=== PATIENT | male | born 1955 | race Caucasian/White ===

== ENCOUNTER → 2022-09-16 | Outpatient (CLI) | payer MEDICARE, OTHER, SELFPAY ==
[2022-09-16 08:59] LABS: AST(SGOT) 26 U/L (15-37); Alanine Aminotransfer ALT/SGPT 38 U/L (16-61); Albumin, Serum 3.6 g/dL (3.2-5.0); Alkaline Phosphatase 50 U/L (45-117); Anion Gap 4 (5-15); BUN 19 mg/dL (7-18); BUN/Creat Ratio 21.6 RATIO (10-20); Calcium,Total 9.1 mg/dL (8.5-10.1); Chloride 108 mmol/L (98-107); Creatinine, Serum 0.88 mg/dL (0.70-1.30); EST Glomerular Filtration Rate 92 mL/min (>60); Est Glom Filt Rate - Afr Amer 111 mL/min (>60); Globulin 3.6 g/dL (2.2-4.2); Glucose 93 mg/dL (74-106); Protein, Total 7.2 g/dL (6.4-8.2); Sodium Level 139 mmol/L (136-145); Uric Acid 5.2 mg/dL (3.5-7.2)
== END | disposition home or self-care (01) ==
PROVIDERS: PCP Family Medicine; Visit Provider Family Medicine
DX: E78.5 Hyperlipidemia, unspecified (principal); M10.9 Gout, unspecified
CPT/HCPCS: 36415; 80053; 84550

== ENCOUNTER 2023-01-28 07:30 | Outpatient (RCR) | payer MEDICARE, OTHER, SELFPAY ==
--- NOTE | 2023-01-06 09:07 | HP.PTEVAL_ITS ---
Patient's Visit Information Visit Information Visit Information: RYAN RODRIGUEZ is a 67 year old M referred to Physical Therapy by Dr. Jl Kirby MD with a diagnosis of WEAKNESS OF RIGHT LOWER LEG ,RIGHT FOOT DROP. Date of Evaluation: 01/06/23 Physical Therapist: Bill Davis, PT, Cert MDT, OCS Visit Plan Frequency: 2x /Week Duration: 4 Weeks Plan: PT INTERVTIONS BLE STRENGTHENING ESPECIALLY QUADS/HIP/ ANKLE ,FLEXABLITY HIP/HAMSTRING/G-S,FUNCTIONAL STRENGTHENING AND BALANCE PROGRAM Subjective Subjective: This 67 y/o male presents to physical therapy with right LE weakness. Patient has had right leg weakness several years .Patient has has knee pain several years need patella surgery. Patient seen DR and has weakness right anterior tibialis. Patient has no pain medication. Patient has no diagnostics, Patient denies paresthesia/tingling . Patient is unable to squat /kneel. Patient has difficulty with stairs . Patient has difficulty with balance . No recent falls. Patient goals to get stronger. Patient condition affects QOL and function. 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 Objective Objective: POSTURE: mild forward posture GAIT: ambulates with slight decrease DF with weakness PROPRIOCEPTION: SLS unable NEURO: intact FLEXABLITY : G-S mod tight ,hamstrings mod ,piriformis mod tight ,IR mod/severe tight STAIRS: one step with rail MMT: ( peak force) quads 33.7 right ,left 32.5 ,hip abduction 20 .4 right ,21.8 left ,anterior tibialis 13.8 ,right ,left 13.2 Special Tests L/S Slump test left side: Negative L/S Slump test right side: Negative L/S Left Straight Leg Raise: Negative L/S Right Straight Leg Raise: Negative Lumbar Standing: Flexion - Mechanical Response: No effect Lumbar Standing: Flexion - Symptoms During Testing: No effect Lumbar Standing: Flexion - Symptoms After Testing: No effect Lumbar Standing: Extension - Mechanical Response: No effect Lumbar Standing: Extension - Symptoms During Testing: No effect Lumbar Standing: Extension - Symptoms After Testing: No effect Lumbar Standing: Right Side Glides - Mechanical Response: No effect Lumbar Standing: Right Side Guthrie - Symptoms During Testing: No effect Lumbar Standing: Right Side Guthrie - Symptoms After Testing: No effect Lumbar Standing: Left Side Guthrie - Mechanical Response: No effect Lumbar Standing: Left Side Guthrie - Symptoms During Testing: No effect Lumbar Standing: Left Side Guthrie - Symptoms After Testing: No effect Balance/Special Test Scores CATSIB Score (Max score 120 seconds): 90 Lower Extremity Functional Score: 35 Goals Goal 1:: Patient to be I with HEP for strengtheming Goal Time Frame: 4-6 Weeks Goal 2:: Patient to improve SLS by 10-20 seconds to improve balance Goal Time Frame: 4-6 Weeks Goal 3:: Patient to improve peak force quads/ankle DF and hip abd by 10-15 # strength to improve gait Goal Time Frame: 4-6 Weeks Goal 4:: Patient to improve LFES score by 5-10points to improve gait Goal Time Frame: 4-6 Weeks Goal 5:: Patient improve gait pattern heel strike 75% by improve DF Rehabilitation Potential Physical Therapy Diagnosis: This patient weakness in BLE hips ,ankle dorsiflexion and quads , balance deficits on uneven surfaces impairs gait thus benefit from skilled PT Rehabilitation Potential: Good Anticipated Interventions Patient/Client Instruction: Educate patient on: Condition and Plan of Care For the Purpose of:: To decrease pain, To increase ROM, To improve muscle performance and motor function, To increase tolerance to activity/condition/position, To improve ability of physical actions for home/community/work/leisure, To improve gait and locomotor functions, To improve health of tissue, To decrease soft tissue restriction, To increase flexibility/ROM, To improve endurance, To improve balance and To improve tolerance to ADL's Therapeutic Exercise to Include: Strength training, Endurance training, Balance training, Postural training, Passive ROM and Active ROM Comment: BLE For the Purpose of:: To decrease pain, To increase ROM, To improve muscle performance and motor function, To improve ability to perform ADL's, To increase tolerance to activity/condition/position, To improve ability of physical actions for home/community/work/leisure, To improve gait and locomotor functions, To improve health of tissue, To decrease soft tissue restriction, To increase flexibility/ROM, To improve endurance and To improve balance Text: Thank you for the opportunity to evaluate your patient. For Medicare and Medicare HMO plans, please review the plan of care and approve it. It will need to be FAXED BACK to us at [phone] for Medicare purposes. For Medicare only, by signing this I certify the plan of care. Please let me know if there are questions or concerns regarding this plan of care. Physician Signature: Date:
== END 2023-01-28 19:00 | disposition home or self-care (01) ==
LOC: PT 07:30
PROVIDERS: PCP Internal Medicine; Referring Provider Family Medicine; Visit Provider Family Medicine
DX: R29.898 Other symptoms and signs involving the musculoskeletal system (principal); M21.371 Foot drop, right foot
CPT/HCPCS: 97110; 97162

== ENCOUNTER → 2023-05-04 | Outpatient (CLI) | payer MEDICARE, OTHER, SELFPAY ==
[2023-05-04 12:33] LABS: Absolute Lymphocyte Count 0.93 X10^3/uL (0.83-4.51); Absolute Neutrophil Count 2.7 X10^3/uL (2.0-7.7); Basophil# 0.07 X10^3/uL; Basophil% 1.6 % (0-1); Eosinophil# 0.19 X10^3/uL; Eosinophils% 4.3 % (0-5); Hematocrit 48.3 % (40-54); Lymphocyte # 0.93 X10^3/ul (0.83-4.51); Mean Corp Hgb Conc 33.1 g/dL (32-36); Mean Corpuscular Hgb 32.7 pg (27.0-32.0); Mean Corpuscular Volume 98.6 fL (80-94); Mean Platelet Vol. 9.2 fl (6.2-12.0); Monocyte# 0.56 X10^3/uL; Monocyte% 12.6 % (0-10); NRBC Flagged by Analyzer 0 % (0-5); Neutrophil # 2.66 X10^3/uL (2.7-7.7); Platelet Count 227 K/mm3 (150-450); RBC Distribution Width CV 12.8 % (11.6-14.6); White Blood Count 4.4 K/mm3 (4.4-11.0)
[2023-05-04 13:30] LABS: AST(SGOT) 24 U/L (15-37); Alanine Aminotransfer ALT/SGPT 51 U/L (16-61); Albumin, Serum 3.6 g/dL (3.2-5.0); Alkaline Phosphatase 60 U/L (45-117); Anion Gap 4 (5-15); BUN 16 mg/dL (7-18); BUN/Creat Ratio 18.8 RATIO (10-20); Calcium,Total 8.8 mg/dL (8.5-10.1); Chloride 111 mmol/L (98-107); Cholesterol 128 mg/dL (200); Creatinine, Serum 0.85 mg/dL (0.70-1.30); EST Glomerular Filtration Rate 95 mL/min (>60); Est Glom Filt Rate - Afr Amer 115 mL/min (>60); Globulin 3.6 g/dL (2.2-4.2); Glucose 104 mg/dL (74-106); High Density Lipoprotein 33 mg/dL; Protein, Total 7.2 g/dL (6.4-8.2); Sodium Level 142 mmol/L (136-145); Triglycerides 65 mg/dL; Uric Acid 4.5 mg/dL (3.5-7.2); Very Low Density Lipoprotein 13 mg/dL (5-40)
[2023-05-04 14:56] LABS: Vitamin D,25 Hydroxy 45.1 ng/mL
== END | disposition home or self-care (01) ==
LOC: BIMLAB 09:35
PROVIDERS: PCP Internal Medicine; Visit Provider Internal Medicine
DX: E55.9 Vitamin D deficiency, unspecified (principal); I10 Essential (primary) hypertension; Z12.5 Encounter for screening for malignant neoplasm of prostate
CPT/HCPCS: 36415; 80053; 80061; 82306; 84153; 84550; 85025; G0103

== ENCOUNTER → 2023-11-11 | Outpatient (CLI) | payer MEDICARE, OTHER, SELFPAY | END | disposition home or self-care (01) | LOC: SL 19:57 | PROVIDERS: PCP Internal Medicine; Referring Provider Internal Medicine; Visit Provider Internal Medicine | DX: G47.33 Obstructive sleep apnea (adult) (pediatric) (principal) | CPT/HCPCS: 95811 ==

== ENCOUNTER 2023-12-02 08:00 | Outpatient (RCR) | payer MEDICARE, OTHER, SELFPAY ==
--- NOTE | 2023-11-09 10:23 | HP.PTEVAL ---
Patient's Visit Information Visit Information Visit Information: RYAN RODRIGUEZ is a 68 year old M referred to Physical Therapy by Dr. Niurka Lopes DPM with a diagnosis of Drop foot.. Date of Evaluation: 11/09/23 Physical Therapist: Violet Silver MPT Visit Plan Frequency: 2x /Week Duration: 2 Months Plan: 2X/ week for 8 weeks for B ankle stretching (active and passive), strengthening, gait training, balance (EO//EC, foam. vestibular inputs, hip strength (avoid leg extension and leg presses due to bad knees, with HEP) HEP: sit to stand 2 X 5 with weight shift FW, gastroc towel stretch, seated heel and toe raises Subjective Subjective: Pt has been struggling with R foot dropping when he walks. His foot Dr thinks that we can help him out. He was here for balance not too long ago but he had to stop due to injury to his knee. He is a prime candidate for knee cap replacement but does not want surgery. He thinks that single leg press aggravated his knee. He just moved here and getting caught up and he is retired. Dr feels that he has muscle weakness in his shins. Now he can hardly move his feet. His balance is the worst when he gets up in the morning and sometimes he keeps stepping BW to catch himself. He has to reach to the floor slowly to prevent him from falling over. He has stairs. Objective Objective: Gait: Walks with wider ANIYA and decrease heel to to gait pattern especially on the R Not able tp stand greater than 1 sec SLB B LE MMT: R hip flex 15.3 and L 16.4 R knee ext 28.5 and L 30.7 R knee flex 14.6 and L 14.4 R DF 4 and L 10.3 R PF 11.4 and L 13.6 Pt is unable to toe raise B. He is able to heel raise B with 1/2 normal ROM FGA 13 CATSIB 70/120 Sit to stand: is able to get up on first attempt put does use UE at times. Pt has decrease ankle DF B worse on the R compared to the L Balance/Special Test Scores Functional Gait Assessment Score: 13 % Disability: 56.6700 CATSIB Score (Max score 120 seconds): 70 Lower Extremity Functional Score: 48 Goals Goal 1:: I HEP Goal Time Frame: 6-8 Weeks Goal 2:: Increase CATSIB (score at eval was 70) Goal Time Frame: 6-8 Weeks Goal 3:: Increase R ankle AROM to be able to raise to neutral against gravity in a sitting position Goal Time Frame: 6-8 Weeks Goal 4:: Be able to walk with more of a heel to toe gait pattern without having toe slap. Goal Time Frame: 6-8 Weeks Rehabilitation Potential Rehabilitation Potential: Good Anticipated Interventions Patient/Client Instruction: Educate patient on: Condition and Plan of Care For the Purpose of:: To decrease pain, To increase ROM, To improve nutrient delivery to tissue, To improve muscle performance and motor function, To improve ability to perform ADL's, To increase tolerance to activity/condition/position, To improve performance and independence with ADL's, To decrease level of supervision to perform tasks, To improve ability of physical actions for home/community/work/leisure, To improve gait and locomotor functions, To improve health of tissue, To decrease soft tissue restriction and To increase flexibility/ROM Therapeutic Exercise to Include: Strength training, Balance training, Postural training, Flexibilty training, Gait and locomotor training, Neuromotor development, Passive ROM and Active ROM For the Purpose of:: To decrease pain, To increase ROM, To improve nutrient delivery to tissue, To improve muscle performance and motor function, To improve ability to perform ADL's, To increase tolerance to activity/condition/position, To improve performance and independence with ADL's, To decrease level of supervision to perform tasks, To improve gait and locomotor functions, To improve health of tissue, To decrease soft tissue restriction, To increase flexibility/ROM, To improve balance and To improve safety with gait Functional Training to Include: Gait training For the Purpose of:: To improve gait and locomotor functions and To improve safety with gait Manual Therapy Techniques to Include: Mobilization, Passive ROM and Soft tissue mobilization For the Purpose of:: To increase ROM, To improve nutrient delivery to tissue, To improve muscle performance and motor function, To improve ability to perform ADL's, To improve performance and independence with ADL's, To decrease level of supervision to perform tasks, To improve ability of physical actions for home/community/work/leisure, To improve gait and locomotor functions, To improve health of tissue, To increase flexibility/ROM, To improve balance and To improve safety with gait Text: Thank you for the opportunity to evaluate your patient. For Medicare and Medicare HMO plans, please review the plan of care and approve it. It will need to be FAXED BACK to us at [phone] for Medicare purposes. For Medicare only, by signing this I certify the plan of care. Please let me know if there are questions or concerns regarding this plan of care. Physician Signature: Date:
--- NOTE | 2024-01-21 13:28 | HP.PT.NRP ---
Patient Information Patient Information: RYAN RODRIGUEZ was seen in my office for initial evaluation on 11/09/23. The following Plan of Care was established for this patient: POC Established Initial Frequency: 2x /Week Initial Duration: 2 Months Anticipated Interventions Patient/Client Instruction: Educate patient on: Condition and Plan of Care For the Purpose of:: To decrease pain, To increase ROM, To improve nutrient delivery to tissue, To improve muscle performance and motor function, To improve ability to perform ADL's, To increase tolerance to activity/condition/position, To improve performance and independence with ADL's, To decrease level of supervision to perform tasks, To improve ability of physical actions for home/community/work/leisure, To improve gait and locomotor functions, To improve health of tissue, To decrease soft tissue restriction and To increase flexibility/ROM Therapeutic Exercise to Include: Strength training, Balance training, Postural training, Flexibilty training, Gait and locomotor training, Neuromotor development, Passive ROM and Active ROM For the Purpose of:: To decrease pain, To increase ROM, To improve nutrient delivery to tissue, To improve muscle performance and motor function, To improve ability to perform ADL's, To increase tolerance to activity/condition/position, To improve performance and independence with ADL's, To decrease level of supervision to perform tasks, To improve gait and locomotor functions, To improve health of tissue, To decrease soft tissue restriction, To increase flexibility/ROM, To improve balance and To improve safety with gait Functional Training to Include: Gait training For the Purpose of:: To improve gait and locomotor functions and To improve safety with gait Manual Therapy Techniques to Include: Mobilization, Passive ROM and Soft tissue mobilization For the Purpose of:: To increase ROM, To improve nutrient delivery to tissue, To improve muscle performance and motor function, To improve ability to perform ADL's, To improve performance and independence with ADL's, To decrease level of supervision to perform tasks, To improve ability of physical actions for home/community/work/leisure, To improve gait and locomotor functions, To improve health of tissue, To increase flexibility/ROM, To improve balance and To improve safety with gait Last Seen Last Seen: This patient was last seen in our office 12/02/23. Pertinent comments regarding their Physical therapy will appear below: CARA PT At this point I will be discontinuing this patient from physical therapy. I would be happy to see this patient again in the future if found appropriate by the physician. Thank you! Violet Silver, PANFILO Balance/Gait/Functional tests Balance/Special Test Scores Functional Gait Assessment Score: 13 % Disability: 56.6700 CATSIB Score (Max score 120 seconds): 70 Lower Extremity Functional Score: 48
== END 2023-12-02 19:00 | disposition home or self-care (01) ==
LOC: PT 08:00
PROVIDERS: PCP Internal Medicine; Referring Provider Podiatrist; Visit Provider Podiatrist
DX: M21.379 Foot drop, unspecified foot (principal)
CPT/HCPCS: 97110; 97162

== ENCOUNTER 2024-02-09 09:53 | Emergency (ER) | payer MEDICARE, OTHER, SELFPAY ==
[2024-02-09] VITALS (8 sets, daily range): BP systolic 122–142; BP diastolic 84–103; PULSE 59–67; RESP 17–22; TEMP 36; O2SAT 94–97
--- NOTE | 2024-02-09 10:13 | EKG12_ITS ---
Test Reason : CP Blood Pressure : / mmHG Vent. Rate : 061 BPM Atrial Rate : 061 BPM P-R Int : 182 ms QRS Dur : 096 ms QT Int : 402 ms P-R-T Axes : 047 -02 044 degrees QTc Int : 404 ms Normal sinus rhythm Minimal voltage criteria for LVH, may be normal variant ( R in aVL ) Borderline ECG Confirmed by FLOR VALERA, TANYA ([id number]), photo editor ASHLYN SAWYER ([id number]) on 02/11/2024 10:21:59 AM Referred By: YG/RAINA Confirmed By:OCTAVIA RAY MD
--- NOTE | 2024-02-09 10:15 | ED.VIS.CHEST ---
HPI History of Present Illness Chief Complaint: Chest Pain Narrative Narrative: 69-year-old male past medical history of hypertension, obstructive sleep apnea presents with right-sided chest pain more right thoracic chest wall pain that has had since Wednesday. His pain started almost 5 days ago after he was carrying 80 pound bags of cement and working with his hands a lot. He had decided to put in a concrete pad by himself. He has developed he felt was right anterior rib pain, and right thoracic back pain between his spine and shoulder blade. He denies any fever or chills, no nausea or vomiting, no shortness of breath, no tearing sensation in his back. Sometimes it is worse when he moves either of his arms, especially the the right 1. However, currently his pain-free. He had gone to the [facility], who told him to report to the emergency department because he thought that he was having anterior rib pain and chest pain as well. [facility] Medical History Personal history of colonic polyps Chronic sinusitis Hypertension History of gallstones Arthritis History of kidney stones Gout Home Medications ?Medication ?Instructions ?Recorded ?Last Taken ?Type cholecalciferol (vitamin D3) 50 50 mcg PO DAILY 12/24/22 Unknown History mcg (2,000 unit) capsule coenzyme Q10 75 mg capsule (Ultra 75 mg PO DAILY 12/24/22 Unknown History CoQ10) multivitamin 1 tab PO DAILY 12/24/22 Unknown History saw palmetto 500 mg capsule 500 mg PO BID 12/24/22 Unknown History glucosamine sulfate 1,500 mg oral mg PO DAILY 05/04/23 Unknown History powder packet allopurinol 300 mg tablet 300 mg PO DAILY 11/01/23 Unknown History fexofenadine 180 mg tablet 180 mg PO DAILY #5 tabs 12/08/23 Unknown Rx (Suzanne Allergy) fluticasone propionate 50 1 spray intranasal BID PRN allergy 01/19/24 Unknown Rx mcg/actuation nasal symptoms #32 grams spray,suspension (Allergy Relief (fluticasone)) lisinopril 40 mg tablet 40 mg PO DAILY #90 tabs 01/19/24 Unknown Rx cyclobenzaprine 10 mg tablet 10 mg PO TID PRN Muscle Spasm #12 02/09/24 Unknown Rx TABLETS naproxen 375 mg tablet 375 mg PO BID PRN pain #20 tabs 02/09/24 Unknown Rx Allergy/AdvReac Type Severity Reaction Status Date / Time bismuth subsalicylate (From AdvReac Itching Verified 12/08/23 07:59 Pepto-Bismol) clarithromycin AdvReac Itching Verified 12/08/23 07:59 Family History Brother Alcohol abuse Father Arthritis CVA (cerebral vascular accident) Mother Arthritis Diabetes Myocardial infarction Other Heart disease Hypertension Surgical History Hx of colonoscopy History of surgical procedure H/O cystoscopy S/P arthroscopic surgery of right knee History of cholecystectomy H/O vasectomy Social History household members: spouse current occupational status: retired 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[employer] Smoking Status: Never smoker Electronic Cigarette Use: not used alcohol intake: former details: quit substance use type: does not use do you feel safe at home: Yes ROS ROS ED ROS Narrative Constitutional: No fever, no chills. HEENT: No sore throat. No neck pain. No loss of vision. No rhinorrhea. Cardiovascular: Positive for right anterior rib pain/chest pain. No palpitations. No pedal edema. Respiratory: No cough, no shortness of breath. Abdominal: No abdominal pain. No nausea. No vomiting. Genitourinary: No dysuria. No hematuria. Musculoskeletal: Positive for right thoracic back pain/rhomboid pain, worse with movement of arms. No arthralgias. Neurologic: No headaches. No dizziness. No lightheadedness. Skin: No rash. No change in color. Psychiatric: No depression. No anxiety. EXAM Physical Exam Narrative Exam Narrative: Afebrile. Vital signs noted. HEENT: Normocephalic. Atraumatic. PERRL, EOMI. Neck soft and supple. No point tenderness or step off. Cardiovascular: Regular rate and rhythm. No murmurs, rubs, or gallops appreciated. No right anterior rib pain or crepitance. Respiratory: No tachypnea. Lungs clear to auscultation bilaterally. Gastrointestinal: Abdomen soft, nontender, with normoactive bowel sounds. No rebound or guarding. Neurological: Awake. Alert. Nonfocal, nonlateralizing. Skin: No rash. Normal color. No pallor. Musculoskeletal: No pedal edema. Full range of motion extremities. Mild tenderness palpation right rhomboid area, no crepitance. Const Vital Signs: 02/09/24 09:53 02/09/24 10:27 02/09/24 10:27 Temperature 96.8 F L Temperature Source Temporal Pulse Rate 66 67 Respiratory Rate 20 H 20 H Blood Pressure 142/86 H 135/84 H Blood Pressure Mean 104 101 Pulse Ox 97 94 Oxygen Delivery Method Room Air Room Air Room Air MDM MDM MDM Narrative Medical decision making narrative: Differential diagnosis includes but not limited to ACS versus pneumothorax versus pneumonia versus aortic dissection. I have very low suspicion for aortic dissection because his pain is reproducible on the right side/rhomboid area. I feel it is more of a muscle strain. Additionally, he has been having the pain since Wednesday. I have lower suspicion for pneumothorax and pneumonia as well because the history and physical does not support this. Additionally, I have low suspicion for rib fracture because he has not had trauma. He probably has more rib strain/intercostal strain as well, but is currently pain-free. I do not feel he requires serial enzymes. EKG had been obtained and interpreted by myself independently as normal sinus rhythm at 61 bpm without ectopy or acute ST changes. No STEMI. X-ray obtained of the chest in 1 view interpreted by myself independently shows no evidence of pneumothorax or pneumonia. I reviewed the radiology report which confirms my independent interpretation. Reviewed his laboratory work demonstrates normal white count of 4.6 with hemoglobin normal at 15.1, hematocrit 43.7. Platelet count normal at 181. Electrolyte panel is significant for chloride of 109, glucose normal at 109, BUN normal at 16 with creatinine 0.98. High-sensitivity troponin is normal at 10. Once again, I do not feel he needs serial enzymes. Repeat examination shows him resting comfortably on the cot. I feel he can be discharged to follow-up. I wrote him a prescription for a few 375 mg naproxen tablets as well as Flexeril 10 mg #12. He has an appropriate blood pressure here in the emergency department. He will follow-up with his primary care provider. Return instructions reviewed. Disposition is discharged home in stable condition. History & Record Review Discussion w/independent historian: Patient Lab Data Attestation: I reviewed the patient's lab results. Labs: Laboratory Results - last 24 hr 02/09/24 10:09 WBC 4.6 RBC 4.60 Hgb 15.1 Hct 43.7 MCV 95.0 H MCH 32.8 H MCHC 34.6 RDW Std Deviation 46.6 H RDW Coeff of Rasta 13.5 Plt Count 181 MPV 8.7 Immature Gran % (Auto) 0.700 Neut % (Auto) 65.9 Lymph % (Auto) 17.[address] [place] % (Auto) 12.0 H Eos % (Auto) 2.8 Baso % (Auto) 0.9 Absolute Neuts (auto) 3.0 Absolute Lymphs (auto) 0.81 L Nucleated RBC % 0 Sodium 141 Potassium 4.1 Chloride 109 H Carbon Dioxide 28.0 Anion Gap 4 L BUN 16 Creatinine 0.98 Est GFR (MDRD) Af Amer 97 Est GFR (MDRD) Non-Af 80 BUN/Creatinine Ratio 16.3 Glucose 109 H Calcium 8.7 Troponin I High Sens 10 Radiography Chest X-Ray - ED: Read by ED Physician and Read by Radiologist Diagnostic Testing: Clinical Impression(s) from Imaging Studies Chest X-Ray 02/09/24 10:20 IMPRESSION: Normal x-ray examination of the chest. Electronically Signed: Jose Salinas MD at 10:36 EDT , Discharge Plan Triage Chief Complaint: Chest Pain ED Provider: Anjel Cervantes Dx/Rx/DC Orders Clinical Impression: Strain of right rhomboid muscle, Chest pain Instructions: ED Chest Pain, Noncardiac, ED Back Sprain/Strain Prescriptions: New naproxen 375 mg tablet 375 mg PO BID PRN (Reason: pain) Qty: 20 0RF cyclobenzaprine 10 mg tablet 10 mg PO TID PRN (Reason: Muscle Spasm) Qty: 12 0RF No Action multivitamin Tablet 1 tab PO DAILY cholecalciferol (vitamin D3) 50 mcg (2,000 unit) capsule 50 mcg PO DAILY saw palmetto 500 mg capsule 500 mg PO BID Rx Instructions: give with food (meal/snack) Ultra CoQ10 75 mg capsule 75 mg PO DAILY glucosamine sulfate 1,500 mg powder in packet PO DAILY allopurinol 300 mg tablet 300 mg PO DAILY fexofenadine [Suzanne Allergy] 180 mg tablet 180 mg PO DAILY Qty: 5 0RF lisinopril 40 mg tablet 40 mg PO DAILY Qty: 90 1RF fluticasone propionate [Allergy Relief (fluticasone)] 50 mcg/actuation spray,suspension 1 spray intranasal BID PRN (Reason: allergy symptoms) Qty: 32 1RF Rx Instructions: administer into each nostril Primary Care Provider: Era Driscoll Referrals: Era Driscoll MD [Primary Care Provider] - 3-5 Days if not improving Activity Restrictions/Additional Instructions: Return with increased pain, new or worsening symptoms. Print Language: Georgian Disposition Disposition: Home, Self Care
--- NOTE | 2024-02-09 10:16 | NURSING ---
NO OLD EKGS
--- NOTE | 2024-02-09 10:20 | RAD_ITS ---
STUDY: X-RAY CHEST REASON FOR EXAM: Male, 69 years old. chest pain TECHNIQUE: Single AP portable view of the chest. COMPARISON: None. FINDINGS: The lungs are clear and expanded. There is no demonstrated pleural abnormality. Normal size heart. Normal mediastinum and celeste. Normal visualized pulmonary arteries. Normal visualized aortic arch and descending thoracic aorta. Normal visualized thoracic spine. Normal visualized ribs, clavicles, and shoulders. There is no demonstrated abnormality of the visualized soft tissue structures of the upper abdomen. RAD/Chest 1 View (Portable) IMPRESSION: Normal x-ray examination of the chest. Electronically Signed: Jose Salinas MD at 10:36 EDT ,
[2024-02-09 10:23] LABS: Absolute Lymphocyte Count 0.81 X10^3/uL (0.83-4.51); Basophil# 0.04 X10^3/uL; Basophil% 0.9 % (0-1); Eosinophil# 0.13 X10^3/uL; Eosinophils% 2.8 % (0-5); Hematocrit 43.7 % (40-54); Hemoglobin 15.1 g/dL (13.0-16.5); Lymphocyte # 0.81 X10^3/ul (0.83-4.51); Lymphocyte % 17.7 % (19-41); Mean Corp Hgb Conc 34.6 g/dL (32-36); Mean Corpuscular Hgb 32.8 pg (27.0-32.0); Mean Platelet Vol. 8.7 fl (6.2-12.0); Monocyte# 0.55 X10^3/uL; NRBC Flagged by Analyzer 0 % (0-5); Neutrophil # 3.02 X10^3/uL (2.7-7.7); Neutrophil % 65.9 % (47-70); Platelet Count 181 K/mm3 (150-450); RBC Distribution Width CV 13.5 % (11.6-14.6); RBC Distribution Width SD 46.6 fl (35.1-43.9); White Blood Count 4.6 K/mm3 (4.4-11.0)
[2024-02-09 10:44] LABS: Anion Gap 4 (5-15); BUN 16 mg/dL (7-18); BUN/Creat Ratio 16.3 RATIO (10-20); Calcium,Total 8.7 mg/dL (8.5-10.1); Chloride 109 mmol/L (98-107); Creatinine, Serum 0.98 mg/dL (0.70-1.30); EST Glomerular Filtration Rate 80 mL/min (>60); Est Glom Filt Rate - Afr Amer 97 mL/min (>60); Glucose 109 mg/dL (74-106); Potassium 4.1 mmol/L (3.5-5.1); Sodium Level 141 mmol/L (136-145); Troponin-I HS 10 pg/mL (3.0-78.0)
== END 2024-02-09 11:22 | disposition home or self-care (01) ==
PROVIDERS: Emergency Provider Emergency Medicine; PCP Internal Medicine; Visit Provider Emergency Medicine
DX: S29.012A Strain of muscle and tendon of back wall of thorax, initial encounter (principal); R07.9 Chest pain, unspecified; I10 Essential (primary) hypertension; G47.33 Obstructive sleep apnea (adult) (pediatric); Z79.899 Other long term (current) drug therapy; X58.XXXA Exposure to other specified factors, initial encounter
CPT/HCPCS: 71045; 80048; 84484; 85025; 93005; 99284; A4216

== ENCOUNTER → 2024-02-25 | Outpatient (CLI) | payer MEDICARE, OTHER, SELFPAY ==
--- NOTE | 2024-02-25 10:40 | RAD_ITS ---
STUDY: X-RAY - THORACIC SPINE REASON FOR EXAM: Male, 69 years old. Back pain. TECHNIQUE: 3 view(s) of the thoracic spine were obtained. COMPARISON: None. FINDINGS: Osteopenia. Slight increased kyphosis. No scoliosis. Loss of height of multiple vertebral bodies. Diffuse mild intervertebral disc space narrowing with small osteophytes most marked in the mid thoracic spine. Normal soft tissues. RAD/Thoracic Spine 2 Views IMPRESSION: Osteopenia with multiple vertebral bodies with loss of height and mild diffuse thoracic spondylosis as described. Electronically Signed: Rich Perez MD at 10:29 EDT ,
== END | disposition home or self-care (01) ==
PROVIDERS: PCP Internal Medicine; Referring Provider Family Medicine; Visit Provider Family Medicine
DX: M54.9 Dorsalgia, unspecified (principal)
CPT/HCPCS: 72070

== ENCOUNTER → 2024-08-14 | Outpatient (CLI) | payer MEDICARE, OTHER, SELFPAY ==
[2024-08-14 10:36] LABS: Absolute Lymphocyte Count 1.01 X10^3/uL (0.83-4.51); Absolute Neutrophil Count 2.5 X10^3/uL (2.0-7.7); Basophil# 0.06 X10^3/uL; Basophil% 1.4 % (0-1); Eosinophil# 0.19 X10^3/uL; Eosinophils% 4.3 % (0-5); Hematocrit 47.5 % (40-54); Hemoglobin 15.8 g/dL (13.0-16.5); Lymphocyte # 1.01 X10^3/ul (0.83-4.51); Lymphocyte % 22.7 % (19-41); Mean Corp Hgb Conc 33.3 g/dL (32-36); Mean Corpuscular Hgb 32.4 pg (27.0-32.0); Mean Corpuscular Volume 97.5 fL (80-94); Mean Platelet Vol. 8.9 fl (6.2-12.0); Monocyte# 0.61 X10^3/uL; Monocyte% 13.7 % (0-10); NRBC Flagged by Analyzer 0 % (0-5); Neutrophil # 2.53 X10^3/uL (2.7-7.7); Platelet Count 185 K/mm3 (150-450); RBC Distribution Width CV 13.3 % (11.6-14.6); RBC Distribution Width SD 48.2 fl (35.1-43.9); Red Blood Count 4.87 M/mm3 (4.6-6.2); White Blood Count 4.4 K/mm3 (4.4-11.0)
[2024-08-14 11:18] LABS: AST(SGOT) 33 U/L (15-37); Alanine Aminotransfer ALT/SGPT 59 U/L (16-61); Albumin, Serum 3.4 g/dL (3.2-5.0); Alkaline Phosphatase 44 U/L (45-117); Anion Gap 5 (5-15); BUN 17 mg/dL (7-18); BUN/Creat Ratio 19.3 RATIO (10-20); Calcium,Total 9.2 mg/dL (8.5-10.1); Chloride 112 mmol/L (98-107); Cholesterol 134 mg/dL (200); Creatinine, Serum 0.88 mg/dL (0.70-1.30); EST Glomerular Filtration Rate 91 mL/min (>60); Est Glom Filt Rate - Afr Amer 110 mL/min (>60); Globulin 3.5 g/dL (2.2-4.2); Glucose 93 mg/dL (74-106); High Density Lipoprotein 32 mg/dL; Potassium 4.1 mmol/L (3.5-5.1); Protein, Total 6.9 g/dL (6.4-8.2); Sodium Level 142 mmol/L (136-145); Triglycerides 109 mg/dL; Uric Acid 4.4 mg/dL (3.5-7.2); Very Low Density Lipoprotein 22 mg/dL (5-40)
== END | disposition home or self-care (01) ==
LOC: BIMLAB 08:19
PROVIDERS: PCP Internal Medicine; Referring Provider Internal Medicine; Visit Provider Internal Medicine
DX: I10 Essential (primary) hypertension (principal); M10.9 Gout, unspecified
CPT/HCPCS: 36415; 80053; 80061; 84550; 85025

== ENCOUNTER → 2024-08-23 | Outpatient (CLI) | payer MEDICARE, OTHER, SELFPAY ==
[2024-08-24 15:07] LABS: Endomysial Antibody IgA Negative (Negative); Immunoglobulin A 239 mg/dL (61-437); t-Transglutaminase IgA <2 U/mL (0-3)
== END | disposition home or self-care (01) ==
LOC: BIMLAB 09:32
PROVIDERS: PCP Internal Medicine; Referring Provider Internal Medicine; Visit Provider Internal Medicine
DX: R14.0 Abdominal distension (gaseous) (principal); K59.00 Constipation, unspecified
CPT/HCPCS: 36415; 82784; 83516; 86255

== ENCOUNTER → 2024-09-13 | Outpatient (CLI) | payer MEDICARE, OTHER, SELFPAY ==
--- NOTE | 2024-09-13 08:15 | CT_ITS ---
PROCEDURE: ABDOMEN/PELVIS WITH CONTRAST REASON FOR EXAM: Abdominal bloating for 2 months. TECHNIQUE: Abdomen and pelvis CT without intravenous contrast. COMPARISON: None. FINDINGS: Coronary artery calcification. Lung bases: There are increased markings at the lung bases suggestive of atelectasis and/or scarring. Liver: Diffuse fatty infiltration. Gallbladder: Unremarkable. Spleen: Unremarkable. Pancreas: Unremarkable. Adrenals: Unremarkable. Kidneys: There are multiple right renal cysts. The largest cyst measures 4.6 cm by 4.3 cm. Nonobstructive 5 mm calculus in the lower pole calyx of the left kidney. There is a 1.4 cm calculus in the left renal pelvis causing a mild degree of left hydronephrosis. Scattered nonobstructive left intrarenal calculi. The largest calculus is in the lower pole and measures 5.9 mm. Bladder: Mild degree of diffuse urinary bladder wall thickening. Reproductive Organs: Unremarkable. Bowel: Unremarkable. Appendix: Normal. Lymph nodes: No suspicious lymph node enlargement. Vasculature: Mild diffuse atherosclerotic calcifications of the abdominal aorta and the major visceral branches are noted. A calcified phlebolith is seen in the right hemipelvis. Peritoneum / Retroperitoneum: No ascites. No free air. Bones: Degenerative changes of the spine. CT/Abdomen/Pelvis WITH Contrast IMPRESSION: Fatty infiltration of the liver. Status post cholecystectomy. Bilateral renal cysts. Bilateral intrarenal calculi. 1.4 cm calculus in the left renal pelvis at the ureteropelvic junction causing mild degree of left hydronephrosis. One or more dose reduction techniques were used (e.g., Automated exposure contr ol, adjustment of the mA and/or kV according to patient size, use of iterative reconstruction technique). Reading Location: [id number]
== END | disposition home or self-care (01) ==
PROVIDERS: PCP Internal Medicine; Referring Provider Internal Medicine; Visit Provider Internal Medicine
DX: R20.2 Paresthesia of skin (principal); R20.0 Anesthesia of skin
CPT/HCPCS: 74177; 95886; 95911; Q9967

== ENCOUNTER → 2024-10-09 | Outpatient (CLI) | payer MEDICARE, OTHER, SELFPAY | END | disposition home or self-care (01) | LOC: LABSPEC 16:25 | PROVIDERS: PCP Internal Medicine; Referring Provider Urology; Visit Provider Urology | DX: Z87.442 Personal history of urinary calculi (principal) | CPT/HCPCS: 82360 ==

== ENCOUNTER 2024-12-21 07:59 | Day surgery (SDC) | payer MEDICARE, OTHER, SELFPAY ==
--- NOTE | 2024-12-19 12:56 | PAT.ANESEVAL ---
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 When Was Last Pacemaker Check QUESTION #4 FULL TEXT: You/Your Family Experience fever (hyperthermia) with Anesthesia Last Oral Intake Last Oral intake: Last Oral Intake NPO since Meds taken in AM with sips of water? Meds patient instructed to take am of surgery PONV PONV - senior maintenance technician: PONV - senior maintenance technician Female No 12/19/24 11:52 HX of Motion Sickness No 12/19/24 11:52 HX of N/V After Surgery No 12/19/24 11:52 Non-Smoker Yes 12/19/24 11:52 Duration of Surgery greater No 12/19/24 11:52 than 60 minutes Number of Risk Factors 1 12/19/24 11:52 PONV Score Low Risk 12/19/24 11:52 Height & Weight Height & Weight: Anesthesia: Height & Weight Height 6 ft 10/04/24 08:37 Respiratory Assessment Respiratory Assessment - senior maintenance technician: Respiratory Tract Infection Hx - senior maintenance technician Hx Respiratory Tract Infection No 12/19/24 11:52 STOP Sleep Apnea STOP Sleep Apnea - senior maintenance technician: STOP Sleep Apnea - senior maintenance technician Hx Hypertension Yes: CONTROLLED WITH MED 12/19/24 11:52 Hx Sleep Apnea Yes 12/19/24 11:52 CPAP No 12/19/24 11:52 BIPAP Yes 12/19/24 11:52 Do you snore loudly (louder than talking or can be heard Do you often feel tired/ fatigued/ sleepy during daytime? Has anyone observed you stop breathing during sleep? STOP Results Positive 12/19/24 11:52 QUESTION #5 FULL TEXT : Do you snore loudly (louder than talking or can be heard through closed doors)? 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 Specify any problems Hx of Preganancy in last 3 N/A 12/19/24 11:52 Months Nurse Filling Out Transfusion DSCHRIBER 12/19/24 11:52 & Questions: Date: 12/19/24 12/19/24 11:52 Time: 11:53 12/19/24 11:52 Patient unable to answer at this time (ie. confused, unrespo /Reproduction History /Reproductive History - senior maintenance technician: /Reproductive Hx- senior maintenance technician Hx Now No 12/19/24 11:52 Gestational Age (in weeks): EDC: Hx Hx Para Hx Section SAB No 12/19/24 11:52 PFS Medical History (Updated 12/19/24 @ 11:58 by Patrizia Hanley) Loss of hearing DDD (degenerative disc disease), lumbar DDD (degenerative disc disease), cervical Gastric reflux BiPAP (biphasic positive airway pressure) dependence Non-smoker History of pain when walking History of edema History of stress test Hypertension Arthritis Gout Home Medications ?Medication ?Instructions ?Recorded ?Last Taken ?Type cholecalciferol (vitamin D3) 50 50 mcg PO DAILY 12/24/22 Unknown History mcg (2,000 unit) capsule coenzyme Q10 75 mg capsule (Ultra 75 mg PO DAILY 12/24/22 Unknown History CoQ10) multivitamin 1 tab PO DAILY 12/24/22 Unknown History fexofenadine 180 mg tablet 180 mg PO DAILY PRN ALERGIES 02/24/24 Unknown History (Suzanne Allergy) fluticasone propionate 50 1 spray intranasal BID PRN allergy 06/19/24 Unknown Rx mcg/actuation nasal symptoms #32 grams spray,suspension (Allergy Relief (fluticasone)) allopurinol 300 mg tablet 300 mg PO DAILY #90 tabs 09/25/24 Unknown Rx lisinopril 20 mg tablet 20 mg PO DAILY #90 tabs 11/22/24 Unknown Rx pantoprazole 40 mg tablet,delayed 40 mg PO QDAY #30 tabs 11/22/24 Unknown Rx release epkch-o-vpumarwteipgn 450 unit 900 unit PO DAILY PRN indigestion 12/19/24 Unknown History disintegrating tablet (Beano) glucosamine sulf dipot 1 cap PO BID 12/19/24 Unknown History chlr,msm,chond 550 mg-C 30 mg-jeremias 1 mg capsule (Glucosamine Chondroitin) simethicone 250 mg capsule (Gas-X) 250 mg PO QHS PRN abdominal 12/19/24 Unknown History distention Allergy/AdvReac Type Severity Reaction Status Date / Time bismuth subsalicylate (From AdvReac Itching Verified 12/19/24 11:49 Pepto-Bismol) clarithromycin AdvReac Itching Verified 12/19/24 11:49 Family History Brother Alcohol abuse Father Arthritis CVA (cerebral vascular accident) Mother Arthritis Diabetes Myocardial infarction Other Heart disease Hypertension Surgical History (Updated 12/19/24 @ 11:58 by Patrizia Hanley) Hx of lithotripsy Hx of colonoscopy History of surgical procedure H/O cystoscopy S/P arthroscopic surgery of right knee History of cholecystectomy H/O vasectomy Social History household members: spouse current occupational status: retired 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 Normal sinus rhythm. 61 bpm. Recommendation Anesthesia Recommendation Anesthesia recommendation: OPTIMIZED for anesthesia
[2024-12-21] VITALS (7 sets, daily range): BP systolic 89–123; BP diastolic 56–95; PULSE 60–72; RESP 14–16; TEMP 36.3–36.8; O2SAT 94–97; BMI 39.9
--- NOTE | 2024-12-21 08:24 | PRE.ANES_ITS ---
ASA Classification* ASA Classification ASA Classification: 3 Assessment & Plan Anesthesia* Anesthesia Assessment Anesthesia Assessment: Discussed sedation and/or anesthesia options, risks, benefits, and alternatives with patient/parents/legal guardian/POA. Questions invited. The patient/parents/legal guardian/POA seems to understand and agrees to proceed with anesthesia plan. Reviewed the physical assessment, medical history, allergy history and patient home medications list prior to surgery/procedure/anesthetic and documented any changes. Performed airway and anesthesia risk assessments. Anesthesia Type Anesthesia Type: MAC Anesthesia Focused Assessment* Airway Assessment Mouth opens: >3 cm Mallampati Score: II Labs Anesthesia Preop lab: CBC WBC 4.4 K/mm3 (4.4-11.0) 08/14/24 08:19 08/14/24 RBC 4.87 M/mm3 (4.6-6.2) 08/14/24 08:19 08/14/24 Hgb 15.8 g/dL (13.0-16.5) 08/14/24 08:19 08/14/24 Hct 47.5 % (40-54) 08/14/24 08:19 08/14/24 Plt Count 185 K/mm3 (150-450) 08/14/24 08:19 08/14/24 CHEMISTRY Potassium 4.1 mmol/L (3.5-5.1) 08/14/24 08:19 08/14/24 Sodium 142 mmol/L (136-145) 08/14/24 08:19 08/14/24 BUN 17 mg/dL (7-18) 08/14/24 08:19 08/14/24 Creatinine 0.88 mg/dL (0.70-1.30) 08/14/24 08:19 08/14/24 Glucose 93 mg/dL (74-106) 08/14/24 08:19 08/14/24 COAG Pre-Assessment Diagnosis/Proposed Procedure Planned Operative Procedure(s): EGD/CSCOPE Anesthesia History 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 When Was Last Pacemaker Check QUESTION #4 FULL TEXT: You/Your Family Experience fever (hyperthermia) with Anesthesia Last Oral Intake Last Oral intake: Last Oral Intake NPO since Meds taken in AM with sips of water? 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 Has anyone observed you stop breathing during sleep? STOP Results Positive 12/19/24 11:52 QUESTION #5 FULL TEXT : Do you snore loudly (louder than talking or can be heard through closed doors)? 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 Specify any problems Hx of Preganancy in last 3 N/A 12/19/24 11:52 Months Nurse Filling Out Transfusion DSCHRIBER 12/19/24 11:52 & Questions: Date: 12/19/24 12/19/24 11:52 Time: 11:53 12/19/24 11:52 Patient unable to answer at this time (ie. 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: /Reproductive Hx- level glass forming machine operator Hx Now No 12/19/24 11:52 Gestational Age (in weeks): EDC: Hx Hx Para Hx Section SAB No 12/19/24 11:52 Active Medications Active Medications: Current Medications Generic Name Dose Route Start Last Admin Trade Name Freq PRN Reason Stop Dose Admin Lactated Ringer's 1,000 mls @ 15 mls/hr 12/21/24 08:15 IV .Q48H CARLOS PFSH Medical History Loss of hearing DDD (degenerative disc disease), lumbar DDD (degenerative disc disease), cervical Gastric reflux BiPAP (biphasic positive airway pressure) dependence Non-smoker History of pain when walking History of edema History of stress test Hypertension Arthritis Gout Home Medications ?Medication ?Instructions ?Recorded ?Last Taken ?Type cholecalciferol (vitamin D3) 50 50 mcg PO DAILY Unknown History mcg (2,000 unit) capsule coenzyme Q10 75 mg capsule (Ultra 75 mg PO DAILY 12/24 Unknown History CoQ10) multivitamin 1 tab PO DAILY 12/24/22 Unkn own History fexofenadine 180 mg tablet 180 mg PO DAILY PRN ALERGIE S 02/24/24 Unknown History (Suzanne Allergy) fluticasone propionate 50 1 spray intranasal BID PRN a llergy 06/19/24 Unknown Rx mcg/actuation nasal symptoms #32 grams spray,suspension (Allergy Relief (fluticasone)) allopurinol 300 mg tablet 300 mg PO DAILY #90 tabs Unknown Rx lisinopril 20 mg tablet 20 mg PO DAILY #90 tabs 11/09 11/03 Unknown Rx pantoprazole 40 mg tablet,delayed 40 mg PO QDAY #30 ta bs 11/22/24 Unknown Rx release qmuqk-k-hofsidduzociu 450 unit 900 unit PO DAILY PRN i ndigestion 12/19/24 Unknown History disintegrating tablet (Beano) glucosamine sulf dipot 1 cap PO BID 12/19/24 Unknow n History chlr,msm,chond 550 mg-C 30 mg-jeremias 1 mg capsule (Glucosamine Chondroitin) simethicone 250 mg capsule (Gas-X) 250 mg PO QHS PRN a bdominal 12/19/24 Unknown History distention Allergy/AdvReac Type Severity Reaction Status Date / Time bismuth subsalicylate (From AdvReac Itching Verified 12/21/24 08:16 Pepto-Bismol) clarithromycin AdvReac Itching Verified 12/21/24 08:16 Family History Brother Alcohol abuse Father Arthritis CVA (cerebral vascular accident) Mother Arthritis Diabetes Myocardial infarction Other Heart disease Hypertension Surgical History Hx of lithotripsy Hx of colonoscopy History of surgical procedure H/O cystoscopy S/P arthroscopic surgery of right knee History of cholecystectomy H/O vasectomy Social History household members: spouse current occupational status: retired 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
[2024-12-21] MEDS: Lactated Ringers 1,000 ML 15 ML IV (08:31)
--- NOTE | 2024-12-21 09:00 | EGD_PTH ---
PATIENT: RYAN RODRIGUEZ LOC: EN U#:[id number] AGE/SX: 69/M ROOM: RE12/21/[address]: Dr. Chris Rm DO : 1955 BED: DIS: 12/21/2024 SPEC #: [id number] RECD: 12/21/24 11:01 STATUS: TIFFANY RESamantha #: [id number] DARRON: 12/21/24 09:[address]: Chris Rm DEPT: SURGICAL PATHOLOGY RECD BY: Arun Montes ENTERED: 12/21/24 12:07 SP TYPE: EGD BIOPSY OT DR: Dr. Era Driscoll MD Tissues: A - Esophagus, NOS B - Duodenum, NOS C - Gastric mucous membrane D - Ileum, NOS E - SPLENIC FLEXURE Procedures: Immunohistochemical Stains Surgery Specimen Level IV IHC Stain ADDITIONAL HEADER OPERATION: Colonoscopy, EGD with biopsy PRE-OP DIAGNOSIS: Abdominal bloating, encounter for screening for malignant neoplasm of colon, gastric reflux TISSUE SUBMITTED: A- Distal esophagus biopsy, B- Duodenal mass biopsy, C- Gastric body biopsy, D- Terminal ileum biopsy, E- Splenic flexure polyp biopsy MICROSCOPIC DIAGNOSIS A. Esophagus, distal, biopsy: * Columnar mucosa negative for goblet cell metaplasia. * No squamous mucosa seen. B. Duodenum, mass, biopsy: * Fragments of small intestinal mucosa with gastric foveolar metaplasia, Rajinder gland hyperplasia, and mild acute inflammation. * Reactive changes noted; no neoplasia seen. * Ki67 by IHC is not significantly increased. C. Stomach, body, biopsy: * Oxyntic mucosa with chronic inflammation. * IHC negative for H pylori organisms. D. Terminal ileum, biopsy: * Small intestinal mucosa with mucosal lymphoid aggregate, favor reactive. E. Splenic flexure, polyp, biopsy: * Tubular adenoma. MICROSCOPIC DESCRIPTION Slides are reviewed. All matched controls reacted appropriately. These tests were developed and their performance characteristics determined by [facility]. They may not have been cleared or approved by the U.S. Food and Drug Administration. The FDA has determined that such clearance or approval is not necessary. The above immunohistochemical/dualISH markers are reviewed by the Pathologist. GROSS DESCRIPTION Received in 5 formalin containers labeled with the patient's name and date of . Designated as: A. Distal esophagus BX are 2 lowe tissue fragments, 0.4 cm and 0.5 cm. Entirely submitted in 1 cassette. B. Duodenal mass BX are 5 lowe tissue fragments, 0.2 cm to 0.7 cm. Entirely submitted in 1 cassette. C. Gastric body BX for H. pylori are 2 lowe tissue fragments, 0.3 cm and 0.5 cm. D. Terminal ileum BX is a 0.3 cm lowe tissue fragment. Entirely submitted in 1 cassette. E. Splenic flexure polyp BX is a 0.4 cm lowe tissue fragment. Entirely submitted in 1 cassette. [facility] [place] CPT:[id number]
--- NOTE | 2024-12-21 09:19 | PCM.HP.STD ---
HPI - General General Date of Admission: 12/21/24 Date of Service: 12/21/24 Chief Complaint: GERD and Screening colonoscopy HPI Narrative BGI established Aug 2024 with abd bloating and eructation x 3 months. Started on PPI and Carafate prescribed from PCP. Last colonoscopy 4 years ago with PMHx of polyps. Pt does feel constipation with small bowel movements. CT abd/pelvis; Fatty infiltration of the liver. Status post cholecystectomy. Bilateral renal cysts. Bilateral intrarenal calculi. 1.4 cm calculus in the left renal pelvis at the ureteropelvic junction causing mild degree of left hydronephrosis. OV 5.14.25 Pt continues to have epigastric pain, bloating and gas. It is worse when he lays down. taking Beano and Gas-x multiple times per day. He had to rescheduled his scopes due to a family emergency. [facility] [place] Medical History (Updated 12/21/24 @ 09:[address] Perez Friend, DO) Loss of hearing DDD (degenerative disc disease), lumbar DDD (degenerative disc disease), cervical Gastric reflux BiPAP (biphasic positive airway pressure) dependence Non-smoker History of pain when walking History of edema History of stress test Hypertension Arthritis Gout Home Medications ?Medication ?Instructions ?Recorded ?Last Taken ?Type cholecalciferol (vitamin D3) 50 50 mcg PO DAILY 12/24/22 Unknown History mcg (2,000 unit) capsule coenzyme Q10 75 mg capsule (Ultra 75 mg PO DAILY 12/24/22 Unknown History CoQ10) multivitamin 1 tab PO DAILY 12/24/22 Unknown History fexofenadine 180 mg tablet 180 mg PO DAILY PRN ALERGIES 02/24/24 Unknown History (Suzanne Allergy) fluticasone propionate 50 1 spray intranasal BID PRN allergy 06/19/24 Unknown Rx mcg/actuation nasal symptoms #32 grams spray,suspension (Allergy Relief (fluticasone)) allopurinol 300 mg tablet 300 mg PO DAILY #90 tabs 09/25/24 Unknown Rx lisinopril 20 mg tablet 20 mg PO DAILY #90 tabs 11/22/24 Unknown Rx pantoprazole 40 mg tablet,delayed 40 mg PO QDAY #30 tabs 11/22/24 Unknown Rx release lvnmb-o-adzotlsushbcx 450 unit 900 unit PO DAILY PRN indigestion 12/19/24 Unknown History disintegrating tablet (Beano) glucosamine sulf dipot 1 cap PO BID 12/19/24 Unknown History chlr,msm,chond 550 mg-C 30 mg-jeremias 1 mg capsule (Glucosamine Chondroitin) simethicone 250 mg capsule (Gas-X) 250 mg PO QHS PRN abdominal 12/19/24 Unknown History distention Allergy/AdvReac Type Severity Reaction Status Date / Time bismuth subsalicylate (From AdvReac Itching Verified 12/21/24 08:16 Pepto-Bismol) clarithromycin AdvReac Itching Verified 12/21/24 08:16 Family History Brother Alcohol abuse Father Arthritis CVA (cerebral vascular accident) Mother Arthritis Diabetes Myocardial infarction Other Heart disease Hypertension Surgical History Hx of lithotripsy Hx of colonoscopy History of surgical procedure H/O cystoscopy S/P arthroscopic surgery of right knee History of cholecystectomy H/O vasectomy Social History household members: spouse current occupational status: retired 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[employer], 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 Smoking Status: Never smoker Electronic Cigarette Use: not used alcohol intake: former details: quit substance use type: does not use do you feel safe at home: Yes ROS Constitutional Constitutional: Denies fatigue, fever(s), poor appetite, weight gain or weight loss Gastrointestinal Gastrointestinal: Denies belching, bloating, change in bowel habits, change in stool character, chewing difficulty, coffee ground emesis, constipation, cramping, diarrhea, dyspepsia, dysphagia, early satiety, excessive flatus, fecal incontinence, heartburn, hematemesis, hematochezia, hemorrhoids, loose stools, melena, nausea, odynophagia, rectal bleeding, tenesmus, vomiting or weight changes Vital Signs Vital Signs Vital Signs: 12/21/24 08:27 12/21/24 08:27 Temperature 98.3 F Temperature Source Temporal Pulse Rate 72 Respiratory Rate 16 Respiratory Pattern Normal Blood Pressure 123/95 H Blood Pressure Mean 104 Blood Pressure Source Monitor Blood Pressure Position Sitting Blood Pressure Location Left Arm Pulse Ox 97 Oxygen Delivery Method Room Air Weight Weight: 286 lb 13.142 oz Body Mass Index (BMI) 39.9 Physical Exam Const alert, oriented x3, no apparent distress and healthy appearing General Appearance: cooperative GI normal to inspection, nondistended, normoactive bowel sounds, soft to palpation, non-tender and non-distended Percussion: normal to percussion Rectal Exam: deferred Assessment & Plan Assessment/Plan (1) Abdominal bloating: (2) Encounter for screening for malignant neoplasm of colon: (3) Gastric reflux: PLAN: Assessment and Plan Assessment and Plan (1) Abdominal bloating: Status: Acute Plan: This is a 69 yo male pt here today for follow up regarding abdominal pain and bloating. PCP ordered a CT regarding this which was normal. He was originally scheduled for his EGD and colonoscopy in October 2024 however he had to rescheduled due to a family emergency. He is now scheduled for December. He continues to have issues and I recommended starting a daily PPI until we are able to get the scope. I have sent in Pantoprazole 40 mg daily. He may continues Gas-x and Beano as needed. -EGD and colonoscopy -Start Pantoprazole 40 mg daily -f/u after procedures Medications: New pantoprazole 40 mg PO QDAY 30 tabs 2RF
--- NOTE | 2024-12-21 10:08 | PCM.POST.ANE ---
Anesthesia: Postop Eval I Current Vital Signs Temperature: 97.5 F Pulse Rate: 67 Blood Pressure: 89/56 Respiratory Rate: 16 Pulse Ox: 95 Oxygen Delivery Method: Room Air Assessment Airway patent: Yes Spontaneous unlabored respirations: Yes Mental status: Awake and Calm nausea: No Vomiting: No Anesthesia Complication: No Fluid Hydration Crystalloid volume administer (ml): 600 Total IV fluid infused: 600 Progress Note Anesthesia document: Postop Eval 1 completed: Yes
--- NOTE | 2024-12-21 10:15 | OP.CCLET_ITS ---
12/21/2024 Era Driscoll Md Re : Upper GI endoscopy procedure for Anselmo Zhang Dear [place] This procedure was performed on December. My impressions and recommendations are as follows: Impressions : - LA Grade A reflux esophagitis with no bleeding. Biopsied. - Erythematous mucosa in the gastric body. Biopsied. - Likely benign duodenal mass. Biopsied. Recommendations : - Discharge patient to home. - Resume previous diet. - Continue present medications. - Await pathology results. My findings are described in the full procedure note, which is enclosed. If I can be of further assistance, please feel free to contact me at . Sincerely, Chris Rm, 12/21/2024 10:14:35 AM This report has been signed electronically.
--- NOTE | 2024-12-21 10:15 | OP.EGD_ITS ---
Patient Name: Anselmo Zhang Procedure Date: 12/21/2024 9:24 AM Date of : 1955 Age: 69 Procedure: Upper GI endoscopy Indications: Epigastric abdominal pain, Functional Dyspepsia, Suspected esophageal reflux Providers: Chris Rm DO Referring MD: Era Driscoll Md Medicines: Monitored Anesthesia Care Patient Profile: This is a 69 year old male. Refer to note in patient chart for documentation of history and physical. Patient has symptoms of acute abdominal cramping, chronic abdominal distention, chronic epigastric abdominal pain, acute dyspepsia and chronic heartburn. Complications: No immediate complications. Procedure: Pre-Anesthesia Assessment: - Prior to the procedure, a History and Physical was performed, and patient medications and allergies were reviewed. The patient is competent. The risks and benefits of the procedure and the sedation options and risks were discussed with the patient. All questions were answered and informed consent was obtained. Patient identification and proposed procedure were verified by the physician in the pre-procedure area. Mental Status Examination: alert and oriented. Airway Examination: normal oropharyngeal airway and neck mobility. Respiratory Examination: clear to auscultation. CV Examination: normal. Prophylactic Antibiotics: The patient does not require prophylactic antibiotics. Prior Anticoagulants: The patient has taken no anticoagulant or antiplatelet agents. ASA Grade Assessment: II - A patient with mild systemic disease. After reviewing the risks and benefits, the patient was deemed in satisfactory condition to undergo the procedure. The anesthesia plan was to use monitored anesthesia care (MAC). Immediately prior to administration of medications, the patient was re-assessed for adequacy to receive sedatives. The heart rate, respiratory rate, oxygen saturations, blood pressure, adequacy of pulmonary ventilation, and response to care were monitored throughout the procedure. The physical status of the patient was re-assessed after the procedure. After obtaining informed consent, the endoscope was passed under direct vision. Throughout the procedure, the patient's blood pressure, pulse, and oxygen saturations were monitored continuously. The Colonoscope was introduced through the mouth, and advanced to the third part of the duodenum. Small bowel enteroscopy was deemed necessary. The upper GI endoscopy was accomplished without difficulty. The patient tolerated the procedure well. Scope In: 9:35:55 AM Scope Out: 9:42:27 AM Total Procedure Duration Time 0 hours 6 minutes 32 seconds Findings: LA Grade A (one or more mucosal breaks less than 5 mm, not extending between tops of 2 mucosal folds) esophagitis with no bleeding was found. Biopsies were taken with a cold forceps for histology. Verification of patient identification for the specimen was done. Estimated blood loss was minimal. Patchy mildly erythematous mucosa without bleeding was found in the gastric body. Biopsies were taken with a cold forceps for histology. Verification of patient identification for the specimen was done. Estimated blood loss was minimal. Biopsies were taken with a cold forceps for Helicobacter pylori testing. A large polypoid mass with no bleeding was found in the duodenal bulb. Biopsies were taken with a cold forceps for histology. Verification of patient identification for the specimen was done. Estimated blood loss was minimal. Impression: - LA Grade A reflux esophagitis with no bleeding. Biopsied. - Erythematous mucosa in the gastric body. Biopsied. - Likely benign duodenal mass. Biopsied. Recommendation: - Discharge patient to home. - Resume previous diet. - Continue present medications. - Await pathology results. Procedure Code(s): --- Professional --- 82487, Small intestinal endoscopy, enteroscopy beyond second portion of duodenum, not including ileum; with biopsy, single or multiple CPT copyright 2021 [employer]. All rights reserved. The codes documented in this report are preliminary and upon label coder review may be revised to meet current compliance requirements. Chris Rm DO 12/21/2024 10:14:35 AM This report has been signed electronically. Number of Addenda: 0 Note Initiated On: 12/21/2024 9:24 AM
--- NOTE | 2024-12-21 10:17 | OP.COLON_ITS ---
Patient Name: Anselmo Zhang Procedure Date: 12/21/2024 9:42 AM Date of : 1955 Age: 69 Procedure: Colonoscopy Indications: High risk colon cancer surveillance: Personal history of colonic polyps Providers: Chris Rm DO Referring MD: Era Driscoll Md Medicines: Monitored Anesthesia Care Patient Profile: This is a 69 year old male. Refer to note in patient chart for documentation of history and physical. Patient has symptoms of acute abdominal cramping, chronic abdominal distention, chronic epigastric abdominal pain, acute dyspepsia and chronic heartburn. Last Colonoscopy: several years ago. Complications: No immediate complications. Procedure: Pre-Anesthesia Assessment: - Prior to the procedure, a History and Physical was performed, and patient medications and allergies were reviewed. The patient is competent. The risks and benefits of the procedure and the sedation options and risks were discussed with the patient. All questions were answered and informed consent was obtained. Patient identification and proposed procedure were verified by the physician in the pre-procedure area. Mental Status Examination: alert and oriented. Airway Examination: normal oropharyngeal airway and neck mobility. Respiratory Examination: clear to auscultation. CV Examination: normal. Prophylactic Antibiotics: The patient does not require prophylactic antibiotics. Prior Anticoagulants: The patient has taken no anticoagulant or antiplatelet agents. ASA Grade Assessment: II - A patient with mild systemic disease. After reviewing the risks and benefits, the patient was deemed in satisfactory condition to undergo the procedure. The anesthesia plan was to use monitored anesthesia care (MAC). Immediately prior to administration of medications, the patient was re-assessed for adequacy to receive sedatives. The heart rate, respiratory rate, oxygen saturations, blood pressure, adequacy of pulmonary ventilation, and response to care were monitored throughout the procedure. The physical status of the patient was re-assessed after the procedure. After I obtained informed consent, the scope was passed under direct vision. Throughout the procedure, the patient's blood pressure, pulse, and oxygen saturations were monitored continuously. The Colonoscope was introduced through the anus and advanced to the terminal ileum. The colonoscopy was performed without difficulty. The patient tolerated the procedure well. The quality of the bowel preparation was adequate. The terminal ileum, ileocecal valve, appendiceal orifice, and rectum were photographed. Moderate Sedation: Moderate (conscious) sedation was personally administered by an anesthesia professional. The following parameters were monitored: oxygen saturation, heart rate, blood pressure, respiratory rate, EKG, adequacy of pulmonary ventilation, and response to care. Scope In: 9:44:11 AM Scope Withdrawal Time 0 hours 9 minutes 42 seconds Scope Out: 9:56:45 AM Total Procedure Duration Time 0 hours 12 minutes 34 seconds Findings: The perianal and digital rectal examinations were normal. A few small-mouthed diverticula were found in the recto-sigmoid colon and sigmoid colon. A 5 mm polyp was found in the splenic flexure. The polyp was sessile. The polyp was removed with a jumbo cold forceps. Resection and retrieval were complete. Verification of patient identification for the specimen was done. Estimated blood loss was minimal. Patchy mild inflammation characterized by erosions was found in the terminal ileum. Biopsies were taken with a cold forceps for histology. Verification of patient identification for the specimen was done. Estimated blood loss was minimal. The exam was otherwise without abnormality on direct and retroflexion views. Impression: - Diverticulosis in the recto-sigmoid colon and in the sigmoid colon. - One 5 mm polyp at the splenic flexure, removed with a jumbo cold forceps. Resected and retrieved. - Mild inflammation was found in the ileum secondary to ileitis. Biopsied. - The examination was otherwise normal on direct and retroflexion views. Recommendation: - Discharge patient to home. - Resume previous diet. - Continue present medications. - Await pathology results. - Repeat colonoscopy in 5 years for surveillance. Procedure Code(s): --- Professional --- 30795, Colonoscopy, flexible; with biopsy, single or multiple CPT copyright 2021 [employer]. All rights reserved. The codes documented in this report are preliminary and upon manpower development advisor review may be revised to meet current compliance requirements. Chris Rm DO 12/21/2024 10:16:37 AM This report has been signed electronically. Number of Addenda: 0 Note Initiated On: 12/21/2024 9:42 AM
--- NOTE | 2024-12-21 10:17 | OP.CCLET_ITS ---
12/21/2024 Era Driscoll Md Re : Colonoscopy procedure for Anselmo Zhang Dear [place] This procedure was performed on December. My impressions and recommendations are as follows: Impressions : - Diverticulosis in the recto-sigmoid colon and in the sigmoid colon. - One 5 mm polyp at the splenic flexure, removed with a jumbo cold forceps. Resected and retrieved. - Mild inflammation was found in the ileum secondary to ileitis. Biopsied. - The examination was otherwise normal on direct and retroflexion views. Recommendations : - Discharge patient to home. - Resume previous diet. - Continue present medications. - Await pathology results. - Repeat colonoscopy in 5 years for surveillance. My findings are described in the full procedure note, which is enclosed. If I can be of further assistance, please feel free to contact me at . Sincerely, Chris Rm, 12/21/2024 10:16:37 AM This report has been signed electronically.
--- NOTE | 2024-12-21 10:59 | PCM.POSTANE2 ---
Anesthesia Postop Eval I Sum Postop Eval Completion status Anesthesia document: Postop Eval 1 completed: Yes Anesthesia Postop Eval I Summary Anesthesia Postop Eval I Summary: Anesthesia Postop Eval I: Assessment Summary Airway patent Yes 12/21/24 10:09 [email or web address] Spontaneous unlabored Yes 12/21/24 10:09 [email or web address] respirations Mental status Awake,Calm 12/21/24 10:09 [email or web address] nausea No 12/21/24 10:09 [email or web address] Vomiting No 12/21/24 10:09 [email or web address] Anesthesia Postop Eval I: Fluid Summary Crystalloid volume administer 600 12/21/24 10:09 [email or web address] (ml) Colloids volume administered ( ml) Blood Product volume administered (ml) Total IV fluid infused 600 12/21/24 10:09 [email or web address] Anesthesia Postop Eval I: Summary Notes Anesthesia Complication No 12/21/24 10:09 [email or web address] Anesthesia Complication Comment: Post-operative progress note Anesthesia: Postop Eval II Evaluation Mental status: Awake Pain Level: 0 nausea: No Vomiting: No
== END 2024-12-21 10:47 | disposition home or self-care (01) ==
LOC: EN 08:00 → AC 08:02
PROVIDERS: PCP Internal Medicine; Referring Provider Internal Medicine; Visit Provider Internal Medicine Gastroenterology
PROC: 0DJD8ZZ Inspection of Lower Intestinal Tract, Via Natural or Artificial Opening Endoscopic (ICD-10-PCS; CPT 45378; principal; 2024-12-21 08:55)
DX: Z12.11 Encounter for screening for malignant neoplasm of colon (principal); K21.00 Gastro-esophageal reflux disease with esophagitis, without bleeding; K57.30 Diverticulosis of large intestine without perforation or abscess without bleeding; Z86.0100 Personal history of colon polyps, unspecified; K63.5 Polyp of colon; I10 Essential (primary) hypertension; Z90.49 Acquired absence of other specified parts of digestive tract; Z79.899 Other long term (current) drug therapy; K52.9 Noninfective gastroenteritis and colitis, unspecified; K31.7 Polyp of stomach and duodenum; K31.A0 Gastric intestinal metaplasia, unspecified; K29.80 Duodenitis without bleeding; K29.50 Unspecified chronic gastritis without bleeding; D12.3 Benign neoplasm of transverse colon
CPT/HCPCS: 45380; 43239; 88305; 88341; 88342; J2405

== ENCOUNTER 2025-03-01 09:32 | Day surgery (SDC) | payer MEDICARE, OTHER, SELFPAY ==
[2025-03-01] VITALS (8 sets, daily range): BP systolic 102–141; BP diastolic 64–80; PULSE 64–75; RESP 14–18; TEMP 36.1–36.9; O2SAT 94–99; BMI 42.4
[2025-03-01] MEDS: Lactated Ringers 1,000 ML 15 ML IV (09:58)
--- NOTE | 2025-03-01 10:07 | PCM.PRE.AN2 ---
ASA Classification* ASA Classification ASA Classification: 3 Assessment & Plan Anesthesia* Anesthesia Assessment Anesthesia Assessment: Discussed sedation and/or anesthesia options, risks, benefits, and alternatives with patient/parents/legal guardian/POA. Questions invited. The patient/parents/legal guardian/POA seems to understand and agrees to proceed with anesthesia plan. Reviewed the physical assessment, medical history, allergy history and patient home medications list prior to surgery/procedure/anesthetic and documented any changes. Performed airway and anesthesia risk assessments. Anesthesia Type Anesthesia Type: MAC History Source History Obtained from:: Patient and Chart Anesthesia Focused Assessment* Temperature: 97.8 F Pulse Rate: 65 Blood Pressure: 115/80 Respiratory Rate: 17 Pulse Ox: 99 Oxygen Delivery Method: Room Air Airway Assessment Mouth opens: 2 cm Mallampati Score: III Teeth Condition: Intact Neck Range of motion (ROM): Full ROM Labs Anesthesia Preop lab: CBC WBC 4.4 K/mm3 (4.4-11.0) 08/14/24 08:19 08/14/24 RBC 4.87 M/mm3 (4.6-6.2) 08/14/24 08:19 08/14/24 Hgb 15.8 g/dL (13.0-16.5) 08/14/24 08:19 08/14/24 Hct 47.5 % (40-54) 08/14/24 08:19 08/14/24 Plt Count 185 K/mm3 (150-450) 08/14/24 08:19 08/14/24 CHEMISTRY Potassium 4.1 mmol/L (3.5-5.1) 08/14/24 08:19 08/14/24 Sodium 142 mmol/L (136-145) 08/14/24 08:19 08/14/24 BUN 17 mg/dL (7-18) 08/14/24 08:19 08/14/24 Creatinine 0.88 mg/dL (0.70-1.30) 08/14/24 08:19 08/14/24 Glucose 93 mg/dL (74-106) 08/14/24 08:19 08/14/24 COAG Pre-Assessment Diagnosis/Proposed Procedure Planned Operative Procedure(s): EGD Anesthesia History Anesthesia History - field marketing lead: Anesthesia History - field marketing lead Hx Hospitalization No 02/27/25 15:25 Any Problems With Anesthesia No 02/27/25 15:25 Cholinesterase deficiency No 02/27/25 15:25 You/Your Family Experience No 02/27/25 15:25 fever (hyperthermia) with Relationship Recent Exposure to Contagious No 03/01/25 09:54 Disease Does patient have nerve No 02/27/25 15:25 stimulator Patient instructed to have device shut off --Does patient have Pacemaker No 03/01/25 09:54 or ICD? When Was Last Pacemaker Check QUESTION #4 FULL TEXT: You/Your Family Experience fever (hyperthermia) with Anesthesia Last Oral Intake Last Oral intake: Last Oral Intake NPO since 00:00 03/01/25 09:54 Meds taken in AM with sips of No 03/01/25 09:54 water? Meds patient instructed to take am of surgery PONV PONV - field marketing lead: PONV - field marketing lead Female No 02/27/25 15:25 HX of Motion Sickness Yes 02/27/25 15:25 HX of N/V After Surgery No 02/27/25 15:25 Non-Smoker Yes 02/27/25 15:25 Duration of Surgery greater No 02/27/25 15:25 than 60 minutes Number of Risk Factors 2 02/27/25 15:25 PONV Score Moderate Risk 02/27/25 15:25 Height & Weight Height & Weight: Anesthesia: Height & Weight Height 5 ft 11 in 03/01/25 09:54 Weight: 138 kg 03/01/25 09:54 Body Mass Index (BMI) 42.4 03/01/25 09:54 Respiratory Assessment Respiratory Assessment - field marketing lead: Respiratory Tract Infection Hx - field marketing lead Hx Respiratory Tract Infection No 02/27/25 15:25 STOP Sleep Apnea STOP Sleep Apnea - field marketing lead: STOP Sleep Apnea - field marketing lead Hx Hypertension Yes: CONTROLLED WITH MED 02/27/25 15:25 Hx Sleep Apnea Yes 02/27/25 15:25 CPAP No 02/27/25 15:25 BIPAP Yes 02/27/25 15:25 Do you snore loudly (louder than talking or can be heard Do you often feel tired/ fatigued/ sleepy during daytime? Has anyone observed you stop breathing during sleep? STOP Results Positive 02/27/25 15:25 QUESTION #5 FULL TEXT : Do you snore loudly (louder than talking or can be heard through closed doors)? Tobacco Use History Tobacco Use History - field marketing lead: Tobacco Use History - field marketing lead Tobacco Use Smoking Status Never smoker 02/27/25 15:25 Hx Tobacco Use No 02/27/25 15:25 Years Smoking Packs Smoked per Day Smoking Cessation Date was within the last 15 years Hx Smoking Cessation Date Hx Smoking Cessation Counseling Hematologic Medial History Hematologic Hx - field marketing lead: Hematologic Medical Hx - behavioral interventionist Hx of Blood Transfusion No 02/27/25 15:25 Hx of Transfusion in last 3 No 02/27/25 15:25 Months Date of Last Transfusion (if within last 3 months) Ever experience any problems No 02/27/25 15:25 with transfusion(s)? Specify any problems Hx of Preganancy in last 3 N/A 02/27/25 15:25 Months Nurse Filling Out Transfusion MGRIBERTINITH 02/27/25 15:25 & Questions: Date: 02/27/25 02/27/25 15:25 Time: 02/27/25 15:25 Patient unable to answer at this time (ie. confused, unrespo /Reproduction History /Reproductive History - field marketing lead: /Reproductive Hx- field marketing lead Hx Now Gestational Age (in weeks): EDC: Hx Hx Para Hx Section SAB No 02/27/25 15:25 Active Medications Active Medications: Current Medications Generic Name Dose Route Start Last Admin Trade Name Freq PRN Reason Stop Dose Admin Lactated Ringer's 1,000 mls @ 15 mls/hr 03/01/25 09:45 03/01/25 09:58 IV 15 mls/hr .Q48H CARLOS Administration PFSH Medical History (Updated 02/27/25 @ 15:32 by Quyen Montanez) Loss of hearing DDD (degenerative disc disease), lumbar DDD (degenerative disc disease), cervical Gastric reflux BiPAP (biphasic positive airway pressure) dependence Non-smoker History of pain when walking History of edema History of stress test Hypertension Arthritis Gout Home Medications ?Medication ?Instructions ?Recorded ?Last Taken ?Type cholecalciferol (vitamin D3) 50 50 mcg PO DAILY 12/24/22 02/28/25 History mcg (2,000 unit) capsule coenzyme Q10 75 mg capsule (Ultra 75 mg PO DAILY 12/24/22 02/28/25 History CoQ10) multivitamin 1 tab PO DAILY 12/24/22 02/28/25 History fexofenadine 180 mg tablet 180 mg PO DAILY PRN ALLERGIES 02/24/24 02/28/25 History (Suzanne Allergy) fluticasone propionate 50 1 spray intranasal BID PRN allergy 06/19/24 02/28/25 Rx mcg/actuation nasal symptoms #32 grams spray,suspension (Allergy Relief (fluticasone)) allopurinol 300 mg tablet 300 mg PO DAILY #90 tabs 09/25/24 02/28/25 Rx lisinopril 20 mg tablet 20 mg PO DAILY #90 tabs 11/22/24 02/28/25 Rx kedpc-[id number] 450 unit 900 unit PO DAILY PRN indigestion 12/19/24 02/28/25 History disintegrating tablet (Beano) glucosamine sulf dipot 1 cap PO BID 12/19/24 02/28/25 History chlr,msm,chond 550 mg-C 30 mg-jeremias 1 mg capsule (Glucosamine Chondroitin) simethicone 250 mg capsule (Gas-X) 250 mg PO QHS PRN abdominal 12/19/24 02/28/25 History distention pantoprazole 40 mg tablet,delayed 40 mg PO BID #90 tabs 01/03/25 02/28/25 Rx release Allergy/AdvReac Type Severity Reaction Status Date / Time bismuth subsalicylate (From AdvReac Itching Verified 03/01/25 09:53 Pepto-Bismol) clarithromycin AdvReac Itching Verified 03/01/25 09:53 Family History Brother Alcohol abuse Father Arthritis CVA (cerebral vascular accident) Mother Arthritis Diabetes Myocardial infarction Other Heart disease Hypertension Surgical History (Updated 02/27/25 @ 15:25 by Quyen Montanez) History of esophagogastroduodenoscopy (EGD) Hx of lithotripsy Hx of colonoscopy History of surgical procedure H/O cystoscopy S/P arthroscopic surgery of right knee History of cholecystectomy H/O vasectomy Social History household members: spouse current occupational status: retired 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
--- NOTE | 2025-03-01 10:22 | PCM.HP.STD ---
HPI - General General Date of Admission: 03/01/25 Date of Service: 03/01/25 Chief Complaint: Duodenal mass HPI Narrative RYAN RODRIGUEZ, is a 70 M who presents for a repeat. 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 He comes back in for removal of the duodenal mass. [facility] Medical History Loss of hearing DDD (degenerative disc disease), lumbar DDD (degenerative disc disease), cervical Gastric reflux BiPAP (biphasic positive airway pressure) dependence Non-smoker History of pain when walking History of edema History of stress test Hypertension Arthritis Gout Home Medications ?Medication ?Instructions ?Recorded ?Last Taken ?Type cholecalciferol (vitamin D3) 50 50 mcg PO DAILY 12/24/22 02/28/25 History mcg (2,000 unit) capsule coenzyme Q10 75 mg capsule (Ultra 75 mg PO DAILY 12/24/22 02/28/25 History CoQ10) multivitamin 1 tab PO DAILY 12/24/22 02/28/25 History fexofenadine 180 mg tablet 180 mg PO DAILY PRN ALLERGIES 02/24/24 02/28/25 History (Suzanne Allergy) fluticasone propionate 50 1 spray intranasal BID PRN allergy 06/19/24 02/28/25 Rx mcg/actuation nasal symptoms #32 grams spray,suspension (Allergy Relief (fluticasone)) allopurinol 300 mg tablet 300 mg PO DAILY #90 tabs 09/25/24 02/28/25 Rx lisinopril 20 mg tablet 20 mg PO DAILY #90 tabs 11/22/24 02/28/25 Rx qqtvv-u-elxxxqqzcrzsw 450 unit 900 unit PO DAILY PRN indigestion 12/19/24 02/28/25 History disintegrating tablet (Beano) glucosamine sulf dipot 1 cap PO BID 12/19/24 02/28/25 History chlr,msm,chond 550 mg-C 30 mg-jeremias 1 mg capsule (Glucosamine Chondroitin) simethicone 250 mg capsule (Gas-X) 250 mg PO QHS PRN abdominal 12/19/24 02/28/25 History distention pantoprazole 40 mg tablet,delayed 40 mg PO BID #90 tabs 01/03/25 02/28/25 Rx release Allergy/AdvReac Type Severity Reaction Status Date / Time bismuth subsalicylate (From AdvReac Itching Verified 03/01/25 09:53 Pepto-Bismol) clarithromycin AdvReac Itching Verified 03/01/25 09:53 Family History Brother Alcohol abuse Father Arthritis CVA (cerebral vascular accident) Mother Arthritis Diabetes Myocardial infarction Other Heart disease Hypertension Surgical History History of esophagogastroduodenoscopy (EGD) Hx of lithotripsy Hx of colonoscopy History of surgical procedure H/O cystoscopy S/P arthroscopic surgery of right knee History of cholecystectomy H/O vasectomy Social History household members: spouse current occupational status: retired 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[employer], 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 Smoking Status: Never smoker Electronic Cigarette Use: not used alcohol intake: former details: quit substance use type: does not use do you feel safe at home: Yes ROS Constitutional Constitutional: Denies fatigue, fever(s), poor appetite, weight gain or weight loss Gastrointestinal Gastrointestinal: Denies belching, bloating, change in bowel habits, change in stool character, chewing difficulty, coffee ground emesis, constipation, cramping, diarrhea, dyspepsia, dysphagia, early satiety, excessive flatus, fecal incontinence, heartburn, hematemesis, hematochezia, hemorrhoids, loose stools, melena, nausea, odynophagia, rectal bleeding, tenesmus, vomiting or weight changes Vital Signs Vital Signs Vital Signs: 03/01/25 09:54 03/01/25 09:54 03/01/25 10:07 Temperature 97.8 F 97.8 F Temperature Source Temporal Pulse Rate 65 65 Respiratory Rate 17 17 Respiratory Pattern Normal Blood Pressure 115/80 115/80 Blood Pressure Mean 91 Blood Pressure Source Monitor Blood Pressure Position Semi-Fowlers Blood Pressure Location Left Arm Pulse Ox 99 99 Oxygen Delivery Method Room Air Room Air Weight Weight: 304 lb 3.806 oz Body Mass Index (BMI) 42.4 Physical Exam Const alert, oriented x3, no apparent distress and healthy appearing General Appearance: cooperative GI normal to inspection, nondistended, normoactive bowel sounds, soft to palpation, non-tender and non-distended Percussion: normal to percussion Rectal Exam: deferred Assessment & Plan Assessment/Plan (1) Abdominal bloating: (2) Duodenal mass: PLAN: He was explained alternatives, risk and benefits include not withstanding bleeding, infection, sepsis, perforation, need for emergent urgent . He will have an ASA of 3.
--- NOTE | 2025-03-01 10:30 | EGD_PTH ---
PATIENT: RYAN ORDRIGUEZ LOC: EN U#:[id number] AGE/SX: 70/M ROOM: RE03/01/[address]: Dr. Chris Rm DO : 1955 BED: DIS: 03/01/2025 SPEC #: [id number] RECD: 03/01/25 13:22 STATUS: TIFFANY REQ #: [id number] DARRON: 03/01/25 10:[address]: Chris Rm DEPT: SURGICAL PATHOLOGY RECD BY: Arun Montes ENTERED: 03/01/25 14:50 SP TYPE: EGD BIOPSY CHIVO DR: Dr. Era Driscoll MD Tissues: A - Duodenum, NOS Procedures: Surgery Specimen Level IV HEADER OPERATION: EGD with polypectomy and saline lift and Argon plasma coagulation PRE-OP DIAGNOSIS: Abdominal bloating, duodenal mass TISSUE SUBMITTED: A- Duodenal polyp MICROSCOPIC DIAGNOSIS A. 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 MICROSCOPIC DESCRIPTION Slides are reviewed. GROSS DESCRIPTION A. Received in fixative is one container labeled with the patient's name and designated Duodenal polyp. The specimen consists of multiple irregular fragments of light lowe soft tissue that in aggregate measure 1.4 x 0.4 x 0.2 cm. The specimen is totally submitted in one cassette. PA 03/01/2025 CPT:36489
[2025-03-01] MEDS: Lidocaine 1% (5 ml sdv) 5 ML Vial 10 ML IV (10:32)
[2025-03-01] MEDS: fentaNYL 100 MCG/2 ML Ampul IV (10:32)
[2025-03-01] MEDS: 0.9% Saline Lock 10 ML Syringe IV (11:03)
--- NOTE | 2025-03-01 11:03 | PCM.POST.ANE ---
Anesthesia: Postop Eval I Current Vital Signs Temperature: 97 F Pulse Rate: 75 Blood Pressure: 141/64 Respiratory Rate: 14 Pulse Ox: 98 Oxygen Delivery Method: Room Air Assessment Airway patent: Yes Spontaneous unlabored respirations: Yes Mental status: Awake and Calm nausea: No Vomiting: No Anesthesia Complication: No Fluid Hydration Crystalloid volume administer (ml): 600 Total IV fluid infused: 600 Progress Note Anesthesia document: Postop Eval 1 completed: Yes
--- NOTE | 2025-03-01 11:09 | POSTOPAN2_ITS ---
Anesthesia Postop Eval I Sum Postop Eval Completion status Anesthesia document: Postop Eval 1 completed: Yes Anesthesia Postop Eval I Summary Anesthesia Postop Eval I Summary: Anesthesia Postop Eval I: Assessment Summary Airway patent Yes 03/01/25 11:04 [email or web address] Spontaneous unlabored Yes 03/01/25 11:04 [email or web address] respirations Mental status Awake,Calm 03/01/25 11:04 [employer]GE[email or web address].OT nausea No 03/01/25 11:04 [email or web address].OT Vomiting No 03/01/25 11:04 [email or web address] Anesthesia Postop Eval I: Fluid Summary Crystalloid volume administer 600 03/01/25 11:04 [email or web address].MDOT (ml) Colloids volume administered ( ml) Blood Product volume administered (ml) Total IV fluid infused 600 03/01/25 11:04 [email or web address] Anesthesia Postop Eval I: Summary Notes Anesthesia Complication No 03/01/25 11:04 [email or web address] Anesthesia Complication Comment: Post-operative progress note Anesthesia: Postop Eval II Evaluation Mental status: Awake and Calm Pain Level: 0 nausea: No Vomiting: No Complications Anesthesia Complication: No
--- NOTE | 2025-03-01 11:09 | PCM.POSTANE2 ---
Anesthesia Postop Eval I Sum Postop Eval Completion status Anesthesia document: Postop Eval 1 completed: Yes Anesthesia Postop Eval I Summary Anesthesia Postop Eval I Summary: Anesthesia Postop Eval I: Assessment Summary Airway patent Yes 03/01/25 11:04 [email or web address] Spontaneous unlabored Yes 03/01/25 11:04 [email or web address] respirations Mental status Awake,Calm 03/01/25 11:04 [email or web address] nausea No 03/01/25 11:04 [email or web address] Vomiting No 03/01/25 11:04 [email or web address] Anesthesia Postop Eval I: Fluid Summary Crystalloid volume administer 600 03/01/25 11:04 [email or web address] (ml) Colloids volume administered ( ml) Blood Product volume administered (ml) Total IV fluid infused 600 03/01/25 11:04 [email or web address] Anesthesia Postop Eval I: Summary Notes Anesthesia Complication No 03/01/25 11:04 [email or web address] Anesthesia Complication Comment: Post-operative progress note Anesthesia: Postop Eval II Evaluation Mental status: Awake and Calm Pain Level: 0 nausea: No Vomiting: No Complications Anesthesia Complication: No
--- NOTE | 2025-03-01 11:16 | OP.EGD_ITS ---
Patient Name: Anselmo Zhang Procedure Date: 03/01/2025 10:33 AM Date of : 1955 Age: 70 Procedure: Upper GI endoscopy Indications: Surveillance procedure, Epigastric abdominal pain Providers: Chris Rm DO Referring MD: Chris Rm DO Medicines: Monitored Anesthesia Care Patient Profile: This is a 70 year old male. Refer to note in patient chart for documentation of history and physical. Patient has symptoms of chronic abdominal distention and chronic dyspepsia. His most recent EGD for biopsy was within the past three months. Complications: No immediate complications. Procedure: Pre-Anesthesia Assessment: - Prior to the procedure, a History and Physical was performed, and patient medications and allergies were reviewed. The patient is competent. The risks and benefits of the procedure and the sedation options and risks were discussed with the patient. All questions were answered and informed consent was obtained. Patient identification and proposed procedure were verified by the physician in the pre-procedure area. Mental Status Examination: alert and oriented. Airway Examination: normal oropharyngeal airway and neck mobility. Respiratory Examination: clear to auscultation. CV Examination: normal. Prophylactic Antibiotics: The patient does not require prophylactic antibiotics. Prior Anticoagulants: The patient has taken no anticoagulant or antiplatelet agents except for NSAID medication. ASA Grade Assessment: II - A patient with mild systemic disease. After reviewing the risks and benefits, the patient was deemed in satisfactory condition to undergo the procedure. The anesthesia plan was to use monitored anesthesia care (MAC). Immediately prior to administration of medications, the patient was re-assessed for adequacy to receive sedatives. The heart rate, respiratory rate, oxygen saturations, blood pressure, adequacy of pulmonary ventilation, and response to care were monitored throughout the procedure. The physical status of the patient was re-assessed after the procedure. After obtaining informed consent, the endoscope was passed under direct vision. Throughout the procedure, the patient's blood pressure, pulse, and oxygen saturations were monitored continuously. The gastroscope was introduced through the mouth, and advanced to the third part of the duodenum. Small bowel enteroscopy was deemed necessary. The upper GI endoscopy was accomplished without difficulty. The patient tolerated the procedure well. Scope In: 10:39:38 AM Scope Out: 11:01:49 AM Total Procedure Duration Time 0 hours 22 minutes 11 seconds Findings: The examined esophagus was normal. No gross lesions were noted in the entire examined stomach. A large polypoid mass with no bleeding was found in the duodenal bulb. Area was successfully injected with 15 mL EverLift for a lift polypectomy. Preparations were made for mucosal resection. Demarcation of the lesion was performed with thermal marking with the tip of a snare to clearly identify the boundaries of the lesion. EverLift was injected to raise the lesion. Snare mucosal resection was performed. Resection was incomplete. The resected tissue was retrieved. Resected tissue including tissue margins will be examined by histology. Coagulation for destruction of remaining portion of lesion using argon plasma at 0.3 liters/minute and 20 healy was successful. Estimated blood loss was minimal. Impression: - Normal esophagus. - No gross lesions in the entire stomach. - Likely benign duodenal mass. Tissue was removed. Injected. Treated with argon plasma coagulation (APC). - Mucosal resection was performed. Resection was incomplete. The resected tissue was retrieved. Recommendation: - Discharge patient to home. - Resume previous diet. - Continue present medications. - Await pathology results. Procedure Code(s): --- Professional --- 25168, Small intestinal endoscopy, enteroscopy beyond second portion of duodenum, not including ileum; with removal of tumor(s), polyp(s), or other lesion(s) by snare technique 95804, Unlisted procedure, small intestine CPT copyright 2021 [employer]. All rights reserved. The codes documented in this report are preliminary and upon senior accounts payable clerk review may be revised to meet current compliance requirements. Chris Rm DO 03/01/2025 11:15:56 AM This report has been signed electronically. Number of Addenda: 0 Note Initiated On: 03/01/2025 10:33 AM
--- NOTE | 2025-03-01 11:17 | OP.PROVAT_ITS ---
03/01/2025 Era Driscoll Md Re : Upper GI endoscopy procedure for Anselmo Zhang Dear [place] This procedure was performed on February. My impressions and recommendations are as follows: Impressions : - Normal esophagus. - No gross lesions in the entire stomach. - Likely benign duodenal mass. Tissue was removed. Injected. Treated with argon plasma coagulation (APC). - Mucosal resection was performed. Resection was incomplete. The resected tissue was retrieved. Recommendations : - Discharge patient to home. - Resume previous diet. - Continue present medications. - Await pathology results. My findings are described in the full procedure note, which is enclosed. If I can be of further assistance, please feel free to contact me at . Sincerely, Chris Rm, 03/01/2025 11:15:56 AM This report has been signed electronically.
== END 2025-03-01 11:52 | disposition home or self-care (01) ==
LOC: EN 09:33 → AC 09:34
PROVIDERS: PCP Internal Medicine; Referring Provider Internal Medicine; Visit Provider Internal Medicine Gastroenterology
PROC: 0DJ08ZZ Inspection of Upper Intestinal Tract, Via Natural or Artificial Opening Endoscopic (ICD-10-PCS; CPT 43235; principal; 2025-03-01 10:25)
DX: K31.9 Disease of stomach and duodenum, unspecified (principal); R14.0 Abdominal distension (gaseous); I10 Essential (primary) hypertension; Z79.899 Other long term (current) drug therapy; K21.9 Gastro-esophageal reflux disease without esophagitis; M10.9 Gout, unspecified; Z90.49 Acquired absence of other specified parts of digestive tract; Z98.52 Vasectomy status; K31.A19 Gastric intestinal metaplasia without dysplasia, unspecified site
CPT/HCPCS: 43251; 88305; C1889; A4216

== ENCOUNTER → 2025-05-01 | Outpatient (CLI) | payer MEDICARE, OTHER, SELFPAY ==
[2025-05-01 13:20] LABS: Hematocrit 44.1 % (40-54); Hemoglobin 15.2 g/dL (13.0-16.5); Immature Granulocytes Count 0.010 X10^3/uL (0.0-0.0); Mean Corp Hgb Conc 34.5 g/dL (32-36); Mean Corpuscular Volume 95.9 fL (80-94); Mean Platelet Vol. 9.1 fl (6.2-12.0); NRBC Flagged by Analyzer 0 % (0-5); Platelet Count 214 K/mm3 (150-450); RBC Distribution Width CV 13.4 % (11.6-14.6); RBC Distribution Width SD 47.1 fl (35.1-43.9); Red Blood Count 4.60 M/mm3 (4.6-6.2); White Blood Count 4.6 K/mm3 (4.4-11.0)
[2025-05-01 18:26] LABS: AST(SGOT) 33 U/L (<=37); Alanine Aminotransfer ALT/SGPT 36 U/L (<=46); Albumin, Serum 4.2 g/dL (3.4-4.8); Alkaline Phosphatase 64 U/L (40-129); Anion Gap 11 (5-15); BUN 21 mg/dL (4-19); BUN/Creat Ratio 21.3 RATIO (10-20); Calcium,Total 9.5 mg/dL (7.6-11.0); Carbon Dioxide 25.1 mmol/L (21.0-32.0); Chloride 104 mmol/L (98-108); Globulin 2.8 g/dL (2.2-4.2); Glucose 76 mg/dL (70-99); Magnesium 2.5 mg/dL (1.5-2.2); PSA,Total - Annual Screen 1.59 ng/mL (0.02-4.00); Potassium 4.4 mmol/L (3.3-5.1)
== END | disposition home or self-care (01) ==
LOC: LABSPEC 13:07 → MTLAB 18:39
PROVIDERS: PCP Internal Medicine; Referring Provider Internal Medicine; Visit Provider Internal Medicine
DX: I10 Essential (primary) hypertension (principal); Z12.5 Encounter for screening for malignant neoplasm of prostate
CPT/HCPCS: 36415; 80053; 83735; 84153; 85025; G0103

== ENCOUNTER → 2025-06-01 | Outpatient (CLI) | payer MEDICARE, OTHER, SELFPAY ==
--- OUTSIDE RECORDS SUMMARY | 2025-06-01 08:43 | XMS RPT_ITS | CCD ---
Author Organization [facility] Care Team Providers Care Surveyor Helper Name Role Phone Jl Sheth Unavailable Unavailable Jl Sheth Unavailable Unavailable Jl Sheth Unavailable Unavailable Unavailable Unavailable Unavailable Jl Sheth MD Primary Care Provider JL SHETH Referring Unavailable JL SHETH Primary Care Unavailable JL SHETH Referring Unavailable JL SHETH Primary Care Unavailable Mirta, Dr. Jl Bauman Referring Unavaila shady Sheth, Dr. Jl Bauman Attending Unavaila shady Sheth, Dr. Jl Bauman Primary Care Unavaila shady Sheth, Dr. Jl Bauman Primary Care Unavaila shady Sheth, Dr. Jl Bauman Referring Unavaila shady Sheth, Dr. Jl Bauman Attending Unavaila JL Melgar Primary Care Unavailable Jl Sheth MD Primary Care Provider [phone] BIPIN CUELLAR Attending Unavaila JL Melgar Primary Care Unavailable JL SHETH Primary Care Unavailable NAOMY SHAFFER Attending Unavailable JL SHETH Primary Care Unavailable FELICITA MURRAY Attending Unavaila JL Melgar Primary Care Unavailable Jl Sheth MD Primary Care Provider Felicita Murray DO Unavailable Dr. Marcel Driscoll Primary Care Provider Dr. Marcel Driscoll Attending Provider Dr. Marcel Driscoll Referring Provider [phone] Mirta VALERA, Jl Zuniga Unavailable Americo VALERA, Dr. Girard Primary Care Provider [phone] Americo VALERA, Dr. Girard Attending Provider Americo VALERA, Dr. Girard Referring Provider Ryan Ware Attending Provider Mae Mccollum Attending Provider Americo VALERA, Dr. Girard Other Provider [phone] Jeferson VALERA, Dr. Gonsalves Attending Provider [phone] Lindsay VALERA, Dr. Bryson Ash Attending Provider [phone] Lindsay VALERA, Dr. Bryson Ash Referring Provider [phone] LINDSAY VALERA, DR BRYSON ASH Attending Alfredo DRISCOLL MD, MARCEL Moore Primary Care Unavailable LINDSAY VALERA, DR BRYSON ASH Attending Alfredo DRISCOLL MD, MARCEL Moore Primary Care Unavailable Americo VALERA, Dr. Girard Primary Care Provider [phone] Americo VALERA, Dr. Girard Attending Provider Americo VALERA, Dr. Girard Referring Provider Americo VALERA, Dr. Girard Primary Care Provider [phone] Americo VALERA, Dr. Girard Attending Provider Americo VALERA, Dr. Girard Referring Provider Sujey MAY, Dr. Perez Attending Provider Dr. Chris Rm DO Other Provider [phone] Americo VALERA, Dr. Girard Primary Care Provider [phone] Americo VALERA, Dr. Girard Referring Provider Mae Mccollum Attending Provider Orem, Marcel Referring Unavailable Americo, Marcel Primary Care Unavailable Major Govea Attending Unavailable Orem, Marcel Consulting Unavailable Orem, Marcel Referring Unavailable Americo, Marcel Primary Care Unavailable Orem, Marcel Attending Unavailable Orem, Marcel Attending Unavailable Orem, Marcel Referring Unavailable Americo, Marcel Primary Care Unavailable Roof BRICK AND BLOCK MASON, Ryan Colindres Attending Unavailable Orem, Marcel Referring Unavailable Orem, Marcel Primary Care Unavailable Americo, Marcel Referring Unavailable Americo, Marcel Primary Care Unavailable Mae Boudreaux Attending Unavailable Americo, Marcel Attending Unavailable Americo, Marcel Referring Unavailable Americo, Marcel Primary Care Unavailable Orem, Marcel Attending Unavailable Americo, Marcel Referring Unavailable Orem, Marcel Primary Care Unavailable Orem, Marcel Primary Care Unavailable Americo, Marcel Referring Unavailable Mae Boudreaux Attending Unavailable Orem, Marcel Attending Unavailable Orem, Marcel Referring Unavailable Orem, Marcel Primary Care Unavailable Friend, Chris Attending Unavailable Americo, Marcel Primary Care Unavailable Orem, Marcel Referring Unavailable Orem, Marcel Referring Unavailable Americo, Marcel Primary Care Unavailable Friend, Chris Attending Unavailable Orem, Marcel Attending Unavailable Americo, Marcel Primary Care Unavailable Americo, Marcel Referring Unavailable Americo, Marcel Referring Unavailable Americo, Marcel Attending Unavailable Americo, Marcel Primary Care Unavailable Orem, Macrel Attending Unavailable Orem, Marcel Referring Unavailable Americo, Marcel Primary Care Unavailable LindsayBryson Referring Unavailable LindsayBryson Attending Unavailable Americo, Marcel Primary Care Unavailable Americo, Marcel Referring Unavailable Americo, Marcel Attending Unavailable Orem, Marcel Primary Care Unavailable Friend, Chris Attending Unavailable Friend, Chris Consulting Unavailable Orem, Marcel Primary Care Unavailable Orem, Marcel Referring Unavailable Friend, Chris Consulting Unavailable Orem, Marcel Primary Care Unavailable Orem, Marcel Referring Unavailable Chris Rm Attending Unavailable Americo VALERA, Dr. Girard Primary Care Physician Dr. Marcel Driscoll MD Referring Provider Friend Dr. Chris MAY Attending Physician Friend Dr. Chris MAY Nurse Practitioner Americo VALERA, Dr. Girard Attending Physician Allergies Allergy Classification Reported Allergen(s) Allergy Type Date of Onset Reaction(s) Facility Dust (5 sources) house dust Substance Allergy [facility] Work Phone: Macrolides (antibiotic) (10 sources) Clarithromycin; Translations: [Biaxin] Drug Allergy Rash [facility] Work Phone: (20 sources) Clarithromycin; Translations: [Biaxin] Drug Allergy Rash [facility] Work Phone: (20 sources) Clarithromycin; Translations: [clarithromycin] Drug Allergy 6 Hives, Rash [facility] (20 sources) house dust allergy to substance [facility] Work Phone: (8 sources) house dust allergenic extract; Translations: [HOUSE DUST] Drug Allergy 0 Intolerance, Unknown [facility] (11 sources) bismuth subsalicylate; Translations: [BISMUTH SUBSALICYLATE] Drug Allergy 3 Itching, Rash [facility] (1 source) bismuth subsalicylate Drug Allergy 5 [facility] Medications Current Medications Medication Drug Class(es) Dates Sig (Normalized) Sig (Original) allopurinol 300 mg oral tablet (20 sources) Xanthine Oxidase Inhibitor Start: 12-24-2022 End: 03-13-2025 take 1 tablet by mouth once daily Start: 05-09-2019 take 1 tablet by christ th once daily allopurinol (ZYLOPRIM) 300 mg tablet Take 1 tablet by mouth once daily. 0 05/09/2019 Active Start: 05-09-2019 take 1 tablet by christ th once daily Allopurinol 100 MG Oral Tablet TAKE 1 TABLET DAILY. Quantity: 90 Refills: 1 Mirta VALERA, Jl Zuniga Start : 09-May-2019 Active Comment on above: Take 1 tablet by christ th once daily. Ukzog-A-Goukaafwxnyti (1 source) Start: 12-20-19 take 1 tablet by mouth once daily as needed Uuypw-H-Jdheqscchdokx (Beano) 450 unit tablet,disintegrating (2 sources) Start: 12-20-19 take 1 tablet by mouth once daily as needed Mranx-M-Gwqjccoweec se (Beano) 450 unit tablet,disintegrati ng Active 900 U PO DAILY as needed for indigestion December 19, 2024 12:00am capsaicin 0.33 mg/ml topical cream (1 source) Start: 05-01-20 cholecalciferol 0.05 mg oral capsule (7 sources) Vitamin D Start: 12-25-19 take 1 capsule by mouth once daily fexofenadine hydrochloride 180 mg oral tablet (12 sources) Histamine-1 Receptor Antagonist Start: 12-08-19 End: 02-24-20 take 1 tablet by mouth once daily as needed Glucos Sul [id number]-Ffy-[id number]-C-Mn (Glucosamine Chondroitin) 550-30-1 mg capsule (3 sources) Start: 12-20-19 Start: 12-19-2024 Glucos Sul 2kc c-Bvb-Eclgy-C-Mn (Glucosamine Chondroitin) 550-30-1 mg capsule Active 1 NMA PO TWICE A DAY December 19, 2024 12:00am Glucosamine (2 sources) Start: 05-04-2023 take 1 mg by mouth o nce daily Glucosamine Sulfate Active MG PO DAILY May 04, 2023 8:37am Start: 12-24-2022 End: 05-04-2023 Glucosamine Sulfate Disconti nued MG PO December 24, 2022 12:00am May 04, 2023 8:38am lisinopril 20 mg oral tablet (20 sources) Angiotensin Converting Enzyme Inhibitor Start: 05-03-2025 take 1 tablet by mouth once daily Start: 11-22-2024 End: 05-03-2025 take 1 tablet by mouth once daily Lisinopril 20 mg tablet Discontinued 20 mg PO DAILY 90 1 November 22, 2024 8:56am May 03, 2025 2:34pm Start: 08-25-2022 End: 11-22-2024 take 1 tablet by mouth once daily Lisinopril 40 mg tablet Discontinued 40 mg PO DAILY 90 June 27, 2024 12:24pm November 22, 2024 8:57am Comment on above: Take 40 mg by mouth. meloxicam 15 mg oral tablet (20 sources) Nonsteroidal Anti-inflammatory Drug Start: 0 meloxicam (Mobic) 15 mg tablet Take 1 tablet (15 mg) by mouth if needed (flair of gout). 0 07/01/2020 Active Comment on above: Take by mouth. Multivitamin preparation (1 source) Start: 3 take 1 tablet by mouth once daily Multivitamin Active 1 TABLET PO DAILY December 24, 2022 12:00am multivitamin tablet (3 sources) Start: 4 multivitamin tablet Take by mouth as directed. 0 09/21/2013 Active Start: 09-21-2013 multivitamin t ablet Take by mouth. 0 09/21/2013 Active Comment on above: Take by mouth as dir ected. Multivitamin tablet (6 sources) Start: 12-24-2022 Start: 12-24-2022 Multivitamin t ablet Active 1 {tbl} PO DAILY December 24, 2022 12:00am nitrofurantoin, macrocrystals 25 mg / nitrofurantoin, monohydrate 75 mg oral capsule (1 source) Nitrofuran Antibacterial Start: 09-25-2022 End: 10-02-2022 take 1 capsule by mouth in the morning nitrofurantoin, macrocrystal-monohydrate, (Macrobid) 100 mg capsule Indications: Dysuria Take 1 capsule (100 mg) by mouth in the morning and 1 capsule (100 mg) before bedtime. Do all this for 7 days. 14 capsule 0 09/25/2022 10/02/2022 Active pantoprazole 40 mg delayed release oral tablet (9 sources) Proton Pump Inhibitor Start: 05-01-2025 take 1 tablet by mouth once daily Start: 01-02-2025 End: 05-01-2025 take 1 tablet by mouth twice daily Pantoprazole 40 mg tablet,delayed release (DR/EC) Discontinued 40 mg PO TWICE A DAY 90 2 January 03, 2025 12:27pm May 01, 2025 8:40am Start: 11-22-2024 End: 01-02-2025 take 1 tablet by mouth once daily Pantoprazole 40 mg tablet,delayed release (DR/EC) Discontinued 40 mg PO daily 30 November 21, 2024 11:00pm January 02, 2025 7:13am simethicone 250 mg oral caps ule (3 sources) Start: 12-19-2024 take 1 capsule by mo [facility] at bedtime as needed ubidecarenone 75 mg oral cap bridgett (7 sources) Start: 12-24-2022 Completed/Discontinued Medications Medication Drug Class(es) Dates Sig (Normalized) Sig (Original) amoxicillin 875 mg / clavulanate 125 mg oral tablet (1 source) Penicillin-class Antibacterial Start: 05-06-2019 End: 05-17-2019 take 1 tablet by mouth every twelve hours Amoxicillin-Pot Clavulanate 875-125 MG Oral Tablet TAKE 1 TABLET EVERY 12 HOURS UNTIL GONE. Quantity: 20 Refills: 0 Jl Sheth MD Start : 06-May-2019 End : 16-May-2019 Active cephalexin 500 mg oral capsule (2 sources) Cephalosporin Antibacterial Start: 02-16-2016 End: 12-12-2022 cephALEXin (KEFLEX) 500 mg capsule cyclobenzaprine hydrochloride 10 mg oral tablet (6 sources) Muscle Relaxant Start: 02-09-2024 End: 08-14-2024 take 1 tablet by mouth three times daily as needed for muscle spasms Cyclobenzaprine 10 mg tablet Discontinued 10 mg PO THREE TIMES A DAY as needed for Muscle Spasm 12 February 08, 2024 11:00pm August 14, 2024 2:50pm doxycycline hyclate 100 mg oral capsule (3 sources) Tetracycline-class Drug Start: 07-14-2021 take 1 capsule by mouth once daily Doxycycline Hyclate 100 MG Oral Capsule TAKE 1 CAPSULE EVERY 12 HOURS DAILY. Quantity: 20 Refills: 0 Ordered: 14-Jul-2021 Jl Sheth MD Start : 14-Jul-2021 Active fluticasone propionate 0.05 mg/actuat metered dose nasal spray (20 sources) Corticosteroid Start: 12-24-2022 End: 06-19-2024 take 50 ug nasal route twice daily as needed Fluticasone Propionate (Allergy Relief (Fluticasone)) 50 mcg/actuation spray,suspension Discontinued 1 NMA INTRANASAL TWICE A DAY as needed for allergy symptoms 32 January 19, 2024 3:35pm June 19, 2024 9:26am administer into each nostril Start: 12-24-2022 End: 10-27-2023 take 1 spray(s) nasal route twice daily Fluticasone Propionate (Allergy Relief (Fluticasone)) 50 mcg/actuation spray,suspension Active 1 SPRAY INTRANASAL TWICE A DAY October 27, 2023 4:13pm administer into each nostril Start: 05-10-2014 take 2 spray(s) nasa l route once daily fluticasone (Flonase) 50 mcg/actuation nasal spray Administer 2 sprays into each nostril once daily. 0 05/10/2014 Active Start: 05-10-2014 fluticasone (F LONASE) 50 mcg/actuation nasal spray Glucosamine Sulfate 1,500 mg powder in packet (12 sources) Start: 05-04-2023 End: 12-19-2024 take 1 mg by mouth once daily Glucosamine Sulfate 1,500 mg powder in packet Discontinued mg PO DAILY May 04, 2023 7:37am December 19, 2024 10:49am Start: 05-04-2023 End: 12-19-2024 take 1 mg by mouth once daily Glucosamine Sulfate 1,50 0 mg powder in packet Discontinued mg PO DAILY May 04, 2023 8:37am December 19, 2024 11:49am Start: 05-04-2023 take 1 mg by mouth once daily Glucosamine Sulfate 1,500 mg powder in packet Active mg PO DAILY May 04, 2023 8:37am Start: 12-24-2022 End: 05-04-2023 Glucosamine Sulfate 1,500 mg powder in packet Discontinued mg PO December 23, 2022 11:00pm May 04, 2023 7:38am Start: 12-24-2022 End: 05-04-2023 Glucosamine Sulfate 1,500 mg powder in packet Discontinued mg PO December 24, 2022 12:00am May 04, 2023 8:38am ibuprofen 800 mg oral tablet (6 sources) Nonsteroidal Anti-inflammatory Drug Start: 08-14-2024 End: 08-21-2024 take 1 tablet by mouth three times daily as needed for pain Ibuprofen (Ibu) 800 mg tablet Discontinued 800 mg PO THREE TIMES A DAY as needed for pain 21 7 0 August 14, 2024 12:00am August 20, 2024 12:00am August 21, 2024 12:10am indomethacin 50 mg oral capsule (9 sources) Nonsteroidal Anti-inflammatory Drug Start: 04-23-2014 take 1 capsule by mouth three times daily at mealtime as needed Indomethacin 50 MG Oral Capsule TAKE 1 CAPSULE 3 TIMES DAILY WITH FOOD NEEDED. Quantity: 270 Refills: 0 Jl Shteh MD Start : 23-Apr-2014 Active 1 ml ketorolac tromethamine 30 mg/ml injection (1 source) Nonsteroidal Anti-inflammatory Drug, Cyclooxygenase Inhibitor Start: 12-12-2022 End: 12-12-2022 keTORolac 30 mg injection (Toradol) meclizine hydrochloride 12.5 mg oral tablet (7 sources) Antiemetic Start: 12-24-2022 End: 11-01-2023 take 1 tablet by mouth three times daily as needed for dizziness Meclizine 12.5 mg tablet Discontinued 12.5 mg PO THREE TIMES A DAY as needed for dizziness 30 0 December 23, 2022 11:00pm November 01, 2023 7:36am methylPREDNISolone 4 mg oral tablet (12 sources) Corticosteroid Start: 08-14-2024 End: 08-23-2024 take 1 tablet by mouth once Methylprednisolone (Medrol (Oleg)) 4 mg tablets,dose pack Discontinued 0 PO per package directions 21 August 14, 2024 12:00am August 23, 2024 8:41am PO PER PKG DIR Start: 02-24-2024 End: 07-18-2024 take 1 tablet by mouth once Methylprednisolone (Medrol (Oleg)) 4 mg tablets,dose pack Discontinued 0 PO per package directions February 23, 2024 11:00pm July 18, 2024 8:39am PO PER PKG DIR for 6 days Multi-Vitamins Oral Tablet (6 sources) Start: 09-21-2013 Multi-Vitamins Oral Tablet Refills: 0 DO Start : 21-Sep-2013 Active Start: 09-21-2013 Multi-Vitamins Oral Tablet Refills: 0 Start : 21-Sep-2013 Active Multi-Vitamins TABS (4 sources) Start: 09-21-2013 Multi-Vitamins TABS Refills: 0 DO Start : 21-Sep-2013 Active Start: 09-21-2013 Multi-Vitamins TABS Refills: 0 Start : 21-Sep-2013 Active Multi-Vitamins TABS (20 sources) Start: 09-21-2013 Multi-Vitamins TABS Quantity: 0 Refills: 0 Ordered: 21-Sep-2013 DO Start : 21-Sep-2013 Active naproxen 375 mg oral tablet (12 sources) Nonsteroidal Anti-inflammatory Drug Start: 02-09-2024 End: 08-14-2024 take 1 tablet by mouth twice daily as needed for pain Naproxen 375 mg tablet Discontinued 375 mg PO TWICE A DAY as needed for pain 30 February 24, 2024 2:59pm August 14, 2024 2:51pm omeprazole 20 mg delayed release oral capsule (6 sources) Proton Pump Inhibitor Start: 07-18-2024 End: 08-23-2024 take 1 capsule by mouth once daily Omeprazole 20 mg capsule,delayed release(DR/EC) Discontinued 20 mg PO daily July 18, 2024 12:00am August 23, 2024 8:41am predniSONE 20 mg oral tablet (7 sources) Start: 12-08-2023 End: 02-09-2024 take 2 tablets by mouth once daily Prednisone 20 mg tablet Discontinued 40 mg PO DAILY 10 December 07, 2023 11:00pm February 09, 2024 9:11am Start: 12-12-2022 End: 12-24-2022 predniSONE (DELTASONE) 10 mg tablet Take 6 tabs for 3 days, then 4 tabs for 3 days, then 2 tabs for 3 days then 1 tab for 3 days with food. 39 tablet 0 12/12/2022 12/24/2022 Active Comment on above: Take 6 tabs for 3 da ys, then 4 tabs for 3 days, then 2 tabs for 3 days then 1 tab for 3 days with food. Prevnar 20 0.5 ML Intramuscular Suspension Prefilled Syringe (11 sources) Start: 03-10-2022 Prevnar 20 0.5 ML Intramuscular Suspension Prefilled Syringe INJECT 0.5 ML Intramuscular Quantity: 1 Refills: 0 Ordered: 10-Mar-2022 Mirta VALERA, Jl Zuniga Start : 10-Mar-2022 Active quinapril 20 mg oral tablet (20 sources) Angiotensin Converting Enzyme Inhibitor Start: 12-09-2015 End: 12-12-2022 quinapril (ACCUPRIL) 20 mg tablet Start: 09-21-2013 take 2 tablets by mo ut once daily Quinapril HCl - 20 MG Oral Tablet Take 2 tablets daily Quantity: 180 Refills: 4 Ordered: 18-Aug-2022 Jl Sheth MD Start : 21-Sep-2013 Active Saw Crofton (7 sources) Start: 12-24-2022 End: 07-18-2024 take 1 capsule by mouth twice daily at mealtime Saw Cro[place]on 500 mg capsule Discontinued 500 mg PO TWICE A DAY December 23, 2022 11:00pm July 18, 2024 8:42am give with food (meal/snack) Start: 12-24-2022 End: 07-18-2024 take 1 capsule by mouth twice daily at mealtime Saw [place] 500 mg capsule Discontinued 500 mg PO TWICE A DAY December 24, 2022 12:00am July 18, 2024 9:42am give with food (meal/snack) Start: 12-24-2022 take 500 mg by mouth twice daily at mealtime Saw Crofton Active 500 MG PO TWICE A DAY December 24, 2022 12:00am give with food (meal/snack) Shingrix 50 MCG Intramuscular Suspension Reconstituted (20 sources) Start: 03-10-2022 inject 50 ug by intramuscular injection once daily Shingrix 50 MCG Intramuscular Suspension Reconstituted INJECT 50 MCG Daily Quantity: 1 Refills: 1 Ordered: 10-Mar-2022 Jl Sheth MD Start : 10-Mar-2022 Active Start: 01-03-2021 inject 50 ug by intr amuscular injection once daily Shingrix 50 MCG Intramuscular Suspension Reconstituted INJECT 50 MCG Daily Quantity: 1 Refills: 1 Ordered: 03-Jan-2021 Jl Sheth MD Start : 03-Jan-2021 Active wheat dextrin 3000 mg powder for oral solution (6 sources) Start: 07-18-2024 End: 12-19-2024 Wheat Dextrin (Benefiber Darrin ar Sf (Dextrin)) 3 gram/3.5 gram powder in packet Discontinued 1.5 g PO TWICE A DAY 28 0 July 18, 2024 12:00am December 19, 2024 10:50am mix into at least 4 oz water or juice before administering Problems Active Problems Problem Classification Problem Date Documented Da te Episodic/Chronic Abdominal pain (5 sources) Unspecified abdominal pain; Translations: [Right flank pain] Onset: 11-06-2022 Episodic Acquired foot deformities (6 sources) Foot-drop; Translations: [Other acquired deformities of ankle and foot] Onset: 09-24-2022 09-24-2022 Episodic Allergic reactions (20 sources) Environmental allergy; Translations: [Other allergy, other than to medicinal agents] Episodic Cataract (3 sources) Nuclear sclerotic cataract; Translations: [Age-related nuclear cataract, bilateral] Onset: 03-19-2020 03-19-2020 Chronic Conditions associated with dizziness or vertigo (8 sources) Benign paroxysmal positional vertigo; Translations: [Benign paroxysmal vertigo, unspecified ear] 07-18-2024 Episodic Disorders of lipid metabolism (20 sources) Hyperlipidemia; Translations: [Other and unspecified hyperlipidemia] Onset: 04-11-2022 09-24-2022 Chronic E Codes: Fall (1 source) Unspecified fall, initial encounter; Translations: [Unspecified fall] 11-01-2023 Episodic Esophageal disorders (6 sources) Gastric reflux; Translations: [Gastro-esophageal reflux disease without esophagitis] Onset: 01-03-2025 12-21-2024 Chronic Comment on above: STARTED ON PROTONIX FOR ABD BLOATING AND GAS Essential hypertension (20 sources) Benign essential hypertension; Translations: [Benign essential hypertension] Onset: 09-24-2022 09-24-2022 Chronic Comment on above: Added by Problem Sara alvarez Migration; 2013-05-16; Moved to Suppressed Jun 04 2013 4:33PM; Gout and other crystal arthropathies (20 sources) Gout; Translations: [Gout, unspecified] Onset: 04-11-2022 09-24-2022 Chronic Comment on above: Added by Problem Sara alvarez Migration; 2013-05-16; Moved to Suppressed Jun 04 2013 4:33PM; ON MED Lymphadenitis (4 sources) Lymphadenopathy; Translations: [Generalized enlarged lymph nodes] 08-23-2024 Episodic Malaise and fatigue (8 sources) Fatigue; Translations: [Other malaise and fatigue] Episodic Nonspecific chest pain (6 sources) Chest pain; Translations: [Chest pain, unspecified] 02-17-2024 Episodic Osteoarthritis (20 sources) Arthritis; Translations: [Arthropathy, unspecified, site unspecified] Onset: 09-24-2022 09-24-2022 Chronic Other bone disease and musculoskeletal deformities (4 sources) Osteopenia; Translations: [Other specified disorders of bone density and structure, unspecified site] 10-04-2024 Episodic Other circulatory disease (20 sources) H/O: hypertension; Translations: [Personal history of other diseases of circulatory system] Episodic Other connective tissue disease (20 sources) Nocturnal muscle cramp; Translations: [Cramp of limb] Episodic Other connective tissue disease (3 sources) Monoparesis - leg; Translations: [Other musculoskeletal symptoms referable to limbs] Episodic Other connective tissue disease (1 source) Cramp; Translations: [Cramp and spasm] 05-01-2025 Episodic Other disorders of stomach and duodenum (4 sources) Mass of duodenum; Translations: [Other diseases of stomach and duodenum] 03-01-2025 Episodic Other disorders of stomach and duodenum (1 source) Other diseases of stomach and duodenum; Translations: [Other diseases of stomach and duodenum] Onset: 03-26-2025 Episodic Other disorders of stomach and duodenum (1 source) Disease of stomach and duodenum, unspecified; Translations: [Disease of stomach and duodenum, unspecified] Onset: 03-26-2025 Episodic Other ear and sense organ disorders (20 sources) Hearing loss; Translations: [Unspecified hearing loss] Onset: 09-24-2022 09-24-2022 Chronic Other ear and sense organ disorders (20 sources) Bilateral hearing loss; Translations: [Unspecified hearing loss] Onset: 09-24-2022 09-24-2022 Chronic Other ear and sense organ disorders (20 sources) Asymmetrical sensorineural hearing loss; Translations: [Sensorineural hearing loss, asymmetrical] Onset: 09-24-2022 09-24-2022 Chronic Other ear and sense organ disorders (10 sources) Asymmetrical sensorineural hearing loss; Translations: [Sensorineural hearing loss, asymmetrical] Episodic Other eye disorders (3 sources) Posterior vitreous detachment; Translations: [Vitreous degeneration, unspecified eye] Onset: 06-26-2016 06-26-2016 Chronic Other gastrointestinal disorders (20 sources) Abdominal bloating; Translations: [Abdominal distension (gaseous)] 09-05-2024 Episodic Other gastrointestinal disorders (10 sources) Constipation; Translations: [Constipation, unspecified] 07-18-2024 Episodic Other gastrointestinal disorders (2 sources) Abdominal distension (gaseous); Translations: [Abdominal distension (gaseous)] Onset: 01-03-2025 Episodic Other lower respiratory disease (1 source) Rib pain; Translations: [Pleurodynia] Episodic Other nervous system disorders (1 source) Neuropathy; Translations: [Polyneuropathy, unspecified] 05-01-2025 Chronic Other nervous system disorders (1 source) Other abnormalities of gait and mobility; Translations: [Other symptoms involving nervous and musculoskeletal systems] 11-01-2023 Episodic Other nervous system disorders (2 sources) Impairment of balance; Translations: [Other abnormalities of gait and mobility] 07-18-2024 Episodic Other nervous system disorders (8 sources) Paresthesia of hand ; Translations: [Anesthesia of skin] 08-23-2024 Episodic Other nervous system disorders (4 sources) Sense of smell altered; Translations: [Unspecified disturbances of smell and taste] 08-23-2024 Episodic Other non-traumatic joint disorders (14 sources) Pain in left knee; Translations: [Left knee pain] Onset: 04-11-2022 07-18-2024 Episodic Other non-traumatic joint disorders (1 source) Pain in right knee; Translations: [Pain in joint, lower leg] 11-01-2023 Episodic Other nutritional; endocrine; and metabolic disorders (8 sources) Body mass index 30+ - obesity; Translations: [Body Mass Index 39.0-39.9, adult] Chronic Other nutritional; endocrine; and metabolic disorders (20 sources) Body mass index 40+ - severely obese; Translations: [Body Mass Index 40.0-44.9, adult] Onset: 09-24-2022 Resolved: 09-11-2022 09-24-2022 Chronic Other screening for suspected conditions (not mental disorders or infectious disease) (20 sources) Patient encounter status; Translations: [Screening for other and unspecified cardiovascular conditions] Onset: 04-11-2022 11-30-2023 Episodic Other skin disorders (11 sources) Sebaceous cyst of skin; Translations: [Sebaceous cyst] Episodic Other upper respiratory disease (20 sources) Allergic rhinitis; Translations: [Allergic rhinitis, cause unspecified] Onset: 09-24-2022 09-24-2022 Chronic Other upper respiratory disease (1 source) Allergic rhinitis, unspecified; Translations: [Allergic rhinitis, cause unspecified] 11-01-2023 Chronic Other upper respiratory infections (12 sources) Acute maxillary sinusitis; Translations: [Acute upper respiratory infection] 07-18-2024 Episodic Residual codes; unclassified (20 sources) Obstructive sleep apnea syndrome; Translations: [Obstructive sleep apnea (adult)(pediatric)] Onset: 09-24-2022 09-24-2022 Chronic Residual codes; unclassified (1 source) Obstructive sleep apnea (adult) (pediatric); Translations: [Obstructive sleep apnea (adult)(pediatric)] 11-01-2023 Chronic Residual codes; unclassified (4 sources) Influenza vaccination declined; Translations: [Immunization not carried out because of patient refusal] 07-18-2024 Episodic Skin and subcutaneous tissue infections (1 source) Infection of foot; Translations: [Local infection of the skin and subcutaneous tissue, unspecified] 05-01-2025 Episodic Sprains and strains (6 sources) Strain of muscle and tendon of back wall of thorax, initial encounter; Translations: [Strain of right rhomboid muscle] 02-17-2024 Episodic Superficial injury; contusion (12 sources) Ecchymosis; Translations: [Contusion of lower leg] Episodic Unclassified (1 source) ERRONEOUS ENCOUNTER--DISREGARD 09-29-2023 Past or Other Problems Problem Classification Problem Date Documented Da te Episodic/Chronic Blindness and vision defects (3 sources) Disorder of refraction; Translations: [Unspecified disorder of refraction] Onset: 06-26-2016 06-26-2016 Episodic Calculus of urinary tract (6 sources) Personal history of urinary calculi; Translations: [Kidney stone] Onset: 11-06-2022 Episodic Genitourinary symptoms and ill-defined conditions (9 sources) Hematuria, unspecified; Translations: [Dysuria] Onset: 09-25-2022 Episodic Immunizations and screening for infectious disease (20 sources) Immunization due; Translations: [Need for prophylactic vaccination and inoculation against unspecified single disease] 09-28-2022 Episodic Mood disorders (2 sources) Mood disorders Onset: 03-10-2022 08-23-2022 Other connective tissue disease (1 source) Other symptoms and signs involving the musculoskeletal system; Translations: [Other musculoskeletal symptoms referable to limbs] Onset: 09-24-2022 09-24-2022 Episodic Other connective tissue disease (1 source) Weakness of right leg; Translations: [Other symptoms and signs involving the musculoskeletal system] Onset: 09-24-2022 09-24-2022 Episodic Other gastrointestinal disorders (1 source) Constipation, unspecified; Translations: [Constipation, unspecified] Onset: 08-23-2024 Episodic Other liver diseases (20 sources) Elevated liver enzymes level; Translations: [Other nonspecific abnormal serum enzyme levels] Onset: 09-24-2022 09-24-2022 Episodic Other nervous system disorders (2 sources) Paresthesia of skin; Translations: [Paresthesia of skin] Onset: 09-23-2024 Episodic Other nervous system disorders (2 sources) Anesthesia of skin; Translations: [Anesthesia of skin] Onset: 08-23-2024 Episodic Other upper respiratory disease (20 sources) Hypertrophy of nasal turbinates; Translations: [Hypertrophy of nasal turbinates] Onset: 09-24-2022 09-24-2022 Episodic Other upper respiratory disease (20 sources) Deviated nasal septum; Translations: [Deviated nasal septum] Onset: 09-24-2022 09-24-2022 Episodic Residual codes; unclassified (10 sources) Immunization due; Translations: [Immunization due] Spondylosis; intervertebral disc disorders; other back problems (20 sources) Pain in thoracic spine; Translations: [Backache] Onset: 11-06-2022 Episodic Unclassified (20 sources) History of clinical finding in subject; Translations: [History of cough] Resolved: 07-24-2017 Unclassified (20 sources) Patient encounter status; Translations: [Prostate cancer screening] NEGATED: Highlighted row has not occurred!Residual codes; unclassified (20 sources) Disease Episodic Results Test Name Value Interpretation Reference Range Facility Absolute lymphocyte countOrd ered By: Marcel Driscoll on 05-01-2025 Lymphocytes Auto (Unsp spec) [#/Vol] 0.92 10*3/uL 0.83-4.51 [facility] Absolute neutrophil countOrd ered By: Marcel Driscoll on 05-01-2025 Neutrophils (Bld) [#/Vol] 3.0 10*3/uL 2.0-7.7 [facility] Anion gap in Serum or Plasma Ordered By: Marcel Driscoll on 05-01-2025 Anion gap [Moles/Vol] 11 mmol/L - [facility] Automated lymphocyte count a s percentage of total leukocytesOrdered By: Marcel Driscoll on 05-01-2025 Lymphocytes/100 WBC Auto (Unsp spec) 19.8 % [facility] BUN/creatinine ratioOrdered By: Marcel Driscoll on 05-01-2025 Urea nitrogen/Creatinine [Mass ratio] 21.3 mg/mg High - [facility] Basophil percentageOrdered B y: Marcel Driscoll on 05-01-2025 Basophils/100 WBC (Bld) 0.9 % 0-1 [facility] Bilirubin, totalOrdered By: Marcel Driscoll on 05-01-2025 Bilirubin [Mass/Vol] 1.01 mg/dL 0.00-1.30 [facility] CBC W/Diff, Automatedon 04-12 Absolute Lymph 0.92 X10 3/uL Normal 0.83-4.51 [facility] Comment on above: Performed By: #### L 100.0100, L500.4050, L501.9910, L501.5200 #### [facility] [address] [place], [address] Absolute Neut 3.0 X10 3/uL Normal 2.0-7.7 [facility] Comment on above: Performed By: #### L 100.0100, L500.4050, L501.9910, L501.5200 #### [facility] [address] [place], [address] Basophils/100 WBC (Bld) 0.9 % Normal 0-1 [facility] Comment on above: Performed By: #### L 100.0100, L500.4050, L501.9910, L501.5200 #### [facility] [address] [place], [address] Eosinophils/100 WBC (Bld) 2.8 % Normal 0-5 [facility] Comment on above: Performed By: #### L 100.0100, L500.4050, L501.9910, L501.5200 #### [facility] [address] [place], [address] Erythrocyte distribution width (RBC) [Ratio] 13.4 % Normal 11.6-14.6 [facility] Comment on above: Performed By: #### L 100.0100, L500.4050, L501.9910, L501.5200 #### [facility] [address] [place], [address] Hematocrit (Bld) [Volume fraction] 44.1 % Normal 40-54 [facility] Comment on above: Performed By: #### L 100.0100, L500.4050, L501.9910, L501.5200 #### [facility] [address] [place], [address] Hemoglobin (Bld) [Mass/Vol] 15.2 g/dL Normal 13.0-16.5 [facility] Comment on above: Performed By: #### L 100.0100, L500.4050, L501.9910, L501.5200 #### [facility] [address] [place], [address] IG% 0.200 Normal 0.0-0.9 [facility] Comment on above: Result Comment: IG% - Immature Granulocytes (promyelocytes, myelocytes and metamyelocytes) > 1% indicates that a LEFT SHIFT is Present. Performed By: #### L 100.0100, L500.4050, L501.9910, L501.5200 #### [facility] [address] [place], [address] Lymphocytes/100 WBC (Bld) 19.8 % Normal 19-41 [facility] Comment on above: Performed By: #### L 100.0100, L500.4050, L501.9910, L501.5200 #### [facility] [address] [place], [address] MCH (RBC) [Entitic mass] 33.0 pg High 27.0-32.0 [facility] Comment on above: Performed By: #### L 100.0100, L500.4050, L501.9910, L501.5200 #### [facility] [address] [place], [address] MCHC (RBC) [Mass/Vol] 34.5 g/dL Normal 32-36 [facility] Comment on above: Performed By: #### L 100.0100, L500.4050, L501.9910, L501.5200 #### [facility] [address] [place], [address] MCV (RBC) [Entitic vol] 95.9 fL High 80-94 [facility] Comment on above: Performed By: #### L 100.0100, L500.4050, L501.9910, L501.5200 #### [facility] [address] [place], [address] Monocytes/100 WBC (Bld) 11.4 % High 0-10 [facility] Comment on above: Performed By: #### L 100.0100, L500.4050, L501.9910, L501.5200 #### [facility] [address] [place], [address] Neutrophils/100 WBC (Bld) 64.9 % Normal 47-70 [facility] Comment on above: Performed By: #### L 100.0100, L500.4050, L501.9910, L501.5200 #### [facility] [address] [place], [address] Nucleated RBC (Bld) [#/Vol] 0 10*3/uL Normal 0-5 [facility] Comment on above: Performed By: #### L 100.0100, L500.4050, L501.9910, L501.5200 #### [facility] [address] [place], [address] Platelet mean volume (Bld) [Entitic vol] 9.1 fL Normal 6.2-12.0 [facility] Comment on above: Performed By: #### L 100.0100, L500.4050, L501.9910, L501.5200 #### [facility] [address] [place], [address] Platelets (Bld) [#/Vol] 214 10*3/uL Normal 150-450 [facility] Comment on above: Performed By: #### L 100.0100, L500.4050, L501.9910, L501.5200 #### [facility] [address] [place], [address] RBC (Bld) [#/Vol] 4.60 10*6/uL Normal 4.6-6.2 [facility] Comment on above: Performed By: #### L 100.0100, L500.4050, L501.9910, L501.5200 #### [facility] [address] [place], [address] RDW SD 47.1 fl High 35.1-43.9 [facility] Comment on above: Performed By: #### L 100.0100, L500.4050, L501.9910, L501.5200 #### [facility] [address] [place], [address] WBC (Bld) [#/Vol] 4.6 10*3/uL Normal 4.4-11.0 [facility] Comment on above: Performed By: #### L 100.0100, L500.4050, L501.9910, L501.5200 #### [facility] [address] [place], [address] Carbon dioxide, total [Moles /volume] in Central venous bloodOrdered By: Marcel Driscoll on 05-01-2025 CO2 [Moles/Vol] 25.1 mmol/L 21.0-32.0 [facility] Chloride assayOrdered By: Sintia Driscoll on 05-01-2025 Chloride [Moles/Vol] 104 mmol/L 98-108 [facility] Comprehensive Metabolic Prof ilon 05-01-2025 Albumin [Mass/Vol] 4.2 g/dL Normal 3.4-4.8 [facility] Comment on above: Performed By: #### L 100.0100, L500.4050, L501.9910, L501.5200 #### [facility] [address] [place], [address] Albumin/Globulin [Mass ratio] 1.5 {ratio} Normal 0.9-2.4 [facility] Comment on above: Performed By: #### L 100.0100, L500.4050, L501.9910, L501.5200 #### [facility] [address] [place], [address] ALK PHOS 64 U/L Normal 40-129 [facility] Comment on above: Performed By: #### L 100.0100, L500.4050, L501.9910, L501.5200 #### [facility] [address] [place], [address] ALT [Catalytic activity/Vol] 36 U/L Normal <=46 [facility] Comment on above: Performed By: #### L 100.0100, L500.4050, L501.9910, L501.5200 #### [facility] [address] [place], [address] AST [Catalytic activity/Vol] 33 U/L Normal <=37 [facility] Comment on above: Performed By: #### L 100.0100, L500.4050, L501.9910, L501.5200 #### [facility] [address] [place], [address] Bilirubin [Mass/Vol] 1.01 mg/dL Normal 0.00-1.30 [facility] Comment on above: Performed By: #### L 100.0100, L500.4050, L501.9910, L501.5200 #### [facility] [address] [place], [address] BUN/CRE 21.3 RATIO High 10-20 [facility] Comment on above: Performed By: #### L 100.0100, L500.4050, L501.9910, L501.5200 #### [facility] [address] [place], [address] Calcium [Mass/Vol] 9.5 mg/dL Normal 7.6-11.0 [facility] Comment on above: Performed By: #### L 100.0100, L500.4050, L501.9910, L501.5200 #### [facility] [address] [place], [address] Chloride [Moles/Vol] 104 mmol/L Normal 98-108 [facility] Comment on above: Performed By: #### L 100.0100, L500.4050, L501.9910, L501.5200 #### [facility] [address] [place], [address] CO2 [Moles/Vol] 25.1 mmol/L Normal 21.0-32.0 [facility] Comment on above: Performed By: #### L 100.0100, L500.4050, L501.9910, L501.5200 #### [facility] [address] [place], [address] Creatinine [Mass/Vol] 0.97 mg/dL Normal 0.70-1.20 [facility] Comment on above: Performed By: #### L 100.0100, L500.4050, L501.9910, L501.5200 #### [facility] [address] [place], [address] GAP 11 Normal 5-15 [facility] Comment on above: Performed By: #### L 100.0100, L500.4050, L501.9910, L501.5200 #### [facility] [address] [place], [address] GFR/1.73 sq M.predicted among non-blacks MDRD (S/P/Bld) [Vol rate/Area] 84 mL/min/{1.73_m2} Normal >60 [facility] Comment on above: Result Comment: mL/m in/1.73m2 CKD-EPI Creatinine Equation (2020) Performed By: #### L 100.0100, L500.4050, L501.9910, L501.5200 #### [facility] [address] [place], [address] Globulin (S) [Mass/Vol] 2.8 g/dL Normal 2.2-4.2 [facility] Comment on above: Performed By: #### L 100.0100, L500.4050, L501.9910, L501.5200 #### [facility] [address] [place], [address] Glucose [Mass/Vol] 76 mg/dL Normal 70-99 [facility] Comment on above: Performed By: #### L 100.0100, L500.4050, L501.9910, L501.5200 #### [facility] [address] [place], [address] Potassium [Moles/Vol] 4.4 mmol/L Normal 3.3-5.1 [facility] Comment on above: Performed By: #### L 100.0100, L500.4050, L501.9910, L501.5200 #### [facility] [address] [place], [address] Sodium [Moles/Vol] 140 mmol/L Normal 133-145 [facility] Comment on above: Performed By: #### L 100.0100, L500.4050, L501.9910, L501.5200 #### [facility] [address] [place], [address] T PROT 7.0 g/dL Normal 5.9-8.4 [facility] Comment on above: Performed By: #### L 100.0100, L500.4050, L501.9910, L501.5200 #### [facility] [address] [place], [address] Urea nitrogen [Mass/Vol] 21 mg/dL High 4-19 [facility] Comment on above: Performed By: #### L 100.0100, L500.4050, L501.9910, L501.5200 #### [facility] [address] [place], [address] Eosinophil percentageOrdered By: Marcel Driscoll on 05-01-2025 Eosinophils/100 WBC (Bld) 2.8 % 0-5 [facility] Erythrocyte distribution wid th ratioOrdered By: Marcel Driscoll on 05-01-2025 Erythrocyte distribution width (RBC) [Ratio] 13.4 % 11.6-14.6 [facility] Erythrocyte distribution wid th standard deviationOrdered By: Marcel Driscoll on 05-01-2025 Erythrocyte distribution width (RBC) [Ratio] 47.1 fl High 35.1-43.9 [facility] Glomerular filtration rate ( GFR) estimation/1.73 sq m using serum, plasma, or whole bOrdered By: Marcel Driscoll on 05-01-2025 GFR/1.73 sq M.predicted among non-blacks MDRD (S/P/Bld) [Vol rate/Area] 84 mL/min/{1.73_m2} >60 [facility] Comment on above: mL/min/1.73m2 CKD-EP I Creatinine Equation (2020) Hematocrit Auto (Bld) [Volum e fraction]Ordered By: Marcel Driscoll on 05-01-2025 Hematocrit (Bld) [Volume fraction] 44.1 % 40-54 [facility] Hemoglobin measurementOrdere d By: Marcel Driscoll on 05-01-2025 Hemoglobin (Bld) [Mass/Vol] 15.2 g/dL 13.0-16.5 [facility] Immature granulocytes/100 WB C Auto (Bld)Ordered By: Marcel Driscoll on 05-01-2025 Immature granulocytes/100 WBC (Bld) 0.200 % 0.0-0.9 [facility] Comment on above: IG% - Immature Granu locytes (promyelocytes, myelocytes and metamyelocytes) > 1% indicates that a LEFT SHIFT is Present. Laboratory - Chemistry and C hemistry - challengeOrdered By: Marcel Driscoll on 05-01-2025 AST [Catalytic activity/Vol] 33 U/L <38 [facility] MCV (mean corpuscular volume ) determinationOrdered By: Marcel Driscoll on 05-01-2025 MCV (RBC) [Entitic vol] 95.9 fL High 80-94 [facility] Magnesiumon 05-01-2025 Magnesium [Mass/Vol] 2.5 mg/dL High 1.5-2.2 [facility] Comment on above: Performed By: #### L 100.0100, L500.4050, L501.9910, L501.5200 ####[facility] [id number] [place], [address] Magnesium measurement (mass/ volume)Ordered By: Marcel Driscoll on 05-01-2025 Magnesium (Unsp spec) [Mass/Vol] 2.5 mg/dL High 1.5-2.2 [facility] Mean corpuscular hemoglobin (MCH) determinationOrdered By: Marcel Driscoll on 05-01-2025 MCH (RBC) [Entitic mass] 33.0 pg High 27.0-32.0 [facility] Mean corpuscular hemoglobin concentration (MCHC) determinationOrdered By: Marcel Driscoll on 05-01-2025 MCHC (RBC) [Mass/Vol] 34.5 g/dL 32-36 [facility] Mean platelet volume determi nationOrdered By: Marcel Driscoll on 05-01-2025 Platelet mean volume (Bld) [Entitic vol] 9.1 fL 6.2-12.0 [facility] Monocyte percentageOrdered B y: Marcel Driscoll on 05-01-2025 Monocytes/100 WBC (Bld) 11.4 % High 0-10 [facility] Neutrophil percentageOrdered By: Marcel Driscoll on 05-01-2025 Neutrophils/100 WBC (Bld) 64.9 % 47-70 [facility] Nucleated red blood cell per centageOrdered By: Marcel Driscoll on 05-01-2025 Nucleated RBC/100 WBC (Bld) [Ratio] 0 % 0-5 [facility] PSA,Total - Annual Screenon 05-01-2025 PSA,TOT SCREEN 1.59 ng/mL Normal 0.02-4.00 [facility] Comment on above: Result Comment: This test was performed using the [employer] tPSA method. Measured values of a patient??sample can vary depending on the testing procedure used. PSA values determined on patient samples by different testing procedures cannot be used interchangeably. If there is a change in PSA assays while monitoring therapy, sequential testing should be performed to confirm baseline values. Performed By: #### L 100.0100, L500.4050, L501.9910, L501.5200 ####[facility] [id number] [place], [address] Platelet countOrdered By: Sintia Driscoll on 05-01-2025 Platelets (Bld) [#/Vol] 214 10*3/uL 150-450 [facility] Potassium measurement (mass/ volume)Ordered By: Marcel Driscoll on 05-01-2025 Potassium (Unsp spec) [Mass/Vol] 4.4 mmol/L 3.3-5.1 [facility] RBC Auto (Bld) [#/Vol]Ordere d By: Marcel Driscoll on 05-01-2025 RBC (Bld) [#/Vol] 4.60 10*6/uL 4.6-6.2 [facility] Serum creatinine measurement (mass/volume)Ordered By: Marcel Driscoll on 05-01-2025 Creatinine [Mass/Vol] 0.97 mg/dL 0.70-1.20 [facility] Serum globulin measurementOr dered By: Marcel Driscoll on 05-01-2025 Globulin (S) [Mass/Vol] 2.8 g/dL 2.2-4.2 [facility] Serum glucose measurement (m ass/volume)Ordered By: Marcel Driscoll on 05-01-2025 Glucose [Mass/Vol] 76 mg/dL 70-99 [facility] Serum or plasma alanine sanchez otransferase (ALT) measurementOrdered By: Marcel Driscoll on 05-01-2025 ALT [Catalytic activity/Vol] 36 U/L <47 [facility] Serum or plasma albumin silvia urement (mass/volume)Ordered By: Marcel Driscoll on 05-01-2025 Albumin [Mass/Vol] 4.2 g/dL 3.4-4.8 [facility] Serum or plasma albumin/glob ulin mass ratioOrdered By: Marcel Driscoll on 05-01-2025 Albumin/Globulin [Mass ratio] 1.5 {ratio} 0.9-2.4 [facility] Serum or plasma alkaline xochitl sphatase measurementOrdered By: Marcel Driscoll on 05-01-2025 ALP [Catalytic activity/Vol] 64 U/L 40-129 [facility] Serum or plasma calcium silvia urement (mass/volume)Ordered By: Marcel Driscoll on 05-01-2025 Calcium [Mass/Vol] 9.5 mg/dL 7.6-11.0 [facility] Serum or plasma urea nitroge n measurement (mass/volume)Ordered By: Marcel Driscoll on 05-01-2025 Urea nitrogen [Mass/Vol] 21 mg/dL High 4-19 [facility] Sodium levelOrdered By: Lara Driscoll on 05-01-2025 Sodium [Moles/Vol] 140 mmol/L 133-145 [facility] Total proteinOrdered By: Rafiq Driscoll on 05-01-2025 Protein [Mass/Vol] 7.0 g/dL 5.9-8.4 [facility] White blood cell (WBC) count Ordered By: Marcel Driscoll on 05-01-2025 WBC (Bld) [#/Vol] 4.6 10*3/uL 4.4-11.0 [facility] Internal Medicine Office Vis iton 04-30-2025 Internal Medicine Office Visit [facility] Internal Medicine [address] [place] [address] [place] [address] OFFICE VISIT Date of Service: 05/01/25 MR#: [id number] Acct: [id number] Name: RYAN ZHANG Rep #: [id number] 5 : 1955 Provider: Dr. Marcel fitzpatrick MD Age/Sex: 70/M Location: [facility] [place] Status: Signed Intake Vital Signs 03/01/25 09:54 05/01/25 09:43 Height 5 ft 11 in 5 ft 11 in Weight: 281 lb BMI 39.2 BP 124/82 H Blood Pressure Location Lt brachial Position Sitting Respiration 16 Pulse 76 Pulse Source Monitor Temp 98.6 F Temp Source Temporal Pulse Oximetry (%) 99 Oxygen Delivery Method room air Intake Visit Reasons: Rescheduled 6 month follow up Hourly Sales Staff Required: No Is patient in pain?: No Allergies bismuth subsalicylate (From Pepto-Bismol) Adverse Reaction (Verified 05/01/25 09:34) Itching clarithromycin Adverse Reaction (Verified 05/01/25 09:34) Itching Medications ???Medication ???Instructions ???Recorded ???Confirmed ???Type cholecalciferol (vitamin D3) 50 50 mcg PO DAILY 12/24/22 05/01/25 History mcg (2,000 unit) capsule coenzyme Q10 75 mg capsule (Ultra 75 mg PO DAILY 12/24/22 05/01/25 History CoQ10) multivitamin 1 tab PO DAILY 12/24/22 05/01/25 H istory fexofenadine 180 mg tablet 180 mg PO DAILY PRN ALLERGIES 02/0905/01/25 History (Suzanne Allergy) fluticasone propionate 50 1 spray intranasal BID PRN allergy 06/19/24 05/01/25 Rx mcg/actuation nasal symptoms #32 grams spray,suspension (Allergy Relief (fluticasone)) lisinopril 20 mg tablet 20 mg PO DAILY #90 tabs 11/22/24 1 Rx edroo-y-indcgvqacsjod 450 unit 900 unit PO DAILY PRN indigestion 12/19/24 05/01/25 History disintegrating tablet (Beano) glucosamine sulf dipot 1 cap PO BID 12/19/24 05/01/25 His tory chlr,msm,chond 550 mg-C 30 mg-jeremias 1 mg capsule (Glucosamine Chondroitin) simethicone 250 mg capsule (Gas-X) 250 mg PO QHS PRN abdominal 12/1005/01/25 History distention allopurinol 300 mg tablet 300 mg PO DAILY #90 tabs 03/13/25 05/01/25 Rx capsaicin 0.033 % topical cream 1 applic topical TID PRN pain 04/1205/01/25 Rx #56.6 grams pantoprazole 40 mg tablet,delayed 40 mg PO QDAY 05/01/25 History release Have you fallen in the past year?: Yes (04/15/25- no LT injury) Nurse's Note: Pt got foot stuck in a log 2 weeks ago and fell he had no injury when this happened. flu shot declined. [facility] Medical History Loss of hearing DDD (degenerative disc disease), lumbar DDD (degenerative disc disease), cervical Gastric reflux BiPAP (biphasic positive airway pressure) dependence Non-smoker History of pain when walking History of edema History of stress test Hypertension Arthritis Gout Surgical History History of esophagogastroduodenoscopy (EGD) Hx of lithotripsy Hx of colonoscopy History of surgical procedure H/O cystoscopy S/P arthroscopic surgery of right knee History of cholecystectomy H/O vasectomy Family History Brother Alcohol abuse Father Arthritis CVA (cerebral vascular accident) Mother Arthritis Diabetes Myocardial infarction Other Heart disease Hypertension Social History household members: spouse current occupational status: retired 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 He is up to date on his routine blood work and screening. He doesn't want a flu shot. He doesn't smoke and doesn't need any refills. Overall, he is trying to eat healthy. He reports he has been active around his house. He does check his blood pressure at home occasionally and has brought some for review. It has been in the 110s-120s/70s. He takes his medications as prescribed without problems. He does monitor his salt intake. He reports chronic problems with allergies which is unchanged. He states it is worse in the mornings and tends to clear up as the day goes on. He uses flonase around 3 times per week which does help. He rarely takes suzanne. He has a history of high uric acid levels. He would get flare ups around his right toe for the most part. He was started on allopurinol and has been taking it as prescribed. He hasn't had any flare ups recently. He has obstructive sleep apnea. (more content not included)... Normal [facility] EGD Reporton 03-01-2025 EGD Report [facility] Medical Records Department [address] [place] [address] EGD Report MR#: [id number] Acct: [id number] Name: RYAN ZHANG Rep #: [id number] : 1955 70 From: Chris Friend DO PCP: Dr. Marcel Driscoll MD Status:REG [facility] Patient Name: Ryan Zhang Procedure Date: 03/01/2025 10:33 AM Date of : 1955 Age: 70 Procedure: Upper GI endoscopy Indications: Surveillance procedure, Epigastric abdominal pain Providers: Chris Rm DO Referring MD: Chris Rm DO Medicines: Monitored Anesthesia Care Patient Profile: This is a 70 year old male. Refer to note in patient chart for documentation of history and physical. Patient has symptoms of chronic abdominal distention and chronic dyspepsia. His most recent EGD for biopsy was within the past three months. Complications: No immediate complications. Procedure: Pre-Anesthesia Assessment: - Prior to the procedure, a History and Physical was performed, and patient medications and allergies were reviewed. The patient is competent. The risks and benefits of the procedure and the sedation options and risks were discussed with the patient. All questions were answered and informed consent was obtained. Patient identification and proposed procedure were verified by the physician in the pre-procedure area. Mental Status Examination: alert and oriented. Airway Examination: normal oropharyngeal airway and neck mobility. Respiratory Examination: clear to auscultation. CV Examination: normal. Prophylactic Antibiotics: The patient does not require prophylactic antibiotics. Prior Anticoagulants: The patient has taken no anticoagulant or antiplatelet agents except for NSAID medication. ASA Grade Assessment: II - A patient with mild systemic disease. After reviewing the risks and benefits, the patient was deemed in satisfactory condition to undergo the procedure. The anesthesia plan was to use monitored anesthesia care (MAC). Immediately prior to administration of medications, the patient was re-assessed for adequacy to receive sedatives. The heart rate, respiratory rate, oxygen saturations, blood pressure, adequacy of pulmonary ventilation, and response to care were monitored throughout the procedure. The physical status of the patient was re-assessed after the procedure. After obtaining informed consent, the endoscope was passed under direct vision. Throughout the procedure, the patient's blood pressure, pulse, and oxygen saturations were monitored continuously. The gastroscope was introduced through the mouth, and advanced to the third part of the duodenum. Small bowel enteroscopy was deemed necessary. The upper GI endoscopy was accomplished without difficulty. The patient tolerated the procedure well. Scope In: 10:39:38 AM Scope Out: 11:01:49 AM Total Procedure Duration Time 0 hours 22 minutes 11 seconds Findings: The examined esophagus was normal. No gross lesions were noted in the entire examined stomach. A large polypoid mass with no bleeding was found in the duodenal bulb. Area was successfully injected with 15 mL EverLift for a lift polypectomy. Preparations were made for mucosal resection. Demarcation of the lesion was performed with thermal marking with the tip of a snare to clearly identify the boundaries of the lesion. EverLift was injected to raise the lesion. Snare mucosal resection was performed. Resection was incomplete. The resected tissue was retrieved. Resected tissue including tissue margins will be examined by histology. Coagulation for destruction of remaining portion of lesion using argon plasma at 0.3 liters/minute and 20 healy was successful. Estimated blood loss was minimal. Impression: - Normal esophagus. - No gross lesions in the entire stomach. - Likely benign duodenal mass. Tissue was removed. Injected. Treated with argon plasma coagulation (APC). - Mucosal resection was performed. Resection was incomplete. The resected tissue was retrieved. Recommendation: - Discharge patient to home. - Resume previous diet. - Continue present medications. - Await pathology results. Procedure Code(s): --- Professional --- 51843, Small intestinal endoscopy, enteroscopy beyond second portion of duodenum, not including ileum; with removal of tumor(s), polyp(s), or other lesion(s) by snare technique 18161, Unlisted procedure, small intestine CPT copyright 2021 [employer]. All rights reserved. The codes documented in this report are preliminary and upon side laster tack review may be revised to meet current compliance requirements. Chris Rm DO 03/01/2025 11:15:56 AM This report has been signed electronically. Number of Addenda: 0 Note Initiated On: 03/01/2025 10:33 AM 03/01/25 1116 Date (more content not included)... [facility] MR/OP.Asha 03-01-2025 MR/OP.[facility] Medical Records Department [address] [place] [address] Provation Physician Letter MR#: [id number] Acct: [id number] Name: RYAN ZHANG Rep #: [id number] : 1955 70 From: Chris Rm DO PCP: Dr. Marcel Driscoll MD Status:REG [facility] 03/01/2025 Marcel Driscoll Md Re : Upper GI endoscopy procedure for Ryan Zhang Dear Americo This procedure was performed on February. My impressions and recommendations are as follows: Impressions : - Normal esophagus. - No gross lesions in the entire stomach. - Likely benign duodenal mass. Tissue was removed. Injected. Treated with argon plasma coagulation (APC). - Mucosal resection was performed. Resection was incomplete. The resected tissue was retrieved. Recommendations : - Discharge patient to home. - Resume previous diet. - Continue present medications. - Await pathology results. My findings are described in the full procedure note, which is enclosed. If I can be of further assistance, please feel free to contact me at . Sincerely, Chris Rm DO 03/01/2025 11:15:56 AM This report has been signed electronically. 03/01/25 1116 Date Chris Gaines Signature: Date (if indicated) CC: Dr. Marcel Driscoll MD; Chris Rm DO Date Dictated: 03/01/25 1033 Date Transcribed: Tube Coverer: RF Signed [facility] Records Department [address] [place] [address] Anesthesia Postop Eval I 03/01/25 1103 MR#: [id number] Acct: [id number] Name: RYAN ZHANG Rep #: [id number] : 1955 70 From: Joe Weston CRNA PCP: Dr. Marcel Driscoll MD Status:REG [facility] Y Race: C Location: [place] [address] Anesthesia: Postop Eval I Current Vital Signs Temperature: 97 F Pulse Rate: 75 Blood Pressure: 141/64 Respiratory Rate: 14 Pulse Ox: 98 Oxygen Delivery Method: Room Air Assessment Airway patent: Yes Spontaneous unlabored respirations: Yes Mental status: Awake and Calm nausea: No Vomiting: No Anesthesia Complication: No Fluid Hydration Crystalloid volume administer (ml): 600 Total IV fluid infused: 600 Progress Note Anesthesia document: Postop Eval 1 completed: Yes 03/01/25 1104 Date Joe Weston CRNA Cosigner Signature: Date CC: Signed Normal [facility] MR/BEPGUXHA2us 03-01-2025 MR/POSTOPAN2 [facility] Medical Records Department [address] [place] [address] Anesthesia Postop Eval II 03/01/25 1109 MR#: [id number] Acct: [id number] Name: RYAN ZHANG Rep #: [id number] : 1955 70 From: Joe Weston CRNA PCP: Dr. Marcel Driscoll MD Status:REG [facility] Y Race: C Location: [place] [address] Anesthesia Postop Eval I Sum Postop Eval Completion status Anesthesia document: Postop Eval 1 completed: Yes Anesthesia Postop Eval I Summary Anesthesia Postop Eval I Summary: Anesthesia Postop Eval I: Assessment Summary Airway patent Yes 03/01/25 11:04 SHIPPING [email or web address].[email or web address] Spontaneous unlabored Yes 03/01/25 11:04 SHIPPING TECHNICIAN.MDSANDY respirations Mental status Awake,Calm 03/01/25 11:04 SHIPPING TECHNICIAN.OT nausea No 03/01/25 11:04 SHIPPING TECHNICIAN.MDOT Vomiting No 03/01/25 11:04 SHIPPING TECHNICIAN.MDSANDY Anesthesia Postop Eval I: Fluid Summary Crystalloid volume administer 600 03/01/25 11:04 REYMUNDO (ml) Colloids volume administered ( ml) Blood Product volume administered (ml) Total IV fluid infused 600 03/01/25 11:04 REYMUNDO Anesthesia Postop Eval I: Summary Notes Anesthesia Complication No 03/01/25 11:04 REYMUNDO Anesthesia Complication Comment: Post-operative progress note Anesthesia: Postop Eval II Evaluation Mental status: Awake and Calm Pain Level: 0 nausea: No Vomiting: No Complications Anesthesia Complication: No 03/01/25 1109 Date Joe Sanders Signature: Date CC: Signed Normal [facility] Surgery Specimen Level Carmen 03-01-2025 Surgery Specimen Level IV Patient Age/Sex Location Account Attending Physician RYAN ZHANG 70/M EN [id number] Chris Rm DO Specimen: [id number] Received: 03/01/25 Status: TIFFANY Pretty Num: [id number] Spec Type: EGD BIOPSY Subm Dr: Chris Rm DO HEADER OPERATION: EGD with polypectomy and saline lift and Argon plasma coagulation PRE-OP DIAGNOSIS: Abdominal bloating, duodenal mass TISSUE SUBMITTED: A- Duodenal polyp MICROSCOPIC DIAGNOSIS A. 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 MICROSCOPIC DESCRIPTION Slides are reviewed. GROSS DESCRIPTION A. Received in fixative is one container labeled with the patient's name and designated Duodenal polyp. The specimen consists of multiple irregular fragments of light woodruff soft tissue that in aggregate measure 1.4 x 0.4 x 0.2 cm. The specimen is totally submitted in one cassette. [place] 03/01/2025 [facility]:[address] Patient Age/Sex Location Account Attending Physician AMIRYAN Portillo 70/M EN [id number] Chris Rm DO Signed (signature on file) Dr. Jayne Padgett DO 03/02/25 1354 Normal [facility] Comment on above: Performed By: #### P SUIV ####[facility] [id number] [facility] [place], [address] Colonoscopy Reporton 025 Colonoscopy Report [facility] Medical Records Department [address] [place] [address] Colonoscopy Report MR#: [id number] Acct: [id number] Name: RYAN ZHANG Rep #: [id number] : 1955 69 From: Chris Rm DO PCP: Dr. Marcel Driscoll MD Status:REG [facility] Patient Name: Ryan Zhang Procedure Date: 12/21/2024 9:42 AM Date of : 1955 Age: 69 Procedure: Colonoscopy Indications: High risk colon cancer surveillance: Personal history of colonic polyps Providers: Chris Rm DO Referring MD: Marcel Driscoll Md Medicines: Monitored Anesthesia Care Patient Profile: This is a 69 year old male. Refer to note in patient chart for documentation of history and physical. Patient has symptoms of acute abdominal cramping, chronic abdominal distention, chronic epigastric abdominal pain, acute dyspepsia and chronic heartburn. Last Colonoscopy: several years ago. Complications: No immediate complications. Procedure: Pre-Anesthesia Assessment: - Prior to the procedure, a History and Physical was performed, and patient medications and allergies were reviewed. The patient is competent. The risks and benefits of the procedure and the sedation options and risks were discussed with the patient. All questions were answered and informed consent was obtained. Patient identification and proposed procedure were verified by the physician in the pre-procedure area. Mental Status Examination: alert and oriented. Airway Examination: normal oropharyngeal airway and neck mobility. Respiratory Examination: clear to auscultation. CV Examination: normal. Prophylactic Antibiotics: The patient does not require prophylactic antibiotics. Prior Anticoagulants: The patient has taken no anticoagulant or antiplatelet agents. ASA Grade Assessment: II - A patient with mild systemic disease. After reviewing the risks and benefits, the patient was deemed in satisfactory condition to undergo the procedure. The anesthesia plan was to use monitored anesthesia care (MAC). Immediately prior to administration of medications, the patient was re-assessed for adequacy to receive sedatives. The heart rate, respiratory rate, oxygen saturations, blood pressure, adequacy of pulmonary ventilation, and response to care were monitored throughout the procedure. The physical status of the patient was re-assessed after the procedure. After I obtained informed consent, the scope was passed under direct vision. Throughout the procedure, the patient's blood pressure, pulse, and oxygen saturations were monitored continuously. The Colonoscope was introduced through the anus and advanced to the terminal ileum. The colonoscopy was performed without difficulty. The patient tolerated the procedure well. The quality of the bowel preparation was adequate. The terminal ileum, ileocecal valve, appendiceal orifice, and rectum were photographed. Moderate Sedation: Moderate (conscious) sedation was personally administered by an anesthesia professional. The following parameters were monitored: oxygen saturation, heart rate, blood pressure, respiratory rate, EKG, adequacy of pulmonary ventilation, and response to care. Scope In: 9:44:11 AM Scope Withdrawal Time 0 hours 9 minutes 42 seconds Scope Out: 9:56:45 AM Total Procedure Duration Time 0 hours 12 minutes 34 seconds Findings: The perianal and digital rectal examinations were normal. A few small-mouthed diverticula were found in the recto-sigmoid colon and sigmoid colon. A 5 mm polyp was found in the splenic flexure. The polyp was sessile. The polyp was removed with a jumbo cold forceps. Resection and retrieval were complete. Verification of patient identification for the specimen was done. Estimated blood loss was minimal. Patchy mild inflammation characterized by erosions was found in the terminal ileum. Biopsies were taken with a cold forceps for histology. Verification of patient identification for the specimen was done. Estimated blood loss was minimal. The exam was otherwise without abnormality on direct and retroflexion views. Impression: - Diverticulosis in the recto-sigmoid colon and in the sigmoid colon. - One 5 mm polyp at the splenic flexure, removed with a jumbo cold forceps. Resected and retrieved. - Mild inflammation was found in the ileum secondary to ileitis. Biopsied. - The examination was otherwise normal on direct and retroflexion views. Recommendation: - Discharge patient to home. - Resume previous diet. - Continue present medications. - Await pathology results. - Repeat colonoscopy in 5 years for surveillance. Procedure Code(s): --- Professional --- 23015, Colonoscopy, flexible; with biopsy, single or multiple CPT copyright 2021 [employer]. All rights reserved. The codes documented in this report (more content not included)... Normal [facility] EGD Reporton 12-21-2024 EGD Report [facility] Medical Records Department [address] [place] [address] EGD Report MR#: [id number] Acct: [id number] Name: RYAN ZHANG Rep #: [id number] : 1955 69 From: Chris Friend DO PCP: Dr. Marcel Driscoll MD Status:[facility] Patient Name: Ryan Zhang Procedure Date: 12/21/2024 9:24 AM Date of : 1955 Age: 69 Procedure: Upper GI endoscopy Indications: Epigastric abdominal pain, Functional Dyspepsia, Suspected esophageal reflux Providers: Chris Rm DO Referring MD: Marcel Driscoll Md Medicines: Monitored Anesthesia Care Patient Profile: This is a 69 year old male. Refer to note in patient chart for documentation of history and physical. Patient has symptoms of acute abdominal cramping, chronic abdominal distention, chronic epigastric abdominal pain, acute dyspepsia and chronic heartburn. Complications: No immediate complications. Procedure: Pre-Anesthesia Assessment: - Prior to the procedure, a History and Physical was performed, and patient medications and allergies were reviewed. The patient is competent. The risks and benefits of the procedure and the sedation options and risks were discussed with the patient. All questions were answered and informed consent was obtained. Patient identification and proposed procedure were verified by the physician in the pre-procedure area. Mental Status Examination: alert and oriented. Airway Examination: normal oropharyngeal airway and neck mobility. Respiratory Examination: clear to auscultation. CV Examination: normal. Prophylactic Antibiotics: The patient does not require prophylactic antibiotics. Prior Anticoagulants: The patient has taken no anticoagulant or antiplatelet agents. ASA Grade Assessment: II - A patient with mild systemic disease. After reviewing the risks and benefits, the patient was deemed in satisfactory condition to undergo the procedure. The anesthesia plan was to use monitored anesthesia care (MAC). Immediately prior to administration of medications, the patient was re-assessed for adequacy to receive sedatives. The heart rate, respiratory rate, oxygen saturations, blood pressure, adequacy of pulmonary ventilation, and response to care were monitored throughout the procedure. The physical status of the patient was re-assessed after the procedure. After obtaining informed consent, the endoscope was passed under direct vision. Throughout the procedure, the patient's blood pressure, pulse, and oxygen saturations were monitored continuously. The Colonoscope was introduced through the mouth, and advanced to the third part of the duodenum. Small bowel enteroscopy was deemed necessary. The upper GI endoscopy was accomplished without difficulty. The patient tolerated the procedure well. Scope In: 9:35:55 AM Scope Out: 9:42:27 AM Total Procedure Duration Time 0 hours 6 minutes 32 seconds Findings: LA Grade A (one or more mucosal breaks less than 5 mm, not extending between tops of 2 mucosal folds) esophagitis with no bleeding was found. Biopsies were taken with a cold forceps for histology. Verification of patient identification for the specimen was done. Estimated blood loss was minimal. Patchy mildly erythematous mucosa without bleeding was found in the gastric body. Biopsies were taken with a cold forceps for histology. Verification of patient identification for the specimen was done. Estimated blood loss was minimal. Biopsies were taken with a cold forceps for Helicobacter pylori testing. A large polypoid mass with no bleeding was found in the duodenal bulb. Biopsies were taken with a cold forceps for histology. Verification of patient identification for the specimen was done. Estimated blood loss was minimal. Impression: - LA Grade A reflux esophagitis with no bleeding. Biopsied. - Erythematous mucosa in the gastric body. Biopsied. - Likely benign duodenal mass. Biopsied. Recommendation: - Discharge patient to home. - Resume previous diet. - Continue present medications. - Await pathology results. Procedure Code(s): --- Professional --- 60447, Small intestinal endoscopy, enteroscopy beyond second portion of duodenum, not including ileum; with biopsy, single or multiple CPT copyright 2021 [employer]. All rights reserved. The codes documented in this report are preliminary and upon side laster tack review may be revised to meet current compliance requirements. Chris Rm DO 12/21/2024 10:14:35 AM This report has been signed electronically. Number of Addenda: 0 Note Initiated On: 12/21/2024 9:24 AM 12/21/24 1014 Date Chris Rm DO [facility] Signature: Date (if indicated) CC: Dr. Marcel Driscoll MD; (more content not included)... Normal [facility] Immunohistochemical Stainson 12-21-2024 Immunohistochemical Stains Patient Age/Sex Location Account Attending Physician RYAN ZHANG BARRY 69/M EN [id number] Chris Rm DO Specimen: [id number] Received: 12/21/24 Status: TIFFANY [place] Num: [id number] Spec Type: EGD BIOPSY Subm Dr: Chris Rm DO HEADER OPERATION: Colonoscopy, EGD with biopsy PRE-OP DIAGNOSIS: Abdominal bloating, encounter for screening for malignant neoplasm of colon, gastric reflux TISSUE SUBMITTED: A- Distal esophagus biopsy, B- Duodenal mass biopsy, C- Gastric body biopsy, D- Terminal ileum biopsy, E- Splenic flexure polyp biopsy MICROSCOPIC DIAGNOSIS A. Esophagus, distal, biopsy: * Columnar mucosa negative for goblet cell metaplasia. * No squamous mucosa seen. B. Duodenum, mass, biopsy: * Fragments of small intestinal mucosa with gastric foveolar metaplasia, Rajinder gland hyperplasia, and mild acute inflammation. * Reactive changes noted; no neoplasia seen. * Ki67 by IHC is not significantly increased. C. Stomach, body, biopsy: * Oxyntic mucosa with chronic inflammation. * IHC negative for H pylori organisms. D. Terminal ileum, biopsy: * Small intestinal mucosa with mucosal lymphoid aggregate, favor reactive. E. Splenic flexure, polyp, biopsy: * Tubular adenoma. MICROSCOPIC DESCRIPTION Slides are reviewed. All matched controls reacted appropriately. These tests were developed and their performance characteristics determined by [facility]. They may not have been cleared or approved by the U.S. Food and Drug Administration. The FDA has determined that such clearance or approval is not necessary. The above immunohistochemical/dualIS H markers are reviewed by the Pathologist. GROSS DESCRIPTION Received in 5 formalin containers labeled with the patient's name and date of . Designated as: A. Distal esophagus BX are 2 woodruff tissue fragments, 0.4 cm and 0.5 cm. Entirely submitted in 1 cassette. Patient Age/Sex Location Account Attending Physician RYAN ZHANG 69/M EN [id number] Chris Rm DO B. Duodenal mass BX are 5 woodruff tissue fragments, 0.2 cm to 0.7 cm. Entirely submitted in 1 cassette. C. Gastric body BX for H. pylori are 2 woodruff tissue fragments, 0.3 cm and 0.5 cm. D. Terminal ileum BX is a 0.3 cm woodruff tissue fragment. Entirely submitted in 1 cassette. E. Splenic flexure polyp BX is a 0.4 cm woodruff tissue fragment. Entirely submitted in 1 cassette. [facility] [place]/21/2024 [facility]:[id number] Patient Age/Sex Location Account Attending Physician RYAN ZHANG 69/M EN [id number] Chris Rm DO Signed (signature on file) Dr. Trina Handley MD 12/29/24 1206 Normal [facility] Comment on above: Performed By: #### P IMHI #### [facility] Laboratory [address] [place], [address] MR/POSTOP.ANEon 12-21-2024 MR/POSTOP.ANE [facility] Medical Records Department [address] [place] [address] Anesthesia Postop Eval I 12/21/24 1008 MR#: [id number] Acct: [id number] Name: RYAN ZHANG Rep #: [id number] : 1955 69 From: Rich Macias PCP: Dr. Marcel Driscoll MD Status:REG [facility] [place] Y Race: C Location: [facility] Anesthesia: Postop Eval I Current Vital Signs Temperature: 97.5 F Pulse Rate: 67 Blood Pressure: 89/56 Respiratory Rate: 16 Pulse Ox: 95 Oxygen Delivery Method: Room Air Assessment Airway patent: Yes Spontaneous unlabored respirations: Yes Mental status: Awake and Calm nausea: No Vomiting: No Anesthesia Complication: No Fluid Hydration Crystalloid volume administer (ml): 600 Total IV fluid infused: 600 Progress Note Anesthesia document: Postop Eval 1 completed: Yes 12/21/24 1009 Date Rich Sanders Signature: Date CC: Signed Normal [facility] MR/[id number] 12-21-2024 MR/POSTOPAN2 [facility] Medical Records Department [address] [place] [address] Anesthesia Postop Eval II 12/21/24 1059 MR#: [id number] Acct: [id number] Name: RYAN ZHANG Rep #: [id number] : 1955 69 From: Gregorio Ledesma MD PCP: Dr. Marcel Driscoll MD Status:[facility] Y Race: C Location: EN Anesthesia Postop Eval I Sum Postop Eval Completion status Anesthesia document: Postop Eval 1 completed: Yes Anesthesia Postop Eval I Summary Anesthesia Postop Eval I Summary: Anesthesia Postop Eval I: Assessment Summary Airway patent Yes 12/21/24 10:09 [email or web address] Spontaneous unlabored Yes 12/21/24 10:09 [email or web address] respirations Mental status Awake,Calm 12/21/24 10:09 [email or web address] nausea No 12/21/24 10:09 [email or web address] Vomiting No 12/21/24 10:09 [email or web address] Anesthesia Postop Eval I: Fluid Summary Crystalloid volume administer 600 12/21/24 10:09 [email or web address] (ml) Colloids volume administered ( ml) Blood Product volume administered (ml) Total IV fluid infused 600 12/21/24 10:09 [email or web address] Anesthesia Postop Eval I: Summary Notes Anesthesia Complication No 12/21/24 10:09 [email or web address] Anesthesia Complication Comment: Post-operative progress note Anesthesia: Postop Eval II Evaluation Mental status: Awake Pain Level: 0 nausea: No Vomiting: No 12/21/24 1059 Date Gregorio Ledesma MD Cosigner Signature: Date CC: Signed [facility] MR/Jean Paul 12-19-2024 MR/[facility] Medical Records Department [address] [place] [address] [place] [address] PAT - Anesthesia 12/19/24 1256 MR#: [id number] Acct: [id number] Name: RYAN ZHANG Rep #: [id number] : 1955 69 From: Gregorio Ledesma MD PCP: Dr. 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 When Was Last Pacemaker Check QUESTION #4 FULL TEXT: You/Your Family Experience fever (hyperthermia) with Anesthesia Last Oral Intake Last Oral intake: Last Oral Intake NPO since Meds taken in AM with sips of water? Meds patient instructed to take am of surgery PONV PONV - census clerk: PONV - census clerk Female No 12/19/24 11:52 HX of Motion Sickness No 12/19/24 11:52 HX of N/V After Surgery No 12/19/24 11:52 Non-Smoker Yes 12/19/24 11:52 Duration of Surgery greater No 12/19/24 11:52 than 60 minutes Number of Risk Factors 1 12/19/24 11:52 PONV Score Low Risk 12/19/24 11:52 Height Weight Height Weight: Anesthesia: Height Weight Height 6 ft 10/04/24 08:37 Respiratory Assessment Respiratory Assessment - census clerk: Respiratory Tract Infection Hx - census clerk Hx Respiratory Tract Infection No 12/19/24 11:52 STOP Sleep Apnea STOP Sleep Apnea - census clerk: STOP Sleep Apnea - census clerk Hx Hypertension Yes: CONTROLLED WITH MED 12/19/24 11:52 Hx Sleep Apnea Yes 12/19/24 11:52 CPAP No 12/19/24 11:52 BIPAP Yes 12/19/24 11:52 Do you snore loudly (louder than talking or can be heard Do you often feel tired/ fatigued/ sleepy during daytime? Has anyone observed you stop breathing during sleep? STOP Results Positive 12/19/24 11:52 QUESTION #5 FULL TEXT : Do you snore loudly (louder than talking or can be heard through closed doors)? 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 Specify any problems Hx of Preganancy in last 3 N/A 12/19/24 11:52 Months Nurse Filling Out Transfusion DSCHRIBER 12/19/24 11:52 Questions: Date: 12/19/24 12/19/24 11:52 Time: 11:53 12/19/24 11:52 Patient unable to answer at this time (ie. confused, unrespo /Reproduction History /Reproductive History - census clerk: /Reproductive Hx- census clerk Hx Now No 12/19/24 11:52 Gestational Age (in weeks): EDC: Hx Hx Para Hx Section SAB No 12/19/24 11:52 PFSH Medical History (Updated 12/19/24 @ 11:58 by Patrizia Hanley) Loss of hearing DDD (degenerative disc disease), lumbar DDD (degenerative disc disease), cervical Gastric reflux BiPAP (biphasic positive airway pressure) dependence Non-smoker History of pain when walking History of edema History of stress test Hypertension Arthritis Gout Home Medications ???Medication ???Instructions ???Recorded ???Last Taken ???Type cholecalciferol (vitamin D3) 50 50 mcg PO DAILY 12/24/22 Unknown H istory mcg (2,000 unit) capsule coenzyme Q10 75 mg capsule (Ultra 75 mg PO DAILY 12/24/22 Unknown H istory CoQ10) multivitamin 1 tab PO DAILY 12/24/22 Unknown Hi story fexofenadine 180 mg tablet 180 mg PO DAILY PRN ALERGIES 02/23 Unknown History (Suzanne Allergy) fluticasone propionate 50 1 spray intranasal BID PRN allergy 06/19/24 Unknown Rx mcg/actuation nasal symptoms #32 grams spray,suspension (Allergy Relief (fluticasone)) allopurinol 300 mg tablet 3 (more content not included)... Normal [facility] Gastroenterology Visit Repor ton 11-22-2024 Gastroenterology Visit Report [facility] Gastroenterology [address] [place] [address] OFFICE VISIT Date of Service: 11/22/24 MR#: [id number] Acct: [id number] Name: RYAN ZHANG Rep #: [id number] : 1955 Provider: ELVIA Persaud Age/Sex: 69/M Location: [facility] [place] Status: Signed Intake Vital Signs 10/04/24 08:37 Height 6 ft Weight: 313 lb 6 oz BMI 42.5 BP 118/72 Blood Pressure Location Lt brachial Position Sitting Respiration 20 H Pulse 74 Pulse Source Monitor Temp 97.3 F L Temp Source Temporal Pulse Oximetry (%) 93 Oxygen Delivery Method room air Intake Visit Reasons: GAS Chief Complaint: GERD Allergies bismuth subsalicylate (From Pepto-Bismol) Adverse Reaction (Verified 10/04/24 08:34) Itching clarithromycin Adverse Reaction (Verified 10/04/24 08:34) Itching Have you fallen in the past year?: Yes Nurse's Note: OV 11/22/24 Pt here for a f/u and reports gas, bloating, and abdominal pain. Pt reports he is taking beano and gas-x to help relieve symptoms. Pt has scopes scheduled for 12/21/24. 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 BGI established Aug 2024 with abd bloating and eructation x 3 months. Started on PPI and Carafate prescribed from PCP. Last colonoscopy 4 years ago with PMHx of polyps. Pt does feel constipation with small bowel movements. CT abd/pelvis; Fatty infiltration of the liver. Status post cholecystectomy. Bilateral renal cysts. Bilateral intrarenal calculi. 1.4 cm calculus in the left renal pelvis at the ureteropelvic junction causing mild degree of left hydronephrosis. OV 5.14.25 Pt continues to have epigastric pain, bloating and gas. It is worse when he lays down. taking Beano and Gas-x multiple times per day. He had to rescheduled his scopes due to a family emergency. ROS Const Constitutional: Positive for fatigue and weight change; No fever(s) ENT ENT: No difficulty swallowing Gastro GI: Positive for bloating, change in bowel habits, heartburn and excessive flatus; No abdominal pain, belching, change in stool character, coffee ground emesis, constipation, cramping, diarrhea, difficulty swallowing, feeling full early, incontinent of stools, Vomiting blood/hematemesis, Blood in stool, loose stools, Black,tarry stools, nausea/dyspepsia, pain with swallowing, vomiting or other Musc Musculoskeletal: No joint pain Skin Skin: No yellowing of the eye or itchy eyes Psych Psychiatric: No anxiety and No depression Endo Endocrine: Positive for fatigue and weight change Aller/Imm Allergy/Immunologic: No itchy eyes Michi/Lymp Hematologic/Lymphatic: No easy bleeding or easy bruising Exam Const General: cooperative and healthy appearing Orientation: alert and awake Neck Neck: normal visual inspection Chest Chest palpation inspection: normal inspection of the chest Resp Effort Inspection: normal respiratory effort and able to speak in complete sentences GI Inspection: normal to inspection Assessment and Plan Assessment and Plan (1) Abdominal bloating: Status: Acute Plan: This is a 69 yo male pt here today for follow up regarding abdominal pain and bloating. PCP ordered a CT regarding this which was normal. He was originally scheduled for his EGD and colonoscopy in October 2024 however he had to rescheduled due to a family emergency. He is now scheduled for December. He continues to have issues and I recommended starting a daily PPI until we are able to get the scope. I have sent in Pantoprazole 40 mg daily. He may continues Gas-x and Beano as needed. -EGD and colonoscopy -Start Pantoprazole 40 mg daily -f/u after procedures Medications: New pantopraz (more content not included)... Normal [facility] Calculi, Urinary w / Photoon 10-18-2024 2,8 Dihydroxyad TNP Normal . [facility] Comment on above: Performed By: #### L 3650.0100 ####[facility] [address] [place], [address] AMM ACID URATE TNP Normal . [facility] Comment on above: Performed By: #### L 3650.0100 ####[facility] [address] [place], [address] Bilirubin Ql (U) TNP Normal . [facility] Comment on above: Performed By: #### L 3650.0100 ####[facility] [address] [place], [address] CA BILIRUBINATE TNP Normal . [facility] Comment on above: Performed By: #### L 3650.0100 ####[facility] [address] [place], [address] CA CARBONATE TNP Normal . [facility] Comment on above: Performed By: #### L 3650.0100 ####[facility] [address] [place], [address] CA HYDROG PHOS TNP Normal . [facility] Comment on above: Performed By: #### L 3649.0100 ####[facility] [address] [place], [address] CA OXAL DIHYDR 80 Normal . [facility] Comment on above: Result Comment: Perf ormed at: [facility] [address] [id number] Out Of Town Collection Clerk: Ted Rodriguez PhD, Phone: [phone] Performed By: #### L 3649.0 ####[facility] [address] [place], [address] CA OXAL MONOHYD 20 Normal . [facility] Comment on above: Performed By: #### L 3649.0 ####[facility] [address] [place], [address] CA Palmitate TNP Normal . [facility] Comment on above: Performed By: #### L 3649.0100 ####[facility] [address] [place], [address] CA PHOS (hydro) TNP Normal . [facility] Comment on above: Performed By: #### L 3649.0 ####[facility] [address] [place], [address] CA PHOSPHATE TNP Normal . [facility] Comment on above: Performed By: #### L 3649.0100 ####[facility] [address] [place], [address] CA Stearate TNP Normal . [facility] Comment on above: Performed By: #### L 3649.0 ####[facility] [address] [place], [address] CHOLESTEROL TNP Normal . [facility] Comment on above: Performed By: #### L 3649.0100 ####[facility] [address] [place], [address] Color (U) Woodruff Normal . [facility] Comment on above: Performed By: #### L 3650.0100 ####[facility] [address] [place], [address] COMMENT TNP Normal . [facility] Comment on above: Performed By: #### L 3650.0100 ####[facility] [address] [place], [address] CYSTINE TNP Normal . [facility] Comment on above: Performed By: #### L 3650.0100 ####[facility] [address] [place], [address] Drug/Metabolite TNP Normal . [facility] Comment on above: Performed By: #### L 3650.0100 ####[facility] [address] [place], [address] MAG AG PHOS TNP Normal . [facility] Comment on above: Performed By: #### L 3650.0100 ####[facility] [address] [place], [address] NA ACID URATE TNP Normal . [facility] Comment on above: Performed By: #### L 3650.0100 ####[facility] [address] [place], [address] NEWBERYITE TNP Normal . [facility] Comment on above: Performed By: #### L 3650.0100 ####[facility] [address] [place], [address] Other Component TNP Normal . [facility] Comment on above: Performed By: #### L 3650.0100 ####[facility] [address] [place], [address] SIZE 6x3 Normal . [facility] Comment on above: Result Comment: Sing le piece received. Performed By: #### L 3650.0100 ####[facility] [address] [place], [address] SOURCE Comment Normal . [facility] Comment on above: Result Comment: Not provided Performed By: #### L 3650.0100 ####[facility] [address] [place], [address] TRIAMTERENE TNP Normal . [facility] Comment on above: Performed By: #### L 3650.0100 ####[facility] [address] [place], [address] URIC ACID TNP Normal . [facility] Comment on above: Performed By: #### L 3650.0100 ####[facility] [address] [place], [address] URIC ACID DIHYD TNP Normal . [facility] Comment on above: Performed By: #### L 3650.0100 ####[facility] [address] [place], [address] WEIGHT 23 mg Normal . [facility] Comment on above: Performed By: #### L 3650.0100 ####[facility] [address] [place], [address] XANTHINE TNP Normal . [facility] Comment on above: Performed By: #### L 3650.0100 ####[facility] [address] [place], [address] Ammonium urate crystals dete ction in stone by infrared spectroscopyOrdered By: Bryson Montoya on 10-09-2024 Ammonium urate crystals Infrared spectroscopy Ql (Stone) [facility] Comment on above: Test not performed Calcium hydrogen phosphate c rystals detection in stone by infrared spectroscopyOrdered By: Bryson Montoya on 10-09-2024 Calcium hydrogen phosphate crystals [facility]frared [facility]l (Stone) [facility] on above: Test not performed Calcium oxalate dihydrate cr ystals detection in stone by infrared spectroscopyOrdered By: Bryson Montoya on 10-09-2024 Calcium oxalate dihydrate crystals Infrared spectroscopy Ql (Stone) 80 % . [facility] Comment on above: Performed at: [facility] [address] [place], [place] [id number] Director: Ted Rodriguez PhD, Phone: [phone] Color of specimen determinat ionOrdered By: Bryson Montoya on 10-09-2024 Color (Unsp spec) Woodruff . [facility] Cystine measurementOrdered B y: Bryson Montoya on 10-09-2024 Cystine (Unsp spec) [Moles/Vol] [facility] Comment on above: Test not performed Determination of volume of c alculusOrdered By: Bryson Montoya on 10-09-2024 Size (Stone) [Entitic vol] 6x3 mm . [facility] Comment on above: Single piece receive d. Laboratory - Miscellaneous t estsOrdered By: Bryson Montoya on 10-09-2024 Service comment (Unsp spec) [Interp] [facility] Comment on above: Test not performed Measurement of weight of sto neOrdered By: Bryson Montoya on 10-09-2024 Weight (Stone) 23 mg . [facility] Newberyite crystals detectio n in stone by infrared spectroscopyOrdered By: Bryson Montoya on 10-09-2024 Newberyite crystals Infrared spectroscopy Ql (Stone) [facility] Comment on above: Test not performed No Panel InformationOrdered By: Bryson Montoya on 10-09-2024 Stone 2,8 Dihydroxyadenine [facility] Comment on above: Test not performed Stone Bilirubin [facility] Comment on above: Test not performed Stone Calcium Bilirubinate [facility] Comment on above: Test not performed Stone Calcium Carbonate [facility] Comment on above: Test not performed Stone Calcium Hydroxyl-Phosphate [facility] Comment on above: Test not performed Stone Calcium Oxalate Monohydrate 20 % . [facility] Stone Calcium Palmitate [facility] Comment on above: Test not performed Stone Calcium Phosphate Carbonate [facility] Comment on above: Test not performed Stone Calcium Stearate [facility] Comment on above: Test not performed Stone Drug or Metabolite [facility] Comment on above: Test not performed Stone Other Component(s) [facility] Comment on above: Test not performed Stone Xanthine [facility] Comment on above: Test not performed Origin of StoneOrdered By: Roseline Montoya on 10-09-2024 Origin Nom (Stone) Comment . [facility] Comment on above: Not provided Sodium urate crystals detect ion in stone by infrared spectroscopyOrdered By: Bryson Montoya on 10-09-2024 Sodium urate crystals Infrared spectroscopy Ql (Stone) [facility] Comment on above: Test not performed Triamterene crystals detecti on in stone by infrared spectroscopyOrdered By: Bryson Montoya on 10-09-2024 Triamterene crystals Infrared spectroscopy Ql (Stone) [facility] Comment on above: Test not performed Triple phosphate crystals de tection in stone by infrared spectroscopyOrdered By: Bryson Montoya on 10-09-2024 Triple phosphate crystals Infrared spectroscopy Ql (Stone) [facility] Comment on above: Test not performed Uric acid crystals detection in stone by infrared spectroscopyOrdered By: Bryson Montoya on 10-09-2024 Urate crystals Infrared spectroscopy Ql (Stone) [facility] Comment on above: Test not performed Uric acid dihydrate crystals detection in stone by infrared spectroscopyOrdered By: Bryson Montoya on 10-09-2024 Urate dihydrate crystals Infrared spectroscopy Ql (Stone) [facility] Comment on above: Test not performed Internal Medicine Office Vis iton 10-03-2024 Internal Medicine Office Visit [facility] [address] [place] [address] [place] [address] OFFICE VISIT Date of Service: 10/04/24 MR#: [id number] Acct: [id number] Name: RYAN ZHANG Rep #: [id number] : 1955 Provider: Dr. Marcel fitzpatrick MD Age/Sex: 69/M Location: [facility] Status: Signed Intake Vital Signs 08/23/24 08:43 10/04/24 08:37 Height 6 ft 6 ft Weight: 313 lb 6 oz BMI 42.5 BP 118/72 Blood Pressure Location Lt brachial Position Sitting Respiration 20 H Pulse 74 Pulse Source Monitor Temp 97.3 F L Temp Source Temporal Pulse Oximetry (%) 93 Oxygen Delivery Method room air Intake Visit Reasons: BI-PAP FU Chief Complaint: fu Hourly Sales Staff Required: No Accompanied by: Self Is patient in pain?: No Allergies bismuth subsalicylate (From Pepto-Bismol) Adverse Reaction (Verified 10/04/24 08:34) Itching clarithromycin Adverse Reaction (Verified 10/04/24 08:34) Itching Medications ???Medication ???Instructions ???Recorded ???Confirmed ???Type cholecalciferol (vitamin D3) 50 50 mcg PO DAILY 12/24/22 10/04/24 History mcg (2,000 unit) capsule coenzyme Q10 75 mg capsule (Ultra 75 mg PO DAILY 12/24/22 10/04/24 History CoQ10) multivitamin 1 tab PO DAILY 12/24/22 10/04/24 H istory glucosamine sulfate 1,500 mg oral mg PO DAILY 05/04/23 10/04/24 His tory powder packet fexofenadine 180 mg tablet 180 mg PO DAILY PRN 02/24/2410/04 History (Suzanne Allergy) fluticasone propionate 50 1 spray intranasal BID PRN allergy 06/19/24 10/04/24 Rx mcg/actuation nasal symptoms #32 grams spray,suspension (Allergy Relief (fluticasone)) lisinopril 40 mg tablet 40 mg PO DAILY #90 tabs 06/27/24 0 10/04/24 Rx wheat dextrin 3 gram/3.5 gram oral 1.5 g PO BID #28 ea 07/18/24 Rx powder packet (Benefiber Clear Sugar Free(dextrin)) allopurinol 300 mg tablet 300 mg PO DAILY #90 tabs 09/25/24 10/04/24 Rx Have you fallen in the past year?: No Nurse's Note: changed cpap to bpap PFSH Medical History Personal history of colonic polyps Chronic sinusitis Hypertension History of gallstones Arthritis History of kidney stones Gout Surgical History Hx of colonoscopy History of surgical procedure H/O cystoscopy S/P arthroscopic surgery of right knee History of cholecystectomy H/O vasectomy Family History Brother Alcohol abuse Father Arthritis CVA (cerebral vascular accident) Mother Arthritis Diabetes Myocardial infarction Other Heart disease Hypertension Social History household members: spouse current occupational status: retired 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 He is up to date on his routine blood work. He has his colonoscopy scheduled. He previously declined a flu shot. He doesn't smoke and doesn't need any refills. Overall, he isn't eating as healthy or staying as active as he should. He doesn't check his blood pressure at home, but does have a monitor. He takes his medications as prescribed without problems. He does monitor his salt intake. He reports chronic problems with allergies which is unchanged. He states certain dusts and pollens seem to flare it up. He uses flonase around 3 times per week which does help. He rarely takes suzanne. At his last office visit, he was having problems with his sense of smell and was referred to ENT. He reports that he was told he didn't see anything of concern and recommended continued monitoring. He has a history of high uric acid levels. He would get flare ups around his right toe for the most part. He was started on allopurinol about 6 years ago. He reports he only takes the allopurinol as needed which does help. He reports it has been more than a year since his last flare up. He has obstructive sleep apnea. Following his last office visit, he received his BiPAP. He reports he has been wearing that every night and has benefitted from its use. He states he hasn't noticed any difference in changing from the CPAP. He reports his sleep quality is still alright. He reports his bloating and constipation has been doing better since he was last seen. Since he was last seen, he completed an EMG which showed moderate to severe carpal tunnel and was referred to orthopedics. He reports that he is supposed to see them nex (more content not included)... Normal [facility] Abdomen/Pelvis WITH Contrast on 09-13-2024 Abdomen/Pelvis WITH Contrast [facility] Imaging Services [address] [place], [place] [address] Abdomen/Pelvis WITH Contrast MR#: [id number] Acct: [id number] Name: RYAN ZHANG Rep #: [id number] : 1955 M 69 From: Dennis haque MD PCP: Dr. Marcel Driscoll MD Status: REG CLI Study: Abdomen/Pelvis WITH Contrast Date of Exam: 12/03 Exam# [id number] Ordering Dr: Marcel Driscoll MD PROCEDURE: ABDOMEN/PELVIS WITH CONTRAST REASON FOR EXAM: Abdominal bloating for 2 months. TECHNIQUE: Abdomen and pelvis CT without intravenous contrast. COMPARISON: None. FINDINGS: Coronary artery calcification. Lung bases: There are increased markings at the lung bases suggestive of atelectasis and/or scarring. Liver: Diffuse fatty infiltration. Gallbladder: Unremarkable. Spleen: Unremarkable. Pancreas: Unremarkable. Adrenals: Unremarkable. Kidneys: There are multiple right renal cysts. The largest cyst measures 4.6 cm by 4.3 cm. Nonobstructive 5 mm calculus in the lower pole calyx of the left kidney. There is a 1.4 cm calculus in the left renal pelvis causing a mild degree of left hydronephrosis. Scattered nonobstructive left intrarenal calculi. The largest calculus is in the lower pole and measures 5.9 mm. Bladder: Mild degree of diffuse urinary bladder wall thickening. Reproductive Organs: Unremarkable. Bowel: Unremarkable. Appendix: Normal. Lymph nodes: No suspicious lymph node enlargement. Vasculature: Mild diffuse atherosclerotic calcifications of the abdominal aorta and the major visceral branches are noted. A calcified phlebolith is seen in the right hemipelvis. Peritoneum / Retroperitoneum: No ascites. No free air. Bones: Degenerative changes of the spine. CT/Abdomen/Pelvis WITH Contrast IMPRESSION: Fatty infiltration of the liver. Status post cholecystectomy. Bilateral renal cysts. Bilateral intrarenal calculi. 1.4 cm calculus in the left renal pelvis at the ureteropelvic junction causing mild degree of left hydronephrosis. One or more dose reduction techniques were used (e.g., Automated exposure control, adjustment of the mA and/or kV according to patient size, use of iterative reconstruction technique). Reading Location: [id number] CC: Dr. Marcel Driscoll MD Tube Coverer: Signed Normal [facility] NCS and/or EMG Patienton NCS and/or EMG Patient [facility] Pulmonary Services/Neurology [address] [place] [address] MR#: [id number] Acct: [id number] Name: RYAN ZHANG Rep #: [id number] : 1955 69 From: Major Govea MD Referring Dr: Marcel Driscoll MD Status: PRE CLI Location: PSN Date: Sex: M C NCS and/or EMG Patient Report Ordering Doctor: Marcel Driscoll DATE OF SERVICE: 09/13/24 Ryan presents electrodiagnostic testing of the upper limbs. He reports numbness and tingling in both hands. Electrodiagnostic findings: Median motor nerve demonstrates prolonged latency bilaterally with normal amplitudes and reduced conduction velocities. Ulnar motor response within normal limits bilaterally. Absent right and left median sensory latency at the wrist. Normal ulnar and radial sensory responses. Prolonged median F???wave bilaterally. Needle EMG testing was performed upper limbs. All muscles tested showed no evidence of denervation with normal motor unit action potentials. Electrodiagnostic assessment: This is an abnormal study in the upper limbs 1. Electrodiagnostic findings suggestive of bilateral median mononeuropathy. This is consistent with a moderate to advanced bilateral carpal tunnel syndrome Multi Select Codes Neurology Neurology Interp Codes: 94731-29 Musc test done w/n test comp (interp) (2) and 90675-57 Nrv cndj test 9-10 studies (interp) 09/13/24 1228 Date Major Govea MD CC: Dr. Marcel Driscoll MD; Dr. Major Govea MD Date Dictated: 09/13/241225 Date Transcribed: 09/13/241225 Tube Coverer: JORGE Signed Normal [facility] Gastroenterology Visit Repor ton 09-05-2024 Gastroenterology Visit Report [facility] Gastroenterology [address] [place] [address] OFFICE VISIT Date of Service: 09/05/24 MR#: [id number] Acct: [id number] Name: RYAN ZHANG Rep #: [id number] : 1955 Provider: ELVIA Persaud Age/Sex: 69/M Location: [facility] Status: Signed Intake Vital Signs 08/23/24 08:43 Height 6 ft Weight: 308 lb BMI 41.8 BP 112/84 H Blood Pressure Location Lt brachial Position Sitting Respiration 16 Pulse 79 Pulse Source Monitor Temp 96.2 F L Temp Source Temporal Pulse Oximetry (%) 96 Oxygen Delivery Method room air Intake Visit Reasons: PRE-COLON Chief Complaint: bloating Allergies bismuth subsalicylate (From Pepto-Bismol) Adverse Reaction (Verified 08/23/24 08:40) Itching clarithromycin Adverse Reaction (Verified 08/23/24 08:40) Itching Have you fallen in the past year?: No Nurse's Note: OV 09.05.24 Pt here to establish care with [facility]. Pt reports occasional abdomen pain, gas and bloating. Pt reports formed BM daily. Denies bloody stools, constipation, diarrhea, n/v. Prior hx of colonoscopy about 5 years ago. Gallbladder removed approx 15 or more years ago according to pt. 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 Pt has been having intermittent abdominal bloating and eructation over the past couple of months. Pt was seen by PCP for these symptoms who started him on PPI and ordered a CT abd/pelvis. He feels his bloating has been improving. He thinks his symptoms may be related to eating an excess of veggies. He is due for screening colonoscopy. Last colonoscopy was around [address] Quigley in [place]. He has a PMHx of polyps but is unsure if he had them on the last colonoscopy. Pt has some constipation with small bm that do not feel complete. ROS Const Constitutional: Positive for fatigue; No fever(s) or weight change ENT ENT: No difficulty swallowing Gastro GI: Positive for abdominal pain and change in bowel habits; No belching, bloating, change in stool character, coffee ground emesis, constipation, cramping, diarrhea, heartburn, difficulty swallowing, feeling full early, excessive flatus, incontinent of stools, Vomiting blood/hematemesis, Blood in stool, loose stools, Black,tarry stools, nausea/dyspepsia, pain with swallowing, vomiting or other Musc Musculoskeletal: Positive for joint pain, back pain, muscle weakness, stiffness, tingling and Arthritis Skin Skin: No yellowing of the eye or itchy eyes Neuro Neurology: Positive for tingling Psych Psychiatric: No anxiety and No depression Endo Endocrine: Positive for fatigue; No weight change Aller/Imm Allergy/Immunologic: No itchy eyes Michi/Lymp Hematologic/Lymphatic: No easy bleeding or easy bruising Exam Const General: cooperative and comfortable Nutritional Appearance: average body habitus and well nourished HENMT Head: normal to inspection Ears: hearing grossly normal bilaterally Nose: external nose normal Face and sinus: normal facial exam Eyes General: appearance normal, both eyes and all related structures Neck Neck: normal visual inspection Chest Chest palpation inspection: normal inspection of the chest Resp Effort Inspection: normal respiratory effort Auscultation: Bilateral: Clear to Auscultation Cardio Palpation: normal PMI Rate: regular rate Rhythm: regular rhythm GI Inspection: normal to inspection and distended Auscultation: normal bowel sounds Percussion: normal to percussion Palpation: no hepatosplenomegaly and firm Skin General: no rashes or lesions noted Neuro General: patient alert Extrem General: normal to inspection Psych Affect: normal affect (more content not included)... Normal [facility] Celiac Disease Profileon ENDOMYSIAL IGA Negative Normal Negative [facility] Comment on above: Performed By: #### L 3410.2400 #### [facility] [address] [place], [address] IMMUNOGLOB A QN 239 mg/dL Normal 61-437 [facility] Comment on above: Result Comment: Perf ormed at: - [facility] [address] [id number] Out Of Town Collection Clerk: Kevin Galeana PhD, Phone: [phone] Performed By: #### L 3410.2400 #### [facility] [address] [place], [address] tTG IGA <2 Normal 0-3 [facility] Comment on above: Result Comment: Nega tive 0 - 3 Weak Positive 4 - 10 Positive >10 Tissue Transglutaminase (tTG) has been identified as the endomysial antigen. Studies have demonstr- ated that endomysial IgA antibodies have over 99% specificity for gluten sensitive enteropathy. Performed By: #### L 3410.2400 #### [facility] [address] [place], [address] Endomysial IgA antibody assa yOrdered By: Marcel Driscoll on 08-23-2024 Endomysial IgA Antibody Negative Negative [facility] IgA [Mass/Vol]Ordered By: Sintia Driscoll on 08-23-2024 Immunoglobulin A 239 mg/dL 61-437 [facility] Comment on above: Performed at: [facility] [id number] [place], [place] [id number] Director: Kevin Galeana PhD, Phone: [phone] Serum or plasma IgA measurem ent (mass/volume)Ordered By: Marcel Driscoll on 08-23-2024 IgA [Mass/Vol] 239 mg/dL 61-437 [facility] Comment on above: Performed at: [facility] [id number] [place], [place] [id number] Director: Kevin Galeana PhD, Phone: [phone] Serum tissue transglutaminas e (tTG) IgA antibody assay (units/volume)Ordered By: Marcel Driscoll on 08-23-2024 tTG IgA Qn (S) <2 U/mL 0-3 [facility] Comment on above: Negative 0 - 3 Weak Positive 4 - 10 Positive >10 Tissue Transglutaminase (tTG) has been identified as the endomysial antigen. Studies have demonstr- ated that endomysial IgA antibodies have over 99% specificity for gluten sensitive enteropathy. tTG IgA Qn (S)Ordered By: Sintia Driscoll on 08-23-2024 Tissue Transglutaminase IgA Ab <2 U/mL 0-3 [facility] Comment on above: Negative 0 - 3 Weak Positive 4 - 10 Positive >10 Tissue Transglutaminase (tTG) has been identified as the endomysial antigen. Studies have demonstr- ated that endomysial IgA antibodies have over 99% specificity for gluten sensitive enteropathy. Internal Medicine Office Vis iton 08-22-2024 Internal Medicine Office Visit [facility] [address] [place], [place] [address] OFFICE VISIT Date of Service: 08/23/24 MR#: [id number] Acct: [id number] Name: RYAN ZHANG Rep #: [id number] : 1955 Provider: Dr. Marcel fitzpatrick MD Age/Sex: 69/M Location: [facility] Status: Signed Intake Vital Signs 07/18/24 08:42 08/14/24 14:34 08/23/24 08:43 Height 6 ft 6 ft 6 ft Weight: 308 lb BMI 41.8 BP 112/84 H Blood Pressure Location Lt brachial Position Sitting Respiration 16 Pulse 79 Pulse Source Monitor Temp 96.2 F L Temp Source Temporal Pulse Oximetry (%) 96 Oxygen Delivery Method room air Intake Visit Reasons: FU Chief Complaint: FU Is patient in pain?: No Allergies bismuth subsalicylate (From Pepto-Bismol) Adverse Reaction (Verified 08/23/24 08:40) Itching clarithromycin Adverse Reaction (Verified 08/23/24 08:40) Itching Medications ???Medication ???Instructions ???Recorded ???Confirmed ???Type cholecalciferol (vitamin D3) 50 50 mcg PO DAILY 12/24/22 08/23/24 History mcg (2,000 unit) capsule coenzyme Q10 75 mg capsule (Ultra 75 mg PO DAILY 12/24/22 08/23/24 History CoQ10) multivitamin 1 tab PO DAILY 12/24/22 08/23/24 H istory glucosamine sulfate 1,500 mg oral mg PO DAILY 05/04/23 08/23/24 His tory powder packet fexofenadine 180 mg tablet 180 mg PO DAILY PRN 02/24/2408/23 History (Suzanne Allergy) allopurinol 300 mg tablet 300 mg PO DAILY #90 tabs 03/30/24 08/23/24 Rx fluticasone propionate 50 1 spray intranasal BID PRN allergy 06/19/24 08/23/24 Rx mcg/actuation nasal symptoms #32 grams spray,suspension (Allergy Relief (fluticasone)) lisinopril 40 mg tablet 40 mg PO DAILY #90 tabs 06/27/24 0 08/23/24 Rx wheat dextrin 3 gram/3.5 gram oral 1.5 g PO BID #28 ea 07/18/2410/03 Rx powder packet (Benefiber Clear Sugar Free(dextrin)) Have you fallen in the past year?: Yes (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) PFSH Medical History Personal history of colonic polyps Chronic sinusitis Hypertension History of gallstones Arthritis History of kidney stones Gout Surgical History Hx of colonoscopy History of surgical procedure H/O cystoscopy S/P arthroscopic surgery of right knee History of cholecystectomy H/O vasectomy Family History Brother Alcohol abuse Father Arthritis CVA (cerebral vascular accident) Mother Arthritis Diabetes Myocardial infarction Other Heart disease Hypertension Social History household members: spouse current occupational status: retired 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 At his last office visit, he complained of bloating and constipation symptoms. He was started on omeprazole and a fiber supplement and encouraged to schedule his colonoscopy. He reports that he tried the omeprazole for a week, but didn't notice any difference. He states he didn't call to update the office. He reports he will occasionally get associated pain. He had one episode of nausea without vomiting. He does think that his bowels seem to be moving better, however, he still gets the sensation that he isn't completely emptying his bowels. He denies any dark or bloody stools and his weight has been stable. He does not have a gallbladder. He still takes simethicone which helps some. The patient was also seen in the urgent care last week with complaints of a pinched nerve in his neck. He reports he was having severe pain in his bilateral index fingers, as well as numbness/tingling in his thumb/index/middle fingers bilaterally. He denies any symptoms up his arm or into his neck, however. He reports a friend of his, who is a retired chiropractor, suggested it may be related to his neck. He was placed on a medrol dose pack and high dose ibuprofen and discharged home. He reports that he hasn't had any further pain, but still has the numbness/tingling. He hasn't tried taking or doing anything else for his symptoms. 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 He reports every once in a while, he will drop things, but not regularly. ROS Const Constitutional: No body ache, chills, excessive sweating, fatigue, fever(s), frequent falls, headache(s), snoring, weakness, sleep problems or change in a (more content not included)... Normal [facility] Absolute lymphocyte countOrd ered By: Marcel Driscoll on 08-14-2024 Lymphocytes Auto (Unsp spec) [#/Vol] 1.01 10*3/uL 0.83-4.51 [facility] Absolute neutrophil countOrd ered By: Marcel Driscoll on 08-14-2024 Neutrophils (Bld) [#/Vol] 2.5 10*3/uL 2.0-7.7 [facility] Albumin to globulin ratioOrd ered By: Marcel Drisocll on 08-14-2024 Albumin/Globulin [Mass ratio] 1.0 {ratio} 0.9-2.4 [facility] Automated lymphocyte count a s percentage of total leukocytesOrdered By: Marcel Driscoll on 08-14-2024 Lymphocytes/100 WBC Auto (Unsp spec) 22.7 % 19-41 [facility] Basophil percentageOrdered B y: Marcel Driscoll on 08-14-2024 Basophils/100 WBC (Bld) 1.4 % High 0-1 [facility] Bilirubin, totalOrdered By: Marcel Driscoll on 08-14-2024 Bilirubin [Mass/Vol] 0.70 mg/dL 0.20-1.00 [facility] Comment on above: For patients on eltr ombopag therapy, use of Dimension [place] TBIL is not recommended. Blood urea nitrogen (BUN)/cr eatinine ratioOrdered By: Marcel Driscoll on 08-14-2024 Urea nitrogen/Creatinine [Mass ratio] 19.3 mg/mg 10-20 [facility] CBC W/Diff, Automatedon Absolute Lymph 1.01 X10 3/uL Normal 0.83-4.51 [facility] Comment on above: Performed By: #### L 500.4050, L500.4100, L100.0100, L501.1400 ####[facility] [address] [place], [address] Absolute Neut 2.5 X10 3/uL Normal 2.0-7.7 [facility] Comment on above: Performed By: #### L 500.4050, L500.4100, L100.0100, L501.1400 ####[facility] [address] [place], [address] Basophils/100 WBC (Bld) 1.4 % High 0-1 [facility] Comment on above: Performed By: #### L 500.4050, L500.4100, L100.0100, L501.1400 ####[facility] [address] [place], [address] Eosinophils/100 WBC (Bld) 4.3 % Normal 0-5 [facility] Comment on above: Performed By: #### L 500.4050, L500.4100, L100.0100, L501.1400 ####[facility] [address] [place], [address] Erythrocyte distribution width (RBC) [Ratio] 13.3 % Normal 11.6-14.6 [facility] Comment on above: Performed By: #### L 500.4050, L500.4100, L100.0100, L501.1400 ####[facility] [address] [place], [address] Hematocrit (Bld) [Volume fraction] 47.5 % Normal 40-54 [facility] Comment on above: Performed By: #### L 500.4050, L500.4100, L100.0100, L501.1400 ####[facility] [address] [place], [address] Hemoglobin (Bld) [Mass/Vol] 15.8 g/dL Normal 13.0-16.5 [facility] Comment on above: Performed By: #### L 500.4050, L500.4100, L100.0100, L501.1400 ####[facility] [address] [place], [address] IG% 0.900 Normal 0.0-0.9 [facility] Comment on above: Result Comment: IG% - Immature Granulocytes (promyelocytes, myelocytes and metamyelocytes) > 1% indicates that a LEFT SHIFT is Present. Performed By: #### L 500.4050, L500.4100, L100.0100, L501.1400 ####[facility] [address] [place], [address] Lymphocytes/100 WBC (Bld) 22.7 % Normal 19-41 [facility] Comment on above: Performed By: #### L 500.4050, L500.4100, L100.0100, L501.1400 ####[facility] [address] [place], [address] MCH (RBC) [Entitic mass] 32.4 pg High 27.0-32.0 [facility] Comment on above: Performed By: #### L 500.4050, L500.4100, L100.0100, L501.1400 ####[facility] [address] [place], [address] MCHC (RBC) [Mass/Vol] 33.3 g/dL Normal 32-36 [facility] Comment on above: Performed By: #### L 500.4050, L500.4100, L100.0100, L501.1400 ####[facility] [address] [place], [address] MCV (RBC) [Entitic vol] 97.5 fL High 80-94 [facility] Comment on above: Performed By: #### L 500.4050, L500.4100, L100.0100, L501.1400 ####[facility] [address] [place], [address] Monocytes/100 WBC (Bld) 13.7 % High 0-10 [facility] Comment on above: Performed By: #### L 500.4050, L500.4100, L100.0100, L501.1400 ####[facility] [address] [place], [address] Neutrophils/100 WBC (Bld) 57.0 % Normal 47-70 [facility] Comment on above: Performed By: #### L 500.4050, L500.4100, L100.0100, L501.1400 ####[facility] [address] [place], [address] Nucleated RBC (Bld) [#/Vol] 0 10*3/uL Normal 0-5 [facility] Comment on above: Performed By: #### L 500.4050, L500.4100, L100.0100, L501.1400 ####[facility] [address] [place], [address] Platelet mean volume (Bld) [Entitic vol] 8.9 fL Normal 6.2-12.0 [facility] Comment on above: Performed By: #### L 500.4050, L500.4100, L100.0100, L501.1400 ####[facility] [address] [place], [address] Platelets (Bld) [#/Vol] 185 10*3/uL Normal 150-450 [facility] Comment on above: Performed By: #### L 500.4050, L500.4100, L100.0100, L501.1400 ####[facility] [address] [place], [address] RBC (Bld) [#/Vol] 4.87 10*6/uL Normal 4.6-6.2 [facility] Comment on above: Performed By: #### L 500.4050, L500.4100, L100.0100, L501.1400 ####[facility] [address] [place], [address] RDW SD 48.2 fl High 35.1-43.9 [facility] Comment on above: Performed By: #### L 500.4050, L500.4100, L100.0100, L501.1400 ####[facility] [address] [place], [address] WBC (Bld) [#/Vol] 4.4 10*3/uL Normal 4.4-11.0 [facility] Comment on above: Performed By: #### L 500.4050, L500.4100, L100.0100, L501.1400 ####[facility] [address] [place], [address] Carbon dioxide measurementOr dered By: Marcel Driscoll on 08-14-2024 CO2 [Moles/Vol] 25.0 mmol/L 21.0-32.0 [facility] Chloride measurementOrdered By: Marcel Driscoll on 08-14-2024 Chloride [Moles/Vol] 112 mmol/L High 98-107 [facility] Comprehensive Metabolic Prof ilon 08-14-2024 Albumin [Mass/Vol] 3.4 g/dL Normal 3.2-5.0 [facility] Comment on above: Performed By: #### L 500.4050, L500.4100, L100.0100, L501.1400 ####[facility] [address] [place], [address] Albumin/Globulin [Mass ratio] 1.0 {ratio} Normal 0.9-2.4 [facility] Comment on above: Performed By: #### L 500.4050, L500.4100, L100.0100, L501.1400 ####[facility] [address] [place], [address] ALK P 44 U/L Low 45-117 [facility] Comment on above: Performed By: #### L 500.4050, L500.4100, L100.0100, L501.1400 ####[facility] [address] [place], [address] ALT [Catalytic activity/Vol] 59 U/L Normal 16-61 [facility] Comment on above: Performed By: #### L 500.4050, L500.4100, L100.0100, L501.1400 ####[facility] [address] [place], [address] AST [Catalytic activity/Vol] 33 U/L Normal 15-37 [facility] Comment on above: Performed By: #### L 500.4050, L500.4100, L100.0100, L501.1400 ####[facility] [address] [place], [address] Bilirubin [Mass/Vol] 0.70 mg/dL Normal 0.20-1.00 [facility] Comment on above: Result Comment: For patients on eltrombopag therapy, use of Dimension [place] TBIL is not recommended. Performed By: #### L 500.4050, L500.4100, L100.0100, L501.1400 ####[facility] [address] [place], [address] BUN/CRE 19.3 RATIO Normal 10-20 [facility] Comment on above: Performed By: #### L 500.4050, L500.4100, L100.0100, L501.1400 ####[facility] [address] [place], [address] CA,Total 9.2 mg/dL Normal 8.5-10.1 [facility] Comment on above: Performed By: #### L 500.4050, L500.4100, L100.0100, L501.1400 ####[facility] [address] [place], [address] Chloride [Moles/Vol] 112 mmol/L High 98-107 [facility] Comment on above: Performed By: #### L 500.4050, L500.4100, L100.0100, L501.1400 ####[facility] [address] [place], [address] CO2 [Moles/Vol] 25.0 mmol/L Normal 21.0-32.0 [facility] Comment on above: Performed By: #### L 500.4050, L500.4100, L100.0100, L501.1400 ####[facility] [address] [place], [address] Creatinine [Mass/Vol] 0.88 mg/dL Normal 0.70-1.30 [facility] Comment on above: Result Comment: The validity of the calculated GFR GFRAA in patients over 70 years has not been determined. Clinical correlation is essential. Performed By: #### L 500.4050, L500.4100, L100.0100, L501.1400 ####[facility] [address] [place], [address] EST GFR - AA 110 mL/min Normal >60 [facility] Comment on above: Result Comment: Afri can [place] GFR Calc Performed By: #### L 500.4050, L500.4100, L100.0100, L501.1400 ####[facility] [address] [place], [address] GAP 5 Normal 5-15 [facility] Comment on above: Performed By: #### L 500.4050, L500.4100, L100.0100, L501.1400 ####[facility] [address] [place], [address] GFR/1.73 sq M.predicted among non-blacks MDRD (S/P/Bld) [Vol rate/Area] 91 mL/min/{1.73_m2} Normal >60 [facility] Comment on above: Result Comment: Non- GFR Calc Performed By: #### L 500.4050, L500.4100, L100.0100, L501.1400 ####[facility] [address] [place], [address] Globulin (S) [Mass/Vol] 3.5 g/dL Normal 2.2-4.2 [facility] Comment on above: Performed By: #### L 500.4050, L500.4100, L100.0100, L501.1400 ####[facility] [address] [place], [address] Glucose [Mass/Vol] 93 mg/dL Normal 74-106 [facility] Comment on above: Performed By: #### L 500.4050, L500.4100, L100.0100, L501.1400 ####[facility] [address] [place], [address] Potassium [Moles/Vol] 4.1 mmol/L Normal 3.5-5.1 [facility] Comment on above: Performed By: #### L 500.4050, L500.4100, L100.0100, L501.1400 ####[facility] [address] [place], [address] Sodium [Moles/Vol] 142 mmol/L Normal 136-145 [facility] Comment on above: Performed By: #### L 500.4050, L500.4100, L100.0100, L501.1400 ####[facility] [address] [place], [address] T PROT 6.9 g/dL Normal 6.4-8.2 [facility] Comment on above: Performed By: #### L 500.4050, L500.4100, L100.0100, L501.1400 ####[facility] [address] [place], [address] Urea nitrogen [Mass/Vol] 17 mg/dL Normal 7-18 [facility] Comment on above: Performed By: #### L 500.4050, L500.4100, L100.0100, L501.1400 ####[facility] [address] [place], [address] Eosinophil percentageOrdered By: Marcel Driscoll on 08-14-2024 Eosinophils/100 WBC (Bld) 4.3 % 0-5 [facility] Erythrocyte distribution wid th ratioOrdered By: Marcel Driscoll on 08-14-2024 Erythrocyte distribution width (RBC) [Ratio] 13.3 % 11.6-14.6 [facility] Erythrocyte distribution wid th standard deviationOrdered By: Marcel Driscoll on 08-14-2024 Erythrocyte distribution width (RBC) [Entitic vol] 48.2 fL High 35.1-43.9 [facility] Erythrocyte distribution width (RBC) [Ratio] 48.2 fl High 35.1-43.9 [facility] Estimated glomerular filtrat ion rate (GFR) AmericanOrdered By: Marcel Driscoll on 08-14-2024 Estimated GFR (MDRD) Amer 110 mL/min >60 [facility] Comment on above: GFR Calc Glomerular filtration rate ( GFR) estimationOrdered By: Marcel Driscoll on 08-14-2024 Estimated GFR (MDRD) Non-Af Amer 91 mL/min >60 [facility] Comment on above: Non- GFR Calc GFR/1.73 sq M.predicted among non-blacks MDRD (S/P/Bld) [Vol rate/Area] 91 mL/min/{1.73_m2} >60 [facility] Comment on above: Non- GFR Calc Glucose measurementOrdered B y: Marcel Driscoll on 08-14-2024 Glucose [Mass/Vol] 93 mg/dL 74-106 [facility] Hematocrit Auto (Bld) [Volum e fraction]Ordered By: Marcel Driscoll on 08-14-2024 Hematocrit (Bld) [Volume fraction] 47.5 % 40-54 [facility] Hemoglobin measurementOrdere d By: Marcel Driscoll on 08-14-2024 Hemoglobin (Bld) [Mass/Vol] 15.8 g/dL 13.0-16.5 [facility] High density lipoprotein (HD L) measurementOrdered By: Marcel Driscoll on 08-14-2024 Cholesterol in HDL [Mass/Vol] 32 mg/dL Low >40 [facility] Comment on above: The drugs N-Acetylcy steine and Metamizole may falsely depress this assay. Reference Range HDL <40 mg/dL Low HDL Cholesterol HDL >or= 60 mg/dL High HDL Cholesterol Immature granulocytes/100 WB C Auto (Bld)Ordered By: Marcel Driscoll on 08-14-2024 Immature granulocytes/100 WBC (Bld) 0.900 % 0.0-0.9 [facility] Comment on above: IG% - Immature Granu locytes (promyelocytes, myelocytes and metamyelocytes) > 1% indicates that a LEFT SHIFT is Present. Laboratory - Chemistry and C hemistry - challengeOrdered By: Marcel Driscoll on 08-14-2024 AST [Catalytic activity/Vol] 33 U/L 15-37 [facility] Lipid Profileon 08-14-2024 Cholesterol [Mass/Vol] 134 mg/dL Normal 200 [facility] Comment on above: Result Comment: <200 mg/dL Desirable 200-240 mg/dL Borderline >240 mg/dL High Risk Performed By: #### L 500.4050, L500.4100, L100.0100, L501.1400 ####[facility] [address] [place], [address] Cholesterol in HDL [Mass/Vol] 32 mg/dL Low [facility] Comment on above: Result Comment: The drugs N-Acetylcysteine and Metamizole may falsely depress this assay. Reference Range HDL <40 mg/dL Low HDL Cholesterol HDL >or= 60 mg/dL High HDL Cholesterol Performed By: #### L 500.4050, L500.4100, L100.0100, L501.1400 ####[facility] [address] [place], [address] Cholesterol in LDL [Mass/Vol] 80 mg/dL Normal 0-130 [facility] Comment on above: Performed By: #### L 500.4050, L500.4100, L100.0100, L501.1400 ####[facility] [address] [place], [address] Cholesterol in VLDL [Mass/Vol] 22 mg/dL Normal 5-40 [facility] Comment on above: Performed By: #### L 500.4050, L500.4100, L100.0100, L501.1400 ####[facility] [address] [place], [address] Triglyceride [Mass/Vol] 109 mg/dL Normal [facility] Comment on above: Result Comment: The drugs N-Acetylcysteine and Metamizole may falsely depress this assay. Serum Triglycerides Reference Interval Normal <150 mg/dL Borderline high 150 - 199 mg/dL High 200 - 499 mg/dL Very High > or = 500 mg/dL Performed By: #### L 500.4050, L500.4100, L100.0100, L501.1400 ####[facility] [address] [place], [address] Low density lipoprotein (LDL ) cholesterol measurementOrdered By: Marcel Driscoll on 08-14-2024 Cholesterol in LDL [Mass/Vol] 80 mg/dL 0-130 [facility] Lymphocytes Auto (Unsp spec) [#/Vol]Ordered By: Marcel Americo on 08-14-2024 Lymphocytes (Bld) [#/Vol] 1.01 10*3/uL 0.83-4.51 [facility] Lymphocytes/100 WBC Auto (Un sp spec)Ordered By: Marcel Americo on 08-14-2024 Lymphocytes/100 WBC (Bld) 22.7 % 19-41 [facility] MCV (mean corpuscular volume ) determinationOrdered By: Marcel Driscoll on 08-14-2024 MCV (RBC) [Entitic vol] 97.5 fL High 80-94 [facility] Mean corpuscular hemoglobin (MCH) determinationOrdered By: Marcel Driscoll on 08-14-2024 MCH (RBC) [Entitic mass] 32.4 pg High 27.0-32.0 [facility] Mean corpuscular hemoglobin concentration (MCHC) determinationOrdered By: Marcel Driscoll on 08-14-2024 MCHC (RBC) [Mass/Vol] 33.3 g/dL 32-36 [facility] Mean platelet volume determi nationOrdered By: Marceldalia Driscoll on 08-14-2024 Platelet mean volume (Bld) [Entitic vol] 8.9 fL 6.2-12.0 [facility] Monocyte percentageOrdered B y: Marcel Driscoll on 08-14-2024 Monocytes/100 WBC (Bld) 13.7 % High 0-10 [facility] Neutrophil percentageOrdered By: Marcel Driscoll on 08-14-2024 Neutrophils/100 WBC (Bld) 57.0 % 47-70 [facility] Nucleated red blood cell per centageOrdered By: Marceldalia Driscoll on 08-14-2024 Nucleated RBC/100 WBC (Bld) [Ratio] 0 % 0-5 [facility] Platelet countOrdered By: Al dalia Driscoll on 08-14-2024 Platelets (Bld) [#/Vol] 185 10*3/uL 150-450 [facility] Potassium measurementOrdered By: Marcel Driscoll on 08-14-2024 Potassium [Moles/Vol] 4.1 mmol/L 3.5-5.1 [facility] RBC Auto (Bld) [#/Vol]Ordere d By: Marcel Driscoll on 08-14-2024 RBC (Bld) [#/Vol] 4.87 10*6/uL 4.6-6.2 [facility] Serum anion gap measurementO rdered By: Marcel Driscoll on 08-14-2024 Anion gap [Moles/Vol] 5 mmol/L 5-15 [facility] Serum globulin measurementOr dered By: Marcel Driscoll on 08-14-2024 Globulin (S) [Mass/Vol] 3.5 g/dL 2.2-4.2 [facility] Serum or plasma alanine sanchez otransferase (ALT) measurementOrdered By: Marcel Driscoll on 08-14-2024 ALT [Catalytic activity/Vol] 59 U/L 16-61 [facility] Serum or plasma albumin silvia urement (mass/volume)Ordered By: Marcel Driscoll on 08-14-2024 Albumin [Mass/Vol] 3.4 g/dL 3.2-5.0 [facility] Serum or plasma alkaline xochitl sphatase measurementOrdered By: Marcel Driscoll on 08-14-2024 ALP [Catalytic activity/Vol] 44 U/L Low 45-117 [facility] Serum or plasma calcium silvia urement (mass/volume)Ordered By: Marcel Driscoll on 08-14-2024 Calcium [Mass/Vol] 9.2 mg/dL 8.5-10.1 [facility] Serum or plasma cholesterol measurement (mass/volume)Ordered By: Marcel Driscoll on 08-14-2024 Cholesterol [Mass/Vol] 134 mg/dL <200 [facility] Comment on above: <200 mg/dL Desirable 200-240 mg/dL Borderline >240 mg/dL High Risk Serum or plasma creatinine m easurement (mass/volume)Ordered By: Marcel Driscoll on 08-14-2024 Creatinine [Mass/Vol] 0.88 mg/dL 0.70-1.30 [facility] Comment on above: The validity of the calculated GFR & GFRAA in patients over 70 years has not been determined. Clinical correlation is essential. Serum or plasma urea nitroge n measurement (mass/volume)Ordered By: Marcel Driscoll on 08-14-2024 Urea nitrogen [Mass/Vol] 17 mg/dL 7-18 [facility] Serum or plasma uric acid me asurement (mass/volume)Ordered By: Marcel Driscoll on 08-14-2024 Urate [Mass/Vol] 4.4 mg/dL 3.5-7.2 [facility] Comment on above: The drugs N-Acetylcy steine and Metamizole may falsely depress this assay. Sodium levelOrdered By: Lara Driscoll on 08-14-2024 Sodium [Moles/Vol] 142 mmol/L 136-145 [facility] Total proteinOrdered By: Rafiq Driscoll on 08-14-2024 Protein [Mass/Vol] 6.9 g/dL 6.4-8.2 [facility] Triglycerides measurementOrd ered By: Marcel Driscoll on 08-14-2024 Triglyceride [Mass/Vol] 109 mg/dL <199 [facility] Comment on above: The drugs N-Acetylcy steine and Metamizole may falsely depress this assay.Serum Triglycerides Reference Interval Normal <150 mg/dL Borderline high 150 - 199 mg/dL High 200 - 499 mg/dL Very High > or = 500 mg/dL Urgent Care Visit Reporton 0 08-14-2024 Urgent Care Visit Report [facility] [address], [address] [place] [address] OFFICE VISIT Date of Service: 08/14/24 MR#: [id number] Acct: [id number] Name: RYAN ZHANG Rep #: [id number] : 1955 Provider: MILLICENT mckeon Age/Sex: 69/M Location: [facility] Status: Signed Intake Vital Signs 07/18/24 08:42 08/14/24 14:34 Height 6 ft 6 ft Weight: 316 lb 319 lb BMI 42.8 43.2 BP 120/72 120/80 Blood Pressure Location Lt brachial Position Sitting Sitting Respiration 16 Pulse 91 76 Pulse Source Monitor Temp 97.4 F L 97.8 F Temp Source Temporal Oral Pulse Oximetry (%) 96 96 Oxygen Delivery Method room air room air Intake Visit Reasons: CONCERN FOR PINCHED NERVE IN NECK Chief Complaint: f/u Accompanied by: Self Allergies bismuth subsalicylate (From Pepto-Bismol) Adverse Reaction (Verified 08/14/24 14:34) Itching clarithromycin Adverse Reaction (Verified 08/14/24 14:34) Itching Medications ???Medication ???Instructions ???Recorded ???Confirmed ???Type cholecalciferol (vitamin D3) 50 50 mcg PO DAILY 12/24/22 08/14/24 History mcg (2,000 unit) capsule coenzyme Q10 75 mg capsule (Ultra 75 mg PO DAILY 12/24/22 08/14/24 History CoQ10) multivitamin 1 tab PO DAILY 12/24/22 08/14/24 H istory glucosamine sulfate 1,500 mg oral mg PO DAILY 05/04/23 08/14/24 His tory powder packet fexofenadine 180 mg tablet 180 mg PO DAILY PRN 02/24/2408/14 History (Suzanne Allergy) allopurinol 300 mg tablet 300 mg PO DAILY #90 tabs 03/30/24 08/14/24 Rx fluticasone propionate 50 1 spray intranasal BID PRN allergy 06/19/24 08/14/24 Rx mcg/actuation nasal symptoms #32 grams spray,suspension (Allergy Relief (fluticasone)) lisinopril 40 mg tablet 40 mg PO DAILY #90 tabs 06/27/24 0 08/14/24 Rx omeprazole 20 mg capsule,delayed 20 mg PO QDAY #14 caps 07/18/24 Rx release wheat dextrin 3 gram/3.5 gram oral 1.5 g PO BID #28 ea 07/18/2410/03 Rx powder packet (Benefiber Clear Sugar Free(dextrin)) ibuprofen 800 mg tablet (IBU) 800 mg PO TID PRN pain 7 days #21 08/14/24 08/14/24 Rx tabs methylprednisolone 4 mg tablets in See Rx Instructions PO PER PKG D IR 08/14/24 08/14/24 Rx a dose pack (Medrol (Oleg)) #21 tabs Have you fallen in the past year?: No Nurse's Note: Patient concern for a pinch nerve in his neck. Patient states that he has pain in his right index finger and thumb and left hand the index finger and middle finger. [facility] Medical History Personal history of colonic polyps Chronic sinusitis Hypertension History of gallstones Arthritis History of kidney stones Gout Surgical History Hx of colonoscopy History of surgical procedure H/O cystoscopy S/P arthroscopic surgery of right knee History of cholecystectomy H/O vasectomy Family History Brother Alcohol abuse Father Arthritis CVA (cerebral vascular accident) Mother Arthritis Diabetes Myocardial infarction Other Heart disease Hypertension Social History (Updated 07/18/24 @ 08:[address] 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 He states numbness to right index finger and left index finger and middle finger. He states having previous neck issues that improved with physical therapy. He states his current pain is worse when reaching and pinching or grabbing something. ROS Const Constitutional: No chills, fatigue, fever(s) or weakness Resp Respiratory: No shortness of breath Cardio Cardiology: No chest pain with exertion Gastro GI: No incontinent of stools Genitourinary Male: No urinary incontinence Musc Musculoskeletal: Positive for back pain and numbness (bilateral thumn and index finger, denies saddle anesthesia); No muscle weakness or tingling (denies saddle anesthesia) Neuro Neurology: Positive for numbness (bilateral thumn and index finger, denies saddle anesthesia); No weakness or tingling (denies saddle anesthesia) Endo Endocrine: No fatigue Michi/Lymp Hematologic/Lymphatic: Positive for other (Denies cancer history or trauma. Denies IV drug use) Exam Const General: cooperative, healthy appearing, comfortable and no acute distress Chest C (more content not included)... Normal [facility] Uric Acidon 08-14-2024 URIC 4.4 mg/dL Normal 3.5-7.2 [facility] Comment on above: Result Comment: The drugs N-Acetylcysteine and Metamizole may falsely depress this assay. Performed By: #### L 500.4050, L500.4100, L100.0100, L501.1400 ####[facility] [address] [place], [place], [id number] Very low density lipoprotein (VLDL) cholesterol measurementOrdered By: Marcel Driscoll on 08-14-2024 Very low density lipoprotein (VLDL) cholesterol measurement 22 mg/dL [facility] VLDL Cholesterol 22 mg/dL [facility] White blood cell (WBC) count Ordered By: Marcel Driscoll on 08-14-2024 WBC (Bld) [#/Vol] 4.4 10*3/uL 4.4-11.0 [facility] Internal Medicine Office Vis iton 07-17-2024 Internal Medicine Office Visit [facility] [address] [place] [address] [place] [address] OFFICE VISIT Date of Service: 07/18/24 MR#: [id number] Acct: [id number] Name: RYAN ZHANG Rep #: [id number] : 1955 Provider: Dr. Marcel fitzpatrick MD Age/Sex: 69/M Location: [facility] Status: Signed Intake Vital Signs 02/24/24 15:41 07/18/24 08:42 Height 6 ft 6 ft Weight: 316 lb BMI 42.8 BP 120/72 Blood Pressure Location Lt brachial Position Sitting Respiration 16 Pulse 91 Pulse Source Monitor Temp 97.4 F L Temp Source Temporal Pulse Oximetry (%) 96 Oxygen Delivery Method room air Intake Visit Reasons: fu Chief Complaint: f/u [employer] Staff Required: No Accompanied by: Self Is patient in pain?: Yes (lower neck b/l ) Allergies bismuth subsalicylate (From Pepto-Bismol) Adverse Reaction (Verified 07/18/24 08:39) Itching clarithromycin Adverse Reaction (Verified 07/18/24 08:39) Itching Medications ???Medication ???Instructions ???Recorded ???Confirmed ???Type cholecalciferol (vitamin D3) 50 50 mcg PO DAILY 12/24/22 07/18/24 History mcg (2,000 unit) capsule coenzyme Q10 75 mg capsule (Ultra 75 mg PO DAILY 12/24/22 07/18/24 History CoQ10) multivitamin 1 tab PO DAILY 12/24/22 07/18/24 History glucosamine sulfate 1,500 mg oral mg PO DAILY 05/04/23 07/18/24 History powder packet cyclobenzaprine 10 mg tablet 10 mg PO TID PRN Muscle Spasm #12 02/09/24 07/18/24 Rx TABLETS fexofenadine 180 mg tablet 180 mg PO DAILY PRN 02/24/24 07/18/24 History (Suzanne Allergy) naproxen 375 mg tablet 375 mg PO BID PRN pain #30 tabs 02/24/24 07/18/24 Rx allopurinol 300 mg tablet 300 mg PO DAILY #90 tabs 03/30/24 07/18/24 Rx fluticasone propionate 50 1 spray intranasal BID PRN allergy 06/19/24 07/18/24 Rx mcg/actuation nasal symptoms #32 grams spray,suspension (Allergy Relief (fluticasone)) lisinopril 40 mg tablet 40 mg PO DAILY #90 tabs 06/27/24 07/18/24 Rx omeprazole 20 mg capsule,delayed 20 mg PO QDAY #14 caps 07/18/24 07/18/24 Rx release wheat dextrin 3 gram/3.5 gram oral 1.5 g PO BID #28 ea 07/18/24 07/18/24 Rx powder packet (Benefiber Clear Sugar Free(dextrin)) Have you fallen in the past year?: No PFSH Medical History Personal history of colonic polyps Chronic sinusitis Hypertension History of gallstones Arthritis History of kidney stones Gout Surgical History Hx of colonoscopy History of surgical procedure H/O cystoscopy S/P arthroscopic surgery of right knee History of cholecystectomy H/O vasectomy Family History Brother Alcohol abuse Father Arthritis CVA (cerebral vascular accident) Mother Arthritis Diabetes Myocardial infarction Other Heart disease Hypertension Social History (Updated 07/18/24 @ 08:[address] 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 He is due for some routine blood work. He needs to reschedule his colonoscopy due to work. He doesn't want a flu shot. He doesn't smoke and doesn't need any refills. Overall, he isn't eating as healthy or staying as active as he should. He doesn't check his blood pressure at home, but does have a monitor. He takes his medications as prescribed without problems. He does monitor his salt intake. He reports chronic problems with allergies which is unchanged. He states certain dusts and pollens seem to flare it up. He uses flonase around 3 times per week which does help. He rarely takes suzanne. He reports in the last 5 days, he has had an increase in his congestion and thinks he has a cold. He denies any fevers. He has a history of high uric acid levels. He would get flare ups around his right toe for the most part. He was started on allopurinol about 6 years ago. He reports he only takes the allopurinol as needed which does help. He reports it has been more than a year since his last flare up. He feels that his balance has been doing better. He reports he is no longer going to physical therapy. He doesn't do the exercises any longer but feels overall it is better than it was. He hasn't had any falls recently. He reports his knees have been about the same. He has obstructive sleep apnea and wears a CPAP every night and does well with it. He does still feel tired upon wakin (more content not included)... Normal [facility] CNOVon 12-12-2022 CNOV Office Visit ([facility] ) -- RYAN ZHANG ([id number]) 1955 M Date Time Provider Department 12/12/22 12:30 PM OLDER, DENNISE [facility] During your visit today, we recorded the following information about you: Temperature Pulse Respiration Blood pressure 98.5 degrees 73/minute 18/minute 120/82 Weight 139.3 kg Dennisedanika Woodall MANAN 12/12/2022 2:39 PM Signed CC: Patient presents with: Pain: Right side under ribs, shoots around to middle of back. Twisting movement is very painful HPI Ryan Zhang is a 67 year old male who presents today for above. Patient developed right rib/side pain last month. Evaluated by his PCP and treated with prednisone and Flexeril. Symptoms completely resolved until yesterday. He states he was using a back sprayer a few days prior and wondering if he aggravated something. Pain is still on the right side but now radiating to his back on the right. Described as: aching Pain is aggravated by: twisting movements, lifting arms overhead, getting dressed Pain is alleviated by rest and Tylenol ES Denies fever, chills, cough, wheezing, SOB, inspiratory pain, chest pain, palpitations. REVIEW OF SYSTEMS See HPI PAST MEDICAL HISTORY Diagnosis Date History of kidney stones Hypertension PAST SURGICAL HISTORY Procedure Laterality Date PAST SURGICAL HISTORY OF RT KNEE - SCOPE REMOVAL GALLBLADDER ALLERGIES Clarithromycin, House Dust, and Pepto-Bismol [Bismuth Subsalicylate] MEDICATIONS allopurinol (ZYLOPRIM) 300 mg tablet Take 1 tablet by mouth once daily. lisinopril (ZESTRIL) 40 mg tablet Take 40 mg by mouth. meloxicam (MOBIC) 15 mg tablet Take by mouth. multivitamin tablet Take by mouth as directed. fluticasone (FLONASE) 50 mcg/actuation nasal spray cephALEXin (KEFLEX) 500 mg capsule (Patient not taking: Reported on 12/12/2022) quinapril (ACCUPRIL) 20 mg tablet (Patient not taking: Reported on 12/12/2022) FAMILY HISTORY Problem Relation Age of Onset Diabetes Mother Heart Mother Stroke Father Social History Tobacco Use Smoking status: Never Smokeless tobacco: Never Substance Use Topics Alcohol use: No Drug use: Never PHYSICAL EXAM BP 120/82 Pulse 73 Temp 36.9 ?C (98.5 ?F) Resp 18 Wt (!) 139.3 kg (307 lb) SpO2 98% BMI 41.64 kg/m? General Appearance: well appearing, in no acute distress, alert Lungs: Lungs clear to auscultation. No wheezing, rhonchi, rales. Heart: RRR without murmur, gallop, or rubs. No ectopy Musculoskeletal: Right ribs- No tenderness with palpation, deformities, crepitus, skin discoloration. Pain is reproducible when he lifts his arms overhead and reaching back with this right arm. Back-no deformities or tenderness with palpation ASSESSMENT/PLAN: 1. Rib pain on right side - ICD9: 786.50, ICD10: R07.81 Suspect musculoskeletal cause. No alarm symptoms or exam findings. - KETOROLAC 30 MG/ML (1 ML) INJECTION SOLUTION today in the office - start prednisone burst with taper - discussed other symptomatic treatments such as topical analgesics, ice and/or heat - recommend patient follow-up with PCP for further evaluation since symptoms have reoccurred. Prescription instructions reviewed with patient as applicable. Potential red flag symptoms discussed with the patient. Reviewed appropriate action plan to take if red flag symptoms occur. Patient agreeable to treatment plan. Dennise Woodall, RAGINI.ROTARY OPERATOR Allergies As of Date: 12/12/2022 Noted Allergy Reaction CLARITHROMYCIN 02/19/2016 4 - Hives HOUSE DUST 03/19/2020 5 - Intolerance PEPTO-BISMOL (BISMUTH SUBSALICYLA*12/12/2022 9 - Itching Date Reviewed: 02/11/2022 Reviewed by: Bill Ren Jr., MD - Fully Assessed Reason for Visit: Pain [78] Cmt: Right side under ribs, shoots around to middle of back. Twisting movement is very painful Primary Visit Diagnosis:Rib pain on right side [R07.81] Order(s):[] keTORolac 30 mg injection (Toradol)Disp: Rfl: predniSONE (DELTASONE) 10 mg tabletTake 6 tabs for 3 days, then 4 tabs for 3 days, then 2 tabs for 3 days then 1 tab for 3 days with food.Disp: 39 tabletRfl: 0 Prescriptions as of 12/12/2022 - allopurinol (ZYLOPRIM) 300 mg tablet Take 1 tablet by mouth once daily. - lisinopril (ZESTRIL) 40 mg tablet Take 40 mg by mouth. - meloxicam (MOBIC) 15 mg tablet Take by mouth. - multivitamin tablet Take by mouth as directed. - predniSONE (DELTASONE) 10 mg tablet Take 6 tabs for 3 days, then 4 tabs for 3 days, then 2 tabs for 3 days then 1 tab for 3 days with food. - fluticasone (FLONASE) 50 mcg/actuation nasal spray Meds Comments as of 03/19/2020: 03/19/20 The medications are managed by this patient by: PATIENT Shaji Jovita [facility] Problem List As Of Date 12/12/2022 Noted Resolved PVD (posterior vitreous detachment) [H43.819] 06/26/2016 Nuclear cataract [[id number]] 06/26/2016 03/19/2020 Refractive error [H52.7] (more content not included)... Normal [facility] UA MICROSCOPICon 10-15-2022 Mucus Ql (Urine sed) 1+ /LPF Normal [facility] Comment on above: Performed By: #### U AMIC #### [facility] [address] [place] [address] RBC 4 /HPF Normal 0-5 [facility] Comment on above: Performed By: #### U AMIC #### [facility] [address] [place] [address] SQUAMOUS EPITH. CELLS <1 Normal [facility] Comment on above: Performed By: #### U AMIC #### [facility] [address] [place] [address] WBC 3 /HPF Normal 0-5 [facility] Comment on above: Performed By: #### U AMIC #### [facility] [address] [place] [address] URINALYSISon 10-15-2022 Appearance (U) HAZY Normal CLEAR [facility] Comment on above: Performed By: #### U A #### [facility] [address] [place] [address] Bilirubin Ql (U) Negative Normal NEGATIVE [facility] Comment on above: Performed By: #### U A #### [facility] [address] [place] [address] Color (U) YELLOW Normal STRAW,YELLOW [facility] Comment on above: Performed By: #### U A #### [facility] [address] [place] [address] Glucose Ql (U) Negative Normal NEGATIVE [facility] Comment on above: Performed By: #### U A #### [facility] [address] [place] [address] Hemoglobin Ql (U) Negative Normal NEGATIVE [facility] Comment on above: Performed By: #### U A #### [facility] [address] [place] [address] Ketones Ql (U) Negative Normal NEGATIVE [facility] Comment on above: Performed By: #### U A #### [facility] [address] [place] [address] Leukocyte esterase Test strip Ql (U) TRACE Abnormal NEGATIVE [facility] Comment on above: Performed By: #### U A #### [facility] [address] [place] [address] Nitrite Ql (U) Negative Normal NEGATIVE [facility] Comment on above: Performed By: #### U A #### [facility] [address] [place] [address] pH (U) 6.0 [pH] Normal 5.0 - 8.0 [facility] Comment on above: Performed By: #### U A #### [facility] [address] [place] [address] Protein Ql (U) Negative Normal NEGATIVE [facility] Comment on above: Performed By: #### U A #### [facility] [address] [place] [address] Specific gravity (U) [Rel density] 1.011 Normal 1.005 - 1.035 [facility] Comment on above: Performed By: #### U A #### [facility] [address] [place] [address] Urobilinogen (U) [Mass/Vol] mg/dL Normal 0.0 - 1.9 [facility] Comment on above: Performed By: #### U A #### [facility] [address] [place] [address] URINALYSISon 04-05-2023 Lab Specimen Source Normal [facility] Comment on above: Performed By: #### U A #### [facility] [address] [place] [id number] Performed By: #### U AMIC #### [facility] [address] [place] [address] POCT UA Automated manually r esultedon 09-28-2022 Appearance (U) Clear Clear [facility] Work Phone: [phone] Glucose Test strip (U) [Mass/Vol] Negative NEGATIVE mg/dl [facility] Work Phone: [phone] Hemoglobin Ql (U) SMALL (1+) Abnormal NEGATIVE [facility] Work Phone: [phone] Interpretation and review of laboratory results Abnormal [facility] Work Phone: [phone] Leukocyte esterase Test strip Ql (U) TRACE Abnormal NEGATIVE [facility] Work Phone: [phone] Nitrite Ql (U) Negative NEGATIVE [facility] Work Phone: [phone] pH (U) 7.0 [pH] No Reference Range Established [facility] Work Phone: [phone] POC Bilirubin, Urine Negative NEGATIVE [facility] Work Phone: [phone] POC Color, Urine Yellow Straw, Yellow, Light Yellow [facility] Work Phone: [phone] POC Ketones, Urine Negative NEGATIVE mg/dl [facility] Work Phone: [phone] POC Protein, Urine Negative NEGATIVE, 30 (1+) mg/dl [facility] Work Phone: [phone] POC Specific Ridge, Urine 1.015 1.005 - 1.035 [facility] Work Phone: [phone] POC Urobilinogen, Urine 2.0 Abnormal 0.2, 1.0 EU/DL [facility] Work Phone: [phone] [facility] Work Phone: [phone] Bacteria identified Cx Nom ( U)on 09-27-2022 Culture Comments: NO GROWTH [facility] Urine Cultureon 09-27-2022 Bacteria identified Cx Nom (U) Culture Comments - See Below [facility] Cult, Urineon 09-25-2022 Bacteria identified Cx Nom (U) [facility] Work Phone: URINE CULTURE,BACTERIALon URINE CULTURE,BACTERIAL PATIENT: RYAN ZHANG LOCATION: [address]#: [id number] : 55 AGE: SEX: M ORDERED BY: NAOMY SHAFFER SOURCE: URINE COLLECTED: 09/25/22 15:56 ANTIBIOTICS AT [place].: RECEIVED : 09/26/22 17:30 SITE: Clean Catch/Voided R E S U L T S URINE CULTURE,BACTERIAL FINAL 09/27/22 11:29 NO GROWTH Normal [facility] Comment on above: Performed By: #### U [facility] #### [facility] [address] [place] [address] Basophil percentageOrdered B y: Dr. Sheth on 09-16-2022 Bilirubin [Mass/Vol] 0.60 mg/dL 0.20-1.00 [facility] Comment on above: For patients on eltr ombopag therapy, use of Dimension [place] TBIL is not recommended. Chloride [Moles/Vol] 108 mmol/L 98-107 [facility] Glucose [Mass/Vol] 93 mg/dL 74-106 [facility] Potassium [Moles/Vol] 4.0 mmol/L 3.5-5.1 [facility] Protein [Mass/Vol] 7.2 g/dL 6.4-8.2 [facility] Sodium [Moles/Vol] 139 mmol/L 136-145 [facility] Laboratory - Chemistry and C hemistry - challengeOrdered By: Dr. Sheth on 09-16-2022 ALP [Catalytic activity/Vol] 50 U/L 45-117 [facility] ALT [Catalytic activity/Vol] 38 U/L 16-61 [facility] CO2 [Moles/Vol] 27.0 mmol/L 21.0-32.0 [facility] Globulin (S) [Mass/Vol] 3.6 g/dL 2.2-4.2 [facility] Urea nitrogen/Creatinine [Mass ratio] 21.6 mg/mg 10-20 [facility] No Panel InformationOrdered By: Dr. Sheth on 09-16-2022 Estimated GFR (MDRD) Amer 111 mL/min >60 [facility] Comment on above: GFR Calc Estimated GFR (MDRD) Non-Af Amer 92 mL/min >60 [facility] Comment on above: Non- GFR Calc Serum or plasma albumin silvia urement (mass/volume)Ordered By: Dr. Sheth on 09-16-2022 Albumin [Mass/Vol] 3.6 g/dL 3.2-5.0 [facility] Serum or plasma albumin/glob ulin mass ratioOrdered By: Dr. Sheth on 09-16-2022 Albumin/Globulin [Mass ratio] 1.0 {ratio} 0.9-2.4 [facility] Serum or plasma calcium silvia urement (mass/volume)Ordered By: Dr. Sheth on 09-16-2022 Calcium [Mass/Vol] 9.1 mg/dL 8.5-10.1 [facility] Serum or plasma creatinine m easurement (mass/volume)Ordered By: Dr. Sheth on 09-16-2022 Creatinine [Mass/Vol] 0.88 mg/dL 0.70-1.30 [facility] Comment on above: The validity of the calculated GFR & GFRAA in patients over 70 years has not been determined. Clinical correlation is essential. Serum or plasma urea nitroge n measurement (mass/volume)Ordered By: Dr. Sheth on 09-16-2022 Urea nitrogen [Mass/Vol] 19 mg/dL 7-18 [facility] Serum or plasma uric acid me asurement (mass/volume)Ordered By: Dr. Sheth on 09-16-2022 Urate [Mass/Vol] 5.2 mg/dL 3.5-7.2 [facility] Comment on above: The drugs N-Acetylcy steine and Metamizole may falsely depress this assay. Thin prep Papanicolaou smear with manual screeningOrdered By: Dr. Sheth on 09-16-2022 Thin prep Papanicolaou smear with manual screening 26 U/L 15-37 [facility] Thin prep Papanicolaou smear with manual screening 4 5-15 [facility] Blood Pressure Cuff Sizeon 0 09-11-2022 Blood Pressure Cuff Size Adult -Patricia [facility] Work Phone: Office Visit ([facility])on 09-11-2022 Follow-up visit Diagnoses/Problems Morbid obesity with BMI of 40.0-44.9, adult (278.01,V85.41) (E66.01,Z68.41) Arthritis (716.90) (M19.90) Allergic rhinitis (477.9) (J30.9) Gout (274.9) (M10.9) Added by Problem List Migration; 2013-05-16; Moved to Suppressed Jun 04 2013 4:33PM Hyperlipidemia (272.4) (E78.5) Right foot drop (736.79) (M21.371) Obstructive sleep apnea (327.23) (G47.33) Weakness of right lower extremity (729.89) (R29.898) Benign essential hypertension (401.1) (I10) Added by Problem List Migration; 2013-05-16; Moved to Suppressed Jun 04 2013 4:33PM Orders Right foot drop, Weakness of right lower extremity Physical Therapy - General Referral Evaluation and Treatment Evaluate AND Treat Status: Hold For - Scheduling Requested for: 11Sep2022 Patient Discussion/Summary By signing my name below, I, Juliocesar Whittington, attest that this documentation has been prepared under the direction and in the presence of Dr. Jl Sheth. 1. Hypertension Treatment plan blood pressure is normal today. Please stay on current dose of lisinopril 40 mg once a day every day. By lowering your blood pressure we are reducing risk for heart attack and stroke 2. History of gout. Continue on allopurinol 300 mg a day. He allopurinol lowers the uric acid level which prevents future gout attacks. Please stay well-hydrated. It is safe to use meloxicam 15 mg as needed if you work 3. Right leg foot weakness foot drop. Please start physical therapy if symptoms or not improving after 6 weeks of physical therapy we should consider either nerve conduction testing or x-rays and MRI of the lumbar spine to determine if you have any pinching of the nerves leaving the spine which traveled down to the foot 4. Sleep apnea. Continue using your CPAP nightly meddling does provide for good night sleep but it also helps with daytime fatigue and quality of life. It also lowers blood pressure and reduces risk for diabetes heart disease and stroke 5. Please get a shingles vaccine at the pharmacy and your Prevnar 20 vaccine at the pharmacy 6. If you otherwise stay healthy I will see you back in 6 months for annual wellness visit Chief Complaint 6 month f/u htn, gout, discuss balance issue History of Present Illness Patient denies chest pain, pressure, and tightness upon exertion. Patient reports compliance with medication and denies side effects. He reports benefits. He denies recent gout flare ups. Patient is compliant with CPAP use. Patient states he will obtain the shingles vaccine at his pharmacy. Patient denies acid indigestion. He reports normal bowel movements and urination. Patient complains of right leg weakness and foot drop of his heel while walking, causing difficulty with ambulation. He is interested in physical therapy. 'Scores and Scales' PHQ-9 [id number] 04:41PM PHQ-9 #1. Little interest or pleasure in doing things1-Several days PHQ-9 #2. Feeling down, depressed, or hopelesS0-Not at all PHQ-9 #3. Trouble falling or staying asleep, or sleeping too much1-Several days PHQ-9 #4. Feeling tired or having little energy1-Several days PHQ-9 #5. Poor appetite or overeating1-Several days PHQ-9 #6. Feeling bad about yourself or you are a failure or that you have let yourself or your family down0-Not at all PHQ-9 #7. Trouble concentrating on things, such as reading the newspaper or watch television0-Not at all PHQ-9 #8. Moving or speaking so slowly that other people could have noticed. Or the opposite-being so fidgety or restless that you have been moving around a lot more than usual0-Not at all PHQ-9 #9. Thoughts that you would be better off , or of hurting yourself0-Not at all PHQ-9 #10. If you checked off any problems, how difficult have these problems made it for you to do your work, take care of things at home, or get along with other people?Not difficult at all PHQ-9 Total Score (Please update problem list based on total score)4 PHQ-9 Depression SeverityIn Remission (0-4) Review of Systems Constitutional: no chills, no fever and no night sweats. Eyes: no blurred vision and no eyesight problems. ENT: no hearing loss, no nasal congestion, no nasal discharge, no hoarseness and no sore throat. Neck: no mass(es) and no swelling. Cardiovascular: no chest pain, no intermittent leg claudication, no lower extremity edema, no palpitations and no syncope. Respiratory: no cough, no shortness of breath during exertion, no shortness of breath at rest and no wheezing. Gastrointestinal: no abdominal pain, no blood in stools, no constipation, no diarrhea, no melena, no nausea, no rectal pain and no vomiting. Genitourinary: no dysuria, no change in urinary frequency, no urinary hesitancy and no feelings of urinary urgency. Musculoskeletal: as noted in HPI, no arthralgias, no back pain and no myalgias. Integumentary: no new skin lesions and no rashes. Neurological: limb weakness, but no difficulty walking, no headache, no numbness and no tinglin (more content not included)... Normal [facility] CBC W Auto Differential pane l (Bld)on 04-11-2022 Basophils (Bld) [#/Vol] 0.05 10*3/uL Normal <0.11 [facility] Comment on above: Order Comment: Teodora oneill Type: BLOOD SPECIMEN Ordering Facility: External Submitter Address: , , Performed By: #### 5 7021-8 #### [facility] CLIA [id number] [address] Basophils/100 WBC (Bld) 1.0 % Normal [facility] Comment on above: Order Comment: Teodora oneill Type: BLOOD SPECIMEN Ordering Facility: External Submitter Address: , , Performed By: #### 5 7021-8 #### [facility] CLIA [id number] [address] Differential cell count method Nom (Bld) Auto Normal [facility] Comment on above: Order Comment: Speci men Type: BLOOD SPECIMEN Ordering Facility: External Submitter Address: , , Performed By: #### 5 7021-8 #### [facility] CLIA [id number] [address] Eosinophils (Bld) [#/Vol] 0.14 10*3/uL Normal <0.46 [facility] Comment on above: Order Comment: Speci men Type: BLOOD SPECIMEN Ordering Facility: External Submitter Address: , , Performed By: #### 5 7021-8 #### [facility] CLIA [id number] [address] Eosinophils/100 WBC (Bld) 2.9 % Normal [facility] Comment on above: Order Comment: Speci men Type: BLOOD SPECIMEN Ordering Facility: External Submitter Address: , , Performed By: #### 5 7021-8 #### [facility] CLIA [id number] [address] [place] [address] Erythrocyte distribution width (RBC) [Ratio] 13.7 % Normal 11.5-15.0 [facility] Comment on above: Order Comment: Speci men Type: BLOOD SPECIMEN Ordering Facility: External Submitter Address: , , Performed By: #### 5 7021-8 #### [facility] CLIA [id number] [address] Hematocrit (Bld) [Volume fraction] 47.5 % Normal 39.0-51.0 [facility] Comment on above: Order Comment: Speci men Type: BLOOD SPECIMEN Ordering Facility: External Submitter Address: , , Performed By: #### 5 7021-8 #### [facility] CLIA [id number] [address] Hemoglobin (Bld) [Mass/Vol] 16.1 g/dL Normal 13.0-17.0 [facility] Comment on above: Order Comment: Speci men Type: BLOOD SPECIMEN Ordering Facility: External Submitter Address: , , Performed By: #### 5 7021-8 #### [facility] CLIA [id number] [address] IMMATURE GRAN % 0.6 % Normal [facility] Comment on above: Order Comment: Speci men Type: BLOOD SPECIMEN Ordering Facility: External Submitter Address: , , Performed By: #### 5 7021-8 #### [facility] CLIA [id number] [address] IMMATURE GRAN ABS 0.03 k/uL Normal <0.10 [facility] Comment on above: Order Comment: Speci men Type: BLOOD SPECIMEN Ordering Facility: External Submitter Address: , , Performed By: #### 5 7021-8 #### [facility] CLIA [id number] [address] Lymphocytes (Bld) [#/Vol] 0.89 10*3/uL Low 1.00-4.00 [facility] Comment on above: Order Comment: Speci men Type: BLOOD SPECIMEN Ordering Facility: External Submitter Address: , , Performed By: #### 5 7021-8 #### [facility] CLIA [id number] [address] Lymphocytes/100 WBC (Bld) 18.6 % Normal [facility] Comment on above: Order Comment: Speci men Type: BLOOD SPECIMEN Ordering Facility: External Submitter Address: , , Performed By: #### 5 7021-8 #### [facility] CLIA [id number] [address] MCH (RBC) [Entitic mass] 33.0 pg Normal 26.0-34.0 [facility] Comment on above: Order Comment: Speci men Type: BLOOD SPECIMEN Ordering Facility: External Submitter Address: , , Performed By: #### 5 7021-8 #### [facility] CLIA [id number] [address] MCHC (RBC) [Mass/Vol] 33.9 g/dL Normal 30.5-36.0 [facility] Comment on above: Order Comment: Speci men Type: BLOOD SPECIMEN Ordering Facility: External Submitter Address: , , Performed By: #### 5 7021-8 #### [facility] CLIA [id number] [address] MCV (RBC) [Entitic vol] 97.3 fL Normal 80.0-100.0 [facility] Comment on above: Order Comment: Speci men Type: BLOOD SPECIMEN Ordering Facility: External Submitter Address: , , Performed By: #### 5 7021-8 #### [facility] CLIA [id number] [address] Monocytes (Bld) [#/Vol] 0.63 10*3/uL Normal <0.87 [facility] Comment on above: Order Comment: Speci men Type: BLOOD SPECIMEN Ordering Facility: External Submitter Address: , , Performed By: #### 5 7021-8 #### [facility] CLIA [id number] [address] Monocytes/100 WBC (Bld) 13.2 % Normal [facility] Comment on above: Order Comment: Speci men Type: BLOOD SPECIMEN Ordering Facility: External Submitter Address: , , Performed By: #### 5 7021-8 #### [facility] CLIA [id number] [address] Neutrophils (Bld) [#/Vol] 3.05 10*3/uL Normal 1.45-7.50 [facility] Comment on above: Order Comment: Speci men Type: BLOOD SPECIMEN Ordering Facility: External Submitter Address: , , Performed By: #### 5 7021-8 #### [facility] CLIA [id number] [address] Neutrophils/100 WBC (Bld) 63.7 % Normal [facility] Comment on above: Order Comment: Speci men Type: BLOOD SPECIMEN Ordering Facility: External Submitter Address: , , Performed By: #### 5 7021-8 #### [facility] CLIA [id number] [address] Nucleated RBC (Bld) [#/Vol] 10*3/uL Normal <0.01 [facility] Comment on above: Order Comment: Speci men Type: BLOOD SPECIMEN Ordering Facility: External Submitter Address: , , Performed By: #### 5 7021-8 #### [facility] CLIA [id number] [address] Nucleated RBC/100 WBC (Bld) [Ratio] 0.0 /100 WBC Normal [facility] Comment on above: Order Comment: Speci men Type: BLOOD SPECIMEN Ordering Facility: External Submitter Address: , , Performed By: #### 5 7021-8 #### [facility] CLIA [id number] [address] Platelet mean volume (Bld) [Entitic vol] 8.9 fL Low 9.0-12.7 [facility] Comment on above: Order Comment: Speci men Type: BLOOD SPECIMEN Ordering Facility: External Submitter Address: , , Performed By: #### 5 7021-8 #### [facility] CLIA [id number] [address] Platelets (Bld) [#/Vol] 180 10*3/uL Normal 150-400 [facility] Comment on above: Order Comment: Speci men Type: BLOOD SPECIMEN Ordering Facility: External Submitter Address: , , Performed By: #### 5 7021-8 #### [facility] CLIA [id number] [address] RBC (Bld) [#/Vol] 4.88 10*6/uL Normal 4.20-6.00 [facility] Comment on above: Order Comment: Speci men Type: BLOOD SPECIMEN Ordering Facility: External Submitter Address: , , Performed By: #### 5 7021-8 #### [facility] CLIA [id number] [address] WBC (Bld) [#/Vol] 4.79 10*3/uL Normal 3.70-11.00 [facility] Comment on above: Order Comment: Speci men Type: BLOOD SPECIMEN Ordering Facility: External Submitter Address: , , Performed By: #### 5 7021-8 #### [facility] CLIA [id number] [address] Comprehensive metabolic 2000 panelon 04-11-2022 Albumin [Mass/Vol] 4.5 g/dL Normal 3.9-4.9 [facility] Comment on above: Order Comment: Speci men Type: BLOOD SPECIMEN Ordering Facility: External Submitter Address: , , Performed By: #### 2 4323-8, PSAS1 #### [facility] CLIA [id number] [address] ALP [Catalytic activity/Vol] 51 U/L Normal 38-113 [facility] Comment on above: Order Comment: Speci men Type: BLOOD SPECIMEN Ordering Facility: External Submitter Address: , , Performed By: #### 2 4323-8, PSAS1 #### [facility] CLIA [id number] [address] ALT With P-5'-P [Catalytic activity/Vol] 37 U/L Normal 10-54 [facility] Comment on above: Order Comment: Speci men Type: BLOOD SPECIMEN Ordering Facility: External Submitter Address: , , Performed By: #### 2 4323-8, PSAS1 #### [facility] CLIA [id number] [address] Anion gap [Moles/Vol] 9 mmol/L Normal 9-18 [facility] Comment on above: Order Comment: Speci men Type: BLOOD SPECIMEN Ordering Facility: External Submitter Address: , , Performed By: #### 2 4323-8, PSAS1 #### [facility] CLIA [id number] [address] AST With P-5'-P [Catalytic activity/Vol] 29 U/L Normal 14-40 [facility] Comment on above: Order Comment: Speci men Type: BLOOD SPECIMEN Ordering Facility: External Submitter Address: , , Performed By: #### 2 4323-8, PSAS1 #### [facility] CLIA [id number] [address] Bilirubin [Mass/Vol] 0.7 mg/dL Normal 0.2-1.3 [facility] Comment on above: Order Comment: Speci men Type: BLOOD SPECIMEN Ordering Facility: External Submitter Address: , , Performed By: #### 2 432-8, PSAS1 #### [facility] CLIA [id number] [address] Calcium [Mass/Vol] 9.3 mg/dL Normal 8.5-10.2 [facility] Comment on above: Order Comment: Speci men Type: BLOOD SPECIMEN Ordering Facility: External Submitter Address: , , Performed By: #### 2 432-8, PSAS1 #### [facility] CLIA [id number] [address] Chloride [Moles/Vol] 105 mmol/L Normal 97-105 [facility] Comment on above: Order Comment: Speci men Type: BLOOD SPECIMEN Ordering Facility: External Submitter Address: , , Performed By: #### 2 4323-8, PSAS1 #### [facility] CLIA [id number] [address] CO2 [Moles/Vol] 29 mmol/L Normal 22-30 [facility] Comment on above: Order Comment: Speci men Type: BLOOD SPECIMEN Ordering Facility: External Submitter Address: , , Performed By: #### 2 4323-8, PSAS1 #### [facility] CLIA [id number] [address] [place] Creatinine [Mass/Vol] 1.36 mg/dL High 0.73-1.22 [facility] Comment on above: Order Comment: Speci men Type: BLOOD SPECIMEN Ordering Facility: External Submitter Address: , , Performed By: #### 2 4323-8, PSAS1 #### [facility] CLIA [id number] 1 [place] [address] [place] ESTIMATED GLOMERULAR FILTRATION RATE 57 mL/min/1.73m??? Low >=60 [facility] Comment on above: Order Comment: Teodora oneill Type: BLOOD SPECIMEN Ordering Facility: External Submitter Address: , , Result Comment: Marcia mated Glomerular Filtration Rate (eGFR) is calculated using the 2020 CKD-EPI creatinine equation. This equation utilizes serum creatinine, sex, and age as parameters. The creatinine assay has traceable calibration to isotope dilution-mass spectrometry. Refer to KDIGO guidelines for clinical interpretation. In patients with unstable renal function, e.g. those with acute kidney injury, the eGFR may not accurately reflect actual GFR. Performed By: #### 2 4323-8, PSAS1 #### [facility] CLIA [id number] [address] [place] Glucose [Mass/Vol] 80 mg/dL Normal 74-99 [facility] Comment on above: Order Comment: Teodora oneill Type: BLOOD SPECIMEN Ordering Facility: External Submitter Address: , , Result Comment: The [place] Diabetes Association (ADA) provides guidance for cutoff values for fasting glucose and random glucose. The ADA defines fasting as no caloric intake for at least 8 hours. Fasting plasma glucose results between 100 to 125 mg/dL indicate increased risk for diabetes (prediabetes). Fasting plasma glucose results greater than or equal to 126 mg/dL meet the criteria for diagnosis of diabetes. In the absence of unequivocal hyperglycemia, results should be confirmed by repeat testing. In a patient with classic symptoms of hyperglycemia or hyperglycemic crisis, random plasma glucose results greater than or equal to 200 mg/dL meet the criteria for diagnosis of diabetes. Reference: Standards of Medical Care in Diabetes 2016, [place] Diabetes Association. Diabetes Care. 2016.39(Suppl 1). Performed By: #### 2 4323-8, PSAS1 #### [facility] CLIA [id number] [address] [place] Potassium [Moles/Vol] 4.2 mmol/L Normal 3.7-5.1 [facility] Comment on above: Order Comment: Teodora oneill Type: BLOOD SPECIMEN Ordering Facility: External Submitter Address: , , Performed By: #### 2 4323-8, PSAS1 #### [facility] CLIA [id number] [address] Protein [Mass/Vol] 6.6 g/dL Normal 6.3-8.0 [facility] Comment on above: Order Comment: Speci men Type: BLOOD SPECIMEN Ordering Facility: External Submitter Address: , , Performed By: #### 2 4323-8, PSAS1 #### [facility] CLIA [id number] [address] [place] [address] Sodium [Moles/Vol] 143 mmol/L Normal 136-144 [facility] Comment on above: Order Comment: Speci men Type: BLOOD SPECIMEN Ordering Facility: External Submitter Address: , , Performed By: #### 2 4323-8, PSAS1 #### [facility] CLIA [id number] [address] Urea nitrogen [Mass/Vol] 20 mg/dL Normal 9-24 [facility] Comment on above: Order Comment: Speci men Type: BLOOD SPECIMEN Ordering Facility: External Submitter Address: , , Performed By: #### 2 4323-8, PSAS1 #### [facility] CLIA [id number] [address] Laboratory - Hematology and Cell countson 04-11-2022 Basophils/100 WBC (Bld) 1.0 % Normal [facility] Work Phone: Eosinophils/100 WBC (Bld) 2.9 % Normal [facility] Work Phone: Lymphocytes/100 WBC (Bld) 18.6 % Normal [facility] Work Phone: Monocytes/100 WBC (Bld) 13.2 % Normal [facility] Work Phone: Neutrophils/100 WBC (Bld) 63.7 % Normal [facility] Work Phone: Lipid 1996 panelon Cholesterol [Mass/Vol] 143 mg/dL Normal <200 [facility] Comment on above: Order Comment: Teodora nino Type: BLOOD SPECIMEN Ordering Facility: External Submitter Address: , , Result Comment: <200 mg/dL, Desirable 200-239 mg/dL, Borderline high >239 mg/dL, High Performed By: #### 3 016-3, 51936-4, 3083-07 #### [facility] CLIA [id number] [address] Cholesterol in HDL [Mass/Vol] 33 mg/dL Low >39 [facility] Comment on above: Order Comment: Teodora oneill Type: BLOOD SPECIMEN Ordering Facility: External Submitter Address: , , Result Comment: 40-5 9 mg/dL, Acceptable >59 mg/dL, High: Negative risk factor for coronary heart disease <40 mg/dL, Low: Positive risk factor for coronary heart disease Performed By: #### 3 016-3, 40488-7, 3083-07 #### [facility] CLIA [id number] [address] Cholesterol in LDL [Mass/Vol] 88 mg/dL Normal <100 [facility] Comment on above: Order Comment: Teodora [facility] Type: BLOOD SPECIMEN Ordering Facility: External Submitter Address: , , Result Comment: <100 mg/dL, Optimal 100-129 mg/dL, Near optimal/above optimal 130-159 mg/dL, Borderline high 160-189 mg/dL, High >189 mg/dL, Very high Secondary prevention optimal LDL Cholesterol levels are recommended to be < 70 mg/dL Performed By: #### 3 016-3, 84536-5, 3083-07 #### [facility] CLIA [id number] [address] Cholesterol in LDL/Cholesterol in HDL [Mass ratio] 2.67 {ratio} High <2.54 [facility] Comment on above: Order Comment: Teodora oneill Type: BLOOD SPECIMEN Ordering Facility: External Submitter Address: , , Result Comment: Refe rence: 1. National Cholesterol Education Program ATP III Guideline At-A-Glance Quick Desk Reference: National Heart, Lung, and Blood Red [place]. National Institutes of Health. 2001: NIH Publication No. 01-3305. 2. An International Atherosclerosis Society position paper: global recommendations for the management of dyslipidemia: executive summary, Atherosclerosis. 2014: 232(2):410-413. Performed By: #### 3 016-3, 11932-3, 3083-07 #### [facility] CLIA [id number] [address] Cholesterol in VLDL [Mass/Vol] 22 mg/dL Normal <30 [facility] Comment on above: Order Comment: [facility]i [facility] Type: BLOOD SPECIMEN Ordering Facility: External Submitter Address: , , Performed By: #### 3 016-3, 54645-2, 3083-07 #### [facility] CLIA [id number] [address] Cholesterol non HDL [Mass/Vol] 110 mg/dL Normal <130 [facility] Comment on above: Order Comment: Teodora [facility] Type: BLOOD SPECIMEN Ordering Facility: External Submitter Address: , , Result Comment: <130 mg/dL, Optimal 130-159 mg/dL, Near optimal/above optimal 160-189 mg/dL, Borderline high 190-219 mg/dL, High >219 mg/dL, Very high Secondary prevention optimal non HDL Cholesterol levels are recommended to be <100 mg/dL Performed By: #### 3 016-3, 39716-7, 3083-07 #### [facility] CLIA [id number] [address] Cholesterol.total/Cho lesterol in HDL [Mass ratio] 4.33 {ratio} Normal <5.10 [facility] Comment on above: Order Comment: Teodora nino Type: BLOOD SPECIMEN Ordering Facility: External Submitter Address: , , Performed By: #### 3 016-3, 21840-2, 3083-07 #### [facility] CLIA [id number] [address] FASTING TIME 12 hrs Normal [facility] Comment on above: Order Comment: Teodora [facility] Type: BLOOD SPECIMEN Ordering Facility: External Submitter Address: , , Performed By: #### 3 016-3, 70390-3, 3083-07 #### [facility] CLIA [id number] [address] [place] Triglyceride [Mass/Vol] 109 mg/dL Normal <150 [facility] Comment on above: Order Comment: Speci men Type: BLOOD SPECIMEN Ordering Facility: External Submitter Address: , , Result Comment: <150 mg/dL, Normal 150-199 mg/dL, Borderline high 200-499 mg/dL, High >499 mg/dL, Very high Performed By: #### 3 016-3, 31343-4, 3083-07 #### [facility] CLIA [id number] [address] [place] No Panel Informationon 04-11 0.68 ng/mL Normal 0.00-3.90 [facility] Work Phone: Comment on above: Total PSA test metho dology used is the Direct Chemiluminometric technology. 5.7 mg/dL Normal 4.0-8.1 [facility] Work Phone: 1.780 {mIU/L} Normal 0.270-4.200 -[facility] Work Phone: 22 mg/dL Normal <30 -[facility] Work Phone: 2.67 1 above high threshold <2.54 -[facility] Work Phone: Comment on above: Reference:1. Nation l Cholesterol Education Program ATP III Guideline At-A-Glance Quick Desk Reference: National Heart, Lung, and Blood Red Wing. National Institutes of Health. 2001: NIH Publication No. 01-3305.2. An International Atherosclerosis Society position paper: global recommendations for the management of dyslipidemia: executive summary, Atherosclerosis. 2014: 232(2):410-413. 4.33 1 Normal <5.10 -[facility] Work Phone: 12 {hrs} Normal -[facility] Work Phone: 110 mg/dL Normal <130 -[facility] Work Phone: Comment on above: <130 mg/dL, Optimal 130-159 mg/dL, Near optimal/above optimal 160-189 mg/dL, Borderline high 190-219 mg/dL, High>219 mg/dL, Very highSecondary prevention optimal non HDL Cholesterol levels are recommended to be <100 mg/dL 88 mg/dL Normal <100 [facility] Work Phone: Comment on above: <100 mg/dL, Optimal 100-129 mg/dL, Near optimal/above optimal 130-159 mg/dL, Borderline high 160-189 mg/dL, High>189 mg/dL, Very highSecondary prevention optimal LDL Cholesterol levels are recommended to be < 70 mg/dL 33 mg/dL below low threshold >39 [facility] Work Phone: Comment on above: 40-59 mg/dL, Accepta ble>59 mg/dL, High: Negative risk factor for coronary heart disease<40 mg/dL, Low: Positive risk factor for coronary heart disease 109 mg/dL Normal <150 [facility] Work Phone: Comment on above: <150 mg/dL, Normal 1 50-199 mg/dL, Borderline high 200-499 mg/dL, High>499 mg/dL, Very high 143 mg/dL Normal <200 [facility] Work Phone: Comment on above: <200 mg/dL, Desirabl e 200-239 mg/dL, Borderline high>239 mg/dL, High 57 {mL/min/1.73m???} below low threshold >=60 [facility] Work Phone: Comment on above: Estimated Glomerular Filtration Rate (eGFR) is calculated using the 2020 CKD-EPI creatinine equation. This equation utilizes serum creatinine, sex, and age as parameters. The creatinine assay has traceable calibration to isotope dilution-mass spectrometry. Refer to KDIGO guidelines for clinical interpretation. In patients with unstable renal function, e.g. those with acute kidney injury, the eGFR may not accurately reflect actual GFR. 9 mmol/L Normal 9-18 [facility] Work Phone: 4.2 mmol/L Normal 3.7-5.1 [facility] Work Phone: 143 mmol/L Normal 136-144 [facility] Work Phone: 1.36 mg/dL above high threshold 0.73-1.22 [facility] Work Phone: 20 mg/dL Normal 9-24 [facility] Work Phone: 80 mg/dL Normal 74-99 [facility] Work Phone: Comment on above: The [place] Diabete s Association (ADA) provides guidance for cutoff values for fasting glucose and random glucose. The ADA defines fasting as no caloric intake for at least 8 hours. Fasting plasma glucose results between 100 to 125 mg/dL indicate increased risk for diabetes (prediabetes).Fasting plasma glucose results greater than or equal to 126 mg/dL meet the criteria for diagnosis of diabetes. In the absence of unequivocal hyperglycemia, results should be confirmed by repeat testing. In a patient with classic symptoms of hyperglycemia or hyperglycemic crisis, random plasma glucose results greater than or equal to 200 mg/dL meet the criteria for diagnosis of diabetes.Reference: Standards of Medical Care in Diabetes 2016, [place] Diabetes Association. Diabetes Care. 2016.39(Suppl 1). 37 U/L Normal 10-54 [facility] Work Phone: 29 mmol/L Normal 22-30 [facility] Work Phone: 105 mmol/L Normal 97-105 [facility] Work Phone: 29 U/L Normal 14-40 [facility] Work Phone: 51 U/L Normal 38-113 [facility] Work Phone: 0.7 mg/dL Normal 0.2-1.3 [facility] Work Phone: 9.3 mg/dL Normal 8.5-10.2 [facility] Work Phone: 4.5 g/dL Normal 3.9-4.9 [facility] Work Phone: 6.6 g/dL Normal 6.3-8.0 [facility] Work Phone: <0.01 Normal <0.01 [facility] Work Phone: 0.03 {k/uL} Normal <0.10 [facility] Work Phone: 0.6 % Normal [facility] Work Phone: 0.05 {k/uL} Normal <0.11 [facility] Work Phone: 0.14 {k/uL} Normal <0.46 [facility] Work Phone: 0.63 {k/uL} Normal <0.87 [facility] Work Phone: Auto Normal [facility] Work Phone: 0.89 {k/uL} below low threshold 1.00-4.00 [facility] Work Phone: 3.05 {k/uL} Normal 1.45-7.50 [facility] Work Phone: 0.0 {/100_WBC} Normal [facility] Work Phone: 8.9 fL below low threshold 9.0-12.7 [facility] Work Phone: 180 {k/uL} Normal 150-400 [facility] Work Phone: 33.9 g/dL Normal 30.5-36.0 [facility] Work Phone: 33.0 pg Normal 26.0-34.0 [facility] Work Phone: 97.3 fL Normal 80.0-100.0 [facility] Work Phone: 47.5 % Normal 39.0-51.0 [facility] Work Phone: 16.1 g/dL Normal 13.0-17.0 [facility] Work Phone: 4.88 m/uL Normal 4.20-6.00 [facility] Work Phone: 13.7 % Normal 11.5-15.0 [facility] Work Phone: 4.79 {k/uL} Normal 3.70-11.00 [facility] Work Phone: PSA/PROSTSPECAG SCRNon 04-11 Prostate specific Ag [Mass/Vol] 0.68 ng/mL Normal 0.00-3.90 [facility] Comment on above: Order Comment: Speci men Type: BLOOD SPECIMEN Ordering Facility: External Submitter Address: , , Result Comment: Totbethel mancia PSA test methodology used is the Direct Chemiluminometric technology. Performed By: #### 2 4323-8, PSAS1 #### [facility] CLIA [id number] [address] OF [facility] Radiologyon 04-11-2022 XR Knee AP and Lateral and Merchants * * *Final Report* * * DATE OF EXAM: Apr 11 2022 10:17AM AWX 5208 - XR KNEE 3V AP/LAT/MERCHANT LT / PROCEDURE REASON: M25.562 * * * * Physician Interpretation * * * * EXAMINATION: XR KNEE 3V AP/LAT/MERCHANT LT CL Normal [facility] Work Phone: TSH SerPl-aCncon 04-11-2022 TSH Qn 1.780 m[IU]/L Normal 0.270-4.200 [facility] Comment on above: Order Comment: Speci men Type: BLOOD SPECIMEN Ordering Facility: External Submitter Address: , , Performed By: #### 3 016-3, 14097-7, 3084-1 #### [facility] CLIA [id number] [address] Urate SerPl-mCncon Urate [Mass/Vol] 5.7 mg/dL Normal 4.0-8.1 [facility] Comment on above: Order Comment: Speci men Type: BLOOD SPECIMEN Ordering Facility: External Submitter Address: , , Performed By: #### 3 016-3, 13829-5, 3754-1 #### [facility] CLIA [id number] 1 [place] [address] [place] XR KNEE 3V AP/LAT/MERCHANT L Ton 04-11-2022 XR KNEE 3V AP/LAT/MERCHANT LT * * *Final Report* * * DATE OF EXAM: Apr 11 2022 10:17AM AWX 5208 - XR KNEE 3V AP/LAT/MERCHANT LT / PROCEDURE REASON: M25.562 * * * * Physician Interpretation * * * * EXAMINATION: XR KNEE 3V AP/LAT/MERCHANT LT CLINICAL HISTORY: general knee pain, pt states fall onto knee years ago Technique: XR KNEE 3V AP/LAT/MERCHANT LT -- LEFT with 3 views on 3 images Comparison: None RESULT: No fracture or dislocation. Mild to moderate lateral compartment degenerative changes with narrowing and marginal osteophytes. No erosions or chondrocalcinosis. No joint effusion. IMPRESSION: No acute osseous findings. Mild to moderate osteoarthritis. 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 Past Medical, Surgical and Family History: reviewed and updated in chart. Medications and Supplements: Review of all medications by a prescribing practitioner or clinical pharmacist (such as prescriptions, OTCs, herbal therapies and supplements) documented in the medical record. No, the patient is not using opioids. Patient Self Assessment of Health Status: good. Tobacco use: Non-User Alcohol use: Non-User Illicit drug use: Non-User Current diet: Heart Healthy Diet, does consume adequate fluids and does not consume caffeine. Exercise Frequency: infrequently. Depression/Suicide Screening: . During the past 2 weeks, the patient has not felt down, depressed or hopeless. During the past 2 weeks, the patient has not felt little interest or pleasure in doing things. Hearing Impairment: Patient has significant hearing impairment, bilaterally. Bathing: performs independently. Dressing: performs independently. Walking: performs independently. Managing Finances: performs independently. Shopping: performs independently. Managing Medications: performs independently. Housework / Basic Home Maintenance: performs independently. Falls Risk Screening:. RYAN has fallen in the last 6 months. His fall did not result in injury. Home safety risk factors: no grab bars in the bathroom. Advance directives:. Advanced Care Planning discussed and documented advance care plan or surrogate decision maker documented in the medical record. Patient has living will. Patient has healthcare POA. Patient is a 67-year-old male, here for a Medicare Wellness. Patient reports left knee pain after a fall several months ago. Patient also notes intermittent leg cramps. Patient notes intermittent fatigue but notes that he has been busy with home renovations. Reviewed and discussed medication list. Patient denies any medication side-effects. Patient denies chest pain, chest tightness, or chest pressure. Patient is being monitored by Optometry for cataracts. Patient continues to have hearing loss. Patient denies getting up more than once at night to urinate. Patient denies acid reflux. Patient is a nonsmoker. Patient denies any new allergies. Patient notes that he uses a CPAP at night. Discussed and reviewed current recommendations on Prevnar 20 and Shingles vaccinations. All questions were answered. Review of Systems Constitutional: not feeling poorly, no fever, no recent weight gain and no recent weight loss. Eyes: no blurred vision and no diplopia. ENT: hearing loss, but no tinnitus, no earache, no sore throat, no hoarseness, no swollen glands in the neck and as noted in HPI. Cardiovascular: no chest pain, no tightness or heavy pressure, no shortness of breath, no palpitations and no lower extremity edema. Respiratory: no cough, not coughing up sputum and no wheezing that is consistent with asthma. Gastrointestinal: no change in bowel habits, no diarrhea, no constipation, no bloody stools, no nausea, no vomiting, no abdominal pain, no signs and symptoms of ulcer disease, no ian colored stools and no intolerance to fatty foods. Genitourinary: no urinary frequency, no dysuria, no hematuria, no burning sensation during urination, urinary stream is not smaller and urinary stream does not start and stop. Musculoskeletal: no arthralgias, no joint stiffness, no muscle weakness, no back pain, no difficulty walking and as noted in HPI. Skin: no rashes, no change in skin color and pigmentation, no skin lesions and no skin lumps. Neurological: no headaches, no dizziness, no seizures, no tingling, no numbness, no signs and symptoms of stroke and no limb weakness. Psychiatric: no confusion, no memory lapses or loss, no depression and no sleep disturbances. Endocrine: no goiter, no thyroid disorder, no diabetes mellitus, no excessive thirst, no dry skin, no cold intolerance, no heat intolerance and no increased urinary frequency. Hematologic/Lymphatic: is not slow to heal, does not bleed easily, does not bruise easily, no thrombophlebitis, no anemia and no history of blood transfusion. All other systems have been reviewed and are negative for complaint. 'Scores and Scales' PHQ-9 10Mar2022 04:41PM PHQ-9 #1. Little interest or pleasure in doing things1-Several days PHQ-9 #2. Feeling down, depressed, or hopelesS0-Not at all PHQ-9 #3. Trouble falling or staying asleep, or sleeping too much1-Several days PHQ-9 #4. Feeling tired or having little energy1-Several days PHQ-9 #5. Poor appetite or overeating1-Several days PHQ-9 #6. Feeling bad about yourself or you are a failure or that you have let yourself or your family down0-Not at all PHQ-9 #7. Trouble concentrating on things, such as reading the newspaper or watch television0-Not at all PHQ-9 #8. (more content not included)... Normal [employer] PHQ-2 VITALSon 03-10-2022 Adult depression screening assessment No July [facility] Work Phone: Adult depression screening assessment Yes July [facility] Work Phone: PHQ-2 VITALS 1-Several days [facility] Work Phone: PHQ-2 VITALS 0-Not at all [facility] Work Phone: PHQ-2 VITALS Not difficult at all [facility] Work Phone: PHQ-[address] [facility] Work Phone: Blood Pressure Cuff Sizeon 0 07-14-2021 Blood Pressure Cuff Size Large [facility] Work Phone: Blood Pressure Cuff Sizeon 0 01-03-2021 Blood Pressure Cuff Size Large [facility] Work Phone: Hematologyon 07-20-2019 Hematocrit (Bld) [Volume fraction] 48.4 % See Below [facility] Work Phone: Comment on above: Reference Range: 41. 0 - 52.0 Hemoglobin (Bld) [Mass/Vol] 16.9 g/dL See Below [facility] Work Phone: Comment on above: Reference Range: 13. 5 - 17.5 MCV (RBC) [Entitic vol] 95 fL 80 - 100 [facility] Work Phone: Platelets (Bld) [#/Vol] 196 {x10E9/L} 150 - 450 [facility] Work Phone: RBC (Bld) [#/Vol] 5.09 {x10E12/L} See Below [facility] Work Phone: Comment on above: Reference Range: 4.5 0 - 5.90 WBC (Bld) [#/Vol] 6.0 {x10E9/L} 4.4 - 11.3 [facility] Work Phone: WBC (Bld) [#/Vol] 0.0 {/100_WBC} 0.0-0.0 [facility] Work Phone: Metabolic Panelon 07-20-2019 ALP [Catalytic activity/Vol] 53 U/L 33 - 136 [facility] Work Phone: Anion gap [Moles/Vol] 10 mmol/L 10 - 20 [facility] Work Phone: Bilirubin [Mass/Vol] 1.1 mg/dL 0.0 - 1.2 [facility] Work Phone: Calcium [Mass/Vol] 9.5 mg/dL 8.6 - 10.6 [facility] Work Phone: Chloride [Moles/Vol] 101 mmol/L 98 - 107 [facility] Work Phone: CO2 [Moles/Vol] 31 mmol/L 21 - 32 [facility] Work Phone: Creatinine [Mass/Vol] 1.00 mg/dL See Below [facility] Work Phone: Comment on above: Reference Range: 0.5 0 - 1.30 Glucose [Mass/Vol] 76 mg/dL 74 - 99 [facility] Work Phone: Potassium [Moles/Vol] 4.3 mmol/L 3.5 - 5.3 [facility] Work Phone: Protein [Mass/Vol] 7.0 g/dL 6.4 - 8.2 [facility] Work Phone: Sodium [Moles/Vol] 138 mmol/L 136 - 145 [facility] Work Phone: Urea nitrogen [Mass/Vol] 23 mg/dL 6 - 23 [facility] Work Phone: Otheron 07-20-2019 Albumin BCP dye [Mass/Vol] 4.6 g/dL 3.4 - 5.0 [facility] Work Phone: ALT With P-5'-P [Catalytic activity/Vol] 64 U/L above high threshold 10 - 52 [facility] Work Phone: Comment on above: Patients treated wit h Sulfasalazine may generate falsely decreased results for ALT. AST With P-5'-P [Catalytic activity/Vol] 52 U/L above high threshold 9 - 39 [facility] Work Phone: Erythrocyte distribution width (RBC) [Ratio] 12.8 % See Below [facility] Work Phone: Comment on above: Reference Range: 11. 5 - 14.5 MCHC (RBC) [Mass/Vol] 34.9 g/dL See Below [facility] Work Phone: Comment on above: Reference Range: 32. 0 - 36.0 >60 >60 [facility] Work Phone: Comment on above: CALCULATIONS OF MARCIA MATED GFR ARE PERFORMED USING THE MDRD STUDY EQUATION FOR THE IDMS-TRACEABLE CREATININE METHODS. CLIN CHEM 2007;[id number] Uric Acid, Serumon 0 Urate [Mass/Vol] 7.3 mg/dL 4.0 - 7.5 [facility] Work Phone: Comment on above: Venipuncture immedia tely after or during the administration of Metamizole may lead to falsely low results. Testing should be performed immediately prior to Metamizole dosing. PSA Screenon 05-07-2019 PSA Screen 0.62 ng/mL Normal 0.00-3.90 [facility] Comment on above: Performed By: #### I NAKIA #### [address] [address] Comprehensive Panelon 2018 ALP [Catalytic activity/Vol] 61 U/L Normal 45-117 [facility] Comment on above: Performed By: #### P 14 #### [facility] [address] [place], [place] [address] Bilirubin [Mass/Vol] 0.9 mg/dL Normal 0.2-1.0 [facility] Comment on above: Performed By: #### P 14 #### [facility] [address] [place], [place] [address] Protein [Mass/Vol] 7.1 g/dL Normal 6.4-8.2 [facility] Comment on above: Performed By: #### P 14 #### [facility] [address] [place], [place] [address] ALT [Catalytic activity/Vol] 47 U/L Normal 12-78 [facility] Comment on above: Performed By: #### P 14 #### [facility] [address] [place], [place] [address] AST [Catalytic activity/Vol] 28 U/L Normal 15-37 [facility] Comment on above: Performed By: #### P 14 #### [facility] [address] [place], [place] [address] Creatinine [Mass/Vol] 0.99 mg/dL Normal 0.67-1.17 [facility] Comment on above: Performed By: #### P 14 #### [facility] [address] [place], [place] [address] Albumin [Mass/Vol] 4.1 g/dL Normal 3.4-5.0 [facility] Comment on above: Performed By: #### P 14 #### [facility] [address] [place], [place] [address] Anion gap [Moles/Vol] 12 mmol/L Normal 8-16 [facility] Comment on above: Performed By: #### P 14 #### [facility] [address] [place], [place] [address] Calcium [Mass/Vol] 8.8 mg/dL Normal 8.5-10.1 [facility] Comment on above: Performed By: #### P 14 #### [facility] [address] [place], [place] [address] CO2 [Moles/Vol] 25 mmol/L Normal 21-32 [facility] Comment on above: Performed By: #### P 14 #### [facility] [address] [place], [place] [address] Urea nitrogen [Mass/Vol] 21 mg/dL High 7-18 [facility] Comment on above: Performed By: #### P 14 #### [facility] [address] [place], [place] [address] Glucose [Mass/Vol] 87 mg/dL Normal 70-99 [facility] Comment on above: Performed By: #### P 14 #### [facility] [address] [place] [address] Chloride [Moles/Vol] 108 mmol/L High 98-107 [facility] Comment on above: Performed By: #### P 14 #### [facility] [address] [place] [address] Potassium [Moles/Vol] 4.5 mmol/L Normal 3.5-5.1 [facility] Comment on above: Performed By: #### P 14 #### [facility] [address] [place] [address] Sodium [Moles/Vol] 140 mmol/L Normal 136-145 [facility] Comment on above: Performed By: #### P 14 #### [facility] [address] [place] [address] Ferritinon 05-06-2019 Ferritin [Mass/Vol] 315.10 ng/mL Normal 26.00-388.00 [facility] Comment on above: Performed By: #### F ERR #### [place] [address] Hemogram/Diffon 05-06-2019 Abs Immature Grans 0.03 thou/cmm Normal 0.00-0.05 [facility] Comment on above: Performed By: #### C BCD1 #### [facility] [address] [place] [address] Abs Neut (ANC) 2.94 thou/cmm Normal 1.78-5.38 [facility] Comment on above: Performed By: #### C BCD1 #### [place] [address] Abs. Baso 0.07 thou/cmm Normal 0.01-0.08 [facility] Comment on above: Performed By: #### C BCD1 #### [place] [address] Abs. Callaway 0.60 thou/cmm Normal 0.30-0.82 [facility] Comment on above: Performed By: #### C BCD1 #### [place] [address] Basophils/100 WBC (Bld) 1.5 % Normal [facility] Comment on above: Performed By: #### C BCD1 #### [facility] [address] [place], [place] [address] Eosinophils (Bld) [#/Vol] 0.27 thou/cmm Normal 0.04-0.54 [facility] Comment on above: Performed By: #### C BCD1 #### [facility] [address] [place], [place] [address] Eosinophils/100 WBC (Bld) 5.7 % Normal [facility] Comment on above: Performed By: #### C BCD1 #### [facility] [address] [place], [place] [address] Erythrocyte distribution width (RBC) [Ratio] 12.9 % Normal 11.6-14.4 [facility] Comment on above: Performed By: #### C BCD1 #### [address] [address] Hematocrit (Bld) [Volume fraction] 46.5 % Normal 40.1-51.0 [facility] Comment on above: Performed By: #### C BCD1 #### [address] [address] Hemoglobin (Bld) [Mass/Vol] 15.7 g/dL Normal 13.7-17.5 [facility] Comment on above: Performed By: #### C BCD1 #### [address] [address] Immature Grans 0.60 % Normal [facility] Comment on above: Performed By: #### C BCD1 #### [facility] [address] [place], [place] [address] Lymphocytes (Bld) [#/Vol] 0.81 thou/cmm Low 0.84-2.85 [facility] Comment on above: Performed By: #### C BCD1 #### [facility] [address] [place], [place] [address] Lymphocytes/100 WBC (Bld) 17.2 % Normal [facility] Comment on above: Performed By: #### C BCD1 #### [facility] [address] [place] [address] MCH (RBC) [Entitic mass] 32.4 pg High 25.7-32.2 [facility] Comment on above: Performed By: #### C BCD1 #### [facility] [address] [place] [address] MCHC (RBC) [Mass/Vol] 33.8 % Normal 32.3-36.5 [facility] Comment on above: Performed By: #### C BCD1 #### [facility] [address] [place] [address] MCV (RBC) [Entitic vol] 96.1 fL High 83.2-95.6 [facility] Comment on above: Performed By: #### C BCD1 #### [place] [address] Monocytes/100 WBC (Bld) 12.7 % Normal [facility] Comment on above: Performed By: #### C BCD1 #### [facility] [address] [place] [address] Platelet mean volume (Bld) [Entitic vol] 9.4 fL Normal 8.7-12.0 [facility] Comment on above: Performed By: #### C BCD1 #### [place] [address] Platelets (Bld) [#/Vol] 223 thou/cmm Normal 141-365 [facility] Comment on above: Performed By: #### C BCD1 #### [place] [address] RBC (Bld) [#/Vol] 4.84 mil/cmm Normal 4.63-6.08 [facility] Comment on above: Performed By: #### C BCD1 #### [facility] [address] [place] [address] RDW SD 45.8 fl Normal 36.1-45.8 [facility] Comment on above: Performed By: #### C BCD1 #### [place] [address] Seg Neutrophil 62.3 % Normal [facility] Comment on above: Performed By: #### C BCD1 #### [facility] [address] [place], [place] [address] WBC (Bld) [#/Vol] 4.72 thou/cmm Normal 4.23-9.07 [facility] Comment on above: Performed By: #### C BCD1 #### [address] [address] Hgb A1con 05-06-2019 HbA1c (Bld) [Mass fraction] 100 mg/dl Normal [facility] Comment on above: Performed By: #### H A1C #### [address] [address] HbA1c (Bld) [Mass fraction] 5.1 % Normal 4.2-6.3 [facility] Comment on above: Result Comment: Meth od is National Glycohemoglobin Standardization Program (NGSP) compliant. Performed By: #### H A1C #### [place] [address] Iron Binding Cap.on 05-06-20 19 Iron Binding Cap. 331 ug/dL Normal 250-450 [facility] Comment on above: Performed By: #### I BC #### [place] [address] Iron Serumon 05-06-2019 Iron Serum 108 ug/dL Normal 65-175 [facility] Comment on above: Performed By: #### I NAKIA #### [place] [address] Lipid Profileon 05-06-2019 Cholesterol in HDL [Mass/Vol] 36 mg/dL Normal >40 [facility] Comment on above: Performed By: #### L IPD2 #### [place] [address] Cholesterol in LDL [Mass/Vol] 99 mg/dL Normal [facility] Comment on above: Result Comment: No C AD and with fewer than 2 CAD risk factors <160 mg/dL No CAD but with 2 or more CAD risk factors <130 mg/dL Definite CAD or other atherosclerotic disease <100 mg/dL Performed By: #### L IPD2 #### [address] [place], [place] [address] Cholesterol in LDL/Cholesterol in HDL [Mass ratio] 2.8 Normal 1.1-4.8 [facility] Comment on above: Result Comment: LDL, VLDL,LDL/HDL, Invalid if Triglyceride >400 Performed By: #### L IPD2 #### [facility] [address] [place], [place] [address] Cholesterol.total/Cho lesterol in HDL [Mass ratio] 4.1 {ratio} Normal 2.1-7.3 [facility] Comment on above: Performed By: #### L IPD2 #### [facility] [address] [place], [place] [address] Cholesterol in VLDL [Mass/Vol] 13 mg/dL Normal <50 Desired [facility] Comment on above: Performed By: #### L IPD2 #### [facility] [address] [place], [place] [address] Triglyceride [Mass/Vol] 65 mg/dL Normal 0-149 [facility] Comment on above: Result Comment: < 20 0 Desirable Result invalid if not a fasting specimen. Performed By: #### L IPD2 #### [address] [address] Cholesterol [Mass/Vol] 148 mg/dL Normal 0-199 [facility] Comment on above: Result Comment: <200 Desirable 200-240 Borderline >240 High Performed By: #### L IPD2 #### [address] [address] MDRD GFRon 05-06-2019 GFR/1.73 sq M predicted among non-blacks MDRD (S/P/Bld) [Vol rate/Area] mL/min/{1.73_m2} Normal >60mL/min/1. 73m2 [facility] Comment on above: Result Comment: If t he patient is , multiply the result by 1.210. Performed By: #### G FR #### [facility] [address] [place], [place] [address] TSH, 3rd generationon 2018 TSH, 3rd generation 1.420 uIU/mL Normal 0.358-3.740 [facility] Comment on above: Performed By: #### T SH3 #### [facility] [address] [place] [address] Uric Acid Bloodon 05-06-2019 Uric Acid Blood 8.5 mg/dL High 3.5-7.2 [facility] Comment on above: Performed By: #### U ANDRES #### [facility] [address] [place] [id number] Vital Signs Date Time Vital Sign Value Performing Clinician Facility 05-01-2025 09:43-0400 Body height 180.[address] Marcel Driscoll MD Work Phone: [facility] 05-01-2025 09:43-0400 Body mass index (BMI) [Ratio] 39.2 kg/m2 Dr. Marcel Driscoll MD Work Phone: [facility] 05-01-2025 09:43-0400 Body temperature 98.6 [degF] Dr. Marcel Driscoll MD Work Phone: [facility] 05-01-2025 09:43-0400 Body weight 127.[address] Marcel Driscoll MD Work Phone: [facility] 05-01-2025 09:43-0400 Diastolic blood pressure 82 mm[Hg] Dr. Marcel Driscoll MD Work Phone: [facility] 05-01-2025 09:43-0400 Heart rate 76 /min Dr. Marcel Driscoll MD Work Phone: [facility] 05-01-2025 09:43-0400 Respiratory rate 16 /min Dr. Marcel Driscoll MD Work Phone: [facility] 05-01-2025 09:43-0400 SaO2% (BldA) [Mass fraction] 99 % Dr. Marcel Driscoll MD Work Phone: [facility] 05-01-2025 09:43-0400 Systolic blood pressure 124 mm[Hg] Dr. Marcel Driscoll MD Work Phone: [facility] 03-01-2025 11:20-0400 Body temperature 98.4 [degF] Dr. Marcel Driscoll MD Work Phone: [facility] 03-01-2025 11:20-0400 Diastolic blood pressure 78 mm[Hg] Dr. Marcel Driscoll MD Work Phone: [facility] 03-01-2025 11:20-0400 Heart rate 64 /min Dr. Marcel Driscoll MD Work Phone: [facility] 03-01-2025 11:20-0400 Respiratory rate 18 /min Dr. Marcel Driscoll MD Work Phone: [facility] 03-01-2025 11:20-0400 SaO2% (BldA) [Mass fraction] 95 % Dr. Marcel Driscoll MD Work Phone: [facility] 03-01-2025 11:20-0400 Systolic blood pressure 116 mm[Hg] Dr. Marcel Driscoll MD Work Phone: [facility] 03-01-2025 09:54-0400 Body height 180.[address] Marcel Driscoll MD Work Phone: [facility] 03-01-2025 09:54-0400 Body mass index (BMI) [Ratio] 42.4 kg/m2 Dr. Marcel Driscoll MD Work Phone: [facility] 03-01-2025 09:54-0400 Body weight [address] Marcel Driscoll MD Work Phone: [facility] 12-21-2024 10:16-0400 Body temperature 98.3 [degF] Dr. Marcel Driscoll MD Work Phone: [facility] 12-21-2024 10:16-0400 Diastolic blood pressure 68 mm[Hg] Dr. Marcel Driscoll MD Work Phone: [facility] 12-21-2024 10:16-0400 Heart rate 60 /min Dr. Marcel Driscoll MD Work Phone: [facility] 12-21-2024 10:16-0400 Respiratory rate 14 /min Dr. Marcel Driscoll MD Work Phone: [facility] 12-21-2024 10:16-0400 SaO2% (BldA) [Mass fraction] 97 % Dr. Marcel Driscoll MD Work Phone: [facility] 12-21-2024 10:16-0400 Systolic blood pressure 107 mm[Hg] Dr. Marcel Driscoll MD Work Phone: [facility] 12-21-2024 08:27-0400 Body height 180.[address] Marcel Driscoll MD Work Phone: [facility] 12-21-2024 08:27-0400 Body mass index (BMI) [Ratio] 39.9 kg/m2 Dr. Marcel Driscoll MD Work Phone: [facility] 12-21-2024 08:27-0400 Body weight 130.[address] Marcel Driscoll MD Work Phone: [facility] 10-04-2024 08:37-0400 Body height 182.[address] Marcel Driscoll MD Work Phone: [facility] 10-04-2024 08:37-0400 Body mass index (BMI) [Ratio] 42.5 kg/m2 Dr. Marcel Driscoll MD Work Phone: [facility] 10-04-2024 08:37-0400 Body temperature 97.3 [degF] Dr. Marcel Driscoll MD Work Phone: [facility] 10-04-2024 08:37-0400 Body weight 142.[address] Marcel Driscoll MD Work Phone: [facility] 10-04-2024 08:37-0400 Diastolic blood pressure 72 mm[Hg] Dr. Marcel Driscoll MD Work Phone: [facility] 10-04-2024 08:37-0400 Heart rate 74 /min Dr. Marcel Driscoll MD Work Phone: [facility] 10-04-2024 08:37-0400 Respiratory rate 20 /min Dr. Marcel Driscoll MD Work Phone: [facility] 10-04-2024 08:37-0400 SaO2% (BldA) [Mass fraction] 93 % Dr. Marcel Driscoll MD Work Phone: [facility] 10-04-2024 08:37-0400 Systolic blood pressure 118 mm[Hg] Dr. Marcel Driscoll MD Work Phone: [facility] 08-23-2024 08:43-0500 Body height 182.[address] Marcel Driscoll MD Work Phone: [facility] 08-23-2024 08:43-0500 Body mass index (BMI) [Ratio] 41.8 kg/m2 Dr. Marcel Driscoll MD Work Phone: [facility] 08-23-2024 08:43-0500 Body temperature 96.2 [degF] Dr. Marcel Driscoll MD Work Phone: [facility] 08-23-2024 08:43-0500 Body weight 139.[address] Marcel Driscoll MD Work Phone: [facility] 08-23-2024 08:43-0500 Diastolic blood pressure 84 mm[Hg] Dr. Marcel Driscoll MD Work Phone: [facility] 08-23-2024 08:43-0500 Heart rate 79 /min Dr. Marcel Driscoll MD Work Phone: [facility] 08-23-2024 08:43-0500 Respiratory rate 16 /min Dr. Marcel Driscoll MD Work Phone: [facility] 08-23-2024 08:43-0500 SaO2% (BldA) [Mass fraction] 96 % Dr. Marcel Driscoll MD Work Phone: [facility] 08-23-2024 08:43-0500 Systolic blood pressure 112 mm[Hg] Dr. Marcel Driscoll MD Work Phone: [facility] 08-14-2024 14:34-0500 Body mass index (BMI) [Ratio] 43.2 kg/m2 Dr. Marcel Driscoll MD Work Phone: [facility] 08-14-2024 14:34-0500 Body temperature 97.8 [degF] Dr. Marcel Driscoll MD Work Phone: [facility] 08-14-2024 14:34-0500 Body weight 144.[address] Marcel Driscoll MD Work Phone: [facility] 08-14-2024 14:34-0500 Diastolic blood pressure 80 mm[Hg] Dr. Marcel Driscoll MD Work Phone: [facility] 08-14-2024 14:34-0500 Heart rate 76 /min Dr. Marcel Driscoll MD Work Phone: [facility] 08-14-2024 14:34-0500 SaO2% (BldA) [Mass fraction] 96 % Dr. Marcel Driscoll MD Work Phone: [facility] 08-14-2024 14:34-0500 Systolic blood pressure 120 mm[Hg] Dr. Marcel Driscoll MD Work Phone: [facility] 07-18-2024 08:42-0500 Body mass index (BMI) [Ratio] 42.8 kg/m2 Dr. Marcel Driscoll MD Work Phone: [facility] 07-18-2024 08:42-0500 Body temperature 97.4 [degF] Dr. Marcel Driscoll MD Work Phone: [facility] 07-18-2024 08:42-0500 Body weight 143.[address] Marcel Driscoll MD Work Phone: [facility] 07-18-2024 08:42-0500 Diastolic blood pressure 72 mm[Hg] Dr. Marcel Driscoll MD Work Phone: [facility] 07-18-2024 08:42-0500 Heart rate 91 /min Dr. Marcel Driscoll MD Work Phone: [facility] 07-18-2024 08:42-0500 Respiratory rate 16 /min Dr. Marcel Driscoll MD Work Phone: [facility] 07-18-2024 08:42-0500 SaO2% (BldA) [Mass fraction] 96 % Dr. Marcel Driscoll MD Work Phone: [facility] 07-18-2024 08:42-0500 Systolic blood pressure 120 mm[Hg] Dr. Marcel Driscoll MD Work Phone: [facility] 11-01-2023 09:41-0400 Diastolic blood pressure 76 mm[Hg] Dr. Marcel Driscoll Work Phone: [facility] 11-01-2023 09:41-0400 Systolic blood pressure 128 mm[Hg] Dr. Marcel Driscoll Work Phone: [facility] 11-01-2023 08:36-0400 Body height 182.[address] Marcel Driscoll Work Phone: [facility] 11-01-2023 08:36-0400 Body mass index (BMI) [Ratio] 41.5 kg/m2 Dr. Marcel Driscoll Work Phone: [facility] 11-01-2023 08:36-0400 Body temperature 98.9 [degF] Dr. Marcel Driscoll Work Phone: [facility] 11-01-2023 08:36-0400 Body weight 138.[address] Marcel Driscoll Work Phone: [facility] 11-01-2023 08:36-0400 Heart rate 76 /min Dr. Marcel Driscoll Work Phone: [facility] 11-01-2023 08:36-0400 Respiratory rate 17 /min Dr. Marcel Driscoll Work Phone: [facility] 11-01-2023 08:36-0400 SaO2% (BldA) [Mass fraction] 96 % Dr. Marcel Driscoll Work Phone: [facility] 12-12-2022 12:44-0400 Body temperature 98.49 [degF] Dennise Older FLIGHT TECHNICIAN.ROTARY OPERATOR Work Phone: [facility] 12-12-2022 12:44-0400 Body weight 139.25 kg Dennise Older FLIGHT TECHNICIAN.ROTARY OPERATOR Work Phone: [facility] 12-12-2022 12:44-0400 Diastolic blood pressure 82 mm[Hg] Dennise Older FLIGHT TECHNICIAN.ROTARY OPERATOR Work Phone: [facility] 12-12-2022 12:44-0400 Heart rate 73 /min Dennise Older FLIGHT TECHNICIAN.ROTARY OPERATOR Work Phone: [facility] 12-12-2022 12:44-0400 Respiratory rate 18 /min Dennise Older FLIGHT TECHNICIAN.ROTARY OPERATOR Work Phone: [facility] 12-12-2022 12:44-0400 SaO2% (BldA) [Mass fraction] 98 % Dennise Older FLIGHT TECHNICIAN.ROTARY OPERATOR Work Phone: [facility] 12-12-2022 12:44-0400 Systolic blood pressure 120 mm[Hg] Dennise Older FLIGHT TECHNICIAN.ROTARY OPERATOR Work Phone: [facility] 09-25-2022 13:45-0400 Body mass index (BMI) [Ratio] 41.23 kg/m2 Naomy Shaffer MD Work Phone: [facility] 09-25-2022 13:45-0400 Body temperature 98.71 [degF] Naomy Shaffer MD Work Phone: [facility] 09-25-2022 13:45-0400 Body weight 135.99 kg Naomy Shaffer MD Work Phone: [facility] 09-25-2022 13:45-0400 Diastolic blood pressure 69 mm[Hg] Naomy Shaffer MD Work Phone: [facility] 09-25-2022 13:45-0400 Heart rate 65 /min Naomy Shaffer MD Work Phone: [facility] 09-25-2022 13:45-0400 SaO2% (BldA) [Mass fraction] 96 % Naomy Shaffer MD Work Phone: [facility] 09-25-2022 13:45-0400 Systolic blood pressure 117 mm[Hg] Naomy Shaffer MD Work Phone: [facility] 09-11-2022 16:36-0500 Body mass index (BMI) [Ratio] 41.14 kg/m2 Jl Sheth Work Phone: [facility] Work Phone: 09-11-2022 16:36-0500 Body surface area Derived from formula 2.52 m2 Jl Sheth Work Phone: [facility] Work Phone: 09-11-2022 16:36-0500 Body temperature 97.7 [degF] Jl Huangs Work Phone: [facility] Work Phone: 09-11-2022 16:36-0500 Body weight 135.69 kg Jl Sheth Work Phone: [facility] Work Phone: 09-11-2022 16:36-0500 Diastolic blood pressure 77 mm[Hg] Jl Sheth Work Phone: [facility] Work Phone: 09-11-2022 16:36-0500 Heart rate 69 /min Jl D Hoynes Work Phone: [facility] Work Phone: 09-11-2022 16:36-0500 SaO2% (BldA) [Mass fraction] 96 % Jl D Hoynes Work Phone: [facility] Work Phone: 09-11-2022 16:36-0500 Systolic blood pressure 121 mm[Hg] Jl D Hoynes Work Phone: [facility] Work Phone: 03-10-2022 16:41-0400 Body mass index (BMI) [Ratio] 40.63 kg/m2 Jl D Hoynes Work Phone: [facility] Work Phone: 03-10-2022 16:41-0400 Body surface area Derived from formula 2.5 m2 Jl D Hoynes Work Phone: [facility] Work Phone: 03-10-2022 16:41-0400 Body temperature 97.4 [degF] Jl D Hoynes Work Phone: [facility] Work Phone: 03-10-2022 16:41-0400 Body weight 134.01 kg Jl D Hoynes Work Phone: [facility] Work Phone: 03-10-2022 16:41-0400 Diastolic blood pressure 75 mm[Hg] Jl D Hoynes Work Phone: [facility] Work Phone: 03-10-2022 16:41-0400 Heart rate 73 /min Jl D Hoynes Work Phone: [facility] Work Phone: 03-10-2022 16:41-0400 Respiratory rate 16 /min Jl D Hoynes Work Phone: [facility] Work Phone: 03-10-2022 16:41-0400 SaO2% (BldA) [Mass fraction] 94 % Jl D Hoynes Work Phone: [facility] Work Phone: 03-10-2022 16:41-0400 Systolic blood pressure 120 mm[Hg] Jl D Hoynes Work Phone: [facility] Work Phone: 03-10-2022 16:41-0400 4 1 Jl D Hoynes Work Phone: [facility] Work Phone: Comment on above: PHQ-9 TS 07-14-2021 16:45-0500 Diastolic blood pressure 80 mm[Hg] Jl D Hoynes Work Phone: [facility] Work Phone: 07-14-2021 16:45-0500 Systolic blood pressure 128 mm[Hg] Jl D Hoynes Work Phone: [facility] Work Phone: 07-14-2021 16:22-0500 Body height 181.61 cm Jl D Hoynes Work Phone: [facility] Work Phone: 07-14-2021 16:22-0500 Body mass index (BMI) [Ratio] 43.09 kg/m2 Jl D Hoynes Work Phone: [facility] Work Phone: 07-14-2021 16:22-0500 Body surface area Derived from formula 2.57 m2 Jl D Hoynes Work Phone: [facility] Work Phone: 07-14-2021 16:22-0500 Body temperature 97.5 [degF] Jl D Hoynes Work Phone: [facility] Work Phone: 07-14-2021 16:22-0500 Body weight 142.12 kg Jl D Hoynes Work Phone: [facility] Work Phone: 07-14-2021 16:22-0500 Diastolic blood pressure 91 mm[Hg] Jl D Hoynes Work Phone: [facility] Work Phone: 07-14-2021 16:22-0500 Heart rate 77 /min Jl D Hoynes Work Phone: [facility] Work Phone: 07-14-2021 16:22-0500 Respiratory rate 16 /min Jl D Hoynes Work Phone: [facility] Work Phone: 07-14-2021 16:22-0500 SaO2% (BldA) [Mass fraction] 96 % Jl D Hoynes Work Phone: [facility] Work Phone: 07-14-2021 16:22-0500 Systolic blood pressure 157 mm[Hg] Jl D Hoynes Work Phone: [facility] Work Phone: 01-03-2021 16:24-0400 Body mass index (BMI) [Ratio] 40.01 kg/m2 Jl D Hoynes Work Phone: [facility] Work Phone: 01-03-2021 16:24-0400 Body surface area Derived from formula 2.54 m2 Jl D Hoynes Work Phone: [facility] Work Phone: 01-03-2021 16:24-0400 Body temperature 96.8 [degF] Jl D Hoynes Work Phone: [facility] Work Phone: 01-03-2021 16:24-0400 Body weight 135.69 kg Jl D Hoynes Work Phone: [facility] Work Phone: 01-03-2021 16:24-0400 Diastolic blood pressure 70 mm[Hg] Jl D Hoynes Work Phone: [facility] Work Phone: 01-03-2021 16:24-0400 Heart rate 74 /min Jl D Hoynes Work Phone: [facility] Work Phone: 01-03-2021 16:24-0400 Respiratory rate 16 /min Jl D Hoynes Work Phone: [facility] Work Phone: 01-03-2021 16:24-0400 SaO2% (BldA) [Mass fraction] 94 % Jl D Hoynes Work Phone: [facility] Work Phone: 01-03-2021 16:24-0400 Systolic blood pressure 110 mm[Hg] Jl D Hoynes Work Phone: [facility] Work Phone: 03-08-2020 18:29-0400 BMI (Body Mass Index) 39.35 kg/m2 Jl Hoynes [facility] Work Phone: 03-08-2020 18:29-0400 Body Temperature 97.3 [degF] Jl Hoynes [facility] Work Phone: Comment on above: Method: Temporal 03-08-2020 18:29-0400 Body weight 133.44 kg Jl Hoynes [facility] Work Phone: 03-08-2020 18:29-0400 BP Diastolic 84 mm[Hg] Jl Sals [facility] Work Phone: Comment on above: Location: LUE; Position: Sitting 03-08-2020 18:29-0400 BP Systolic 136 mm[Hg] Jl Sals [facility] Work Phone: Comment on above: Location: L[place]; Position: Sitting 03-08-2020 18:29-0400 BSA (Body Surface Area) 2.52 m2 Jl Sals [facility] Work Phone: 03-08-2020 18:29-0400 Height 184.15 cm Jl Samynes [facility] Work Phone: 03-08-2020 18:29-0400 Pulse (Heart Rate) 69 /min Jl Huangs [facility] Work Phone: 03-08-2020 18:29-0400 Pulse Oximetry 96 % Jl Samynes [facility] Work Phone: Comment on above: Source: 03-08-2020 18:29-0400 Respiratory Rate 16 /min Jl Huangs [facility] Work Phone: 05-06-2019 10:08-0400 BMI (Body Mass Index) 39.25 kg/m2 Jl Samynes [facility] Work Phone: 05-06-2019 10:08-0400 Body Temperature 99 [degF] Jl Huangs [facility] Work Phone: Comment on above: Method: Oral 05-06-2019 10:08-0400 Body weight 129.45 kg Jl Sals [facility] Work Phone: 05-06-2019 10:08-0400 BP Diastolic 68 mm[Hg] Jl Samynes [facility] Work Phone: Comment on above: Location: [place]; Position: Sitting 05-06-2019 10:08-0400 BP Systolic 100 mm[Hg] Jl Sals [facility] Work Phone: Comment on above: Location: [place]; Position: Sitting 05-06-2019 10:08-0400 BSA (Body Surface Area) 2.47 m2 Jl Sals [facility] Work Phone: 05-06-2019 10:08-0400 Pulse (Heart Rate) 66 /min Jl Samynes [facility] Work Phone: 05-06-2019 10:08-0400 Pulse Oximetry 96 % Jl Samynes [facility] Work Phone: Comment on above: Source: 05-06-2019 10:08-0400 Respiratory Rate 16 /min Jl Sheth [facility] Work Phone: Encounters Encounter Date Encounter Type Care Provider Facility Start: 05-01-2025 End: 05-01-[address] Marcel Driscoll MD -[facility] Work Phone: Start: 05-01-2025 End: 05-01-[address] Marcel Driscoll MD -[facility] Work Phone: Start: 05-01-2025 End: 05-01-2025 ambulatory Marcel Driscoll Facility:[facility] Start: 05-01-2025 End: 05-01-2025 ambulatory Marcel Driscoll Facility:[facility] Start: 03-01-2025 Non-patient / Non-visit Chris Rm DO -[facility] Start: 03-01-2025 End: 03-01-2025 Admission to same day surgery center Chris Rm DO -Endoscopy Work Phone: Start: 03-01-2025 End: 03-01-[address] Marcel Driscoll MD Work Phone: -Endoscopy Start: 12-21-2024 ambulatory Chris Rm Facility :[facility] Start: 12-21-2024 Non-patient / Non-visit Chris Rm DO -[facility] Start: 12-21-2024 End: 12-21-2024 Admission to same day surgery center Chris Rm DO -Endoscopy Work Phone: Start: 12-21-2024 End: 12-21-[address] Marcel Driscoll MD Work Phone: [facility] Work Phone: Start: 11-22-2024 End: 11-22-2024 Patient encounter procedure Mae GAN -[facility] Work Phone: Start: 11-22-2024 End: 11-22-[address] Marcel Driscoll MD Work Phone: [facility] Work Phone: Start: 10-13-2024 End: 10-13-[address] BRYSON MONTOYA MD Facility:[facility] Start: 10-11-2024 End: 10-11-[address] BRYSON MONTOYA MD Facility:[facility] Start: 10-09-2024 End: 10-09-[address] Marcel Driscoll MD Work Phone: [facility] Work Phone: Start: 10-09-2024 End: 10-09-[address] Bryson Montoya MD -Laboratory, Specimen Work Phone: Start: 10-09-2024 End: 10-09-2024 ambulatory Bryson Montoya Facility:[facility] Start: 10-04-2024 End: 10-04-[address] Marcel Driscoll MD -[facility] Work Phone: Start: 10-04-2024 End: 10-04-2024 ambulatory Marcel Driscoll Facility:[facility] Start: 09-13-2024 ambulatory Marcel Driscoll Facility :[facility] Start: 09-13-2024 ambulatory Marcel Driscoll Facility :[facility] Start: 09-13-2024 Non-patient / Non-visit Dr. Major Govea MD -[facility]- Start: 09-13-2024 End: 09-13-[address] Marcel Driscoll MD Work Phone: [facility] Work Phone: Start: 09-13-2024 End: 09-13-[address] Marcel Driscoll MD -Cat Scan, [facility] Work Phone: Start: 09-13-2024 End: 09-13-2024 ambulatory Marcel Driscoll Facility:[facility] Start: 09-05-2024 End: 09-05-2024 Patient encounter procedure Mae GAN -[facility] Work Phone: Start: 09-05-2024 End: 09-05-2024 ambulatory Marcel Driscoll Facility:[facility] Start: 08-23-2024 End: 08-23-[address] Marcel Driscoll MD -[facility] Work Phone: Start: 08-23-2024 End: 08-23-2024 ambulatory Marcel Driscoll Facility:[facility] Start: 08-23-2024 End: 08-23-2024 ambulatory Marcel Driscoll Facility:[facility] Start: 08-14-2024 End: 08-14-2024 Patient encounter procedure Ryan Maurer [facility] Work Phone: Start: 08-14-2024 End: 08-14-2024 ambulatory Ryan Maurer NP Facility:[facility] Start: 08-14-2024 End: 08-14-[address] Marcel Driscoll MD -Laboratory, [place] Start: 08-14-2024 End: 08-14-2024 ambulatory Marcel Driscoll Facility:[facility] Start: 07-18-2024 End: 07-18-[address] Marcel Driscoll MD -[facility] Work Phone: Start: 07-18-2024 End: 07-18-2024 ambulatory Marcel Driscoll Facility:[facility] Start: 11-16-[address] April Driscoll Work Phone: [facility]-Physical Therapy Work Phone: Start: 11-11-2023 End: 11-11-[address] Marcel Driscoll Work Phone: [facility] Work Phone: Start: 11-11-2023 End: 11-11-[address] Marcel Driscoll Work Phone: [facility]-Sleep Lab Work Phone: Start: 11-01-2023 End: 11-01-[address] Marcel Driscoll Work Phone: [facility] Work Phone: Start: 03-19-2023 End: 03-19-2023 Erroneous Encounter Jl Sheth MD Work Phone: [facility] Comment on above: ERRONEOUS ENCOUNTER- -DISREGARD Start: 02-16-2023 End: 02-16-2023 ambulatory BIPIN CUELLAR Facility:[facility] Start: 12-12-2022 End: 12-12-2022 ambulatory JL SHETH Facility:[facility] Start: 12-12-2022 End: 12-12-2022 Patient encounter procedure Dennise Older FLIGHT TECHNICIAN.ROTARY OPERATOR Work Phone: [facility] Comment on above: Rib pain on right si de (Primary Dx) Start: 11-06-2022 End: 11-06-2022 ambulatory [facility] Start: 10-14-2022 End: 10-15-2022 ambulatory JL Zuniga OLEG [facility] Start: 09-25-2022 End: 09-25-2022 ambulatory [facility] Ambulatory Start: 09-25-2022 End: 09-25-2022 Office outpatient visit 25 minutes Naomy L Cande MD Work Phone: [facility] Comment on above: Dysuria (Primary Dx) ; Urinary frequency; Need for shingles vaccine; Need for vaccination for pneumococcus Start: 09-16-2022 End: 09-16-2022 ambulatory [facility] Work Phone: Start: 09-16-2022 End: 09-16-2022 Patient encounter procedure [facility]Labor[facility] Start: 09-11-[address] Jl Sheth Facility:[id number] Start: 09-11-2022 Office outpatient visit 25 minutes Jl Sheth Work Phone: [facility] Work Phone: Start: 09-11-2022 Patient encounter procedure Jl Sheth Work Phone: -[facility] Work Phone: Start: 08-25-2022 AUDIT Jl Sheth Work Phone: -[facility] Work Phone: Start: 08-18-2022 AUDIT Jl Sheth Work Phone: [facility] Work Phone: Start: 08-07-2022 AUDIT Jl Huangs Work Phone: [facility] Work Phone: Start: 06-12-2022 AUDIT Jl Sheth Work Phone: [facility] Work Phone: Start: 06-11-2022 Rx Renewal Jl Sheth Work Phone: [facility] Work Phone: Start: 04-14-2022 Chart Update Jl Sheth Work Phone: [facility] Work Phone: Start: 04-11-2022 End: 04-12-2022 ambulatory JL SHETH Facility:[facility] Start: 04-11-2022 End: 04-11-2022 Subsequent hospital visit by physician Antwon Miller [facility] Comment on above: Pain in left knee [M 25.562] Start: 03-10-[address] Jl Sheth Facility:[id number] Start: 03-10-2022 Adv care pln tlkd & alt dcsn maker docd Jl Sheth Work Phone: [facility] Work Phone: Start: 12-26-2021 AUDIT Jl Huangs Work Phone: [facility] Work Phone: Start: 07-14-2021 Office outpatient visit 25 minutes Jl Sheth Work Phone: [facility] Work Phone: Start: 05-05-2021 AUDIT Jl Huangs Work Phone: [facility] Work Phone: Start: 02-27-2021 AUDIT Jl Huangs Work Phone: [facility] Work Phone: Start: 01-03-2021 Patient encounter procedure Jl Huangs Work Phone: [facility] Work Phone: Start: 07-19-2020 Patient encounter procedure Jl Huangs [facility] Work Phone: Start: 03-08-2020 Patient encounter procedure Jl Huangs [facility] Work Phone: Start: 05-06-2019 Patient encounter procedure Jlmeek Huangs [facility] Work Phone: Start: 06-28-2018 Patient encounter procedure Jl Huangs [facility] Work Phone: Start: 05-28-2018 Patient encounter procedure Jl Sheth [facility] Work Phone: Start: 07-24-2017 Patient encounter procedure Jl Sheth [facility] Work Phone: Patient encounter status Jl Sheth Work Phone: [facility] Work Phone: Procedures Date Procedure Procedure Detail Performing Clinician Start: 05-01-2025 Prostate specific antigen measurement Dr. Marcel Driscoll MD Work Phone: Comment on above: This test was performed using the [employer] tPSA method. Measured values of a patient sample can vary depending on the testing procedure used. PSA values determined on patient samples by different testing procedures cannot be used interchangeably. If there is a change in PSA assays while monitoring therapy, sequential testing should be performed to confirm baseline values. Start: 03-01-[address] Marcel bueno MD Work Phone: Start: 12-21-[address] Marcel Driscoll MD Work Phone: Start: 10-09-2024 Cholesterol serum/whole blood total Dr. Marcel Driscoll MD Work Phone: Comment on above: Test not performed Start: 09-13-2024 Computed tomography of abdomen and pelvis with contrast Dr. Marcel Driscoll MD Work Phone: Start: 08-23-2024 Endomysial antibody IgA level Dr. Marcel Driscoll MD Work Phone: Start: 08-14-2024 Measurement of renal function Dr. Marcel Driscoll MD Work Phone: Comment on above: GFR Calc Start: 10-14-2022 URINALYSIS MICROSCOPIC ONLY JL SHETH Start: 10-14-2022 URINALYSIS WITH REFLEX MICROSCOPIC JL SHETH Start: 09-28-2022 Urnls dip stick/tablet rgnt auto w/o microscopy Naomy Shaffer MD Work Phone: Start: 03-17-2023 POCT UA AUTOMATED MANUALLY RESULTED NAOMY SHAFFER Start: 09-25-2022 Bacteria identified in Urine by Culture NAOMY SHAFFER Start: 09-25-2022 Culture bacterial quanttative colony count urine Naomy Shaffer MD Work Phone: Start: 09-09-2020 [facility] Jl Sheth MD Work Phone: Start: 03-08-2020 Assay of blood/uric acid Jl Sheth Start: 03-08-2020 CBC W Auto Differential panel - Blood Jl Sheth Start: 03-08-2020 Comprehensive metabolic 2000 panel Jl Sheth Start: 03-08-2020 Lipid panel Jl Sheth Start: 03-08-2020 PSA screening Jl Sheth Start: 07-24-2019 Assay of blood/uric acid Jl Sheth Start: 07-24-2019 Comprehensive metabolic 2000 panel Jl Sheth Start: 05-09-2019 Assay of blood/uric acid Jl Sheth Start: 05-09-2019 CBC W Auto Differential panel - Blood Jl Sheth Start: 05-09-2019 Comprehensive metabolic 2000 panel Jl Sheth Start: 05-06-2019 Assay of blood/uric acid Jl Sheth Start: 05-06-2019 Assay of ferritin Jl Sheth Start: 05-06-2019 Assay of thyroid stimulating hormone tsh Jl Sheth Start: 05-06-2019 Blood count complete auto&auto difrntl wbc Jl Sheth Start: 05-06-2019 Comprehensive metabolic 2000 panel Jl Sheth Start: 05-06-2019 Hemoglobin glycosylated a1c Jl Sheth Start: 05-06-2019 Iron + TIBC, Serum Jl Sheth Start: 05-06-2019 Lipid panel Jl Sheth Start: 05-06-2019 PSA screening Jl Sheth Start: 05-28-2018 Lipid 1996 panel - Serum or Plasma Naomy Shaffer MD Work Phone: History of Cholecystotomy Se liya Sheth History of Knee Surgery Jl Sheth Comment on above: 1980s right knee; History Of Prior Surgery Guilherme Sheth Comment on above: Cyst removal (back)Plastic surgery (ear) ; History of Surgery V as Deferens Vasectomy Jl Sheth Tonsillectomy and adenoidectomy Jl Sheth Plan of Treatment Date Care Activity Detail Author Start: 09-09-2030 Screening for malign ant neoplasm of colon [facility] Start: 04-11-2027 LIPID SCREEN LIPID SCREEN [facility] Start: 04-11-2027 PROSTATE CANCER SCREENING DISCUSSION PROSTATE CANCER SCREENING DISCUSSION [facility] Start: 09-16-2025 DIABETES SCREEN DIABETES SCREEN [facility] Start: 04-20-2025 LIPID SCREEN LIPID SCREEN [facility] Start: 04-20-2025 PROSTATE CANCER SCREENING DISCUSSION PROSTATE CANCER SCREENING DISCUSSION [facility] Start: 03-01-2025 Egd removal tumor polyp/other lesion snare tech EGD REMOVE LESION SNARE [facility] Start: 03-01-2025 Patient discharge [facility] Start: 12-21-2024 Colonoscopy w/biopsy single/multiple COLONOSCOPY AND BIOPSY [facility] Start: 12-21-2024 Egd transoral biopsy single/multiple EGD BIOPSY SINGLE/MULTIPLE [facility] Start: 12-21-2024 Patient discharge [facility] Start: 05-28-2023 Lipid panel Lipid Panel [facility] Start: 04-20-2023 DIABETES SCREEN DIABETES SCREEN [facility] Start: 03-19-2023 End: 03-19-2023 Patient encounter procedure 03/19/2023 8:30 AM EDT Office Visit [facility] [address] [place] [id number] Jl Sheth MD [address] [facility] [place], [place] [address] [facility] Start: 03-12-2023 Influenza vaccination [facility] Start: 09-11-2022 FUV, Provider: Jl Sheth, Status: Pen, Time: 4:20 PM FUV, Provider: Jl Sheth, Status: Juanito, Time: 4:20 PM [facility] Work Phone: Start: 07-12-2022 ADVANCE DIRECTIVE DISCUSSION ADVANCE DIRECTIVE DISCUSSION [facility] Start: 07-12-2022 DEPRESSION ASSESSMENT DEPRESSION ASS ESSMENT [facility] Start: 03-12-2022 Influenza vaccination C [facility] Start: 01-13-2022 Patient encounter procedure MCRANNUAL, Provider: Jl Sheth, Status: Pen, Time: 4:00 PM [facility] Work Phone: Start: 07-14-2021 FUV, Provider: Jl Sheth, Status: Pen, Time: 4:10 PM FUV, Provider: Jl Sheth, Status: Pen, Time: 4:10 PM [facility] Work Phone: Start: 07-12-2021 ADVANCE DIRECTIVE DISCUSSION ADVANCE DIRECTIVE DISCUSSION [facility] Start: 07-12-2021 DEPRESSION ASSESSMENT DEPRESSION ASS ESSMENT [facility] Start: 04-21-2021 Pneumococcal Vaccine : 65+ Years (2 - PPSV23 if available, else PCV20) Pneumococcal Vaccine: 65+ Years (2 - PPSV23 if available, else PCV20) [facility] Start: 04-21-2021 Pneumococcal Vaccine : 65+ Years (2 - PPSV23 or PCV20) Pneumococcal Vaccine: 65+ Years (2 - PPSV23 or PCV20) [facility] Start: 02-06-2020 PNEUMOCOCCAL: 65+ (1 - PCV) PNEUMOCOCCAL: 65+ (1 - PCV) [facility] Start: 08-21-2019 Comprehensive metabo lic 1999 panel Comprehensive Metabolic Panel [facility] Work Phone: Start: 08-21-2019 Urate [Mass/Vol] Uric Acid, Serum [facility] Work Phone: Start: 06-12-2019 CBC W Auto Different ial panel - Blood [facility] Work Phone: Start: 06-12-2019 Comprehensive metabo lic 2000 panel Comprehensive Metabolic Panel [facility] Work Phone: Start: 06-12-2019 Urate [Mass/Vol] Uric Acid, Serum [facility] Work Phone: Start: 05-28-2019 Diabetes mellitus screening Diabetes Screening [facility] Start: 2005 SHINGRIX VACCINE (1 of 2) SHINGRIX VACCINE (1 of 2) [facility] Start: 2005 Zoster Vaccines (1 o f 2) Zoster Vaccines (1 of 2) [facility] Start: 02-06-2000 COLOGUARD (FIT-DNA) COLOGUARD (FIT-D NA) [facility] Start: 02-06-2000 Colonoscopy COLONOSCOPY [facility] Start: 02-06-2000 COLORECTAL CANCER SCREENING COLORECTAL CANCER SCREENING [facility] Start: 02-06-[address] COLONOGRAPHY [facility] Start: 02-06-2000 FECAL OCCULT BLOOD FECAL OCCULT BLOO D [facility] Start: 02-06-2000 SIGMOIDOSCOPY SIGMOIDOSCOPY [facility] Start: 1977 DTaP/Tdap/Td Vaccine s (1 - Tdap) DTaP/Tdap/Td Vaccines (1 - Tdap) [facility] Start: 1974 Urine microalbumin profile DTAP,TDAP,TD (1 - Tdap) [facility] Start: 1973 COVID-19 Vaccine (#1) COVID-19 Vacci ne (#1) [facility] Start: 1973 HEPATITIS C SCREENING HEPATITIS C [facility] Start: 1973 Hepatitis C screening Hepatitis C [facility] Start: 1962 DTaP/Tdap/Td Vaccine s (1 - Tdap) DTaP/Tdap/Td Vaccines (1 - Tdap) [facility] Start: 1955 COVID-19 VACCINE (#1) COVID-19 VACCI NE (#1) [facility] Start: 1955 Medicare Annual Wellness Visit Medicare Annual Wellness Visit (AWV) [facility] Start: 1955 Screening for malign ant neoplasm of colon [facility] Calculus analysis [facility] CT angiography of coronary arteries [facility] Measurement of weigh t of calculus [facility] Origin of [facility] Patient referral [facility] Work Phone: Specimen color determination [facility] NEGATED: Highlighted row has been ruled out! Planned Goals not documented [facility] Work Phone: Immunizations Immunization Date Immunization Notes Care Provider Supa macdonald 05-04-2023 influenza, injectabl e, quadrivalent, preservative free Dr. Marcel Driscoll Work Phone: [facility] 05-04-2023 pneumococcal polysaccharide vaccine, [address] Marcel Driscoll Work Phone: [facility] 02-17-[address] Marcel Driscoll Work Phone: [facility] 09-12-[address] Marcel Driscoll Work Phone: [facility] 03-10-2022 zoster vaccine-recombinant adjuvanted (Shingrix) 50 mcg/0.5 mL vaccine Naomy Shaffer MD Work Phone: [facility] Work Phone: 03-10-2022 pneumoc 20-iraj conj- dip cr,PF, (Prevnar 20, PF,) 0.5 mL vaccine Naomy Shaffer MD Work Phone: [facility] Work Phone: 07-14-2021 Fluzone High-Dose Quadrivalent 0.7 ML Intramuscular Suspension Prefilled Syringe; Translations: [Fluzone High-Dose Quadrivalent 0.7 ML Intramuscular Suspension Prefilled Syringe] Jl Sheth Work Phone: [facility] Comment on above: Series: 07-14-2021 Influenza, high dose seasonal Dr. Marcel Driscoll MD Work Phone: [facility] 07-14-2021 influenza, high dose seasonal, preservative-free Dr. Marcel Driscoll Work Phone: [facility] 07-14-2021 influenza, seasonal, injectable Naomy Shaffer MD Work Phone: [facility] Work Phone: 07-14-2021 influenza virus vacc ine, unspecified formulation Naomy Shaffer MD Work Phone: [facility] Work Phone: 04-21-2020 Influenza High-Dose Quadrivalent Dr. Marcel Driscoll Work Phone: [facility] 04-21-2020 Influenza, high dose seasonal Dr. Marcel Driscoll MD Work Phone: [facility] 04-21-2020 influenza, high dose seasonal, preservative-free [facility] Comment on above: Series: 04-21-2020 pneumococcal conjuga te vaccine, 13 marcial Sheth MD Work Phone: [facility] 04-21-2020 pneumococcal conjuga te vaccine, 7 marcial Sheth [facility] Work Phone: Comment on above: Series: 05-06-2019 influenza, injectabl e, quadrivalent, preservative free; Translations: [Fluarix Quadrivalent 0.5 ML Intramuscular Suspension Prefilled Syringe] [facility] Comment on above: Series: 05-28-2018 influenza, injectabl e, quadrivalent, preservative free; Translations: [Fluarix Quadrivalent 0.5 ML Intramuscular Suspension Prefilled Syringe] [facility] Comment on above: Series: Payers Date Payer Category Payer Self-pay 2024 Unknown [id number] 2021 Unknown 2021 Unknown [id number] 2020 Medicare [id number] 2020 Medicare [id number] 1955 Unknown [id number] 2.16. [id number] 1955 Unknown [id number] 2.16. 840.1.337622.3.579.2.356 1955 Unknown [id number] 2.16.840 .1.232253.3.579.2.1245 1955 Unknown [id number] 2.16.84 0.1.903598.3.579.2.1244 1955 Unknown [id number] 2.16.840 .1.858053.3.579.2.1244 1955 Unknown [id number] 2.16.8 40.1.763877.3.579.2.627 1955 Unknown [id number] 2.16.8 40.1.695950.3.579.2.627 Unknown [facility] [id number] Unknown [id number] 2.16.8 40.1.549345.3.579.2.462 Unknown [id number] 2.16.8 40.1.796603.3.579.2.462 Unknown [id number] 2.16.8 40.1.127057.3.579.2.462 Unknown [id number] 2.16.8 40.1.533163.3.579.2.462 Unknown [id number] 2.16.8 40.1.215659.3.579.2.462 Unknown [id number] 2.16.8 40.1.974112.3.579.2.462 Unknown [id number] 2.16.8 40.1.157005.3.579.2.462 Unknown [id number] 2.16.8 40.1.910098.3.579.2.462 Unknown [id number] 2.16.8 40.1.515401.3.579.2.462 Unknown [id number] 2.16.8 40.1.931086.3.579.2.462 Unknown [id number] 2.16.8 40.1.135560.3.579.2.462 Unknown [id number] 2.16.8 40.1.986830.3.579.2.462 Unknown [id number] 2.16.8 40.1.304786.3.579.2.462 Unknown [id number] 2.16.8 40.1.173341.3.579.2.462 Unknown [id number] 2.16.8 40.1.573816.3.579.2.462 Unknown [id number] 2.16.8 40.1.242592.3.579.2.462 Unknown [id number] 2.16.8 40.1.389814.3.579.2.462 Unknown [id number] 2.16.8 40.1.242754.3.579.2.462 Social History Date Type Detail Facility Start: 03-10-2022 End: 11-06-2022 No caffeine use No caffeine use [facility] 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; 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 End: 02-27-2025 Tobacco smoking status NHIS Never smoked tobacco [facility] 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 End: 09-25-2022 Tobacco use and exposure Smokeless tobacco non-user [facility] Start: 02-11-2022 End: 12-12-2022 Alcohol intake Current non-drinker of alcohol (finding) [facility] Start: 1955 Sex Assigned At Not on file [facility] Start: 04-01-2022 End: 09-25-2022 Exposure to SARS-CoV-2 (event) Not sure [facility] Start: 1955 Sex Assigned At Male [facility] Start: 11-06-2022 Alcohol intake Ex-drinker (finding) [facility] Work Phone: Start: 03-10-2022 End: 11-06-2022 Tobacco use panel [facility] Work Phone: Start: 05-03-2023 Tobacco smoking status NHIS Unknown if ever smoked [facility] Start: 09-25-2022 Alcohol intake Lifetime non-d jim (finding) [facility] Work Phone: Start: 09-23-2024 End: 10-11-2024 Sex Male (finding) [facility] NEGATED: Highlighted row - - [facility] Work Phone: NEGATED: Highlighted rowStart: DAYANAF History of tobacco use Passive smoker [facility] Work Phone: Goals Date Patient Goal Desired Activity /State Functional Status Date Assessment Result Facility 03-10-2022 PHQ-9 [id number] In Remission (0-4) [facility] Work Phone: NEGATED: Highlighted row Functional performance Functional status health issues are not documented Disease [facility] Work Phone: Mental Status Date Assessment Result Facility 03-01-2025 Cognitive function Voice/Name [facility] Work Phone: 12-21-2024 Cognitive function Voice/Name;To uch/Brayden ing [facility] Work Phone: NEGATED: Highlighted row Cognitive function [Interpretation] Cognitive status health issues are not documented Disease [facility] Work Phone: Clinical Notes 06-26-2016 to 05-01-2025 Note Date & Type Note Facility 05-01-2025 Progress note [facility] 03-01-2025 Evaluation note Diagnosis Onset Date Resolution Abdominal bloating acute March 01, 2025 9:32am Duodenal mass acute February 9:32am Essential hypertension acute Oc tober 2024 9:32am Flu vaccine refused acute Octob er 2024 9:32am Gout acute May 01, 2025 9:32am Obstructive sleep apnea acute O ctober 2024 9:32am Chronic allergic rhinitis chronic May 01 9:32am Screening for prostate cancer noneactive May 01 9:32am Muscle cramps noneactive April 9:32am Osteopenia noneactive May 01, 2025 9:32am Neuropathy noneactive May 01, 2025 9:32am Bloating noneactive May 01, 2025 9:32am Foot infection noneactive May 012024 9:32am Numbness and tingling in both hands noneactive May 01 9:32am Constipation noneactive April 9:32am [facility] Work Phone: 1(469) 508-437908-21-2025 Procedure note [facility] Medical Records Department [address] [place] [address] Provation Physician Letter MR#: [id number] Acct: [id number] Name: RYAN ZHANG Rep #:[id number] : 1955 70 From: Chris Rm DO PCP: Dr. Marcel Driscoll MD Status:REG [facility] 03/01/2025 Marcel Driscoll Md Re : Upper GI endoscopy procedure for Ryan Zhang Dear [place]o This procedure was performed on February. My impressions and recommendations are as follows: Impressions : - Normal esophagus. - No gross lesions in the entire stomach. - Likely benign duodenal mass. Tissue was removed. Injected. Treated with argon plasma coagulation (APC). - Mucosal resection was performed. Resection was incomplete. The resected tissue was retrieved. Recommendations : - Discharge patient to home. - Resume previous diet. - Continue present medications. - Await pathology results. My findings are described in the full procedure note, which is enclosed. If I can be of further assistance, please feel free to contact me at . Sincerely, Chris Rm DO 03/01/2025 11:15:56 AM This report has been signed electronically. 03/01/25 1116 Date _ Chris Elizondoignpaige Signature: Date (if indicated) CC: Dr. Marcel Driscoll MD; Chris Rm DO ~ Date Dictated: 03/01/25 1033 Date Transcribed: Tube Coverer: RF Signed [facility]08-21-2025 Procedure note [facility] Medical Records Department [address] [place] [address] EGD Report MR#: [id number] Acct: [id number] Name: RYAN ZHANG Rep #:[id number] : 1955 70 From: Chris Rm DO PCP: Dr. Marcel Driscoll MD Status:[facility] Patient Name: Ryan Zhang Procedure Date: 03/01/2025 10:33 AM Date of : 1955 Age: 70 Procedure: Upper GI endoscopy Indications: Surveillance procedure, Epigastric abdominal pain Providers: Chris Rm DO Referring MD: Chris Rm DO Medicines: Monitored Anesthesia Care Patient Profile: This is a 70 year old male. Refer to note in patient chart for documentation of history and physical. Patient has symptoms of chronic abdominal distention and chronic dyspepsia. His most recent EGD for biopsy was within the past three months. Complications: No immediate complications. Procedure: Pre-Anesthesia Assessment: - Prior to the procedure, a History and Physical was performed, and patient medications and allergies were reviewed. The patient is competent. The risks and benefits of the procedure and the sedation options and risks were discussed with the patient. All questions were answered and informed consent was obtained. Patient identification and proposed procedure were verified by the physician in the pre-procedure area. Mental Status Examination: alert and oriented. Airway Examination: normal oropharyngeal airway and neck mobility. Respiratory Examination: clear to auscultation. CV Examination: normal. Prophylactic Antibiotics: The patient does not require prophylactic antibiotics. Prior Anticoagulants: The patient has taken no anticoagulant or antiplatelet agents except for NSAID medication. ASA Grade Assessment: II - A patient with mild systemic disease. After reviewing the risks and benefits, the patient was deemed in satisfactory condition to undergo the procedure. The anesthesia plan was to use monitored anesthesia care (MAC). Immediately prior to administration of medications, the patient was re-assessed for adequacy to receive sedatives. The heart rate, respiratory rate, oxygen saturations, blood pressure, adequacy of pulmonary ventilation, and response to care were monitored throughout the procedure. The physical status of the patient was re-assessed after the procedure. After obtaining informed consent, the endoscope was passed under direct vision. Throughout the procedure, the patient's blood pressure, pulse, and oxygen saturations were monitored continuously. The gastroscope was introduced through the mouth, and advanced to the third part of the duodenum. Small bowel enteroscopy was deemed necessary. The upper GI endoscopy was accomplished without difficulty. The patient tolerated the procedure well. Scope In: 10:39:38 AM Scope Out: 11:01:49 AM Total Procedure Duration Time 0 hours 22 minutes 11 seconds Findings: The examined esophagus was normal. No gross lesions were noted in the entire examined stomach. A large polypoid mass with no bleeding was found in the duodenal bulb. Area was successfully injected with 15 mL EverLift for a lift polypectomy. Preparations were made for mucosal resection. Demarcation of the lesion was performed with thermal marking with the tip of a snare to clearly identify the boundaries of the lesion. EverLift was injected to raise the lesion. Snare mucosal resection was performed. Resection was incomplete. The resected tissue was retrieved. Resected tissue including tissue margins will be examined by histology. Coagulation for destruction of remaining portion of lesion using argon plasma at 0.3 liters/minute and 20 healy was successful. Estimated blood loss was minimal. Impression: - Normal esophagus. - No gross lesions in the entire stomach. - Likely benign duodenal mass. Tissue was removed. Injected. Treated with argon plasma coagulation (APC). - Mucosal resection was performed. Resection was incomplete. The resected tissue was retrieved. Recommendation: - Discharge patient to home. - Resume previous diet. - Continue present medications. - Await pathology results. Procedure Code(s): --- Professional --- 94016, Small intestinal endoscopy, enteroscopy beyond second portion of duodenum, not including ileum; with removal of tumor(s), polyp(s), or other lesion(s) by snare technique 61112, Unlisted procedure, small intestine CPT copyright 2021 [employer]. All rights reserved. The codes documented in this report are preliminary and upon side laster tack review may be revised to meet current compliance requirements. Chris Rm DO 03/01/2025 11:15:56 AM This report has been signed electronically. Number of Addenda: 0 Note Initiated On: 03/01/2025 10:33 AM 03/01/25 1116 Date _ Chris Sujey Ivyigner Signature: Date (if indicated) CC: Dr. Marcel Driscoll MD; Chris DO Sujey ~ Date Dictated: 03/01/25 1033 Date Transcribed: Tube Coverer: RF Signed [facility]08-21-2025 Consult note [facility] Medical Records Department [address] [place] [address] Anesthesia Postop Eval II 03/01/25 1109 MR#: [id number] Acct: [id number] Name: RYAN ZHANG Rep #:[id number] : 1955 70 From: Joe Branch RNA PCP: Dr. Marcel Driscoll MD Status:REG [facility]C Y Race: C Location: [place] [address] Anesthesia Postop Eval I Sum Postop Eval Completion status Anesthesia document: Postop Eval 1 completed: Yes Anesthesia Postop Eval I Summary Anesthesia Postop Eval I Summary: Anesthesia Postop Eval I: Assessment Summary Airway patent Yes 03/01/25 11:04 SHIPPING [email or web address].OT Spontaneous unlabored Yes 03/01/25 11:04 SHIPPING TECHNICIAN.OT respirations Mental status Awake,Calm 03/01/25 11:04 SHIPPING TECHNICIAN.MDOT nausea No 03/01/25 11:04 SHIPPING TECHNICIAN.MDOT Vomiting No 03/01/25 11:04 SHIPPING TECHNICIAN.MDOT Anesthesia Postop Eval I: Fluid Summary Crystalloid volume administer 600 03/01/25 11:04 SHIPPING TECHNICIAN.MDOT (ml) Colloids volume administered ( ml) Blood Product volume administered (ml) Total IV fluid infused 600 03/01/25 11:04 SHIPPING [email or web address].RHONDA Anesthesia Postop Eval I: Summary Notes Anesthesia Complication No 03/01/25 11:04 SHIPPING [email or web address].[email or web address] Anesthesia Complication Comment: Post-operative progress note Anesthesia: Postop Eval II Evaluation Mental status: Awake and Calm Pain Level: 0 nausea: No Vomiting: No Complications Anesthesia Complication: No 03/01/25 1109 SHIPPING TECHNICIAN> Date _ Joe Dotterer SHIPPING TECHNICIAN Cosigner Signature: Date CC: ~ Signed [facility]08-21-2025 Consult note [facility] Medical Records Department [address] [place] [address] Anesthesia Postop Eval I 03/01/25 1103 MR#: [id number] Acct: [id number] Name: RYAN ZHANG Rep #:[id number] : 1955 70 From: Joe Branch RNA PCP: Dr. Marcel Driscoll MD Status:[facility] Y Race: C Location: [place] [address] Anesthesia: Postop Eval I Current Vital Signs Temperature: 97 F Pulse Rate: 75 Blood Pressure: 141/64 Respiratory Rate: 14 Pulse Ox: 98 Oxygen Delivery Method: Room Air Assessment Airway patent: Yes Spontaneous unlabored respirations: Yes Mental status: Awake and Calm nausea: No Vomiting: No Anesthesia Complication: No Fluid Hydration Crystalloid volume administer (ml): 600 Total IV fluid infused: 600 Progress Note Anesthesia document: Postop Eval 1 completed: Yes 03/01/25 1104 SHIPPING TECHNICIAN> Date _ Joe Dotterer SHIPPING TECHNICIAN Cosigner Signature: Date CC: ~ Signed [facility]08-21-2025 History and physical note [facility] Medical Records Department [address] [place] [address] History & Physical Exam 03/01/25 1022 MR#: [id number] Acct: [id number] Name: RYAN ZHANG Rep #:[id number] : 1955 70 From: Chris Rm DO PCP: Dr. Marcel Driscoll MD Status:[facility] Location: [place] [address] HPI - General General Date of Admission: 03/01/25 Date of Service: 03/01/25 Chief Complaint: Duodenal mass HPI Narrative RYAN ZHANG, is a 70 M who presents for a repeat. 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 He comes back in for removal of the duodenal mass. [facility] Medical History Loss of hearing DDD (degenerative disc disease), lumbar DDD (degenerative disc disease), cervical Gastric reflux BiPAP (biphasic positive airway pressure) dependence Non-smoker History of pain when walking History of edema History of stress test Hypertension Arthritis Gout Home Medications ?Medication ?Instructions ?Recorded ?Last Taken ?Type cholecalciferol (vitamin D3) 50 50 mcg PO DAILY 02/28/25 History mcg (2,000 unit) capsule coenzyme Q10 75 mg capsule (Ultra 75 mg PO DAILY 12/2402/28/25 History CoQ10) multivitamin 1 tab PO DAILY 12/24/2202/10 History fexofenadine 180 mg tablet 180 mg PO DAILY PRN ALLERGI ES 02/24/24 02/28/25 History (Suzanne Allergy) fluticasone propionate 50 1 spray intranasal BID PRN a llergy 06/19/24 02/28/25 Rx mcg/actuation nasal symptoms #32 grams spray,suspension (Allergy Relief (fluticasone)) allopurinol 300 mg tablet 300 mg PO DAILY #90 tabs 02/28/25 Rx lisinopril 20 mg tablet 20 mg PO DAILY #90 tabs 11/0902/28/25 Rx esuiu-r-oadthwfobtddj 450 unit 900 unit PO DAILY PRN i ndigestion 12/19/24 02/28/25 History disintegrating tablet (Beano) glucosamine sulf dipot 1 cap PO BID 12/19/24 History chlr,msm,chond 550 mg-C 30 mg-jeremias 1 mg capsule (Glucosamine Chondroitin) simethicone 250 mg capsule (Gas-X) 250 mg PO QHS PRN a bdominal 12/19/24 02/28/25 History distention pantoprazole 40 mg tablet,delayed 40 mg PO BID #90 tab s 01/03/25 02/28/25 Rx release Allergy/AdvReac Type Severity Reaction Status Date / Time bismuth subsalicylate (From AdvReac Itching Verified 03/01/25 09:53 Pepto-Bismol) clarithromycin AdvReac Itching Verified 03/01/25 09:53 Family History Brother Alcohol abuse Father Arthritis CVA (cerebral vascular accident) Mother Arthritis Diabetes Myocardial infarction Other Heart disease Hypertension Surgical History History of esophagogastroduodenoscopy (EGD) Hx of lithotripsy Hx of colonoscopy History of surgical procedure H/O cystoscopy S/P arthroscopic surgery of right knee History of cholecystectomy H/O vasectomy Social History household members: spouse current occupational status: retired 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 Smoking Status: Never smoker Electronic Cigarette Use: not used alcohol intake: former details: quit substance use type: does not use do you feel safe at home: Yes ROS Constitutional Constitutional: Denies fatigue, fever(s), poor appetite, weight gain or weight loss Gastrointestinal Gastrointestinal: Denies belching, bloating, change in bowel habits, change in stool character, chewing difficulty, coffee ground emesis, constipation, cramping, diarrhea, dyspepsia, dysphagia, earlysatiety, excessive flatus, fecalincontinence, heartburn, hematemesis, hematochezia, hemorrhoids, loose stools, melena, nausea, odynophagia, rectal bleeding, tenesmus, vomiting or weight changes Vital Signs Vital Signs Vital Signs: 03/01/25 09:54 03/01/25 09:54 03/01/25 10:07 Temperature 97.8 F 97.8 F Temperature Source Temporal Pulse Rate 65 65 Respiratory Rate 17 17 Respiratory Pattern Normal Blood Pressure 115/80 115/80 Blood Pressure Mean 91 Blood Pressure Source Monitor Blood Pressure Position Semi-Fowlers Blood Pressure Location Left Arm Pulse Ox 99 99 Oxygen Delivery Method Room Air Room Air Weight Weight: 304 lb 3.806 oz Body Mass Index (BMI) 42.4 Physical Exam Const alert, oriented x3, no apparent distress and healthy appearing General Appearance: cooperative GI normal to inspection, nondistended, normoactive bowel sounds, soft to palpation,non-tender and non-distended Percussion: normal to percussion Rectal Exam: deferred Assessment & Plan Assessment/Plan (1) Abdominal bloating: (2) Duodenal mass: PLAN: He was explained alternatives, risk and benefits include not withstanding bleeding, infection, sepsis, perforation, need for emergent urgent . He will have an ASA of 3. 03/01/25 1024 Cosigner Signature (if applicable): CC: Dr. Marcel Driscoll MD; Chris Rm DO~ Signed [facility]08-21-2025 [facility] Medical Records Department [address] [place] [id number] History Physical Exam 03/01/25 1022 MR#: [id number] Acct: [id number] Name: RYAN ZHANG Rep #: [id number] : 1955 70 From: Chris Rm DO PCP: Dr. Marcel Driscoll MD Status:[facility] Location: [place] [address] HPI - General General Date of Admission: 03/01/25 Date of Service: 03/01/25 Chief Complaint: Duodenal mass HPI Narrative RYAN ZHANG, is a 70 M who presents for a repeat. 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 He comes back in for removal of the duodenal mass. [facility] Medical History Loss of hearing DDD (degenerative disc disease), lumbar DDD (degenerative disc disease), cervical Gastric reflux BiPAP (biphasic positive airway pressure) dependence Non-smoker History of pain when walking History of edema History of stress test Hypertension Arthritis Gout Home Medications ???Medication ???Instructions ???Recorded ???Last Taken ???Type cholecalciferol (vitamin D3) 50 50 mcg PO DAILY 12/24/22 02/28/25 History mcg (2,000 unit) capsule coenzyme Q10 75 mg capsule (Ultra 75 mg PO DAILY 12/24/22 02/28/25 History CoQ10) multivitamin 1 tab PO DAILY 12/24/22 02/28/25 H istory fexofenadine 180 mg tablet 180 mg PO DAILY PRN ALLERGIES 02/0902/28/25 History (Suzanne Allergy) fluticasone propionate 50 1 spray intranasal BID PRN allergy 06/19/24 02/28/25 Rx mcg/actuation nasal symptoms #32 grams spray,suspension (Allergy Relief (fluticasone)) allopurinol 300 mg tablet 300 mg PO DAILY #90 tabs 09/25/24 02/28/25 Rx lisinopril 20 mg tablet 20 mg PO DAILY #90 tabs 11/22/24 0 02/28/25 Rx wjttw-a-phxhijgjssxzq 450 unit 900 unit PO DAILY PRN indigestion 12/19/24 02/28/25 History disintegrating tablet (Beano) glucosamine sulf dipot 1 cap PO BID 12/19/24 02/28/25 His tory chlr,msm,chond 550 mg-C 30 mg-jeremias 1 mg capsule (Glucosamine Chondroitin) simethicone 250 mg capsule (Gas-X) 250 mg PO QHS PRN abdominal 12/1002/28/25 History distention pantoprazole 40 mg tablet,delayed 40 mg PO BID #90 tabs 01/03/25 Rx release Allergy/AdvReac Type Severity Reaction Status Date / Time bismuth subsalicylate (From AdvReac Itching Verified 03/01/25 09:53 Pepto-Bismol) clarithromycin AdvReac Itching Verified 03/01/25 09:53 Family History Brother Alcohol abuse Father Arthritis CVA (cerebral vascular accident) Mother Arthritis Diabetes Myocardial infarction Other Heart disease Hypertension Surgical History History of esophagogastroduodenoscopy (EGD) Hx of lithotripsy Hx of colonoscopy History of surgical procedure H/O cystoscopy S/P arthroscopic surgery of right knee History of cholecystectomy H/O vasectomy Social History household members: spouse current occupational status: retired 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 Smoking Status: Never smoker Electronic Cigarette Use: not used alcohol intake: former details: quit substance use type: does not use do you feel safe at home: Yes ROS Constitutional Constitutional: Denies fatigue, fever(s), poor appetite, weight gain or weight loss Gastrointestinal Gastrointestinal: Denies belching, bloating, change in bowel habits, change in stool character, chewing difficulty, coffee ground emesis, constipation, cramping, diarrhea, dyspepsia, dysphagia, early satiety, excessive flatus, fecal incontinence, heartburn, hematemesis, hematochezia, hemorrhoids, loose stools, melena, nausea, odynophagia, rectal bleeding, tenesmus, vomiting or weight changes Vital Signs Vital Signs Vital Signs: 03/01/25 09:54 03/01/25 09:54 03/01/25 10:07 Temperature 97.8 F 97.8 F Temperature Source Temporal Pulse Rate 65 65 Respiratory Rate 17 17 Respiratory Pattern Normal Blood Pressure 115/80 115/80 Blood Pressure Mean 91 Blood Pressure Source Monitor Blood Pressure Position Semi-Fowlers Blood Pressure Location Left Arm Pulse Ox 99 99 Oxygen Delivery Method Room Air Room Air Weight Weight: 304 lb 3.806 oz Body Mass Index (BMI) 42.4 Physical Exam Const alert, oriented x3, no apparent distress and healthy appearing General Appearance: cooperative GI normal to inspection, nondistended, normoactive bowel sounds, soft to palpation, non-tender and non- distended Percussion: normal to percussion Rec (more content not included)...[facility]08-21-2025 Consult note [facility] [place] Medical Records Department [address] [place] [address] Pre-Anesthesia Evaluation 03/01/25 1007 MR#: [id number] Acct: [id number] Name: RYAN ZHANG Rep #:[id number] : 1955 70 From: Lui Gill MD PCP: Dr. Marcel Driscoll MD Status:REG SDC Y Race: C Location: [facility]18-1 ASA Classification* ASA Classification ASA Classification: 3 Assessment & Plan Anesthesia* Anesthesia Assessment Anesthesia Assessment: Discussed sedation and/or anesthesia options, risks, benefits, and alternatives with patient/parents/legal guardian/POA. Questions invited. The patient/parents/legal guardian/POA seems to understand and agrees to proceedwith anesthesia plan. Reviewed the physical assessment, medical history, allergy history and patient home medications list prior to surgery/procedure/anesthetic and documented any changes. Performed airway and anesthesia risk assessments. Anesthesia Type Anesthesia Type: MAC History Source History Obtained from:: Patient and Chart Anesthesia Focused Assessment* Temperature: 97.8 F Pulse Rate: 65 Blood Pressure: 115/80 Respiratory Rate: 17 Pulse Ox: 99 Oxygen Delivery Method: Room Air Airway Assessment Mouth opens: 2 cm Mallampati Score: III Teeth Condition: Intact Neck Range of motion (ROM): Full ROM Labs Anesthesia Preop lab: CBC WBC 4.4 K/mm3 (4.4-11.0) 08/14/24 08:19 08/14/24 RBC 4.87 M/mm3 (4.6-6.2) 08/14/24 08:19 08/14/24 Hgb 15.8 g/dL (13.0-16.5) 08/14/24 08:19 08/14/24 Hct 47.5 % (40-54) 08/14/24 08:19 08/14/24 Plt Count 185 K/mm3 (150-450) 08/14/24 08:19 08/14/24 CHEMISTRY Potassium 4.1 mmol/L (3.5-5.1) 08/14/24 08:19 08/14/24 Sodium 142 mmol/L (136-145) 08/14/24 08:19 08/14/24 BUN 17 mg/dL (7-18) 08/14/24 08:19 08/14/24 Creatinine 0.88 mg/dL (0.70-1.30) 08/14/24 08:19 08/14/24 Glucose 93 mg/dL (74-106) 08/14/24 08:19 08/14/24 COAG Pre-Assessment Diagnosis/Proposed Procedure Planned Operative Procedure(s): EGD Anesthesia History 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 When Was Last Pacemaker Check QUESTION #4 FULL TEXT: You/Your Family Experience fever (hyperthermia) with Anesthesia Last Oral Intake Last Oral intake: Last Oral Intake NPO since 00:00 03/01/25 09:54 Meds taken in AM with sips of No 03/01/25 09:54 water? Meds patient instructed to take am of surgery PONV PONV - census clerk: PONV - census clerk Female No 02/27/25 15:25 HX of Motion Sickness Yes 02/27/25 15:25 HX of N/V After Surgery No 02/27/25 15:25 Non-Smoker Yes 02/27/25 15:25 Duration of Surgery greater No 02/27/25 15:25 than 60 minutes Number of Risk Factors 2 02/27/25 15:25 PONV Score Moderate Risk 02/27/25 15:25 Height & Weight Height & Weight: Anesthesia: Height & Weight Height 5 ft 11 in 03/01/25 09:54 Weight: 138 kg 03/01/25 09:54 Body Mass Index (BMI) 42.4 03/01/25 09:54 Respiratory Assessment Respiratory Assessment - census clerk: Respiratory Tract Infection Hx - census clerk Hx Respiratory Tract Infection No 02/27/25 15:25 STOP Sleep Apnea STOP Sleep Apnea - census clerk: STOP Sleep Apnea - census clerk Hx Hypertension Yes: CONTROLLED WITH MED 02/27/25 15:25 Hx Sleep Apnea Yes 02/27/25 15:25 CPAP No 02/27/25 15:25 BIPAP Yes 02/27/25 15:25 Do you snore loudly (louder than talking or can be heard Do you often feel tired/ fatigued/ sleepy during daytime? Has anyone observed you stop breathing during sleep? STOP Results Positive 02/27/25 15:25 QUESTION #5 FULL TEXT : Do you snore loudly (louder than talking or can be heard through closeddoors)? 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 Specify any problems Hx of Preganancy in last 3 N/A 02/27/25 15:25 Months Nurse Filling Out Transfusion NGOC 02/27/25 15:25 & Questions: Date: 02/27/25 02/27/25 15:25 Time: 15:27 02/27/25 15:25 Patient unable to answer at this time (ie. confused, unrespo /Reproduction History /Reproductive History - census clerk: /Reproductive Hx- census clerk Hx Now Gestational Age (in weeks): EDC: Hx Hx Para Hx Section SAB No 02/27/25 15:25 Active Medications Active Medications: Current Medications Generic Name Dose Route Start Last Admin Trade Name Froylan PRN Reason Stop Dose Admin Lactated Ringer's 1,000 mls @ 15 mls/hr 03/01/25 09:45 03/01/25 09:58 IV 15 mls/hr .Q48H CARLOS Administration PFSH Medical History (Updated 02/27/25 @ 15:32 by Quyen Montanez) Loss of hearing DDD (degenerative disc disease), lumbar DDD (degenerative disc disease), cervical Gastric reflux BiPAP (biphasic positive airway pressure) dependence Non-smoker History of pain when walking History of edema History of stress test Hypertension Arthritis Gout Home Medications ?Medication ?Instructions ?Recorded ?Last Taken ?Type cholecalciferol (vitamin D3) 50 50 mcg PO DAILY 02/28/25 History mcg (2,000 unit) capsule coenzyme Q10 75 mg capsule (Ultra 75 mg PO DAILY 12/2402/28/25 History CoQ10) multivitamin 1 tab PO DAILY 12/24/22 08/ History fexofenadine 180 mg tablet 180 mg PO DAILY PRN ALLERGI ES 02/24/24 02/28/25 History (Suzanne Allergy) fluticasone propionate 50 1 spray intranasal BID PRN a llergy 06/19/24 02/28/25 Rx mcg/actuation nasal symptoms #32 grams spray,suspension (Allergy Relief (fluticasone)) allopurinol 300 mg tablet 300 mg PO DAILY #90 tabs 02/28/25 Rx lisinopril 20 mg tablet 20 mg PO DAILY #90 tabs 11/0902/28/25 Rx vjgel-p-qonzrlhahzyse 450 unit 900 unit PO DAILY PRN i ndigestion 12/19/24 02/28/25 History disintegrating tablet (Beano) glucosamine sulf dipot 1 cap PO BID 12/19/24 History chlr,msm,chond 550 mg-C 30 mg-jeremias 1 mg capsule (Glucosamine Chondroitin) simethicone 250 mg capsule (Gas-X) 250 mg PO QHS PRN a bdominal 12/19/24 02/28/25 History distention pantoprazole 40 mg tablet,delayed 40 mg PO BID #90 tab s 01/03/25 02/28/25 Rx release Allergy/AdvReac Type Severity Reaction Status Date / Time bismuth subsalicylate (From AdvReac Itching Verified 03/01/25 09:53 Pepto-Bismol) clarithromycin AdvReac Itching Verified 03/01/25 09:53 Family History Brother Alcohol abuse Father Arthritis CVA (cerebral vascular accident) Mother Arthritis Diabetes Myocardial infarction Other Heart disease Hypertension Surgical History (Updated 02/27/25 @ 15:25 by Quyen Montanez) History of esophagogastroduodenoscopy (EGD) Hx of lithotripsy Hx of colonoscopy History of surgical procedure H/O cystoscopy S/P arthroscopic surgery of right knee History of cholecystectomy H/O vasectomy Social History household members: spouse current occupational status: retired 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 03/01/25 1007 D> Date _ Lui Haynesignpaige Signature: Date CC: ~ Signed [facility]06-12-2025 Consult note Author Gregorio Ledesma [facility] Note Date/Time December 21, 2024 8:25 am [facility] [place] Medical Records Department [address] [place] [address] Pre-Anesthesia Evaluation 12/21/24 08 MR#: [id number] Acct: [id number] Name: RYAN ZHANG Rep #:[id number] : 1955 69 From: Gregorio Ledesma MD PCP: Dr. Marcel Driscoll MD Status:REG [facility] Y Race: C Location: [place] [address] ASA Classification* ASA Classification ASA Classification: 3 Assessment & Plan Anesthesia* Anesthesia Assessment Anesthesia Assessment: Discussed sedation and/or anesthesia options, risks, benefits, and alternatives with patient/parents/legal guardian/POA. Questions invited. The patient/parents/legal guardian/POA seems to understand and agrees to proceedwith anesthesia plan. Reviewed the physical assessment, medical history, allergy history and patient home medications list prior to surgery/procedure/anesthetic and documented any changes. Performed airway and anesthesia risk assessments. Anesthesia Type Anesthesia Type: MAC Anesthesia Focused Assessment* Airway Assessment Mouth opens: >3 cm Mallampati Score: II Labs Anesthesia Preop lab: CBC WBC 4.4 K/mm3 (4.4-11.0) 08/14/24 08:19 08/14/24 RBC 4.87 M/mm3 (4.6-6.2) 08/14/24 08:19 08/14/24 Hgb 15.8 g/dL (13.0-16.5) 08/14/24 08:19 08/14/24 Hct 47.5 % (40-54) 08/14/24 08:19 08/14/24 Plt Count 185 K/mm3 (150-450) 08/14/24 08:19 08/14/24 CHEMISTRY Potassium 4.1 mmol/L (3.5-5.1) 08/14/24 08:19 08/14/24 Sodium 142 mmol/L (136-145) 08/14/24 08:19 08/14/24 BUN 17 mg/dL (7-18) 08/14/24 08:19 08/14/24 Creatinine 0.88 mg/dL (0.70-1.30) 08/14/24 08:19 08/14/24 Glucose 93 mg/dL (74-106) 08/14/24 08:19 08/14/24 COAG Pre-Assessment Diagnosis/Proposed Procedure Planned Operative Procedure(s): EGD/CSCOPE Anesthesia History Anesthesia History - census clerk: Anesthesia History - census clerk Hx Hospitalization No 12/19/24 11:52 Any Problems With Anesthesia No 12/19/24 11:52 Cholinesterase deficiency No 12/19/24 11:52 You/Your Family Experience No 12/19/24 11:52 fever (hyperthermia) with Relationship Recent Exposure to Contagious Disease Does patient have nerve No 12/19/24 11:52 stimulator Patient instructed to have device shut off --Does patient have Pacemaker or ICD? When Was Last Pacemaker Check QUESTION #4 FULL TEXT: You/Your Family Experience fever (hyperthermia) with Anesthesia Last Oral Intake Last Oral intake: Last Oral Intake NPO since Meds taken in AM with sips of water? Meds patient instructed to take am of surgery PONV PONV - census clerk: PONV - census clerk Female No 12/19/24 11:52 HX of Motion Sickness No 12/19/24 11:52 HX of N/V After Surgery No 12/19/24 11:52 Non-Smoker Yes 12/19/24 11:52 Duration of Surgery greater No 12/19/24 11:52 than 60 minutes Number of Risk Factors 1 12/19/24 11:52 PONV Score Low Risk 12/19/24 11:52 Height & Weight Height & Weight: Anesthesia: Height & Weight Height 6 ft 10/04/24 08:37 Respiratory Assessment Respiratory Assessment - census clerk: Respiratory Tract Infection Hx - census clerk Hx Respiratory Tract Infection No 12/19/24 11:52 STOP Sleep Apnea STOP Sleep Apnea - census clerk: STOP Sleep Apnea - census clerk Hx Hypertension Yes: CONTROLLED WITH MED 12/19/24 11:52 Hx Sleep Apnea Yes 12/19/24 11:52 CPAP No 12/19/24 11:52 BIPAP Yes 12/19/24 11:52 Do you snore loudly (louder than talking or can be heard Do you often feel tired/ fatigued/ sleepy during daytime? Has anyone observed you stop breathing during sleep? STOP Results Positive 12/19/24 11:52 QUESTION #5 FULL TEXT : Do you snore loudly (louder than talking or can be heard through closed doors)? 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 Specify any problems Hx of Preganancy in last 3 N/A 12/19/24 11:52 Months Nurse Filling Out Transfusion DSCHRIBER 12/19/24 11:52 & Questions: Date: 12/19/24 12/19/24 11:52 Time: 11:53 12/19/24 11:52 Patient unable to answer at this time (ie. confused, unrespo /Reproduction History /Reproductive History - census clerk: /Reproductive Hx- census clerk Hx Now No 12/19/24 11:52 Gestational Age (in weeks): EDC: Hx Hx Para Hx Section SAB No 12/19/24 11:52 Active Medications Active Medications: Current Medications Generic Name Dose Route Start Last Admin Trade Name Freq PRN Reason Stop Dose Admin Lactated Ringer's 1,000 mls @ 15 mls/hr 12/21/24 08:15 IV .Q48H CARLOS PFSH Medical History Loss of hearing DDD (degenerative disc disease), lumbar DDD (degenerative disc disease), cervical Gastric reflux BiPAP (biphasic positive airway pressure) dependence Non-smoker History of pain when walking History of edema History of stress test Hypertension Arthritis Gout Home Medications ?Medication ?Instructions ?Recorded ?Last Taken ?Type cholecalciferol (vitamin D3) 50 50 mcg PO DAILY Unknown History mcg (2,000 unit) capsule coenzyme Q10 75 mg capsule (Ultra 75 mg PO DAILY 12/24 Unknown History CoQ10) multivitamin 1 tab PO DAILY 12/24/22 Unkn own History fexofenadine 180 mg tablet 180 mg PO DAILY PRN ALERGIE S 02/24/24 Unknown History (Suzanne Allergy) fluticasone propionate 50 1 spray intranasal BID PRN a llergy 06/19/24 Unknown Rx mcg/actuation nasal symptoms #32 grams spray,suspension (Allergy Relief (fluticasone)) allopurinol 300 mg tablet 300 mg PO DAILY #90 tabs Unknown Rx lisinopril 20 mg tablet 20 mg PO DAILY #90 tabs 11/09 11/03 Unknown Rx pantoprazole 40 mg tablet,delayed 40 mg PO QDAY #30 ta bs 11/22/24 Unknown Rx release hbhtu-b-eohvchkwqfhil 450 unit 900 unit PO DAILY PRN i ndigestion 12/19/24 Unknown History disintegrating tablet (Beano) glucosamine sulf dipot 1 cap PO BID 12/19/24 Unknow n History chlr,msm,chond 550 mg-C 30 mg-jeremias 1 mg capsule (Glucosamine Chondroitin) simethicone 250 mg capsule (Gas-X) 250 mg PO QHS PRN a bdominal 12/19/24 Unknown History distention Allergy/AdvReac Type Severity Reaction Status Date / Time bismuth subsalicylate (From AdvReac Itching Verified 12/21/24 08:16 Pepto-Bismol) clarithromycin AdvReac Itching Verified 12/21/24 08:16 Family History Brother Alcohol abuse Father Arthritis CVA (cerebral vascular accident) Mother Arthritis Diabetes Myocardial infarction Other Heart disease Hypertension Surgical History Hx of lithotripsy Hx of colonoscopy History of surgical procedure H/O cystoscopy S/P arthroscopic surgery of right knee History of cholecystectomy H/O vasectomy Social History household members: spouse current occupational status: retired 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 12/21/24824 <Electronically signed by Gregorio Ledesma MD > Date _ Gregorio Ledesma MD Cosigner Signature: Date CC: ~ Signed [facility] Work Phone: [phone]) 708-519906-12-2025 Procedure note [facility] [place] Medical Records Department [address] [place] [address] Colonoscopy Report MR#: [id number] Acct: [id number] Name: RYAN ZHANG Rep #:[id number] : 1955 69 From: Chris Friend DO PCP: Dr. Marcel Driscoll MD Status:REG [facility] Patient Name: Ryan Zhang Procedure Date: 12/21/2024 9:42 AM Date of : 1955 Age: 69 Procedure: Colonoscopy Indications: High risk colon cancer surveillance: Personal history of colonic polyps Providers: Chris Rm DO Referring MD: Marcel Driscoll Md Medicines: Monitored Anesthesia Care Patient Profile: This is a 69 year old male. Refer to note in patient chart for documentation of history and physical. Patient has symptoms of acute abdominal cramping, chronic abdominal distention, chronic epigastric abdominal pain, acute dyspepsia and chronic heartburn. Last Colonoscopy: several years ago. Complications: No immediate complications. Procedure: Pre-Anesthesia Assessment: - Prior to the procedure, a History and Physical was performed, and patient medications and allergies were reviewed. The patient is competent. The risks and benefits of the procedure and the sedation options and risks were discussed with the patient. All questions were answered and informed consent was obtained. Patient identification and proposed procedure were verified by the physician in the pre-procedure area. Mental Status Examination: alert and oriented. Airway Examination: normal oropharyngeal airway and neck mobility. Respiratory Examination: clear to auscultation. CV Examination: normal. Prophylactic Antibiotics: The patient does not require prophylactic antibiotics. Prior Anticoagulants: The patient has taken no anticoagulant or antiplatelet agents. ASA Grade Assessment: II - A patient with mild systemic disease. After reviewing the risks and benefits, the patient was deemed in satisfactory condition to undergo the procedure. The anesthesia plan was to use monitored anesthesia care (MAC). Immediately prior to administration of medications, the patient was re-assessed for adequacy to receive sedatives. The heart rate, respiratory rate, oxygen saturations, blood pressure, adequacy of pulmonary ventilation, and response to care were monitored throughout the procedure. The physical status of the patient was re-assessed after the procedure. After I obtained informed consent, the scope was passed under direct vision. Throughout the procedure, the patient's blood pressure, pulse, and oxygen saturations were monitored continuously. The Colonoscope was introduced through the anus and advanced to the terminal ileum. The colonoscopy was performed without difficulty. The patient tolerated the procedure well. The quality of the bowel preparation was adequate. The terminal ileum, ileocecal valve, appendiceal orifice, and rectum were photographed. Moderate Sedation: Moderate (conscious) sedation was personally administered by an anesthesia professional. The following parameters were monitored: oxygen saturation, heart rate, blood pressure, respiratory rate, EKG, adequacy of pulmonary ventilation, and response to care. Scope In: 9:44:11 AM Scope Withdrawal Time 0 hours 9 minutes 42 seconds Scope Out: 9:56:45 AM Total Procedure Duration Time 0 hours 12 minutes 34 seconds Findings: The perianal and digital rectal examinations were normal. A few small-mouthed diverticula were found in the recto-sigmoid colon and sigmoid colon. A 5 mm polyp was found in the splenic flexure. The polyp was sessile. The polyp was removed with a jumbo cold forceps. Resection and retrieval were complete. Verification of patient identification for the specimen was done. Estimated blood loss was minimal. Patchy mild inflammation characterized by erosions was found in the terminal ileum. Biopsies were taken with a cold forceps for histology. Verification of patient identification for the specimen was done. Estimated blood loss was minimal. The exam was otherwise without abnormality on direct and retroflexion views. Impression: - Diverticulosis in the recto-sigmoid colon and in the sigmoid colon. - One 5 mm polyp at the splenic flexure, removed with a jumbo cold forceps. Resected and retrieved. - Mild inflammation was found in the ileum secondary to ileitis. Biopsied. - The examination was otherwise normal on direct and retroflexion views. Recommendation: - Discharge patient to home. - Resume previous diet. - Continue present medications. - Await pathology results. - Repeat colonoscopy in 5 years for surveillance. Procedure Code(s): --- Professional --- 13780, Colonoscopy, flexible; with biopsy, single or multiple CPT copyright 2021 [employer]. All rights reserved. The codes documented in this report are preliminary and upon side laster tack review may be revised to meet current compliance requirements. Chris mR DO 12/21/2024 10:16:37 AM This report has been signed electronically. Number of Addenda: 0 Note Initiated On: 12/21/2024 9:42 AM 12/21/24 1016 Date _ Chris Rm DO Cosigner Signature: Date (if indicated) CC: Dr. Marcel Driscoll MD; Chris Rm DO ~ Date Dictated: 12/21/24 0942 Date Transcribed: Tube Coverer: RF Signed [facility]06-12-2025 Procedure note [facility] [place] Medical Records Department [address] [place] [address] Operative Report - CC Letter MR#: [id number] Acct: [id number] Name: RYAN ZHANG Rep #:[id number] : 1955 69 From: Chris Rm DO PCP: Dr. Marcel Driscoll MD Status:REG [facility] 12/21/2024 Marcel Driscoll Md Re : Colonoscopy procedure for Ryan Zhang Dear [place] This procedure was performed on December. My impressions and recommendations are as follows: Impressions : - Diverticulosis in the recto-sigmoid colon and in the sigmoid colon. - One 5 mm polyp at the splenic flexure, removed with a jumbo cold forceps. Resected and retrieved. - Mild inflammation was found in the ileum secondary to ileitis. Biopsied. - The examination was otherwise normal on direct and retroflexion views. Recommendations : - Discharge patient to home. - Resume previous diet. - Continue present medications. - Await pathology results. - Repeat colonoscopy in 5 years for surveillance. My findings are described in the full procedure note, which is enclosed. If I can be of further assistance, please feel free to contact me at . Sincerely, Chris Rm DO 12/21/2024 10:16:37 AM This report has been signed electronically. 12/21/24 1016 Date _ Chris Rm DO Cosigner Signature: Date (if indicated) CC: Dr. Marcel Driscoll MD; Chris Rm DO ~ Date Dictated: 12/21/24941 Date Transcribed: Tube Coverer: RF Signed [facility]06-12-2025 Procedure note [facility] [place] Medical Records Department [address] [place] [address] EGD Report MR#: [id number] Acct: [id number] Name: RYAN ZHANG Rep #:[id number] : 1955 69 From: Chris Rm DO PCP: Dr. Marcel Driscoll MD Status:REG [facility] Patient Name: Ryan Zhang Procedure Date: 12/21/2024 9:24 AM Date of : 1955 Age: 69 Procedure: Upper GI endoscopy Indications: Epigastric abdominal pain, Functional Dyspepsia, Suspected esophageal reflux Providers: Chris Rm DO Referring MD: Marcel Driscoll Md Medicines: Monitored Anesthesia Care Patient Profile: This is a 69 year old male. Refer to note in patient chart for documentation of history and physical. Patient has symptoms of acute abdominal cramping, chronic abdominal distention, chronic epigastric abdominal pain, acute dyspepsia and chronic heartburn. Complications: No immediate complications. Procedure: Pre-Anesthesia Assessment: - Prior to the procedure, a History and Physical was performed, and patient medications and allergies were reviewed. The patient is competent. The risks and benefits of the procedure and the sedation options and risks were discussed with the patient. All questions were answered and informed consent was obtained. Patient identification and proposed procedure were verified by the physician in the pre-procedure area. Mental Status Examination: alert and oriented. Airway Examination: normal oropharyngeal airway and neck mobility. Respiratory Examination: clear to auscultation. CV Examination: normal. Prophylactic Antibiotics: The patient does not require prophylactic antibiotics. Prior Anticoagulants: The patient has taken no anticoagulant or antiplatelet agents. ASA Grade Assessment: II - A patient with mild systemic disease. After reviewing the risks and benefits, the patient was deemed in satisfactory condition to undergo the procedure. The anesthesia plan was to use monitored anesthesia care (MAC). Immediately prior to administration of medications, the patient was re-assessed for adequacy to receive sedatives. The heart rate, respiratory rate, oxygen saturations, blood pressure, adequacy of pulmonary ventilation, and response to care were monitored throughout the procedure. The physical status of the patient was re-assessed after the procedure. After obtaining informed consent, the endoscope was passed under direct vision. Throughout the procedure, the patient's blood pressure, pulse, and oxygen saturations were monitored continuously. The Colonoscope was introduced through the mouth, and advanced to the third part of the duodenum. Small bowel enteroscopy was deemed necessary. The upper GI endoscopy was accomplished without difficulty. The patient tolerated the procedure well. Scope In: 9:35:55 AM Scope Out: 9:42:27 AM Total Procedure Duration Time 0 hours 6 minutes 32 seconds Findings: LA Grade A (one or more mucosal breaks less than 5 mm, not extending between tops of 2 mucosal folds) esophagitis with no bleeding was found. Biopsies were taken with a cold forceps for histology. Verification of patient identification for the specimen was done. Estimated blood loss was minimal. Patchy mildly erythematous mucosa without bleeding was found in the gastric body. Biopsies were taken with a cold forceps for histology. Verification of patient identification for the specimen was done. Estimated blood loss was minimal. Biopsies were taken with a cold forceps for Helicobacter pylori testing. A large polypoid mass with no bleeding was found in the duodenal bulb. Biopsies were taken with a cold forceps for histology. Verification of patient identification for the specimen was done. Estimated blood loss was minimal. Impression: - LA Grade A reflux esophagitis with no bleeding. Biopsied. - Erythematous mucosa in the gastric body. Biopsied. - Likely benign duodenal mass. Biopsied. Recommendation: - Discharge patient to home. - Resume previous diet. - Continue present medications. - Await pathology results. Procedure Code(s): --- Professional --- 37330, Small intestinal endoscopy, enteroscopy beyond second portion of duodenum, not including ileum; with biopsy, single or multiple CPT copyright 2021 [employer]. All rights reserved. The codes documented in this report are preliminary and upon side laster tack review may be revised to meet current compliance requirements. Chris Rm DO 12/21/2024 10:14:35 AM This report has been signed electronically. Number of Addenda: 0 Note Initiated On: 12/21/2024 9:24 AM 12/21/24 1014 Date _ Chris Elizondoigner Signature: Date (if indicated) CC: Dr. Marcel Driscoll MD; Chris Rm DO ~ Date Dictated: 12/21/24923 Date Transcribed: Tube Coverer: RF Signed [facility]06-12-2025 Procedure note [facility] [place] Medical Records Department [address] [facility] [place] [address] Operative Report - CC Letter MR#: [id number] Acct: [id number] Name: RYAN ZHANG Rep #:[id number] : 1955 69 From: Chris Rm DO PCP: Dr. Marcel Driscoll MD Status:REG [facility] 12/21/2024 Marcel Driscoll Md Re : Upper GI endoscopy procedure for Ryan Zhang Mayar Americo This procedure was performed on December. My impressions and recommendations are as follows: Impressions : - LA Grade A reflux esophagitis with no bleeding. Biopsied. - Erythematous mucosa in the gastric body. Biopsied. - Likely benign duodenal mass. Biopsied. Recommendations : - Discharge patient to home. - Resume previous diet. - Continue present medications. - Await pathology results. My findings are described in the full procedure note, which is enclosed. If I can be of further assistance, please feel free to contact me at . Sincerely, Chris Rm DO 12/21/2024 10:14:35 AM This report has been signed electronically. 12/21/24 1014 Date _ Chris Gaines Signature: Date (if indicated) CC: Dr. Marcel Driscoll MD; Chris RmDO ~ Date Dictated: 12/21/24923 Date Transcribed: Tube Coverer: RF Signed [facility]06-12-2025 Consult note [facility] [place] Medical Records Department [address] [place] [address] Anesthesia Postop Eval I 12/21/24 100 MR#: [id number] Acct: [id number] Name: RYAN ZHANG Rep #:[id number] : 1955 69 From: Rich Macias PCP: Dr. Marcel Driscoll MD Status:REG [facility] Y Race: C Location: [place] [address] Anesthesia: Postop Eval I Current Vital Signs Temperature: 97.5 F Pulse Rate: 67 Blood Pressure: 89/56 Respiratory Rate: 16 Pulse Ox: 95 Oxygen Delivery Method: Room Air Assessment Airway patent: Yes Spontaneous unlabored respirations: Yes Mental status: Awake and Calm nausea: No Vomiting: No Anesthesia Complication: No Fluid Hydration Crystalloid volume administer (ml): 600 Total IV fluid infused: 600 Progress Note Anesthesia document: Postop Eval 1 completed: Yes 12/21/24 100 > Date _ Rich Sanders Signature: Date CC: ~ Signed [facility]06-12-2025 History and physical note [facility] Medical Records Department [address] [place] [address] History & Physical Exam 12/21/24918 MR#: [id number] Acct: [id number] Name: RYAN ZHANG Rep #:[id number] : 1955 69 From: Chris Rm DO PCP: Dr. Marcel Driscoll MD Status:REG [facility] Location: [place] [address] HPI - General General Date of Admission: 12/21/24 Date of Service: 12/21/24 Chief Complaint: GERD and Screening colonoscopy HPI Narrative BGI established Aug 2024 with abd bloating and eructation x 3 months. Started onPPI and Carafate prescribed from PCP. Last colonoscopy 4 years ago with PMHx of polyps. Pt does feel constipation with small bowel movements. CT abd/pelvis; Fatty infiltration of the liver. Status post cholecystectomy. Bilateral renal cysts. Bilateral intrarenal calculi. 1.4 cm calculus in the left renal pelvis at the ureteropelvic junction causing mild degree of left hydronephrosis. OV 5.14.25 Pt continues to have epigastric pain, bloating and gas. It is worse when he lays down. taking Beano and Gas-x multiple times per day. He had to rescheduled his scopes due to a family emergency. [facility] Medical History (Updated 12/21/24 @ 09:[address] Perez Friend, ) Loss of hearing DDD (degenerative disc disease), lumbar DDD (degenerative disc disease), cervical Gastric reflux BiPAP (biphasic positive airway pressure) dependence Non-smoker History of pain when walking History of edema History of stress test Hypertension Arthritis Gout Home Medications ?Medication ?Instructions ?Recorded ?Last Taken ?Type cholecalciferol (vitamin D3) 50 50 mcg PO DAILY Unknown History mcg (2,000 unit) capsule coenzyme Q10 75 mg capsule (Ultra 75 mg PO DAILY 12/24 Unknown History CoQ10) multivitamin 1 tab PO DAILY 12/24/22 Unkn own History fexofenadine 180 mg tablet 180 mg PO DAILY PRN ALERGIE S 02/24/24 Unknown History (Suzanne Allergy) fluticasone propionate 50 1 spray intranasal BID PRN a llergy 06/19/24 Unknown Rx mcg/actuation nasal symptoms #32 grams spray,suspension (Allergy Relief (fluticasone)) allopurinol 300 mg tablet 300 mg PO DAILY #90 tabs Unknown Rx lisinopril 20 mg tablet 20 mg PO DAILY #90 tabs 11/09 11/03 Unknown Rx pantoprazole 40 mg tablet,delayed 40 mg PO QDAY #30 ta bs 11/22/24 Unknown Rx release uzovu-l-rnlwghfcnzeeb 450 unit 900 unit PO DAILY PRN i ndigestion 12/19/24 Unknown History disintegrating tablet (Beano) glucosamine sulf dipot 1 cap PO BID 12/19/24 Unknow n History chlr,msm,chond 550 mg-C 30 mg-jeremias 1 mg capsule (Glucosamine Chondroitin) simethicone 250 mg capsule (Gas-X) 250 mg PO QHS PRN a bdominal 12/19/24 Unknown History distention Allergy/AdvReac Type Severity Reaction Status Date / Time bismuth subsalicylate (From AdvReac Itching Verified 12/21/24 08:16 Pepto-Bismol) clarithromycin AdvReac Itching Verified 12/21/24 08:16 Family History Brother Alcohol abuse Father Arthritis CVA (cerebral vascular accident) Mother Arthritis Diabetes Myocardial infarction Other Heart disease Hypertension Surgical History Hx of lithotripsy Hx of colonoscopy History of surgical procedure H/O cystoscopy S/P arthroscopic surgery of right knee History of cholecystectomy H/O vasectomy Social History household members: spouse current occupational status: retired 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 Smoking Status: Never smoker Electronic Cigarette Use: not used alcohol intake: former details: quit substance use type: does not use do you feel safe at home: Yes ROS Constitutional Constitutional: Denies fatigue, fever(s), poor appetite, weight gain or weight loss Gastrointestinal Gastrointestinal: Denies belching, bloating, change in bowel habits, change in stool character, chewing difficulty, coffee ground emesis, constipation, cramping, diarrhea, dyspepsia, dysphagia, earlysatiety, excessive flatus, fecalincontinence, heartburn, hematemesis, hematochezia, hemorrhoids, loose stools, melena, nausea, odynophagia, rectal bleeding, tenesmus, vomiting or weight changes Vital Signs Vital Signs Vital Signs: 12/21/24 08:27 12/21/24 08:27 Temperature 98.3 F Temperature Source Temporal Pulse Rate 72 Respiratory Rate 16 Respiratory Pattern Normal Blood Pressure 123/95 H Blood Pressure Mean 104 Blood Pressure Source Monitor Blood Pressure Position Sitting Blood Pressure Location Left Arm Pulse Ox 97 Oxygen Delivery Method Room Air Weight Weight: 286 lb 13.142 oz Body Mass Index (BMI) 39.9 Physical Exam Const alert, oriented x3, no apparent distress and healthy appearing General Appearance: cooperative GI normal to inspection, nondistended, normoactive bowel sounds, soft to palpation,non-tender and non-distended Percussion: normal to percussion Rectal Exam: deferred Assessment & Plan Assessment/Plan (1) Abdominal bloating: (2) Encounter for screening for malignant neoplasm of colon: (3) Gastric reflux: PLAN: Assessment and Plan Assessment and Plan (1) Abdominal bloating: Status: Acute Plan: This is a 69 yo male pt here today for follow up regarding abdominal pain and bloating. PCP ordereda CT regarding this which was normal. He was originally scheduled for his EGD and colonoscopy in October 2024 however he had to rescheduled due to a family emergency. He is now scheduled for December. He co ntinues to have issues and I recommended starting a daily PPI until we are able to get the scope. Ihave sent in Pantoprazole 40 mg daily. He may continuesGas-x and Beano as needed. -EGD and colonoscopy -Start Pantoprazole 40 mg daily -f/u after procedures Medications: New pantoprazole 40 mg PO QDAY 30 tabs 2RF 12/21/24 0921 Cosigner Signature (if applicable): CC: Dr. Marcel Driscoll MD; Chris Rm, ~ Signed [facility]06-12-2025 [facility] Medical Records Department [address] [place] [address] History Physical Exam 12/21/24 09 MR#: [id number] Acct: [id number] Name: RYAN ZHANG Rep #: [id number] : 1955 69 From: Chris Rm DO PCP: Dr. Marcel Driscoll MD Status:REG [facility] Location: [place] [address] HPI - General General Date of Admission: 12/21/24 Date of Service: 12/21/24 Chief Complaint: GERD and Screening colonoscopy HPI Narrative BGI established Aug 2024 with abd bloating and eructation x 3 months. Started on PPI and Carafate prescribed from PCP. Last colonoscopy 4 years ago with PMHx of polyps. Pt does feel constipation with small bowel movements. CT abd/pelvis; Fatty infiltration of the liver. Status post cholecystectomy. Bilateral renal cysts. Bilateral intrarenal calculi. 1.4 cm calculus in the left renal pelvis at the ureteropelvic junction causing mild degree of left hydronephrosis. OV 5.14.25 Pt continues to have epigastric pain, bloating and gas. It is worse when he lays down. taking Beano and Gas-x multiple times per day. He had to rescheduled his scopes due to a family emergency. [facility] Medical History (Updated 12/21/24 @ 09:[address] Perez FriendDO) Loss of hearing DDD (degenerative disc disease), lumbar DDD (degenerative disc disease), cervical Gastric reflux BiPAP (biphasic positive airway pressure) dependence Non-smoker History of pain when walking History of edema History of stress test Hypertension Arthritis Gout Home Medications ???Medication ???Instructions ???Recorded ???Last Taken ???Type cholecalciferol (vitamin D3) 50 50 mcg PO DAILY 12/24/22 Unknown H istory mcg (2,000 unit) capsule coenzyme Q10 75 mg capsule (Ultra 75 mg PO DAILY 12/24/22 Unknown H istory CoQ10) multivitamin 1 tab PO DAILY 12/24/22 Unknown Hi story fexofenadine 180 mg tablet 180 mg PO DAILY PRN ALERGIES 02/23 Unknown History (Suzanne Allergy) fluticasone propionate 50 1 spray intranasal BID PRN allergy 06/19/24 Unknown Rx mcg/actuation nasal symptoms #32 grams spray,suspension (Allergy Relief (fluticasone)) allopurinol 300 mg tablet 300 mg PO DAILY #90 tabs 09/25/24 Unknown Rx lisinopril 20 mg tablet 20 mg PO DAILY #90 tabs 11/22/24 U nknown Rx pantoprazole 40 mg tablet,delayed 40 mg PO QDAY #30 tabs 11/22/24 U nknown Rx release xpino-r-tzjuplqvkhilr 450 unit 900 unit PO DAILY PRN indigestion 12/19/24 Unknown History disintegrating tablet (Beano) glucosamine sulf dipot 1 cap PO BID 12/19/24 Unknown Hist ory chlr,msm,chond 550 mg-C 30 mg-jeremias 1 mg capsule (Glucosamine Chondroitin) simethicone 250 mg capsule (Gas-X) 250 mg PO QHS PRN abdominal 12/10 Unknown History distention Allergy/AdvReac Type Severity Reaction Status Date / Time bismuth subsalicylate (From AdvReac Itching Verified 12/21/24 08:16 Pepto-Bismol) clarithromycin AdvReac Itching Verified 12/21/24 08:16 Family History Brother Alcohol abuse Father Arthritis CVA (cerebral vascular accident) Mother Arthritis Diabetes Myocardial infarction Other Heart disease Hypertension Surgical History Hx of lithotripsy Hx of colonoscopy History of surgical procedure H/O cystoscopy S/P arthroscopic surgery of right knee History of cholecystectomy H/O vasectomy Social History household members: spouse current occupational status: retired 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 Smoking Status: Never smoker Electronic Cigarette Use: not used alcohol intake: former details: quit substance use type: does not use do you feel safe at home: Yes ROS Constitutional Constitutional: Denies fatigue, fever(s), poor appetite, weight gain or weight loss Gastrointestinal Gastrointestinal: Denies belching, bloating, change in bowel habits, change in stool character, chewing difficulty, coffee ground emesis, constipation, cramping, diarrhea, dyspepsia, dysphagia, early satiety, excessive flatus, fecal incontinence, heartburn, hematemesis, hematochezia, hemorrhoids, loose stools, melena, nausea, odynophagia, rectal bleeding, tenesmus, vomiting or weight changes Vital Signs Vital Signs Vital Signs: 12/21/24 08:27 12/21/24 08:27 Temperature 98.3 F Temperature Source Temporal Pulse Rate 72 Respiratory Rate 16 Respiratory Pattern Normal Blood Pressure 123/95 H Blood Pressure Mean 104 Blood Pressure Source Monitor Blood Pressure Position Sitting Blood Pressure Location Left Arm Pulse Ox 97 Oxygen Delivery Method Room Air Weight Weig (more content not included)...[facility]-12-2025 Consult note [facility] Medical Records Department [address] [place] [address] Pre-Anesthesia Evaluation 12/21/24 0824 MR#: [id number] Acct: [id number] Name: RYAN ZHANG Rep #:[id number] : 1955 69 From: Gregorio Ledesma MD PCP: Dr. Marcel Driscoll MD Status:REG [facility] Y Race: C Location: [place] [address] ASA Classification* ASA Classification ASA Classification: 3 Assessment & Plan Anesthesia* Anesthesia Assessment Anesthesia Assessment: Discussed sedation and/or anesthesia options, risks, benefits, and alternatives with patient/parents/legal guardian/POA. Questions invited. The patient/parents/legal guardian/POA seems to understand and agrees to proceedwith anesthesia plan. Reviewed the physical assessment, medical history, allergy history and patient home medications list prior to surgery/procedure/anesthetic and documented any changes. Performed airway and anesthesia risk assessments. Anesthesia Type Anesthesia Type: MAC Anesthesia Focused Assessment* Airway Assessment Mouth opens: >3 cm Mallampati Score: II Labs Anesthesia Preop lab: CBC WBC 4.4 K/mm3 (4.4-11.0) 08/14/24 08:19 08/14/24 RBC 4.87 M/mm3 (4.6-6.2) 08/14/24 08:19 08/14/24 Hgb 15.8 g/dL (13.0-16.5) 08/14/24 08:19 08/14/24 Hct 47.5 % (40-54) 08/14/24 08:19 08/14/24 Plt Count 185 K/mm3 (150-450) 08/14/24 08:19 08/14/24 CHEMISTRY Potassium 4.1 mmol/L (3.5-5.1) 08/14/24 08:19 08/14/24 Sodium 142 mmol/L (136-145) 08/14/24 08:19 08/14/24 BUN 17 mg/dL (7-18) 08/14/24 08:19 08/14/24 Creatinine 0.88 mg/dL (0.70-1.30) 08/14/24 08:19 08/14/24 Glucose 93 mg/dL (74-106) 08/14/24 08:19 08/14/24 COAG Pre-Assessment Diagnosis/Proposed Procedure Planned Operative Procedure(s): EGD/CSCOPE Anesthesia History Anesthesia History - census clerk: Anesthesia History - census clerk Hx Hospitalization No 12/19/24 11:52 Any Problems With Anesthesia No 12/19/24 11:52 Cholinesterase deficiency No 12/19/24 11:52 You/Your Family Experience No 12/19/24 11:52 fever (hyperthermia) with Relationship Recent Exposure to Contagious Disease Does patient have nerve No 12/19/24 11:52 stimulator Patient instructed to have device shut off --Does patient have Pacemaker or ICD? When Was Last Pacemaker Check QUESTION #4 FULL TEXT: You/Your Family Experience fever (hyperthermia) with Anesthesia Last Oral Intake Last Oral intake: Last Oral Intake NPO since Meds taken in AM with sips of water? Meds patient instructed to take am of surgery PONV PONV - census clerk: PONV - census clerk Female No 12/19/24 11:52 HX of Motion Sickness No 12/19/24 11:52 HX of N/V After Surgery No 12/19/24 11:52 Non-Smoker Yes 12/19/24 11:52 Duration of Surgery greater No 12/19/24 11:52 than 60 minutes Number of Risk Factors 1 12/19/24 11:52 PONV Score Low Risk 12/19/24 11:52 Height & Weight Height & Weight: Anesthesia: Height & Weight Height 6 ft 10/04/24 08:37 Respiratory Assessment Respiratory Assessment - census clerk: Respiratory Tract Infection Hx - census clerk Hx Respiratory Tract Infection No 12/19/24 11:52 STOP Sleep Apnea STOP Sleep Apnea - census clerk: STOP Sleep Apnea - census clerk Hx Hypertension Yes: CONTROLLED WITH MED 12/19/24 11:52 Hx Sleep Apnea Yes 12/19/24 11:52 CPAP No 12/19/24 11:52 BIPAP Yes 12/19/24 11:52 Do you snore loudly (louder than talking or can be heard Do you often feel tired/ fatigued/ sleepy during daytime? Has anyone observed you stop breathing during sleep? STOP Results Positive 12/19/24 11:52 QUESTION #5 FULL TEXT : Do you snore loudly (louder than talking or can be heard through closeddoors)? 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 Specify any problems Hx of Preganancy in last 3 N/A 12/19/24 11:52 Months Nurse Filling Out Transfusion DSCHRIBER 12/19/24 11:52 & Questions: Date: 12/19/24 12/19/24 11:52 Time: 11:53 12/19/24 11:52 Patient unable to answer at this time (ie. confused, unrespo /Reproduction History /Reproductive History - census clerk: /Reproductive Hx- census clerk Hx Now No 12/19/24 11:52 Gestational Age (in weeks): EDC: Hx Hx Para Hx Section SAB No 12/19/24 11:52 Active Medications Active Medications: Current Medications Generic Name Dose Route Start Last Admin Trade Name Freq PRN Reason Stop Dose Admin Lactated Ringer's 1,000 mls @ 15 mls/hr 12/21/24 08:15 IV .Q48H CARLOS PFSH Medical History Loss of hearing DDD (degenerative disc disease), lumbar DDD (degenerative disc disease), cervical Gastric reflux BiPAP (biphasic positive airway pressure) dependence Non-smoker History of pain when walking History of edema History of stress test Hypertension Arthritis Gout Home Medications ?Medication ?Instructions ?Recorded ?Last Taken ?Type cholecalciferol (vitamin D3) 50 50 mcg PO DAILY Unknown History mcg (2,000 unit) capsule coenzyme Q10 75 mg capsule (Ultra 75 mg PO DAILY 12/24 Unknown History CoQ10) multivitamin 1 tab PO DAILY 12/24/22 Unkn own History fexofenadine 180 mg tablet 180 mg PO DAILY PRN ALERGIE S 02/24/24 Unknown History (Suzanne Allergy) fluticasone propionate 50 1 spray intranasal BID PRN a llergy 06/19/24 Unknown Rx mcg/actuation nasal symptoms #32 grams spray,suspension (Allergy Relief (fluticasone)) allopurinol 300 mg tablet 300 mg PO DAILY #90 tabs Unknown Rx lisinopril 20 mg tablet 20 mg PO DAILY #90 tabs 11/09 11/03 Unknown Rx pantoprazole 40 mg tablet,delayed 40 mg PO QDAY #30 ta bs 11/22/24 Unknown Rx release qmcfs-q-uavnpplfhpbll 450 unit 900 unit PO DAILY PRN i ndigestion 12/19/24 Unknown History disintegrating tablet (Beano) glucosamine sulf dipot 1 cap PO BID 12/19/24 Unknow n History chlr,msm,chond 550 mg-C 30 mg-jeremias 1 mg capsule (Glucosamine Chondroitin) simethicone 250 mg capsule (Gas-X) 250 mg PO QHS PRN a bdominal 12/19/24 Unknown History distention Allergy/AdvReac Type Severity Reaction Status Date / Time bismuth subsalicylate (From AdvReac Itching Verified 12/21/24 08:16 Pepto-Bismol) clarithromycin AdvReac Itching Verified 12/21/24 08:16 Family History Brother Alcohol abuse Father Arthritis CVA (cerebral vascular accident) Mother Arthritis Diabetes Myocardial infarction Other Heart disease Hypertension Surgical History Hx of lithotripsy Hx of colonoscopy History of surgical procedure H/O cystoscopy S/P arthroscopic surgery of right knee History of cholecystectomy H/O vasectomy Social History household members: spouse current occupational status: retired 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 12/21/24 0825 > Date _ Gregorio Ledesma MD Cosigner Signature: Date CC: ~ Signed [facility]05-14-2025 Evaluation note* Diagnosis Onset Date Resolution Status Admit Date Abdominal bloating acute November 222024 9:09am Abdominal bloating acute December 102024 7:59am Encounter for screening for malignant neoplasm of colon acute December 21, 2024 7:59am Gastric reflux acute December 21, 2024 7:59am Abdominal bloating acute March 01, 2025 9:32am Duodenal mass acute February 9:32am [facility] Work Phone: 1(411) 225-385303-05-2025 Radiology Diagnostic study note [facility] Imaging Services [address] [place] [address] [id number] Abdomen/Pelvis WITH Contrast MR#: [id number] Acct: [id number] Name: RYAN ZHANG Rep #: [id number] : 1955 M 69 From: Elver Winn MD PCP: Dr. Marcel Driscoll MD Status: REG CLI Study:Abdomen/Pelvis WITH Contrast Date of Ex am: 09/13/24 Exam# [id number] Ordering Dr: Marcel Driscoll MD PROCEDURE: ABDOMEN/PELVIS WITH CONTRAST REASON FOR EXAM: Abdominal bloating for 2 months. TECHNIQUE: Abdomen and pelvis CT without intravenous contrast. COMPARISON: None. FINDINGS: Coronary artery calcification. Lung bases: There are increased markings at the lung bases suggestive of atelectasis and/or scarring. Liver: Diffuse fatty infiltration. Gallbladder: Unremarkable. Spleen: Unremarkable. Pancreas: Unremarkable. Adrenals: Unremarkable. Kidneys: There are multiple right renal cysts. The largest cyst measures 4.6 cmby 4.3 cm. Nonobstructive 5 mm calculus in the lower pole calyx of the left kidney. There is a 1.4 cm calculus in the left renal pelvis causing a mild degree of left hydronephrosis. Scattered nonobstructive left intrarenal calculi. The largest calculus is in the lower pole and measures 5.9 mm. Bladder: Mild degree of diffuse urinary bladder wall thickening. Reproductive Organs: Unremarkable. Bowel: Unremarkable. Appendix: Normal. Lymph nodes: No suspicious lymph node enlargement. Vasculature: Mild diffuse atherosclerotic calcifications of the abdominal aorta and the major visceral branches are noted. A calcified phlebolith is seen in the right hemipelvis. Peritoneum / Retroperitoneum: No ascites. No free air. Bones: Degenerative changes of the spine. CT/Abdomen/Pelvis WITH Contrast IMPRESSION: Fatty infiltration of the liver. Status post cholecystectomy. Bilateral renal cysts. Bilateral intrarenal calculi. 1.4 cm calculus in the left renal pelvis at the ureteropelvic junction causing mild degree of left hydronephrosis. One or more dose reduction techniques were used (e.g., Automated exposure control, adjustment of the mA and/or kV according to patient size, use of iterative reconstruction technique). Reading Location: [id number] CC: Dr. Marcel Driscoll MD ~ Tube Coverer: Signed [facility]02-12-2025 Evaluation note* Diagnosis Onset Date Resolution Status Admit Date Mid back pain noneactive August 232024 8:35am Lymphadenopathy noneactive August 23, 2024 8:35am Bloating noneactive August 23, 2024 8:35am Numbness and tingling in bot h hands noneactive August 23 025 8:35am Sense of smell altered noneactive Fe bruary 2024 8:35am Constipation noneactive August 8:35am Abdominal bloating acute Februa ry 25th, 2025 10:30am Essential hypertension acute [facility] 2024 8:32am Gout acute October 04 8:32am Obstructive sleep apnea acute [facility] 2024 8:32am Chronic allergic rhinitis chronic October 04, 2024 8:32am Mid back pain noneactive October 04, 2024 8:32am Screening for cardiovascular condition noneactive October 04, 2024 8:32am Kidney stones noneactive October 04, 2024 8:32am Osteopenia noneactive October 04 8:32am Bloating noneactive October 04 8:32am Numbness and tingling in bot h hands noneactive October 04, 2024 8:32am Right flank pain noneactive October 042024 8:32am Constipation noneactive October 04, 2024 8:32am Abdominal bloating acute November 222024 9:09am Abdominal bloating acute December 102024 7:59am Encounter for screening for malignant neoplasm of colon acute December 21, 2024 7:59am Gastric reflux acute December 21, 2024 7:59am [facility] Work Phone: 1(286) 731-362302-03-2025 Evaluation note* Diagnosis Onset Date Resolution Status Admit Date Neck pain acute August 14, 2024 2:23pm Mid back pain noneactive August 232024 8:35am Lymphadenopathy noneactive August 23, 2024 8:35am Bloating noneactive August 23, 2024 8:35am Numbness and tingling in bot h hands noneactive August 23 8:35am Sense of smell altered noneactive Fe bruary 2024 8:35am Constipation noneactive August 8:35am Abdominal bloating acute [facility] 2024 10:30am Essential hypertension acute [facility] 2024 8:32am Gout acute October 04 8:32am Obstructive sleep apnea acute [facility] 2024 8:32am Chronic allergic rhinitis chronic October 04, 2024 8:32am Mid back pain noneactive October 04, 2024 8:32am Screening for cardiovascular condition noneactive October 04, 2024 8:32am Kidney stones noneactive October 04, 2024 8:32am Osteopenia noneactive October 04 8:32am Bloating noneactive October 04 8:32am Numbness and tingling in bot h hands noneactive October 04, 2024 8:32am Right flank pain noneactive October 042024 8:32am Constipation noneactive October 04, 2024 8:32am [facility] Work Phone: 1([phone]) 175-675801-07-2025 Evaluation note* Diagnosis Onset Date Resolution Status Admit Date Back pain acute July 18 8:39am BPPV (benign paroxysmal positional vertigo) acute July 18, 2024 8:39am Essential hypertension acute 2024 8:39am Gout acute July 18 8:39am Obstructive sleep apnea acute J anuary 2024 8:39am Chronic allergic rhinitis chronic July 18, 2024 8:39am Acute URI noneactive July 18 8:39am Influenza vaccination declined nonea ctive July 18, 2024 8:39am Bloating noneactive July 18 8:39am Chronic pain of both knees noneactiv e July 18, 2024 8:39am Balance problem noneactive July 182024 8:39am Constipation noneactive July 18, 2024 8:39am Neck pain acute August 14, 2024 2:23pm Mid back pain noneactive August 232024 8:35am Lymphadenopathy noneactive August 23, 2024 8:35am Bloating noneactive August 23, 2024 8:35am Numbness and tingling in bot h hands noneactive August 23 8:35am Sense of smell altered noneactive bru2024 8:35am Constipation noneactive August 8:35am Abdominal bloating acute 2024 10:30am [facility] Work Phone: 1(672) 544-437901-07-2025 Evaluation note* Diagnosis Onset Date Resolution Status Admit Date Back pain acute July 18 8:39am BPPV (benign paroxysmal positional vertigo) acute July 18, 2024 8:39am Essential hypertension acute 2024 8:39am Gout acute July 18 8:39am Obstructive sleep apnea acute J anuary 2024 8:39am Chronic allergic rhinitis chronic July 18, 2024 8:39am Acute URI noneactive July 18 8:39am Influenza vaccination declined nonea ctive July 18, 2024 8:39am Bloating noneactive July 18 8:39am Chronic pain of both knees noneactiv e July 18, 2024 8:39am Balance problem noneactive July 182024 8:39am Constipation noneactive July 18, 2024 8:39am Neck pain acute August 14, 2024 2:23pm Mid back pain noneactive August 232024 8:35am Lymphadenopathy noneactive August 23, 2024 8:35am Bloating noneactive August 23, 2024 8:35am Numbness and tingling in bot h hands noneactive August 23 8:35am Sense of smell altered noneactive Fe bruary 2024 8:35am Constipation noneactive August 8:35am Abdominal bloating acute Februa 2024 10:30am Essential hypertension acute [facility] 2024 8:32am Gout acute October 04 8:32am Obstructive sleep apnea acute [facility] 2024 8:32am Chronic allergic rhinitis chronic October 04, 2024 8:32am Mid back pain noneactive October 04, 2024 8:32am Screening for cardiovascular condition noneactive October 04, 2024 8:32am Kidney stones noneactive October 04, 2024 8:32am Osteopenia noneactive October 04 8:32am Bloating noneactive October 04 8:32am Numbness and tingling in bot h hands noneactive October 04, 2024 8:32am Right flank pain noneactive October 042024 8:32am Constipation noneactive October 04, 2024 8:32am [facility] Work Phone: 1(647) 556-906808-08-2023 NoteHNO ID: [id number] Author: Bipin Cuellar MD Service: ? Author Type: Physician Type: Progress Notes Filed: 02/16/2023 9:59 AM Note Text: (H25.13) Nuclear sclerotic cataract of both eyes (primary encounter diagnosis) (H52.7) Refractive error Cataract- Continue observation management at present. Discussed potential impact on vision and future surgical management. Glasses prescription given. Discussed findings, plan and answered questions. Follow-up in 1-2 years complete and as needed and sooner as needed for other problems or concerns. I have confirmed and edited as necessary the relevant ophthalmic history, ROS, and the neuro exam findings as obtained by others. I have seen and examined Ryan Zhang I have discussed the case and the management of this patient's care with the Resident/Fellow, if applicable. I also have reviewed and agree with the assessment and plan as stated above and agree with all of its relevant components. Bipin Cuellar, [facility]06-03-2023 NoteHNO ID: [id number] Author: Dennise Woodall APRN.ROTARY OPERATOR Service: ? Author Type: Nurse Practitioner Type: Progress Notes Filed: 12/12/2022 2:39 PM Note Text: CC: Patient presents with: Pain: Right side under ribs, shoots around to middle of back. Twisting movement is very painful HPI Ryan Zhang is a 67 year old male who presents today for above. Patient developed right rib/side pain last month. Evaluated by his PCP and treated with prednisone and Flexeril. Symptoms completely resolved until yesterday. He states he was using a back sprayer a few days prior and wondering if he aggravated something. Pain is still on the right side but now radiating to his back on the right. Described as: aching Pain is aggravated by: twisting movements, lifting arms overhead, getting dressed Pain is alleviated by rest and Tylenol ES Denies fever, chills, cough, wheezing, SOB, inspiratory pain, chest pain, palpitations. REVIEW OF SYSTEMS See HPI PAST MEDICAL HISTORY Diagnosis Date History of kidney stones Hypertension PAST SURGICAL HISTORY Procedure Laterality Date PAST SURGICAL HISTORY OF RT KNEE - SCOPE REMOVAL GALLBLADDER ALLERGIES Clarithromycin, House Dust, and Pepto-Bismol [Bismuth Subsalicylate] MEDICATIONS allopurinol (ZYLOPRIM) 300 mg tablet Take 1 tablet by mouth once daily. lisinopril (ZESTRIL) 40 mg tablet Take 40 mg by mouth. meloxicam (MOBIC) 15 mg tablet Take by mouth. multivitamin tablet Take by mouth as directed. fluticasone (FLONASE) 50 mcg/actuation nasal spray cephALEXin (KEFLEX) 500 mg capsule (Patient not taking: Reported on 12/12/2022) quinapril (ACCUPRIL) 20 mg tablet (Patient not taking: Reported on 12/12/2022) FAMILY HISTORY Problem Relation Age of Onset Diabetes Mother Heart Mother Stroke Father Social History Tobacco Use Smoking status: Never Smokeless tobacco: Never Substance Use Topics Alcohol use: No Drug use: Never PHYSICAL EXAM BP 120/82 Pulse 73 Temp 36.9 ?C (98.5 ?F) Resp 18 Wt (!) 139.3 kg (307 lb) SpO2 98% BMI 41.64 kg/m? General Appearance: well appearing, in no acute distress, alert Lungs: Lungs clear to auscultation. No wheezing, rhonchi, rales. Heart: RRR without murmur, gallop, or rubs. No ectopy Musculoskeletal: Right ribs- No tenderness with palpation, deformities, crepitus, skin discoloration. Pain is reproducible when he lifts his arms overhead and reaching back with this right arm. Back-no deformities or tenderness with palpation ASSESSMENT/PLAN: 1. Rib pain on right side - ICD9: 786.50, ICD10: R07.81 Suspect musculoskeletal cause. No alarm symptoms or exam findings. - KETOROLAC 30 MG/ML (1 ML) INJECTION SOLUTION today in the office - start prednisone burst with taper - discussed other symptomatic treatments such as topical analgesics, ice and/or heat - recommend patient follow-up with PCP for further evaluation since symptoms have reoccurred. Prescription instructions reviewed with patient as applicable. Potential red flag symptoms discussed with the patient. Reviewed appropriate action plan to take if red flag symptoms occur. Patient agreeable to treatment plan. Dennise Woodall APRN.[facility] History of Present illness Narrative* Dennise Woodall APRN.JERRELL - 12/12/2022 1:05 PM EDT CC: Patient presents with: Pain: Right side under ribs, shoots around to middle of back. Twisting movement is very painful HPI Ryan Zhang is a 67 year old male who presents today for above. Patient developed right rib/side pain last month. Evaluated by his PCP and treated with prednisone and Flexeril. Symptoms completely resolved until yesterday. He states he was using a back sprayer a few days prior and wondering if he aggravated something. Pain is still on the right side but now radiating to his back on the right. Described as: aching Pain is aggravated by: twisting movements, lifting arms overhead, getting dressed Pain is alleviated by rest and Tylenol ES Denies fever, chills, cough, wheezing, SOB, inspiratory pain, chest pain, palpitations. REVIEW OF SYSTEMS See HPI PAST MEDICAL HISTORY Diagnosis Date History of kidney stones Hypertension PAST SURGICAL HISTORY Procedure Laterality Date PAST SURGICAL HISTORY OF RT KNEE - SCOPE REMOVAL GALLBLADDER ALLERGIES Clarithromycin, House Dust, and Pepto-Bismol [Bismuth Subsalicylate] MEDICATIONS allopurinol (ZYLOPRIM) 300 mg tablet Take 1 tablet by mouth once daily. lisinopril (ZESTRIL) 40 mg tablet Take 40 mg by mouth. meloxicam (MOBIC) 15 mg tablet Take by mouth. multivitamin tablet Take by mouth as directed. fluticasone (FLONASE) 50 mcg/actuation nasal spray cephALEXin (KEFLEX) 500 mg capsule (Patient not taking: Reported on 12/12/2022) quinapril (ACCUPRIL) 20 mg tablet (Patient not taking: Reported on 12/12/2022) FAMILY HISTORY Problem Relation Age of Onset Diabetes Mother Heart Mother Stroke Father Social History Tobacco Use Smoking status: Never Smokeless tobacco: Never Substance Use Topics Alcohol use: No Drug use: Never PHYSICAL EXAM BP 120/82 Pulse 73 Temp 36.9 C (98.5 F) Resp 18 Wt (!) 139.3 kg (307 lb) SpO2 98% BMI 41.64 kg/m General Appearance: well appearing, in no acute distress, alert Lungs: Lungs clear to auscultation. No wheezing, rhonchi, rales. Heart: RRR without murmur, gallop, or rubs. No ectopy Musculoskeletal: Right ribs- No tenderness with palpation, deformities, crepitus, skin discoloration. Pain is reproducible when he lifts his arms overhead and reaching back with this right arm. Back-no deformities or tenderness with palpation ASSESSMENT/PLAN: 1. Rib pain on right side - ICD9: 786.50, ICD10: R07.81 Suspect musculoskeletal cause. No alarm symptoms or exam findings. - KETOROLAC 30 MG/ML (1 ML) INJECTION SOLUTION today in the office - start prednisone burst with taper - discussed other symptomatic treatments such as topical analgesics, ice and/or heat - recommend patient follow-up with PCP for further evaluation since symptoms have reoccurred. Prescription instructions reviewed with patient as applicable. Potential red flag symptoms discussed with the patient. Reviewed appropriate action plan to take if red flag symptoms occur. Patient agreeable to treatment plan. Dennise Woodall APRN.CNP [facility] History of Present illness Narrative* Naomy Shaffer MD - 09/25/2022 1:00 PM EDT Subjective Patient ID: Ryan Zhang is a 67 y.o. male who presents for No chief complaint on file.. HPI >SDH pt What concern/ problem/pain/symptom brings you here today? how long has pt had sxs? describe symptoms- fever- nausea- vomiting- diarrhea- abdominal pain- blood in stool- recent travel? camping or hiking? does pt have well water? has pt taken antibiotics within past 2 weeks? how often do symptoms occur? if diarrhea - how many episodes per day- has pt tried anything for current symptoms, including medications (OTC or prescription) ? what makes symptoms worse? has pt been seen recently for this problem ( within past 2-3 weeks) ? if yes- where? by who? what treatment was provided? Review of Systems Objective There were no vitals taken for this visit. Physical Exam Pt is A and O x3, NAD, nontoxic, well-hydrated Head- normocephalic and atraumatic, EYES- conjunctiva- normal lids- normal EARS/NOSE- normal external exam CV- RRR without murmur PULM- CTA bilaterally, normal respiratory effort RESPIRATORY EFFORT- normal , no retractions or nasal flaring ABD- normoactive BS's , soft, no HSM, no CVAT, NT EXT- no edema,NT SKIN- no abnormal skin lesions noted NEURO- no focal deficits PSYCH- pleasant, normal judgement and insight The number and complexity of problems addressed is considered moderate. The amount and/or complexity of data reviewed and analyzed is considered moderate. The risk of complications and/or morbidity/mortality of patient is considered moderate. Overall, this patient encounter is considered a moderaterisk visit. What are antibiotics? Antibiotics are medicines that help people fight infections caused by bacteria. They work by killing bacteria that are in the body. These medicines come in many different forms, including pills, ointments, and liquids that are given by injection. Antibiotics can do a lot of good. For people with serious bacterial infections, antibiotics can save lives. But people use them far too often, even when they're not needed. This is causing a very serious problem called antibiotic resistance. Antibiotic resistance happens when bacteria that have been exposed to an antibiotic change so that the antibiotic can no longer kill them. In those bacteria,the antibiotic has no effect. Because of this problem, doctors are having a harder and harder time treating infections. Experts worry that there will soon be infections that don't respond to any antibiotics. When are antibiotics helpful? Antibiotics can help people fight off infections caused by bacteria. They do not work on infectionscaused by viruses. Some common bacterial infections that are treated with antibiotics include: Strep throat Pneumonia (an infection of the lungs) Bladder infections Infections you catch through sex, such as gonorrhea and chlamydia When are antibiotics NOT helpful? Antibiotics do not work on infections caused by viruses. Antibiotics are not helpful for the common cold, because the common cold is caused by a virus. Antibiotics are not helpful for the flu, because the flu is caused by a virus. (People with the flucan be treated with medicines called antiviral medicines, which are different from antibiotics.) Even though antibiotics don't work on infections caused by viruses, people sometimes believe that they do. That's because they took antibiotics for a viral infection before and then got better. The problem is that those people would have gotten better with or without an antibiotic. When they get better with the antibiotic, they think that's what cured them, when in reality the antibiotic had nothing to do with it. What's the harm in taking antibiotics even if they might not help? There are many reasons you should not take antibiotics unless you absolutely need them: Antibiotics cause side effects, such as nausea, vomiting, and diarrhea. They can even make it more likely that you will get a different kind of infection, such as yeast infection (if you are a woman). Allergies to antibiotics are common. You can develop an allergy to an antibiotic, even if you have not had a problem with it before. Some allergies are just unpleasant, causing rashes and itching. But some can be very serious and even life-threatening. It is better to avoid any risk of an allergy, if the antibiotic wouldn't help you anyway. Overuse of antibiotics leads to antibiotic resistance. Using antibiotics when they are not needed gives bacteria a chance to change, so that the antibiotics cannot hurt them later on. People who haveinfections caused by antibiotic- resistant bacteria often have to be treated in the hospital with many different antibiotics. People can even from these infections, because there is no antibiotic that will cure them. When should I take antibiotics? You should take antibiotics only when a doctor or nurse prescribes them to you. You should never take antibiotics prescribed to someone else, and you should not take antibiotics that were prescribed to you for a previous illness. When prescribing an antibiotic, doctors and nurses have to carefully pick the right antibiotic for a particular infection. Not all antibiotics work on all bacteria. If you do have an infection caused by a bacteria, your doctor or nurse might want to find out what that bacteria is, and which antibiotics can kill it. They do this by taking a culture of the bacteria and growing it in the lab. But it's not possible to do a culture on someone who has already started an antibiotic. So if you start an antibiotic without input from a doctor or nurse it will be impossible to know if you have taken the right one. What can I do to reduce antibiotic resistance? Here are some things that can help: Do not pressure your doctor or nurse for antibiotics when they do not think you need them. If you are prescribed antibiotics, finish all of the medicine and take it exactly as directed. Never skip doses or stop taking the medicine without talking to your doctor or nurse. Do not give antibiotics that were prescribed to you to anyone else. What if my doctor prescribes an antibiotic that did not work for me before? If an antibiotic did not work for you before, that does not mean it will never work for you. If youhave used an antibiotic before and it did not work, tell your doctor. But keep in mind that the infection you had before might not have been caused by the same bacteria that you have now. The best antibiotic is the right one for the bacteria causing the infection, not for the person with the infection. What if I am allergic to an antibiotic? If you had a bad reaction to an antibiotic, tell your doctor or nurse about it. But do not assume you are allergic unless your doctor or nurse tells you that you are. Many people who think they are allergic to an antibiotic are wrong. If you get nauseous after taking an antibiotic, that does not mean you are allergic to it. Nausea is a common side effect of many antibiotics. If you are a woman and you get a yeast infection after taking an antibiotic, that does not mean you are allergic to it. Yeast infections are a common side effect of antibiotics. Symptoms of antibiotic allergy can be mild and include a flat rash and itching. They can also be more serious and include: Hives - Hives are raised, red patches of skin that are usually very itchy (picture 1). Lip or tongue swelling Trouble swallowing or breathing Serious allergy symptoms can start right after you start taking an antibiotic if you are very sensitive. Less serious symptoms, on the other hand, often start a day or more later. Almost all antibiotics may cause possible side effects of allergic reaction, nausea, vomiting, diarrhea- most worrisome caused by C. diff, and secondary yeast infection. Assessment/Plan Start Ordered urine Increase fluids Call if no better or if symptoms worsen * Naomy Shaffer MD - 09/25/2022 1:00 PM EDT Subjective Patient ID: Ryan Zhang is a 67 y.o. male who presents for UTI (Possible UTI). HPI >SDH pt What concern/ problem/pain/symptom brings you here today? Feels like needs to urinate all the time, no burning states like a tingling and not complete, does state has a hot tub and trying to get chemicals in balance how long has pt had sxs? Since the weekend describe symptoms- Tingling, not complete when finished fever-no nausea-no vomiting-no diarrhea-no abdominal pain-no blood in stool-no recent travel?no camping or hiking?no does pt have well water?no has pt taken antibiotics within past 2 weeks? none how often do symptoms occur? if diarrhea - how many episodes per day- Almost constant has pt tried anything for current symptoms, including medications (OTC or prescription) ? none what makes symptoms worse? Not drinking enough water has pt been seen recently for this problem ( within past 2-3 weeks) ? no if yes- where? by who? what treatment was provided? Review of Systems Objective BP 117/69 (BP Location: Left arm, Patient Position: Sitting, BP Cuff Size: Adult) Pulse 65 Temp37.1 C (98.7 F) (Temporal) Wt 136 kg (299 lb 12.8 oz) SpO2 96% BMI 41.23 kg/m Physical Exam Pt is A and O x3, NAD, nontoxic, well-hydrated Head- normocephalic and atraumatic, EYES- conjunctiva- normal lids- normal EARS/NOSE- normal external exam CV- RRR without murmur PULM- CTA bilaterally, normal respiratory effort RESPIRATORY EFFORT- normal , no retractions or nasal flaring ABD- normoactive BS's , soft, no HSM, no CVAT, NT EXT- no edema,NT SKIN- no abnormal skin lesions noted NEURO- no focal deficits PSYCH- pleasant, normal judgement and insight The number and complexity of problems addressed is considered moderate. The amount and/or complexity of data reviewed and analyzed is considered moderate. The risk of complications and/or morbidity/mortality of patient is considered moderate. Overall, this patient encounter is considered a moderaterisk visit. What are antibiotics? Antibiotics are medicines that help people fight infections caused by bacteria. They work by killing bacteria that are in the body. These medicines come in many different forms, including pills, ointments, and liquids that are given by injection. Antibiotics can do a lot of good. For people with serious bacterial infections, antibiotics can save lives. But people use them far too often, even when they're not needed. This is causing a very serious problem called antibiotic resistance. Antibiotic resistance happens when bacteria that have been exposed to an antibiotic change so that the antibiotic can no longer kill them. In those bacteria,the antibiotic has no effect. Because of this problem, doctors are having a harder and harder time treating infections. Experts worry that there will soon be infections that don't respond to any antibiotics. When are antibiotics helpful? Antibiotics can help people fight off infections caused by bacteria. They do not work on infectionscaused by viruses. Some common bacterial infections that are treated with antibiotics include: Strep throat Pneumonia (an infection of the lungs) Bladder infections Infections you catch through sex, such as gonorrhea and chlamydia When are antibiotics NOT helpful? Antibiotics do not work on infections caused by viruses. Antibiotics are not helpful for the common cold, because the common cold is caused by a virus. Antibiotics are not helpful for the flu, because the flu is caused by a virus. (People with the flucan be treated with medicines called antiviral medicines, which are different from antibiotics.) Even though antibiotics don't work on infections caused by viruses, people sometimes believe that they do. That's because they took antibiotics for a viral infection before and then got better. The problem is that those people would have gotten better with or without an antibiotic. When they get better with the antibiotic, they think that's what cured them, when in reality the antibiotic had nothing to do with it. What's the harm in taking antibiotics even if they might not help? There are many reasons you should not take antibiotics unless you absolutely need them: Antibiotics cause side effects, such as nausea, vomiting, and diarrhea. They can even make it more likely that you will get a different kind of infection, such as yeast infection (if you are a woman). Allergies to antibiotics are common. You can develop an allergy to an antibiotic, even if you have not had a problem with it before. Some allergies are just unpleasant, causing rashes and itching. But some can be very serious and even life-threatening. It is better to avoid any risk of an allergy, if the antibiotic wouldn't help you anyway. Overuse of antibiotics leads to antibiotic resistance. Using antibiotics when they are not needed gives bacteria a chance to change, so that the antibiotics cannot hurt them later on. People who haveinfections caused by antibiotic- resistant bacteria often have to be treated in the hospital with many different antibiotics. People can even from these infections, because there is no antibiotic that will cure them. When should I take antibiotics? You should take antibiotics only when a doctor or nurse prescribes them to you. You should never take antibiotics prescribed to someone else, and you should not take antibiotics that were prescribed to you for a previous illness. When prescribing an antibiotic, doctors and nurses have to carefully pick the right antibiotic for a particular infection. Not all antibiotics work on all bacteria. If you do have an infection caused by a bacteria, your doctor or nurse might want to find out what that bacteria is, and which antibiotics can kill it. They do this by taking a culture of the bacteria and growing it in the lab. But it's not possible to do a culture on someone who has already started an antibiotic. So if you start an antibiotic without input from a doctor or nurse it will be impossible to know if you have taken the right one. What can I do to reduce antibiotic resistance? Here are some things that can help: Do not pressure your doctor or nurse for antibiotics when they do not think you need them. If you are prescribed antibiotics, finish all of the medicine and take it exactly as directed. Never skip doses or stop taking the medicine without talking to your doctor or nurse. Do not give antibiotics that were prescribed to you to anyone else. What if my doctor prescribes an antibiotic that did not work for me before? If an antibiotic did not work for you before, that does not mean it will never work for you. If youhave used an antibiotic before and it did not work, tell your doctor. But keep in mind that the infection you had before might not have been caused by the same bacteria that you have now. The best antibiotic is the right one for the bacteria causing the infection, not for the person with the infection. What if I am allergic to an antibiotic? If you had a bad reaction to an antibiotic, tell your doctor or nurse about it. But do not assume you are allergic unless your doctor or nurse tells you that you are. Many people who think they are allergic to an antibiotic are wrong. If you get nauseous after taking an antibiotic, that does not mean you are allergic to it. Nausea is a common side effect of many antibiotics. If you are a woman and you get a yeast infection after taking an antibiotic, that does not mean you are allergic to it. Yeast infections are a common side effect of antibiotics. Symptoms of antibiotic allergy can be mild and include a flat rash and itching. They can also be more serious and include: Hives - Hives are raised, red patches of skin that are usually very itchy (picture 1). Lip or tongue swelling Trouble swallowing or breathing Serious allergy symptoms can start right after you start taking an antibiotic if you are very sensitive. Less serious symptoms, on the other hand, often start a day or more later. Almost all antibiotics may cause possible side effects of allergic reaction, nausea, vomiting, diarrhea- most worrisome caused by C. diff, and secondary yeast infection. Assessment/Plan Start macrobid Ordered urine Increase fluids Call if no better or if symptoms worsen- if fever, abdominal pain, vomiting, blood in urine, if worsens go to ED documented in this [facility] Work Phone: [phone]) 514-936912-21-2021 History of Present illness Narrative* Patient answered all questions prior to immunization * 1: Have you ever had Gu[place] syndrome? (a viral illness resulting in neurological symptoms, including paralysis) (Yes/No): no * 2: Have you received a MMR, chickenpox (varicella), or any other live vaccines in the past 4 weeks?(Yes/No): no * 3. Have you ever had an anaphylactic reaction to prior flu vaccines? (Yes/No): no * Patient was provided a copy of the current Influenza Vaccine Information Sheet * Patient c/o right shoulder pain and reduced ROM. * He c/o chronic left knee pain. * Patient reports a skin lesion to his back that has been draining. * Patient has HTN and is maintained on quinapril for management. He denies any adverse side effects. * He continues to utilize allopurinol for gout prevention. * Patient denies any chest pain, pressure, or tightness with exertion. * Patient continues to utilize his CPAP machine nightly. * Patient has not received the COVID-19 vaccination. [facility] Work Phone: [phone] 170-858012-07-2021 History of Present illness Narrative* Patient answered all questions prior to immunization * 1: Have you ever had Guillain[place] syndrome? (a viral illness resulting in neurological symptoms, including paralysis) (Yes/No): no * 2: Have you received a MMR, chickenpox (varicella), or any other live vaccines in the past 4 weeks?(Yes/No): no * 3. Have you ever had an anaphylactic reaction to prior flu vaccines? (Yes/No): no * Patient was provided a copy of the current Influenza Vaccine Information Sheet * Patient c/o right shoulder pain and reduced ROM. * He c/o chronic left knee pain. * Patient reports a skin lesion to his back that has been draining. * Patient has HTN and is maintained on quinapril for management. He denies any adverse side effects. * He continues to utilize allopurinol for gout prevention. * Patient denies any chest pain, pressure, or tightness with exertion. * Patient continues to utilize his CPAP machine nightly. * Patient has not received the COVID-19 vaccination. [facility] Work Phone: [phone] 671-791512-16-2016 History of Past illness Narrative* Problem Noted Date Resolved Date Nuclear cataract 06/26/2016 03/19/2020 documented as of this encounter (statuses as of 04/12/2022) [facility]12-16-[facility] History of Past illness Narrative* Problem Noted Date Resolved Date Nuclear cataract 06/26/2016 03/19/2020 documented as of this encounter (statuses as of 12/12/2022) [facility] Rich Macias [facility] Note Date/Time December 21, 2024 10:0 9am [facility] Medical Records Department [address] [place] [address] Anesthesia Postop Eval I 12/21/24 1008 MR#: [id number] Acct: [id number] Name: RYAN ZHANG Rep #:[id number] : 1955 69 From: Rich Macias PCP: Dr. Marcel Driscoll MD Status:REG SD Y Race: C Location[facility]-11 Anesthesia: Postop Eval I Current Vital Signs Temperature: 97.5 F Pulse Rate: 67 Blood Pressure: 89/56 Respiratory Rate: 16 Pulse Ox: 95 Oxygen Delivery Method: Room Air Assessment Airway patent: Yes Spontaneous unlabored respirations: Yes Mental status: Awake and Calm nausea: No Vomiting: No Anesthesia Complication: No Fluid Hydration Crystalloid volume administer (ml): 600 Total IV fluid infused: 600 Progress Note Anesthesia document: Postop Eval 1 completed: Yes 12/21/24 1009 <Electronically signed by Rich Macias > Date _ Rich Haynesignpaige Signature: Date CC: ~ Signed [facility] Work Phone: Consult note Author Lui Gill [facility] Note Date/Time March 01, 2025 10 :07am [facility] [place] Medical Records Department [address] [place] [address] Pre-Anesthesia Evaluation 03/01/25 1007 MR#: [id number] Acct: [id number] Name: RYAN ZHANG Rep #:[id number] : 1955 70 From: Lui Gill MD PCP: Dr. Marcel Driscoll MD Status:REG SDC Y Race: C Location: [place] [address] ASA Classification* ASA Classification ASA Classification: 3 Assessment & Plan Anesthesia* Anesthesia Assessment Anesthesia Assessment: Discussed sedation and/or anesthesia options, risks, benefits, and alternatives with patient/parents/legal guardian/POA. Questions invited. The patient/parents/legal guardian/POA seems to understand and agrees to proceedwith anesthesia plan. Reviewed the physical assessment, medical history, allergy history and patient home medications list prior to surgery/procedure/anesthetic and documented any changes. Performed airway and anesthesia risk assessments. Anesthesia Type Anesthesia Type: MAC History Source History Obtained from:: Patient and Chart Anesthesia Focused Assessment* Temperature: 97.8 F Pulse Rate: 65 Blood Pressure: 115/80 Respiratory Rate: 17 Pulse Ox: 99 Oxygen Delivery Method: Room Air Airway Assessment Mouth opens: 2 cm Mallampati Score: III Teeth Condition: Intact Neck Range of motion (ROM): Full ROM Labs Anesthesia Preop lab: CBC WBC 4.4 K/mm3 (4.4-11.0) 08/14/24 08:19 08/14/24 RBC 4.87 M/mm3 (4.6-6.2) 08/14/24 08:08/14/24 Hgb 15.8 g/dL (13.0-16.5) 08/14/24 08:19 08/14/24 Hct 47.5 % (40-54) 08/14/24 08:19 08/14/24 Plt Count 185 K/mm3 (150-450) 08/14/24 08:19 08/14/24 CHEMISTRY Potassium 4.1 mmol/L (3.5-5.1) 08/14/24 08:19 08/14/24 Sodium 142 mmol/L (136-145) 08/14/24 08:19 08/14/24 BUN 17 mg/dL (7-18) 08/14/24 08:19 08/14/24 Creatinine 0.88 mg/dL (0.70-1.30) 08/14/24 08:19 08/14/24 Glucose 93 mg/dL (74-106) 08/14/24 08:19 08/14/24 COAG Pre-Assessment Diagnosis/Proposed Procedure Planned Operative Procedure(s): EGD Anesthesia History 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 When Was Last Pacemaker Check QUESTION #4 FULL TEXT: You/Your Family Experience fever (hyperthermia) with Anesthesia Last Oral Intake Last Oral intake: Last Oral Intake NPO since 00:00 03/01/25 09:54 Meds taken in AM with sips of No 03/01/25 09:54 water? Meds patient instructed to take am of surgery PONV PONV - census clerk: PONV - census clerk Female No 02/27/25 15:25 HX of Motion Sickness Yes 02/27/25 15:25 HX of N/V After Surgery No 02/27/25 15:25 Non-Smoker Yes 02/27/25 15:25 Duration of Surgery greater No 02/27/25 15:25 than 60 minutes Number of Risk Factors 2 02/27/25 15:25 PONV Score Moderate Risk 02/27/25 15:25 Height & Weight Height & Weight: Anesthesia: Height & Weight Height 5 ft 11 in 03/01/25 09:54 Weight: 138 kg 03/01/25 09:54 Body Mass Index (BMI) 42.4 03/01/25 09:54 Respiratory Assessment Respiratory Assessment - census clerk: Respiratory Tract Infection Hx - census clerk Hx Respiratory Tract Infection No 02/27/25 15:25 STOP Sleep Apnea STOP Sleep Apnea - census clerk: STOP Sleep Apnea - census clerk Hx Hypertension Yes: CONTROLLED WITH MED 02/27/25 15:25 Hx Sleep Apnea Yes 02/27/25 15:25 CPAP No 02/27/25 15:25 BIPAP Yes 02/27/25 15:25 Do you snore loudly (louder than talking or can be heard Do you often feel tired/ fatigued/ sleepy during daytime? Has anyone observed you stop breathing during sleep? STOP Results Positive 02/27/25 15:25 QUESTION #5 FULL TEXT : Do you snore loudly (louder than talking or can be heard through closed doors)? 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 Specify any problems Hx of Preganancy in last 3 N/A 02/27/25 15:25 Months Nurse Filling Out Transfusion MGRIFFITH 02/27/25 15:25 & Questions: Date: 02/27/25 02/27/25 15:25 Time: 15:27 02/27/25 15:25 Patient unable to answer at this time (ie. confused, unrespo /Reproduction History /Reproductive History - census clerk: /Reproductive Hx- census clerk Hx Now Gestational Age (in weeks): EDC: Hx Hx Para Hx Section SAB No 02/27/25 15:25 Active Medications Active Medications: Current Medications Generic Name Dose Route Start Last Admin Trade Name Freq PRN Reason Stop Dose Admin Lactated Ringer's 1,000 mls @ 15 mls/hr 03/01/25 09:45 03/01/25 09:58 IV 15 mls/hr .Q48H CARLOS Administration PFSH Medical History (Updated 02/27/25 @ 15:32 by Quyen Montanez) Loss of hearing DDD (degenerative disc disease), lumbar DDD (degenerative disc disease), cervical Gastric reflux BiPAP (biphasic positive airway pressure) dependence Non-smoker History of pain when walking History of edema History of stress test Hypertension Arthritis Gout Home Medications ?Medication ?Instructions ?Recorded ?Last Taken ?Type cholecalciferol (vitamin D3) 50 50 mcg PO DAILY 02/28/25 History mcg (2,000 unit) capsule coenzyme Q10 75 mg capsule (Ultra 75 mg PO DAILY 12/2402/28/25 History CoQ10) multivitamin 1 tab PO DAILY 12/24/2202/10 History fexofenadine 180 mg tablet 180 mg PO DAILY PRN ALLERGI ES 02/24/24 02/28/25 History (Suzanne Allergy) fluticasone propionate 50 1 spray intranasal BID PRN a llergy 06/19/24 02/28/25 Rx mcg/actuation nasal symptoms #32 grams spray,suspension (Allergy Relief (fluticasone)) allopurinol 300 mg tablet 300 mg PO DAILY #90 tabs 02/28/25 Rx lisinopril 20 mg tablet 20 mg PO DAILY #90 tabs 11/0902/28/25 Rx xjllr-p-schloqqwydwdj 450 unit 900 unit PO DAILY PRN i ndigestion 12/19/24 02/28/25 History disintegrating tablet (Beano) glucosamine sulf dipot 1 cap PO BID 12/19/24 History chlr,msm,chond 550 mg-C 30 mg-jeremias 1 mg capsule (Glucosamine Chondroitin) simethicone 250 mg capsule (Gas-X) 250 mg PO QHS PRN a bdominal 12/19/24 02/28/25 History distention pantoprazole 40 mg tablet,delayed 40 mg PO BID #90 tab s 01/03/25 02/28/25 Rx release Allergy/AdvReac Type Severity Reaction Status Date / Time bismuth subsalicylate (From AdvReac Itching Verified 03/01/25 09:53 Pepto-Bismol) clarithromycin AdvReac Itching Verified 03/01/25 09:53 Family History Brother Alcohol abuse Father Arthritis CVA (cerebral vascular accident) Mother Arthritis Diabetes Myocardial infarction Other Heart disease Hypertension Surgical History (Updated 02/27/25 @ 15:25 by Quyen Montanez) History of esophagogastroduodenoscopy (EGD) Hx of lithotripsy Hx of colonoscopy History of surgical procedure H/O cystoscopy S/P arthroscopic surgery of right knee History of cholecystectomy H/O vasectomy Social History household members: spouse current occupational status: retired 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 03/01/25 1007 <Electronically signed by Lui Zuniga> Date _ Lui Sanders Signature: Date CC: ~ Signed [facility] Work Phone: Consult note Author Joe Weston [facility] Note Date/Time March 01, 2025 11 :04am [facility] [place] Medical Records Department [address] [place] [address] Anesthesia Postop Eval I 03/01/25 1103 MR#: [id number] Acct: [id number] Name: RYAN ZHANG Rep #:[id number] : 1955 70 From: Joe LAWS PCP: Dr. Marcel Driscoll MD Status:REG SDC Y Race: C Location: [place] [address] Anesthesia: Postop Eval I Current Vital Signs Temperature: 97 F Pulse Rate: 75 Blood Pressure: 141/64 Respiratory Rate: 14 Pulse Ox: 98 Oxygen Delivery Method: Room Air Assessment Airway patent: Yes Spontaneous unlabored respirations: Yes Mental status: Awake and Calm nausea: No Vomiting: No Anesthesia Complication: No Fluid Hydration Crystalloid volume administer (ml): 600 Total IV fluid infused: 600 Progress Note Anesthesia document: Postop Eval 1 completed: Yes 03/01/25 1104 <Electronically signed by Joe Weston CRNA> Date _ Joe Weston CRNA Cosigner Signature: Date CC: ~ Signed [facility] Work Phone: Consult note Author Joe [facility] Note Date/Time March 01, 2025 11 :09am [facility] Medical Records Department [address] [place] [address] Anesthesia Postop Eval II 03/01/25 1109 MR#: [id number] Acct: [id number] Name: RYAN ZHANG Rep #:[id number] : 1955 70 From: Joe LAWS PCP: Dr. Marcel Driscoll MD Status:REG SDC Y Race: C Location: [place] [address] Anesthesia Postop Eval I Sum Postop Eval Completion status Anesthesia document: Postop Eval 1 completed: Yes Anesthesia Postop Eval I Summary Anesthesia Postop Eval I Summary: Anesthesia Postop Eval I: Assessment Summary Airway patent Yes 03/01/25 11:04 SHIPPING TECHNICIANISABELLA Spontaneous unlabored Yes 03/01/25 11:04 SHIPPING TECHNICIANISABELLA respirations Mental status Awake,Calm 03/01/25 11:04 REYMUNDO nausea No 03/01/25 11:04 SHIPPING TECHNICIAN.RHONDA Vomiting No 03/01/25 11:04 REYMUNDO Anesthesia Postop Eval I: Fluid Summary Crystalloid volume administer 600 03/01/25 11:04 REYMUNDO (ml) Colloids volume administered ( ml) Blood Product volume administered (ml) Total IV fluid infused 600 03/01/25 11:04 REYMUNDO Anesthesia Postop Eval I: Summary Notes Anesthesia Complication No 03/01/25 11:04 REYMUNDO Anesthesia Complication Comment: Post-operative progress note Anesthesia: Postop Eval II Evaluation Mental status: Awake and Calm Pain Level: 0 nausea: No Vomiting: No Complications Anesthesia Complication: No 03/01/25 1109 <Electronically signed by Joe Weston CRNA> Date _ Joe Weston CRNA Cosigner Signature: Date CC: ~ Signed [facility] Work Phone: Evaluation noteNo assessment information available [facility] Work Phone: Evaluation note* Diagnosis Rib pain on right side- Primary Chest pain, unspecified [facility] Diagnosis ERRONEOUS ENCOUNTER--DISREGARD documented in this encounter [facility] Work Phone: Evaluation note* Diagnosis Onset Date Resolution Status Essential hypertension acute Gout acute Obstructive sleep apnea acut e Chronic allergic rhinitis ch ronic Chronic pain of both knees n oneactive Balance problem noneactive Flat foot noneactive Fall noneactive [facility] Work Phone: Evaluation note* Diagnosis Dysuria- Primary Urinary frequency Need for shingles vaccine Need for prophylactic vaccination and inoculation against varicella Need for vaccination for pneumococcus documented in this encounter [facility] Work Phone: History and physical note Author Chris Rm [facility] Note Date/Time December 21, 2024 9:21 am [facility] Medical Records Department [address] [place] [address] History & Physical Exam 12/21/24918 MR#: [id number] Acct: [id number] Name: RYAN ZHANG Rep #:[id number] : 1955 69 From: Chris Rm DO PCP: Dr. Marcel Driscoll MD Status:[facility] Location: [place] [address] HPI - General General Date of Admission: 12/21/24 Date of Service: 12/21/24 Chief Complaint: GERD and Screening colonoscopy HPI Narrative BGI established Aug 2024 with abd bloating and eructation x 3 months. Started onPPI and Carafate prescribed from PCP. Last colonoscopy 4 years ago with PMHx of polyps. Pt does feel constipation with small bowel movements. CT abd/pelvis; Fatty infiltration of the liver. Status post cholecystectomy. Bilateral renal cysts. Bilateral intrarenal calculi. 1.4 cm calculus in the left renal pelvis at the ureteropelvic junction causing mild degree of left hydronephrosis. OV 5.14.25 Pt continues to have epigastric pain, bloating and gas. It is worse when he lays down. taking Beano and Gas-x multiple times per day. He had to rescheduled his scopes due to a family emergency. [facility] Medical History (Updated 12/21/24 @ 09:[address] Chris Rm DO) Loss of hearing DDD (degenerative disc disease), lumbar DDD (degenerative disc disease), cervical Gastric reflux BiPAP (biphasic positive airway pressure) dependence Non-smoker History of pain when walking History of edema History of stress test Hypertension Arthritis Gout Home Medications ?Medication ?Instructions ?Recorded ?Last Taken ?Type cholecalciferol (vitamin D3) 50 50 mcg PO DAILY Unknown History mcg (2,000 unit) capsule coenzyme Q10 75 mg capsule (Ultra 75 mg PO DAILY 12/24 Unknown History CoQ10) multivitamin 1 tab PO DAILY 12/24/22 Unkn own History fexofenadine 180 mg tablet 180 mg PO DAILY PRN ALERGIE S 02/24/24 Unknown History (Suzanne Allergy) fluticasone propionate 50 1 spray intranasal BID PRN a llergy 06/19/24 Unknown Rx mcg/actuation nasal symptoms #32 grams spray,suspension (Allergy Relief (fluticasone)) allopurinol 300 mg tablet 300 mg PO DAILY #90 tabs Unknown Rx lisinopril 20 mg tablet 20 mg PO DAILY #90 tabs 11/09 11/03 Unknown Rx pantoprazole 40 mg tablet,delayed 40 mg PO QDAY #30 ta bs 11/22/24 Unknown Rx release aacqs-l-psqasblggpmgk 450 unit 900 unit PO DAILY PRN i ndigestion 12/19/24 Unknown History disintegrating tablet (Beano) glucosamine sulf dipot 1 cap PO BID 12/19/24 Unknow n History chlr,msm,chond 550 mg-C 30 mg-jeremias 1 mg capsule (Glucosamine Chondroitin) simethicone 250 mg capsule (Gas-X) 250 mg PO QHS PRN a bdominal 12/19/24 Unknown History distention Allergy/AdvReac Type Severity Reaction Status Date / Time bismuth subsalicylate (From AdvReac Itching Verified 12/21/24 08:16 Pepto-Bismol) clarithromycin AdvReac Itching Verified 12/21/24 08:16 Family History Brother Alcohol abuse Father Arthritis CVA (cerebral vascular accident) Mother Arthritis Diabetes Myocardial infarction Other Heart disease Hypertension Surgical History Hx of lithotripsy Hx of colonoscopy History of surgical procedure H/O cystoscopy S/P arthroscopic surgery of right knee History of cholecystectomy H/O vasectomy Social History household members: spouse current occupational status: retired 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 Smoking Status: Never smoker Electronic Cigarette Use: not used alcohol intake: former details: quit substance use type: does not use do you feel safe at home: Yes ROS Constitutional Constitutional: Denies fatigue, fever(s), poor appetite, weight gain or weight loss Gastrointestinal Gastrointestinal: Denies belching, bloating, change in bowel habits, change in stool character, chewing difficulty, coffee ground emesis, constipation, cramping, diarrhea, dyspepsia, dysphagia, early satiety, excessive flatus, fecalincontinence, heartburn, hematemesis, hematochezia, hemorrhoids, loose stools, melena, nausea, odynophagia, rectal bleeding, tenesmus, vomiting or weight changes Vital Signs Vital Signs Vital Signs: 12/21/24 08:27 12/21/24 08:27 Temperature 98.3 F Temperature Source Temporal Pulse Rate 72 Respiratory Rate 16 Respiratory Pattern Normal Blood Pressure 123/95 H Blood Pressure Mean 104 Blood Pressure Source Monitor Blood Pressure Position Sitting Blood Pressure Location Left Arm Pulse Ox 97 Oxygen Delivery Method Room Air Weight Weight: 286 lb 13.142 oz Body Mass Index (BMI) 39.9 Physical Exam Const alert, oriented x3, no apparent distress and healthy appearing General Appearance: cooperative GI normal to inspection, nondistended, normoactive bowel sounds, soft to palpation,non-tender and non-distended Percussion: normal to percussion Rectal Exam: deferred Assessment & Plan Assessment/Plan (1) Abdominal bloating: (2) Encounter for screening for malignant neoplasm of colon: (3) Gastric reflux: PLAN: Assessment and Plan Assessment and Plan (1) Abdominal bloating: Status: Acute Plan: This is a 69 yo male pt here today for follow up regarding abdominal pain and bloating. PCP ordered a CT regarding this which was normal. He was originally scheduled for his EGD and colonoscopy in October 2024 however he had to rescheduled due to a family emergency. He is now scheduled for December. He continues to have issues and I recommended starting a daily PPI until we are able to get the scope. I have sent in Pantoprazole 40 mg daily. He may continuesGas-x and Beano as needed. -EGD and colonoscopy -Start Pantoprazole 40 mg daily -f/u after procedures Medications: New pantoprazole 40 mg PO QDAY 30 tabs 2RF 12/21/24 0921 <Electronically signed by Chris Rm DO> Cosigner Signature (if applicable): CC: Dr. Marcel Driscoll MD; Chris Rm, ~ Signed [facility] Work Phone: History and physical note Author Chris Rm [facility] Note Date/Time March 01, 2025 10 :24am [facility] Medical Records Department [address] [place] [address] History & Physical Exam 03/01/25 1022 MR#: [id number] Acct: [id number] Name: RYAN ZHANG Rep #:[id number] : 1955 70 From: Chris Rm DO PCP: Dr. Marcel Driscoll MD Status:[facility] Location: [place] [id number] HPI - General General Date of Admission: 03/01/25 Date of Service: 03/01/25 Chief Complaint: Duodenal mass HPI Narrative RYAN ZHANG, is a 70 M who presents for a repeat. 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 He comes back in for removal of the duodenal mass. [facility] Medical History Loss of hearing DDD (degenerative disc disease), lumbar DDD (degenerative disc disease), cervical Gastric reflux BiPAP (biphasic positive airway pressure) dependence Non-smoker History of pain when walking History of edema History of stress test Hypertension Arthritis Gout Home Medications ?Medication ?Instructions ?Recorded ?Last Taken ?Type cholecalciferol (vitamin D3) 50 50 mcg PO DAILY 02/28/25 History mcg (2,000 unit) capsule coenzyme Q10 75 mg capsule (Ultra 75 mg PO DAILY 12/2402/28/25 History CoQ10) multivitamin 1 tab PO DAILY 12/24/22 08/ 0 History fexofenadine 180 mg tablet 180 mg PO DAILY PRN ALLERGI ES 02/24/24 02/28/25 History (Suzanne Allergy) fluticasone propionate 50 1 spray intranasal BID PRN a llergy 06/19/24 02/28/25 Rx mcg/actuation nasal symptoms #32 grams spray,suspension (Allergy Relief (fluticasone)) allopurinol 300 mg tablet 300 mg PO DAILY #90 tabs 02/28/25 Rx lisinopril 20 mg tablet 20 mg PO DAILY #90 tabs 11/0902/28/25 Rx hbzye-b-vwssaknvddygt 450 unit 900 unit PO DAILY PRN i ndigestion 12/19/24 02/28/25 History disintegrating tablet (Beano) glucosamine sulf dipot 1 cap PO BID 12/19/24 History chlr,msm,chond 550 mg-C 30 mg-jeremias 1 mg capsule (Glucosamine Chondroitin) simethicone 250 mg capsule (Gas-X) 250 mg PO QHS PRN a bdominal 12/19/24 02/28/25 History distention pantoprazole 40 mg tablet,delayed 40 mg PO BID #90 tab s 01/03/25 02/28/25 Rx release Allergy/AdvReac Type Severity Reaction Status Date / Time bismuth subsalicylate (From AdvReac Itching Verified 03/01/25 09:53 Pepto-Bismol) clarithromycin AdvReac Itching Verified 03/01/25 09:53 Family History Brother Alcohol abuse Father Arthritis CVA (cerebral vascular accident) Mother Arthritis Diabetes Myocardial infarction Other Heart disease Hypertension Surgical History History of esophagogastroduodenoscopy (EGD) Hx of lithotripsy Hx of colonoscopy History of surgical procedure H/O cystoscopy S/P arthroscopic surgery of right knee History of cholecystectomy H/O vasectomy Social History household members: spouse current occupational status: retired 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 Smoking Status: Never smoker Electronic Cigarette Use: not used alcohol intake: former details: quit substance use type: does not use do you feel safe at home: Yes ROS Constitutional Constitutional: Denies fatigue, fever(s), poor appetite, weight gain or weight loss Gastrointestinal Gastrointestinal: Denies belching, bloating, change in bowel habits, change in stool character, chewing difficulty, coffee ground emesis, constipation, cramping, diarrhea, dyspepsia, dysphagia, early satiety, excessive flatus, fecalincontinence, heartburn, hematemesis, hematochezia, hemorrhoids, loose stools, melena, nausea, odynophagia, rectal bleeding, tenesmus, vomiting or weight changes Vital Signs Vital Signs Vital Signs: 03/01/25 09:54 03/01/25 09:54 03/01/25 10:07 Temperature 97.8 F 97.8 F Temperature Source Temporal Pulse Rate 65 65 Respiratory Rate 17 17 Respiratory Pattern Normal Blood Pressure 115/80 115/80 Blood Pressure Mean 91 Blood Pressure Source Monitor Blood Pressure Position Semi-Fowlers Blood Pressure Location Left Arm Pulse Ox 99 99 Oxygen Delivery Method Room Air Room Air Weight Weight: 304 lb 3.806 oz Body Mass Index (BMI) 42.4 Physical Exam Const alert, oriented x3, no apparent distress and healthy appearing General Appearance: cooperative GI normal to inspection, nondistended, normoactive bowel sounds, soft to palpation,non-tender and non-distended Percussion: normal to percussion Rectal Exam: deferred Assessment & Plan Assessment/Plan (1) Abdominal bloating: (2) Duodenal mass: PLAN: He was explained alternatives, risk and benefits include not withstanding bleeding, infection, sepsis, perforation, need for emergent urgent . He will have an ASA of 3. 03/01/25 1024 <Electronically signed by Chris Rm DO> Cosigner Signature (if applicable): CC: Dr. Marcel Driscoll MD; Chris Rm DO~ Signed [facility] Work Phone: History of Present illness Narrative* The patient is being seen for the initial annual wellness visit. * Past Medical, Surgical and Family History: reviewed and updated in chart. * Medications and Supplements: Medications and supplements, including calcium and vitamins reviewed and updated in chart. * No, the patient is not using opioids. * Patient Self Assessment of Health Status: fair. * Tobacco use: Non-User * Alcohol use: Non-User * Illicit drug use: Non-User * Current diet: Heart Healthy Diet, does consume adequate fluids and does not consume caffeine. * Exercise Frequency: infrequently. * Depression/Suicide Screening: . * During the past 2 weeks, the patient has not felt down, depressed or hopeless. * During the past 2 weeks, the patient has not felt little interest or pleasure in doing things. * Hearing Impairment: none. * Bathing: performs independently. * Dressing: performs independently. * Walking: performs independently. * Managing Finances: performs independently. * Shopping: performs independently. * Managing Medications: performs independently. * Housework / Basic Home Maintenance: performs independently. * Falls Risk Screening:. RYAN has fallen in the last 6 months. His fall did not result in injury. * Home safety risk factors: none. * Patient c/o bilateral hearing loss. * Pt c/o trigger finger of middle finger on left hand. * His allergies have been well-controlled with fluticasone. * Patient has HTN and is maintained on quinapril for management. He denies any adverse side effects. * He has continued on allopurinol for management of his gout along with meloxicam for the pain. * He denies any gout flare ups since last appt. * Patient denies any chest pain, pressure, or tightness with exertion. [facility] Work Phone: History of Present illness Narrative* The patient is being seen for the initial annual wellness visit. * Past Medical, Surgical and Family History: reviewed and updated in chart. * Medications and Supplements: Medications and supplements, including calcium and vitamins reviewed and updated in chart. * No, the patient is not using opioids. * Patient Self Assessment of Health Status: fair. * Tobacco use: Non-User * Alcohol use: Non-User * Illicit drug use: Non-User * Current diet: Heart Healthy Diet, does consume adequate fluids and does not consume caffeine. * Exercise Frequency: infrequently. * Depression/Suicide Screening: . * During the past 2 weeks, the patient has not felt down, depressed or hopeless. * During the past 2 weeks, the patient has not felt little interest or pleasure in doing things. * Hearing Impairment: none. * Bathing: performs independently. * Dressing: performs independently. * Walking: performs independently. * Managing Finances: performs independently. * Shopping: performs independently. * Managing Medications: performs independently. * Housework / Basic Home Maintenance: performs independently. * Falls Risk Screening:. RYAN has fallen in the last 6 months. His fall did not result in injury. * Home safety risk factors: none. * Patient c/o bilateral hearing loss. * Pt c/o trigger finger of middle finger on left hand. * His allergies have been well-controlled with fluticasone. * Patient has HTN and is maintained on quinapril for management. He denies any adverse side effects. * He has continued on allopurinol for management of his gout along with meloxicam for the pain. * He denies any gout flare ups since last appt. * Patient denies any chest pain, pressure, or tightness with exertion. [facility] Work Phone: History of Present illness Narrative* The patient is being seen for the subsequent annual wellness visit. * Past Medical, Surgical and Family History: reviewed and updated in chart. * Medications and Supplements: Review of all medications by a prescribing practitioner or clinical pharmacist (such as prescriptions, OTCs, herbal therapies and supplements) documented in the medical record. * No, the patient is not using opioids. * Patient Self Assessment of Health Status: good. * Tobacco use: Non-User * Alcohol use: Non-User * Illicit drug use: Non-User * Current diet: Heart Healthy Diet, does consume adequate fluids and does not consume caffeine. * Exercise Frequency: infrequently. * Depression/Suicide Screening: . * During the past 2 weeks, the patient has not felt down, depressed or hopeless. * During the past 2 weeks, the patient has not felt little interest or pleasure in doing things. * Hearing Impairment: Patient has significant hearing impairment, bilaterally. * Bathing: performs independently. * Dressing: performs independently. * Walking: performs independently. * Managing Finances: performs independently. * Shopping: performs independently. * Managing Medications: performs independently. * Housework / Basic Home Maintenance: performs independently. * Falls Risk Screening:. RYAN has fallen in the last 6 months. His fall did not result in injury. * Home safety risk factors: no grab bars in the bathroom. * Advance directives:. Advanced Care Planning discussed and documented advance care plan or surrogatedecision maker documented in the medical record. Patient has living will. Patient has healthcare POA. * Patient is a 67-year-old male, here for a Medicare Wellness. * Patient reports left knee pain after a fall several months ago. * Patient also notes intermittent leg cramps. * Patient notes intermittent fatigue but notes that he has been busy with home renovations. * Reviewed and discussed medication list. Patient denies any medication side-effects. * Patient denies chest pain, chest tightness, or chest pressure. * Patient is being monitored by Optometry for cataracts. * Patient continues to have hearing loss. * Patient denies getting up more than once at night to urinate. * Patient denies acid reflux. * Patient is a nonsmoker. * Patient denies any new allergies. * Patient notes that he uses a CPAP at night. * Discussed and reviewed current recommendations on Prevnar 20 and Shingles vaccinations. All questions were answered. [facility] Work Phone: History of Present illness Narrative* Patient denies chest pain, pressure, and tightness upon exertion. * Patient reports compliance with medication and denies side effects. He reports benefits. * He denies recent gout flare ups. Patient is compliant with CPAP use. Patient states he will obtain the shingles vaccine at his pharmacy. * Patient denies acid indigestion. He reports normal bowel movements and urination. * Patient complains of right leg weakness and foot drop of his heel while walking, causing difficultywith ambulation. He is interested in physical therapy. [facility] Work Phone: History of Present illness Narrative* Patient denies chest pain, pressure, and tightness upon exertion. * Patient reports compliance with medication and denies side effects. He reports benefits. * He denies recent gout flare ups. Patient is compliant with CPAP use. Patient states he will obtain the shingles vaccine at his pharmacy. * Patient denies acid indigestion. He reports normal bowel movements and urination. * Patient complains of right leg weakness and foot drop of his heel while walking, causing difficultywith ambulation. He is interested in physical therapy. [facility] Work Phone: History of Present illness Narrative* Patient denies chest pain, pressure, and tightness upon exertion. * Patient reports compliance with medication and denies side effects. He reports benefits. * He denies recent gout flare ups. Patient is compliant with CPAP use. Patient states he will obtain the shingles vaccine at his pharmacy. * Patient denies acid indigestion. He reports normal bowel movements and urination. * Patient complains of right leg weakness and foot drop of his heel while walking, causing difficultywith ambulation. He is interested in physical therapy. [facility] Work Phone: Progress note Author Marcel Driscoll [facility] Note Date/Time May 01, 2025 1 1:22am [facility] [address] [place] [address] [place] [address] OFFICE VISIT Date of Service: 05/01/25 MR#: [id number] Acct: [id number] Name: RYAN ZHANG Rep #: [id number] : 1955 Provider: Dr. Lara Driscoll MD Age/Sex: 70/M Location: [facility] [place] Status: Signed Intake Vital Signs 03/01/25 09:54 05/01/25 09:43 Height 5 ft 11 in 5 ft 11 in Weight: 281 lb BMI 39.2 BP 124/82 H Blood Pressure Location Lt brachial Position Sitting Respiration 16 Pulse 76 Pulse Source Monitor Temp 98.6 F Temp Source Temporal Pulse Oximetry (%) 99 Oxygen Delivery Method room air Intake Visit Reasons: Rescheduled 6 month follow up Hourly Sales Staff Required: No Is patient in pain?: No Allergies bismuth subsalicylate (From Pepto-Bismol) Adverse Reaction (Verified 05/01/25 09:34) Itching clarithromycin Adverse Reaction (Verified 05/01/25 09:34) Itching Medications ?Medication ?Instructions ?Recorded ?Confirmed ?Type cholecalciferol (vitamin D3) 50 50 mcg PO DAILY 05/01/25 History mcg (2,000 unit) capsule coenzyme Q10 75 mg capsule (Ultra 75 mg PO DAILY 12/2405/01/25 History CoQ10) multivitamin 1 tab PO DAILY 12/24/2204/12 History fexofenadine 180 mg tablet 180 mg PO DAILY PRN ALLERGI ES 02/24/24 05/01/25 History (Suzanne Allergy) fluticasone propionate 50 1 spray intranasal BID PRN a llergy 06/19/24 05/01/25 Rx mcg/actuation nasal symptoms #32 grams spray,suspension (Allergy Relief (fluticasone)) lisinopril 20 mg tablet 20 mg PO DAILY #90 tabs 11/0905/01/25 Rx sghkq-f-vrywdbgnsxlmm 450 unit 900 unit PO DAILY PRN i ndigestion 12/19/24 05/01/25 History disintegrating tablet (Beano) glucosamine sulf dipot 1 cap PO BID 12/19/24 History chlr,msm,chond 550 mg-C 30 mg-jeremias 1 mg capsule (Glucosamine Chondroitin) simethicone 250 mg capsule (Gas-X) 250 mg PO QHS PRN a bdominal 12/19/24 05/01/25 History distention allopurinol 300 mg tablet 300 mg PO DAILY #90 tabs 09/0505/01/25 Rx capsaicin 0.033 % topical cream 1 applic topical TID P RN pain 05/01/25 05/01/25 Rx #56.6 grams pantoprazole 40 mg tablet,delayed 40 mg PO QDAY History release Have you fallen in the past year?: Yes (04/15/25- no LT injury) Nurse's Note: Pt got foot stuck in a log 2 weeks ago and fell he had no injury when this happened. flu shot declined. PFSH Medical History Loss of hearing DDD (degenerative disc disease), lumbar DDD (degenerative disc disease), cervical Gastric reflux BiPAP (biphasic positive airway pressure) dependence Non-smoker History of pain when walking History of edema History of stress test Hypertension Arthritis Gout Surgical History History of esophagogastroduodenoscopy (EGD) Hx of lithotripsy Hx of colonoscopy History of surgical procedure H/O cystoscopy S/P arthroscopic surgery of right knee History of cholecystectomy H/O vasectomy Family History Brother Alcohol abuse Father Arthritis CVA (cerebral vascular accident) Mother Arthritis Diabetes Myocardial infarction Other Heart disease Hypertension Social History household members: spouse current occupational status: retired 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 He is up to date on his routine blood work and screening. He doesn't want a flu shot. He doesn't smoke and doesn't need any refills. Overall, he is trying to eat healthy. He reports he has been active around his house. He does check his blood pressure at home occasionally and has brought some for review. It has been in the 110s-120s/70s. He takes his medications as prescribed without problems. He does monitor his salt intake. He reports chronic problems with allergies which is unchanged. He states it is worse in the mornings and tends to clear up as the day goes on. He uses flonasearound 3 times per week which does help. He rarely takes suzanne. He has a history of high uric acid levels. He would get flare ups around his right toe for the most part. He was started on allopurinol and has been taking it as prescribed. He hasn't had any flare ups recently. He has obstructive sleep apnea. He reports he has been wearing his BiPAP every night and has benefitted from its use. He reports his bloating and constipation has been doing better. Since he was last seen, he did undergo an EGD and colonoscopy. He reports that making adjustments to his diet has helped quite a bit. He reports he is taking his protonix once daily which has been helpful. He was told to follow up as needed. He reports his carpal tunnel has been getting worse. He has surgery scheduled for June. Since he was last seen, he did see urology about his kidney stones. He reports that he had a lithotripsy which went well. He denies any further problems. He reports he saw podiatry and was started on antibiotics for a foot infection. He has completed his antibiotics, but states it still looks red. He reports it is warm to touch, but not hot. He denies any open sores or drainage. He has a follow up scheduled for next week to have it reassessed. He states he was also told that he has neuropathy. The patient has concerns about cramps in his calves. It is mostly with laying in bed. He reports often, if he stretches it out, it will go away. He reports he had one episode about a week ago and then a month ago. He reports he tried some electrolyte powder and rubbed his leg, which seemed to help. He reports hedoes drink plenty of water when he works outside. ROS Const Constitutional: Positive for weakness; No body ache, chills, excessive sweating, fatigue, fever(s), frequent falls, headache(s), snoring, weight change, sleep problems or change in appetite Eyes Eyes: No blurry vision, change in vision, eye pain or Light sensitivity ENT ENT: Positive for nasal congestion; No abnormal hearing, ear or mastoid pain, tinnitus, headache(s), neck pain or sore throat Resp Respiratory: Positive for cough; No shortness of breath, snoring or wheezing Cardio Cardiology: Positive for other (mild leg swelling at end of day); No chest pain at rest, chest pain with exertion, excessive sweating, shortness of breath, dyspnea on exertion, lightheadedness, orthopnea or palpitations Gastro GI: No abdominal pain, change in bowel habits, constipation, cramping, diarrhea,nausea/dyspepsia or vomiting Genitourinary Male: No difficulty urinating, burning urination, painful urination, urinary incontinence or urinary frequency Musc Musculoskeletal: Positive for muscle cramps, numbness (feet/legs) and tingling (feet/legs); No abnormal gait, joint pain, back pain, limited range of motion or neck pain Skin Skin: No dry skin, redness, lesions, itchy eyes, rash or wounds Neuro Neurology: Positive for weakness, numbness (feet/legs) and tingling (feet/legs); No abnormal gait, abnormal hearing, dizziness, frequent falls, headache(s), memory loss or fainting Psych Psychiatric: No anxiety, No change in appetite, No depression, No memory loss and No Thoughts of harming yourself/Others Endo Endocrine: No cold intolerance, excessive sweating, fatigue, flushing, heat intolerance, increased thirst/drinking, increased hunger or weight change Aller/Imm Allergy/Immunologic: No itchy eyes, seasonal allergy symptoms, hives or wheezing Michi/Lymp Hematologic/Lymphatic: No easy bleeding, easy bruising, enlarged lymph nodes or other Exam Const General: cooperative, healthy appearing, no acute distress, well developed, not diaphoretic and not ill appearing Nutritional Appearance: well nourished Orientation: alert and oriented x3 Limitations: mental status not altered HENMT Head: normal to inspection, normocephalic and atraumatic Ears: hearing grossly normal bilaterally Mouth: oral mucosae normal and moist mucous membranes Teeth and gingiva: dentition normal Throat: posterior oropharynx normal Eyes Conjunctivae: conjunctivae normal Sclera: sclerae normal Pupils: PERRL Chest Chest palpation & inspection: normal inspection of the chest Resp Effort & Inspection: normal respiratory effort, able to speak in complete sentences, no audible wheezes and no cough Auscultation: Bilateral: Clear to Auscultation Cardio Rate: regular rate Rhythm: regular rhythm Heart Sounds: S1 normal, S2 normal and no murmurs Pulses: dorsalis pedis present bilaterally 2+ GI Auscultation: normal bowel sounds Palpation: soft and nontender Skin General: no rashes or lesions noted and dry skin Wounds: no wounds Neuro General: patient alert and patient oriented x3 Cranial Nerves: PERRL Speech: speech normal Extrem General: no calf tenderness and no edema Other: Left first toe is erythematous. There is no tenderness, increased warmth, fluctuance, open sores or drainage. Psych Appearance: grossly normal Mental Status: mental status grossly normal Affect: normal affect Attitude: cooperative Coding Level of Care Code Off vis,est,level 4 Diagnoses Muscle cramps R25.2 Neuropathy G62.9 Foot infection L08.9 Essential hypertension I10 Obstructive sleep apnea G47.33 Numbness and tingling in both hands R20.0; R20.2 Bloating R14.0 Slow transit constipation K59.01 Constipation type: slow transit constipation Chronic allergic rhinitis J30.9 Osteopenia, unspecified location M85.80 Osteopenia location: unspecified Gout involving toe of right foot, unspecified cause, unspecified chronicity M10.9 Chronicity: unspecified Gout etiology: unspecified cause Gout site: toe Laterality: right Screening for prostate cancer Z12.5 Flu vaccine refused Z28.21 Time Spent (min) 35 Assessment and Plan Assessment and Plan (1) Muscle cramps: Plan: The patient reports a couple of episodes where he woke up with muscle cramps. He used electrolyte powder and massaged the area and it improved. Will get somelabs to assess electrolytes and monitor for now. He denies any symptoms with exercise to suggest vascular disease and has strong pulses. 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 Will try to get those records for review. Discussed an EMG to confirm the diagnosis,but he would like to hold off for now. Discussed a trial of capsaicin cream andhe agreeable to this. Will monitor. (3) Foot infection: Plan: Resolved. I do not see any signs of persistent infection. He has a follow up next week. Will follow up on their findings and recommendations. (4) Essential hypertension: Status: Acute Plan: Patient's blood pressure shows great control today. Will continue current management and monitor. Discussed monitoring salt intake. (5) Obstructive sleep apnea: Status: Acute Plan: Patient has been wearing his BiPAP every night and benefitting from its use. Will continue current management and monitor. (6) Numbness and tingling in both hands: Plan: Patient's EMG showed findings of moderate to severe carpal tunnel. He has surgery scheduled for June. Will continue to monitor. (7) Bloating: Plan: Patient reports his symptoms have been doing better since he was last seen. Will continue to monitor. (8) Constipation: Qualifiers: Constipation type: slow transit constipation Qualified Code(s): K59.01 - Slow transit constipation Plan: As above. Patient feels that his symptoms are doing better. Will continue to monitor. (9) Chronic allergic rhinitis: Status: Chronic Plan: Patient did see ENT who recommended continued monitoring for now. He states overall, they have been manageable. Will continue to monitor. (10) Osteopenia: Qualifiers: Osteopenia location: unspecified Qualified Code(s): M85.80 - Other specified disorders of bone density and structure, unspecified site Plan: Patient's vitamin D is optimized. Will continue to monitor. Consider repeat bone density to reassess levels at his next office visit. (11) Gout: Status: Acute Qualifiers: Chronicity: unspecified Gout etiology: unspecified cause Gout site: toe Laterality: right Qualified Code(s): M10.9 - Gout, unspecified Comment: ON MED Plan: Stable. No recent flares. Will continue current management for now and monitor. (12) Screening for prostate cancer: Plan: Discussed the pros and cons of the PSA. He would like to have it checked. Lab ordered. (13) Flu vaccine refused: Status: Acute Plan: The patient doesn't want a flu shot. The patient is here for a follow up. Plan as above. Medications reviewed with the patient. Routine follow up scheduled. The patient was instructed to call with any concerns or questions before then and they were in agreement. I spent a total of 35 minutes on the date of the service which included preparing to see the patient, [id number] patient care, completing clinical documentation, obtaining and/or reviewing separately obtained history. This excludes separately reportable services. Orders: Orders CBC W/Diff, Automated Today I10 - Essential (primary) hypertension Comprehensive Metabolic Profil Today I10 - Essential (primary) hypertension Magnesium Today I10 - Essential (primary) hypertension PSA,Total - Annual Screen Today Z12.5 - Encounter for screening for malignant neoplasm of prostate Medications: New capsaicin 0.033% do not wash area for at least 30 min after application 1 applic topical TID PRN 56.6 grams 0RF pain Plan Details Follow Up: 6 Months Clinical Quality Measures Falls Risk Screening/Assistive Devices Have you fallen in the past year?: Yes (04/15/25- no LT injury) 05/01/25 1102 <Electronically signed by Marcel bear MD> Date _ Marcel Driscoll MD Cosigner Signature: Date (if applicable) CC: ~ [facility] Work Phone: Reason for referral (narrative)No reason for referral information available[facility] Phone: Family History Grandfather Name Dates Details Family history of malignant neoplasm of stomach(V16.0, Z80.0) Status:Active Family history of stroke(V17 .1, Z82.3) Status:Active Mother Name Dates Details Family history of diabetes m ellitus(V18.0, Z83.3) Status:Active FH: CABG (coronary artery by pass surgery)(V17.3, Z82.49) Status:Active Family history of myocardial infarction(V17.3, Z82.49) Status:Active Family history of dementia(V 17.2, Z81.8) Status:Active Family history of Status:Active Family history of CABG(V17.4 9, Z82.49) Status:Active Father Name Dates Details Family history of renal fail ure(V18.69, Z84.1) Status:Active Family history of stroke(V17 .1, Z82.3) Status:Active Family history of myocardial infarction(V17.3, Z82.49) Status:Active Family history of dementia(V 17.2, Z81.8) Status:Active Family history of Status:Active Brother Name Dates Details Family history of Status:Active Family history of suicide(V1 7.0, Z81.8) Status:Active Grandfather Name Dates Details Family history of malignant neoplasm of stomach(V16.0, Z80.0) Status:Active Family history of stroke(V17 .1, Z82.3) Status:Active Mother Name Dates Details Family history of diabetes m ellitus(V18.0, Z83.3) Status:Active FH: CABG (coronary artery by pass surgery)(V17.3, Z82.49) Status:Active Family history of myocardial infarction(V17.3, Z82.49) Status:Active Family history of dementia(V 17.2, Z81.8) Status:Active Family history of Status:Active Family history of CABG(V17.4 9, Z82.49) Status:Active Father Name Dates Details Family history of renal fail ure(V18.69, Z84.1) Status:Active Family history of myocardial infarction(V17.3, Z82.49) Status:Active Family history of dementia(V 17.2, Z81.8) Status:Active Family history of Status:Active Family history of stroke(V17 .1, Z82.3) Status:Active Brother Name Dates Details Family history of Status:Active Family history of suicide(V1 7.0, Z81.8) Status:Active Grandfather Name Dates Details Family history of malignant neoplasm of stomach(V16.0, Z80.0) Status:Active Family history of stroke(V17 .1, Z82.3) Status:Active Mother Name Dates Details Family history of diabetes m ellitus(V18.0, Z83.3) Status:Active FH: CABG (coronary artery by pass surgery)(V17.3, Z82.49) Status:Active Family history of myocardial infarction(V17.3, Z82.49) Status:Active Family history of dementia(V 17.2, Z81.8) Status:Active Family history of Status:Active Family history of CABG(V17.4 9, Z82.49) Status:Active Father Name Dates Details Family history of renal fail ure(V18.69, Z84.1) Status:Active Family history of myocardial infarction(V17.3, Z82.49) Status:Active Family history of dementia(V 17.2, Z81.8) Status:Active Family history of Status:Active Family history of stroke(V17 .1, Z82.3) Status:Active Brother Name Dates Details Family history of Status:Active Family history of suicide(V1 7.0, Z81.8) Status:Active Grandfather Name Dates Details Family history of malignant neoplasm of stomach(V16.0, Z80.0) Status:Active Family history of stroke(V17 .1, Z82.3) Status:Active Mother Name Dates Details Family history of diabetes m ellitus(V18.0, Z83.3) Status:Active FH: CABG (coronary artery by pass surgery)(V17.3, Z82.49) Status:Active Family history of myocardial infarction(V17.3, Z82.49) Status:Active Family history of dementia(V 17.2, Z81.8) Status:Active Family history of Status:Active Family history of CABG(V17.4 9, Z82.49) Status:Active Father Name Dates Details Family history of renal fail ure(V18.69, Z84.1) Status:Active Family history of myocardial infarction(V17.3, Z82.49) Status:Active Family history of dementia(V 17.2, Z81.8) Status:Active Family history of Status:Active Family history of stroke(V17 .1, Z82.3) Status:Active Brother Name Dates Details Family history of Status:Active Family history of suicide(V1 7.0, Z81.8) Status:Active Grandfather Name Dates Details Family history of malignant neoplasm of stomach(V16.0, Z80.0) Status:Active Family history of stroke(V17 .1, Z82.3) Status:Active Mother Name Dates Details Family history of diabetes m ellitus(V18.0, Z83.3) Status:Active FH: CABG (coronary artery by pass surgery)(V17.3, Z82.49) Status:Active Family history of myocardial infarction(V17.3, Z82.49) Status:Active Family history of dementia(V 17.2, Z81.8) Status:Active Family history of Status:Active Family history of CABG(V17.4 9, Z82.49) Status:Active Father Name Dates Details Family history of renal fail ure(V18.69, Z84.1) Status:Active Family history of myocardial infarction(V17.3, Z82.49) Status:Active Family history of dementia(V 17.2, Z81.8) Status:Active Family history of Status:Active Family history of stroke(V17 .1, Z82.3) Status:Active Brother Name Dates Details Family history of Status:Active Family history of suicide(V1 7.0, Z81.8) Status:Active Grandfather Name Dates Details Family history of malignant neoplasm of stomach(V16.0, Z80.0) Status:Active Family history of stroke(V17 .1, Z82.3) Status:Active Mother Name Dates Details Family history of diabetes m ellitus(V18.0, Z83.3) Status:Active FH: CABG (coronary artery by pass surgery)(V17.3, Z82.49) Status:Active Family history of myocardial infarction(V17.3, Z82.49) Status:Active Family history of dementia(V 17.2, Z81.8) Status:Active Family history of Status:Active Family history of CABG(V17.4 9, Z82.49) Status:Active Father Name Dates Details Family history of renal fail ure(V18.69, Z84.1) Status:Active Family history of myocardial infarction(V17.3, Z82.49) Status:Active Family history of dementia(V 17.2, Z81.8) Status:Active Family history of Status:Active Family history of stroke(V17 .1, Z82.3) Status:Active Brother Name Dates Details Family history of Status:Active Family history of suicide(V1 7.0, Z81.8) Status:Active Grandfather Name Dates Details Family history of malignant neoplasm of stomach(V16.0, Z80.0) Status:Active Family history of stroke(V17 .1, Z82.3) Status:Active Mother Name Dates Details Family history of diabetes m ellitus(V18.0, Z83.3) Status:Active FH: CABG (coronary artery by pass surgery)(V17.3, Z82.49) Status:Active Family history of myocardial infarction(V17.3, Z82.49) Status:Active Family history of dementia(V 17.2, Z81.8) Status:Active Family history of (7 99.9, R99) Status:Active Family history of CABG(V17.4 9, Z82.49) Status:Active Father Name Dates Details Family history of renal fail ure(V18.69, Z84.1) Status:Active Family history of myocardial infarction(V17.3, Z82.49) Status:Active Family history of dementia(V 17.2, Z81.8) Status:Active Family history of (7 99.9, R99) Status:Active Family history of stroke(V17 .1, Z82.3) Status:Active Brother Name Dates Details Family history of (7 99.9, R99) Status:Active Family history of suicide(V1 7.0, Z81.8) Status:Active Grandfather Name Dates Details Family history of malignant neoplasm of stomach(V16.0, Z80.0) Status:Active Family history of stroke(V17 .1, Z82.3) Status:Active Mother Name Dates Details Family history of diabetes m ellitus(V18.0, Z83.3) Status:Active FH: CABG (coronary artery by pass surgery)(V17.3, Z82.49) Status:Active Family history of myocardial infarction(V17.3, Z82.49) Status:Active Family history of dementia(V 17.2, Z81.8) Status:Active Family history of (7 99.9, R99) Status:Active Family history of CABG(V17.4 9, Z82.49) Status:Active Father Name Dates Details Family history of renal fail ure(V18.69, Z84.1) Status:Active Family history of myocardial infarction(V17.3, Z82.49) Status:Active Family history of dementia(V 17.2, Z81.8) Status:Active Family history of (7 99.9, R99) Status:Active Family history of stroke(V17 .1, Z82.3) Status:Active Brother Name Dates Details Family history of (7 99.9, R99) Status:Active Family history of suicide(V1 7.0, Z81.8) Status:Active Grandfather Name Dates Details Family history of malignant neoplasm of stomach(V16.0, Z80.0) Status:Active Family history of stroke(V17 .1, Z82.3) Status:Active Mother Name Dates Details Family history of diabetes m ellitus(V18.0, Z83.3) Status:Active FH: CABG (coronary artery by pass surgery)(V17.3, Z82.49) Status:Active Family history of myocardial infarction(V17.3, Z82.49) Status:Active Family history of dementia(V 17.2, Z81.8) Status:Active Family history of (7 99.9, R99) Status:Active Family history of CABG(V17.4 9, Z82.49) Status:Active Father Name Dates Details Family history of renal fail ure(V18.69, Z84.1) Status:Active Family history of myocardial infarction(V17.3, Z82.49) Status:Active Family history of dementia(V 17.2, Z81.8) Status:Active Family history of (7 99.9, R99) Status:Active Family history of stroke(V17 .1, Z82.3) Status:Active Brother Name Dates Details Family history of (7 99.9, R99) Status:Active Family history of suicide(V1 7.0, Z81.8) Status:Active Grandfather Name Dates Details Family history of malignant neoplasm of stomach(V16.0, Z80.0) Status:Active Family history of stroke(V17 .1, Z82.3) Status:Active Mother Name Dates Details Family history of diabetes m ellitus(V18.0, Z83.3) Status:Active FH: CABG (coronary artery by pass surgery)(V17.3, Z82.49) Status:Active Family history of myocardial infarction(V17.3, Z82.49) Status:Active Family history of dementia(V 17.2, Z81.8) Status:Active Family history of (7 99.9, R99) Status:Active Family history of CABG(V17.4 9, Z82.49) Status:Active Father Name Dates Details Family history of renal fail ure(V18.69, Z84.1) Status:Active Family history of myocardial infarction(V17.3, Z82.49) Status:Active Family history of dementia(V 17.2, Z81.8) Status:Active Family history of (7 99.9, R99) Status:Active Family history of stroke(V17 .1, Z82.3) Status:Active Brother Name Dates Details Family history of (7 99.9, R99) Status:Active Family history of suicide(V1 7.0, Z81.8) Status:Active Unknown Family Member Name Dates Details Family history of diabetes m ellitus: Mother(V18.0, Z83.3) Status:Active FH: CABG (coronary artery by pass surgery): Mother(V17.3, Z82.49) Status:Active Family history of malignant neoplasm of stomach: Paternal Grandfather(V16.0, Z80.0) Status:Active Family history of renal fail ure: Father(V18.69, Z84.1) Status:Active Family history of myocardial infarction: Father, Mother(V17.3, Z82.49) Status:Active Family history of dementia: Father, Mother(V17.2, Z81.8) Status:Active : Father, Mother, Br other Status:Active Family history of CABG: Moth er(V17.49, Z82.49) Status:Active Family history of suicide: Vivian joiner(V17.0, Z81.8) Comments:06/2015; Status:Active Family history of stroke: Fa ther, Paternal Grandfather(V17.1, Z82.3) Status:Active Unknown Family Member Name Dates Details Family history of diabetes m ellitus: Mother(V18.0, Z83.3) Status:Active FH: CABG (coronary artery by pass surgery): Mother(V17.3, Z82.49) Status:Active Family history of malignant neoplasm of stomach: Paternal Grandfather(V16.0, Z80.0) Status:Active Family history of renal fail ure: Father(V18.69, Z84.1) Status:Active Family history of myocardial infarction: Father, Mother(V17.3, Z82.49) Status:Active Family history of dementia: Father, Mother(V17.2, Z81.8) Status:Active : Father, Mother, Br other Status:Active Family history of CABG: Moth er(V17.49, Z82.49) Status:Active Family history of suicide: Vivian joiner(V17.0, Z81.8) Comments:06/2015; Status:Active Family history of stroke: Fa ther, Paternal Grandfather(V17.1, Z82.3) Status:Active Unknown Family Member Name Dates Details Family history of diabetes m ellitus: Mother(V18.0, Z83.3) Status:Active FH: CABG (coronary artery by pass surgery): Mother(V17.3, Z82.49) Status:Active Family history of malignant neoplasm of stomach: Paternal Grandfather(V16.0, Z80.0) Status:Active Family history of renal fail ure: Father(V18.69, Z84.1) Status:Active Family history of myocardial infarction: Father, Mother(V17.3, Z82.49) Status:Active Family history of dementia: Father, Mother(V17.2, Z81.8) Status:Active : Father, Mother, Br other Status:Active Family history of CABG: Moth er(V17.49, Z82.49) Status:Active Family history of suicide: Vivian joiner(V17.0, Z81.8) Comments:06/2015; Status:Active Family history of stroke: Fa ther, Paternal Grandfather(V17.1, Z82.3) Status:Active Unknown Family Member Name Dates Details Family history of diabetes m ellitus: Mother(V18.0, Z83.3) Status:Active FH: CABG (coronary artery by pass surgery): Mother(V17.3, Z82.49) Status:Active Family history of malignant neoplasm of stomach: Paternal Grandfather(V16.0, Z80.0) Status:Active Family history of renal fail ure: Father(V18.69, Z84.1) Status:Active Family history of myocardial infarction: Father, Mother(V17.3, Z82.49) Status:Active Family history of dementia: Father, Mother(V17.2, Z81.8) Status:Active : Father, Mother, Br other Status:Active Family history of CABG: Moth er(V17.49, Z82.49) Status:Active Family history of suicide: Vivian joiner(V17.0, Z81.8) Comments:06/2015; Status:Active Family history of stroke: Fa ther, Paternal Grandfather(V17.1, Z82.3) Status:Active Unknown Family Member Name Dates Details Family history of diabetes m ellitus: Mother(V18.0, Z83.3) Status:Active FH: CABG (coronary artery by pass surgery): Mother(V17.3, Z82.49) Status:Active Family history of malignant neoplasm of stomach: Paternal Grandfather(V16.0, Z80.0) Status:Active Family history of renal fail ure: Father(V18.69, Z84.1) Status:Active Family history of myocardial infarction: Father, Mother(V17.3, Z82.49) Status:Active Family history of dementia: Father, Mother(V17.2, Z81.8) Status:Active : Father, Mother, Br other Status:Active Family history of CABG: Moth er(V17.49, Z82.49) Status:Active Family history of suicide: Vivian tonipaige(V17.0, Z81.8) Comments:06/2015; Status:Active Family history of stroke: Fa ther, Paternal Grandfather(V17.1, Z82.3) Status:Active Unknown Family Member Name Dates Details Family history of diabetes m ellitus: Mother(V18.0, Z83.3) Status:Active FH: CABG (coronary artery by pass surgery): Mother(V17.3, Z82.49) Status:Active Family history of malignant neoplasm of stomach: Paternal Grandfather(V16.0, Z80.0) Status:Active Family history of renal fail ure: Father(V18.69, Z84.1) Status:Active Family history of myocardial infarction: Father, Mother(V17.3, Z82.49) Status:Active Family history of dementia: Father, Mother(V17.2, Z81.8) Status:Active : Father, Mother, Br other Status:Active Family history of CABG: Moth er(V17.49, Z82.49) Status:Active Family history of suicide: Vivian tonipaige(V17.0, Z81.8) Comments:06/2015; Status:Active Family history of stroke: Fa ther, Paternal Grandfather(V17.1, Z82.3) Status:Active Unknown Family Member Name Dates Details Family history of myocardial infarction: Father, Mother(V17.3, Z82.49) Status:Active Family history of dementia: Father, Mother(V17.2, Z81.8) Status:Active : Father, Mother, Br other Status:Active Family history of CABG: Moth er(V17.49, Z82.49) Status:Active Family history of suicide: Vivian marisel(V17.0, Z81.8) Comments:06/2015; Status:Active Family history of stroke: Fa ther, Paternal Grandfather(V17.1, Z82.3) Status:Active Family history of renal fail ure: Father(V18.69, Z84.1) Status:Active Family history of malignant neoplasm of stomach: Paternal Grandfather(V16.0, Z80.0) Status:Active FH: CABG (coronary artery by pass surgery): Mother(V17.3, Z82.49) Status:Active Family history of diabetes m ellitus: Mother(V18.0, Z83.3) Status:Active Unknown Family Member Name Dates Details Family history of diabetes m ellitus: Mother(V18.0, Z83.3) Status:Active FH: CABG (coronary artery by pass surgery): Mother(V17.3, Z82.49) Status:Active Family history of malignant neoplasm of stomach: Paternal Grandfather(V16.0, Z80.0) Status:Active Family history of renal fail ure: Father(V18.69, Z84.1) Status:Active Family history of myocardial infarction: Father, Mother(V17.3, Z82.49) Status:Active Family history of dementia: Father, Mother(V17.2, Z81.8) Status:Active : Father, Mother, Br other Status:Active Family history of CABG: Moth er(V17.49, Z82.49) Status:Active Family history of suicide: Vivian joiner(V17.0, Z81.8) Comments:06/2015; Status:Active Family history of stroke: Fa ther, Paternal Grandfather(V17.1, Z82.3) Status:Active Unknown Family Member Name Dates Details : Father, Mother, Br other Status:Active Family history of CABG: Moth er(V17.49, Z82.49) Status:Active Family history of suicide: Vivian tonipaige(V17.0, Z81.8) Comments:06/2015; Status:Active Family history of stroke: Fa ther, Paternal Grandfather(V17.1, Z82.3) Status:Active Family history of dementia: Father, Mother(V17.2, Z81.8) Status:Active Family history of myocardial infarction: Father, Mother(V17.3, Z82.49) Status:Active Family history of renal fail ure: Father(V18.69, Z84.1) Status:Active Family history of malignant neoplasm of stomach: Paternal Grandfather(V16.0, Z80.0) Status:Active FH: CABG (coronary artery by pass surgery): Mother(V17.3, Z82.49) Status:Active Family history of diabetes m ellitus: Mother(V18.0, Z83.3) Status:Active Unknown Family Member Name Dates Details Family history of myocardial infarction: Father, Mother(V17.3, Z82.49) Status:Active Family history of dementia: Father, Mother(V17.2, Z81.8) Status:Active : Father, Mother, Br other Status:Active Family history of CABG: Moth er(V17.49, Z82.49) Status:Active Family history of suicide: Vivian tonipaige(V17.0, Z81.8) Comments:06/2015; Status:Active Family history of stroke: Fa ther, Paternal Grandfather(V17.1, Z82.3) Status:Active Family history of renal fail ure: Father(V18.69, Z84.1) Status:Active Family history of malignant neoplasm of stomach: Paternal Grandfather(V16.0, Z80.0) Status:Active FH: CABG (coronary artery by pass surgery): Mother(V17.3, Z82.49) Status:Active Family history of diabetes m ellitus: Mother(V18.0, Z83.3) Status:Active Unknown Family Member Name Dates Details Family history of diabetes m ellitus: Mother(V18.0, Z83.3) Status:Active FH: CABG (coronary artery by pass surgery): Mother(V17.3, Z82.49) Status:Active Family history of malignant neoplasm of stomach: Paternal Grandfather(V16.0, Z80.0) Status:Active Family history of renal fail ure: Father(V18.69, Z84.1) Status:Active Family history of myocardial infarction: Father, Mother(V17.3, Z82.49) Status:Active Family history of dementia: Father, Mother(V17.2, Z81.8) Status:Active : Father, Mother, Br other Status:Active Family history of CABG: Moth er(V17.49, Z82.49) Status:Active Family history of suicide: B rother(V17.0, Z81.8) Comments:06/2015; Status:Active Family history of stroke: Fa ther, Paternal Grandfather(V17.1, Z82.3) Status:Active Unknown Family Member Name Dates Details Family history of dementia: Father, Mother(V17.2, Z81.8) Status:Active : Father, Mother, Br other Status:Active Family history of CABG: Moth er(V17.49, Z82.49) Status:Active Family history of suicide: B rother(V17.0, Z81.8) Comments:06/2015; Status:Active Family history of stroke: Fa ther, Paternal Grandfather(V17.1, Z82.3) Status:Active Family history of myocardial infarction: Father, Mother(V17.3, Z82.49) Status:Active Family history of renal fail ure: Father(V18.69, Z84.1) Status:Active Family history of malignant neoplasm of stomach: Paternal Grandfather(V16.0, Z80.0) Status:Active FH: CABG (coronary artery by pass surgery): Mother(V17.3, Z82.49) Status:Active Family history of diabetes m ellitus: Mother(V18.0, Z83.3) Status:Active Unknown Family Member Name Dates Details Family history of diabetes m ellitus: Mother(V18.0, Z83.3) Status:Active FH: CABG (coronary artery by pass surgery): Mother(V17.3, Z82.49) Status:Active Family history of malignant neoplasm of stomach: Paternal Grandfather(V16.0, Z80.0) Status:Active Family history of renal fail ure: Father(V18.69, Z84.1) Status:Active Family history of myocardial infarction: Father, Mother(V17.3, Z82.49) Status:Active Family history of dementia: Father, Mother(V17.2, Z81.8) Status:Active : Father, Mother, Br other Status:Active Family history of CABG: Moth er(7.49, Z82.49) Status:Active Family history of suicide: Vivian joiner(V17.0, Z81.8) Comments:06/2015; Status:Active Family history of stroke: Fa ther, Paternal Grandfather(V17.1, Z82.3) Status:Active Unknown Family Member Name Dates Details Family history of diabetes m ellitus: Mother(V18.0, Z83.3) Status:Active FH: CABG (coronary artery by pass surgery): Mother(V17.3, Z82.49) Status:Active Family history of malignant neoplasm of stomach: Paternal Grandfather(V16.0, Z80.0) Status:Active Family history of renal fail ure: Father(V18.69, Z84.1) Status:Active Family history of myocardial infarction: Father, Mother(V17.3, Z82.49) Status:Active Family history of dementia: Father, Mother(V17.2, Z81.8) Status:Active : Father, Mother, Br other Status:Active Family history of CABG: Moth er(7.49, Z82.49) Status:Active Family history of suicide: Vivian joiner(V17.0, Z81.8) Comments:06/2015; Status:Active Family history of stroke: Fa ther, Paternal Grandfather(V17.1, Z82.3) Status:Active Unknown Family Member Name Dates Details Family history of diabetes m ellitus: Mother(V18.0, Z83.3) Status:Active FH: CABG (coronary artery by pass surgery): Mother(V17.3, Z82.49) Status:Active Family history of malignant neoplasm of stomach: Paternal Grandfather(V16.0, Z80.0) Status:Active Family history of renal fail ure: Father(V18.69, Z84.1) Status:Active Family history of myocardial infarction: Father, Mother(V17.3, Z82.49) Status:Active Family history of dementia: Father, Mother(V17.2, Z81.8) Status:Active : Father, Mother, Br other Status:Active Family history of CABG: Moth er(V17.49, Z82.49) Status:Active Family history of suicide: Vivian joiner(V17.0, Z81.8) Comments:06/2015; Status:Active Family history of stroke: Fa ther, Paternal Grandfather(V17.1, Z82.3) Status:Active Unknown Family Member Name Dates Details Family history of dementia: Father, Mother(V17.2, Z81.8) Status:Active : Father, Mother, Br other Status:Active Family history of stroke: Fa ther, Paternal Grandfather(V17.1, Z82.3) Status:Active Family history of suicide: Vivian joiner(V17.0, Z81.8) Comments:06/2015; Status:Active Family history of CABG: Moth er(7.49, Z82.49) Status:Active Family history of myocardial infarction: Father, Mother(V17.3, Z82.49) Status:Active Family history of renal fail ure: Father(V18.69, Z84.1) Status:Active Family history of malignant neoplasm of stomach: Paternal Grandfather(V16.0, Z80.0) Status:Active FH: CABG (coronary artery by pass surgery): Mother(V17.3, Z82.49) Status:Active Family history of diabetes m ellitus: Mother(V18.0, Z83.3) Status:Active Relationship Condition Age at Onset Recorded Date/T joey Not Specified Cardiac disease Unknown Hypertension Unknown brother Alcohol abuse Unknown father Arthritis Unknown Cerebrovascular accident (CVA) Unknown mother Arthritis Unknown Diabetes mellitus Unknown Myocardial infarction Unknown Summary Purpose Advance Directives Advance Directive Response Recorded Date/ Time Living Will No February 09, 2024 10:11am Power of Child Nutrition Assistant No February 08 10:11am Advance Directive Response Recorded Date/ Time Living Will No February 09, 2024 10:11am Do you have a Healthcare Power of Child Nutrition Assistant? No February 09, 2024 10:11am Advance Directive Response Recorded Date/ Time Do you have a Healthcare Power of Child Nutrition Assistant? Yes December 19, 2024 11:52am Advance Directive Response Recorded Date/ Time Do you have a Healthcare Power of Child Nutrition Assistant? Yes February 27, 2025 3:25pm Do you have a Healthcare Power of Child Nutrition Assistant? Yes December 19, 2024 11:52am Advance Directive Response Recorded Date/ Time Do you have a Healthcare Power of Child Nutrition Assistant? Yes February 27, 2025 2:25pm Chief Complaint Pt is here for a follow up and Medicare WellnessPt is here for a follow up and Medicare WellnessPt is here for a follow up and Medicare WellnessPt is here for a follow up and Medicare Wellness* RYAN ZHANG is here for a follow-up for . * Pt is here for a 6 month follow up on gout,Hypertension * RYAN ZHANG is here for a follow-up for . * Pt is here for a 6 month follow up on gout,Hypertension * Pt is here for a Medicare Wellness * Pt was given consent form and brochure * Pt is here for a Medicare Wellness * Pt was given consent form and brochure 6 month f/u htn, gout, discuss balance issue6 month f/u htn, gout, discuss balance issue6 month f/u htn, gout, discuss balance issue Medications Administered Section Inactive Administered Medications - up to 3 most recent administrations Medication Order MAR Action Action Date Dose Rate Site keTORolac 30 mg injection (Toradol) 30 mg, INTRAMUSCULAR, ONCE, 1 dose, On 12/12/22 at 1330, Ketorolac (Toradol) is indicated for the short-term (up to 5 days) management of moderately severe acute pain. Continuation of ketorolac (Toradol) beyond 5 days increases the risk of developing serious adverse events. Please verify the duration of therapy for ketorolac (Toradol), If ordered PRN for pain, patient/guardian may elect to receive this medication for higher pain levels INSTEAD of the opioid, if preferred: Yes Given 12/12/2022 2:37 PM EDT 30 mg Hip, Left Chief Complaint and Reason for Visit Chief Complaint 6 m fu OBSTRUCTIVE SLEEP APNEA DROP FOOT/RX HERE Reason for Visit Essential hypertensi on Gout Obstructive sleep apnea Chronic allergic rhinitis Chronic pain of both knees Balance problem Flat foot Fall Chief Complaint Admit Date July 18, 2024 8: 39am CONCERN FOR PINCHED NERVE IN NECK 2024 2:23pm FU August 23, 2024 8:35am PRE-COLON September 05, 2024 10:30am BLOATING, PAIN September 13, 2024 8:01 am R20.2 - Paresthesia of skin September 13 12:26pm Reason for Visit Admit Date Back pain July 18, 2024 8: 39am BPPV (benign paroxysmal positional verti go) July 18, 2024 8:39am Essential hypertension July 18, 2024 8:39am Gout July 18, 2024 8: 39am Obstructive sleep apnea July 18 8:39am Chronic allergic rhinitis July 18 8:39am Acute URI July 18, 2024 8: 39am Influenza vaccination declined July [id number] 8:39am Bloating July 18, 2024 8: 39am Chronic pain of both knees July 18, 2024 8:39am Balance problem July 18, 2024 8: 39am Constipation July 18, 2024 8: 39am Neck pain August 14, 2024 2 :23pm Mid back pain August 23, 2024 8:35am Lymphadenopathy August 23, 2024 8:35am Bloating August 23, 2024 8:35am Numbness and tingling in both hands Febr uary 2024 8:35am Sense of smell altered August 23 8:35am Constipation August 23, 2024 8:35am Abdominal bloating September 05, 2024 10:30am Chief Complaint Admit Date July 18, 2024 8: 39am CONCERN FOR PINCHED NERVE IN NECK 2024 2:23pm FU August 23, 2024 8:35am PRE-COLON September 05, 2024 10:30am BLOATING, PAIN September 13, 2024 8:01 am R20.2 - Paresthesia of skin September 13 025 12:26pm BI-PAP FU October 04, 2024 8:3 2am Reason for Visit Admit Date Back pain July 18, 2024 8: 39am BPPV (benign paroxysmal positional verti go) July 18, 2024 8:39am Essential hypertension July 18, 2024 8:39am Gout July 18, 2024 8: 39am Obstructive sleep apnea July 18 8:39am Chronic allergic rhinitis July 18 8:39am Acute URI July 18, 2024 8: 39am Influenza vaccination declined July [id number] 8:39am Bloating July 18, 2024 8: 39am Chronic pain of both knees July 18, 2024 8:39am Balance problem July 18, 2024 8: 39am Constipation July 18, 2024 8: 39am Neck pain August 14, 2024 2 :23pm Mid back pain August 23, 2024 8:35am Lymphadenopathy August 23, 2024 8:35am Bloating August 23, 2024 8:35am Numbness and tingling in both hands Febr [id number] 8:35am Sense of smell altered August 23 8:35am Constipation August 23, 2024 8:35am Abdominal bloating September 05, 2024 10:30am Essential hypertension October 04, 2024 8:32am Gout October 04, 2024 8:3 2am Obstructive sleep apnea October 04, 2024 8:32am Chronic allergic rhinitis October 04 8:32am Mid back pain October 04, 2024 8:3 2am Screening for cardiovascular condition M arch 2024 8:32am Kidney stones October 04, 2024 8:3 2am Osteopenia October 04, 2024 8:3 2am Bloating October 04, 2024 8:3 2am Numbness and tingling in both hands Ric h 2024 8:32am Right flank pain October 04, 2024 8:3 2am Constipation October 04, 2024 8:3 2am Chief Complaint Admit Date CONCERN FOR PINCHED NERVE IN NECK 2024 2:23pm FU August 23, 2024 8:35am PRE-COLON September 05, 2024 10:30am BLOATING, PAIN September 13, 2024 8:01 am R20.2 - Paresthesia of skin September 13 025 12:26pm BI-PAP FU October 04, 2024 8:3 2am GAS November 22, 2024 9:09a m Reason for Visit Admit Date Neck pain August 14, 2024 2 :23pm Mid back pain August 23, 2024 8:35am Lymphadenopathy August 23, 2024 8:35am Bloating August 23, 2024 8:35am Numbness and tingling in both hands Febr 2024 8:35am Sense of smell altered August 23 8:35am Constipation August 23, 2024 8:35am Abdominal bloating September 05, 2024 10:30am Essential hypertension October 04, 2024 8:32am Gout October 04, 2024 8:3 2am Obstructive sleep apnea October 04, 2024 8:32am Chronic allergic rhinitis October 04 8:32am Mid back pain October 04, 2024 8:3 2am Screening for cardiovascular condition [facility] 2024 8:32am Kidney stones October 04, 2024 8:3 2am Osteopenia October 04, 2024 8:3 2am Bloating October 04, 2024 8:3 2am Numbness and tingling in both hands [facility] 2024 8:32am Right flank pain October 04, 2024 8:3 2am Constipation October 04, 2024 8:3 2am Chief Complaint Admit Date FU August 23, 2024 8:35am PRE-COLON September 05, 2024 10:30am BLOATING, PAIN September 13, 2024 8:01 am R20.2 - Paresthesia of skin September 13 025 12:26pm BI-PAP FU October 04, 2024 8:3 2am GAS November 22, 2024 9:09a m Reason for Visit Admit Date Mid back pain August 23, 2024 8:35am Lymphadenopathy August 23, 2024 8:35am Bloating August 23, 2024 8:35am Numbness and tingling in both hands Febr 2024 8:35am Sense of smell altered August 23 8:35am Constipation August 23, 2024 8:35am Abdominal bloating September 05, 2024 10:30am Essential hypertension October 04, 2024 8:32am Gout October 04, 2024 8:3 2am Obstructive sleep apnea October 04, 2024 8:32am Chronic allergic rhinitis October 04 8:32am Mid back pain October 04, 2024 8:3 2am Screening for cardiovascular condition M arch 2024 8:32am Kidney stones October 04, 2024 8:3 2am Osteopenia October 04, 2024 8:3 2am Bloating October 04, 2024 8:3 2am Numbness and tingling in both hands Ric h 2024 8:32am Right flank pain October 04, 2024 8:3 2am Constipation October 04, 2024 8:3 2am Abdominal bloating November 22, 2024 9:09a m Abdominal bloating December 21, 2024 7:59 am Encounter for screening for malignant ne oplasm of colon December 21, 2024 7:59am Gastric reflux December 21, 2024 7:59 am Chief Complaint Admit Date GAS November 22, 2024 9:09a m Reason for Visit Admit Date Abdominal bloating November 22, 2024 9:09a m Abdominal bloating December 21, 2024 7:59 am Encounter for screening for malignant ne oplasm of colon December 21, 2024 7:59am Gastric reflux December 21, 2024 7:59 am Abdominal bloating March 01, 2025 9: 32am Duodenal mass March 01, 2025 9: 32am Chief Complaint Admit Date Rescheduled 6 month follow up May [id number] 9:32am Reason for Visit Admit Date Abdominal bloating March 01, 2025 9: 32am Duodenal mass March 01, 2025 9: 32am Essential hypertension May 01 9:32am Flu vaccine refused May 01, 2025 9 :32am Gout May 01, 2025 9 :32am Obstructive sleep apnea May 01 9:32am Chronic allergic rhinitis May 01, 2025 9:32am Screening for prostate cancer May [id number] 9:32am Muscle cramps May 01, 2025 9 :32am Osteopenia May 01, 2025 9 :32am Neuropathy May 01, 2025 9 :32am Bloating May 01, 2025 9 :32am Foot infection May 01, 2025 9 :32am Numbness and tingling in both hands Octo 2024 9:32am Constipation May 01, 2025 9 :32am Additional Source Comments (unrecognized sect ion and content) No Status Records FoundNo Status Records FoundNo Status Records FoundNo Status Records FoundNo Status Records FoundNo Status Records FoundNo Status Records FoundNo Status Records FoundNo Status Records Found INFORMATION SOURCE (unrecogn ized section and content) DATE CREATED AUTHOR 04/24/2020 [facility] DATE CREATED AUTHOR AUTHOR'S ORGANIZ ATION 04/14/2022 [facility] DATE CREATED AUTHOR AUTHOR'S ORGANIZ ATION 09/15/2022 [employer] DATE CREATED AUTHOR AUTHOR'S ORGANIZ ATION 10/17/2022 [facility] DATE CREATED AUTHOR AUTHOR'S ORGANIZ ATION 10/18/2022 [facility] DATE CREATED AUTHOR AUTHOR'S ORGANIZ ATION 02/16/2023 [facility] DATE CREATED AUTHOR AUTHOR'S ORGANIZ ATION 04/13/2023 [facility] DATE CREATED AUTHOR AUTHOR'S ORGANIZ ATION 10/21/2024 [facility] DATE CREATED AUTHOR AUTHOR'S ORGANIZ ATION 05/10/2025 [facility] Source Comments (unrecognize d section and content) In the event this informatio n is protected by the Federal Confidentiality of Alcohol and Drug Abuse Patient Records regulations: The Federal rules restrict any use of the information to criminally investigate or prosecute any alcohol or drug abuse patient.[facility] the event this information is protected by the Federal Confidentiality of Alcohol and Drug Abuse Patient Records regulations: The Federal rules restrict any use of the information to criminally investigate or prosecute any alcohol or drug abuse patient.[facility] Care Teams (unrecognized sec tion and content) Surveyor Helper Relationship Specialty Start Date End Date Jl Sheth MD PCP - General Family Medicine 02/19/16 Team Status: Active Member Role Status Dates Dr. Jl Sheth MD Primary Care Provider Active Team Status: Inactive Member Role Status Dates Dr. Jl Sheth MD Primary Care Provider, Attending Provider Active Surveyor Helper Relationship Specialty Start Date End Date Jl Sheth MD PCP - General Family Medicine 02/19/16 Surveyor Helper Relationship Specialty Start Date End Date Jl Sheth MD [address] [place] [address], [address] [place] [address] PCP - General 03/24/12 Felicita Murray DO [address] [place] [address], [address] [place] [address] PCP - MSSP ACO Attributed Provider 01/09/23 Team Status: Active Member Role Status Dates Dr. Marcel Driscoll MD Primary Care Provider Active Team Status: Inactive Member Role Status Dates Dr. Marcel Driscoll MD Primary Care Pro vider, Attending Provider, Referring Provider Active Team Status: Active Member Role Status Dates Dr. Marcel Driscoll MD Primary Care Provider Active Dr. Niurka Lopes DPM Attending Provider, Referring Pr ovider Active Surveyor Helper Relationship Specialty Start Date End Date Jl Sheth MD [address] [place] [address], [address] [place] [address] PCP - General 03/24/12 Jl Sheth MD [address] [facility], [address] [place] [address] PCP - MSSP ACO Attributed Provider 10/10/21 Team Status: Inactive Member Role Status Dates Dr. Marcel Driscoll MD Primary Care Provider Active Start: July 18, 2024 End: July 18, 2024 Dr. Marcel Driscoll MD Attending Provider Active Start: July 18, 2024 End: July 18, 2024 Dr. Marcel Driscoll MD Referring Provider Active Start: July 18, 2024 End: July 18, 2024 Team Status: Inactive Member Role Status Dates Dr. Marcel Driscoll MD Primary Care Provider Active Start: August 14, 2024 End: August 14, 2024 Dr. Marcel Dricsoll MD Attending Provider Active Start: August 14, 2024 End: August 14, 2024 Dr. Marcel Driscoll MD Referring Provider Active Start: August 14, 2024 End: August 14, 2024 Team Status: Inactive Member Role Status Dates Dr. Marcel Driscoll MD Primary Care Provider Active Start: August 14, 2024 End: August 14, 2024 Dr. Marcel Driscoll MD Referring Provider Active Start: August 14, 2024 End: August 14, 2024 Ryan Maurer [employer] [employer] [facility] Attending Provider Active S tart: August 14, 2024 End: August 14, 2024 Team Status: Inactive Member Role Status Dates Dr. Marcel Driscoll MD Primary Care Provider Active Start: August 23, 2024 End: August 23, 2024 Dr. Marcel Driscoll MD Attending Provider Active Start: August 23, 2024 End: August 23, 2024 Dr. Marcel Driscoll MD Referring Provider Active Start: August 23, 2024 End: August 23, 2024 Team Status: Inactive Member Role Status Dates Dr. Marcel Driscoll MD Primary Care Provider Active Start: September 05, 2024 End: September 05, 2024 Dr. Marcel Driscoll MD Referring Provider Active Start: September 05, 2024 End: September 05, 2024 ELVIA Persaud Attending Provider Active Start: September 05, 2024 End: September 05, 2024 Team Status: Inactive Member Role Status Dates Dr. Marcel Driscoll MD Primary Care Provider Active Start: September 13, 2024 End: September 13, 2024 Dr. Marcel Driscoll MD Attending Provider Active Start: September 13, 2024 End: September 13, 2024 Dr. Marcel Driscoll MD Referring Provider Active Start: September 13, 2024 End: September 13, 2024 Team Status: Active Member Role Status Dates Dr. Marcel Driscoll MD Primary Care Provider Active Start: September 13, 2024 Dr. Marcel Driscoll MD Referring Provider Active Start: September 13, 2024 Dr. Marcel Driscoll MD Other Provider Active St art: September 13, 2024 Dr. Major Govea MD Attending Provider Active S tart: September 13, 2024 Team Status: Inactive Member Role Status Dates Dr. Marcel Driscoll MD Primary Care Provider Active Start: October 04, 2024 End: October 04, 2024 Dr. Marcel Driscoll MD Attending Provider Active Start: October 04, 2024 End: October 04, 2024 Dr. Marcel Driscoll MD Referring Provider Active Start: October 04, 2024 End: October 04, 2024 Team Status: Inactive Member Role Status Dates Dr. Marcel Driscoll MD Primary Care Provider Active Start: October 09, 2024 End: October 09, 2024 Dr. Bryson Montoya MD Attending Provider Active Start: October 09, 2024 End: October 09, 2024 Dr. Bryson Montoya MD Referring Provider Active Start: October 09, 2024 End: October 09, 2024 Team Status: Inactive Member Role Status Dates Dr. Marcel Driscoll MD Primary Care Provider Active Start: November 22, 2024 End: November 22, 2024 Dr. Marcel Driscoll MD Referring Provider Active Start: November 22, 2024 End: November 22, 2024 ELVIA Persaud Attending Provider Active Start: November 22, 2024 End: November 22, 2024 Team Status: Inactive Member Role Status Dates Dr. Marcel Driscoll MD Primary Care Provider Active Start: December 21, 2024 End: December 21, 2024 Dr. Marcel Driscoll MD Referring Provider Active Start: December 21, 2024 End: December 21, 2024 Dr. Chris Rm DO Attending Provider Active Start: December 21, 2024 End: December 21, 2024 Team Status: Active Member Role Status Dates Dr. Marcel Driscoll MD Primary Care Provider Active Start: December 21, 2024 Dr. Marcel Driscoll MD Referring Provider Active Start: December 21, 2024 Dr. Chris Rm DO Attending Provider Active Start: December 21, 2024 Dr. Chris Rm DO Other Provider Active St art: December 21, 2024 Team Status: Active Member Role/Relationship Status Dates Dr. Marcel Driscoll MD Primary Care Provider Active Team Status: Inactive Member Role/Relationship Status Dates Dr. Marcel Driscoll MD Primary Care Provider Active Start: November 22, 2024 End: November 22, 2024 Dr. Marcel Driscoll MD Referring Provider Active Start: November 22, 2024 End: November 22, 2024 ELVIA Persaud Attending Provider Active Start: November 22, 2024 End: November 22, 2024 Team Status: Inactive Member Role/Relationship Status Dates Dr. Marcel Driscoll MD Primary Care Provider Active Start: December 21, 2024 End: December 21, 2024 Dr. Marcel Driscoll MD Referring Provider Active Start: December 21, 2024 End: December 21, 2024 Dr. Chris Rm DO Attending Provider Active Start: December 21, 2024 End: December 21, 2024 Team Status: Active Member Role/Relationship Status Dates Dr. Marcel Driscoll MD Primary Care Provider Active Start: December 21, 2024 Dr. Marcel Driscoll MD Referring Provider Active Start: December 21, 2024 Dr. Chris Rm DO Attending Provider Active Start: December 21, 2024 Dr. Chris Rm DO Other Provider Active St art: December 21, 2024 Team Status: Inactive Member Role/Relationship Status Dates Dr. Marcel Driscoll MD Primary Care Provider Active Start: March 01, 2025 End: March 01, 2025 Dr. Marcel Driscoll MD Referring Provider Active Start: March 01, 2025 End: March 01, 2025 Dr. Chris Rm DO Attending Provider Active Start: March 01, 2025 End: March 01, 2025 Team Status: Active Member Role/Relationship Status Dates Dr. Marcel Driscoll MD Primary Care Provider Active Start: March 01, 2025 Dr. Marcel Driscoll MD Referring Provider Active Start: March 01, 2025 Dr. Chris Rm DO Attending Provider Active Start: March 01, 2025 Dr. Chris Rm DO Other Provider Active St art: March 01, 2025 Team Status: Active Member Role/Relationship Status Dates Dr. Marcel Driscoll MD Primary care physician Active Team Status: Inactive Member Role/Relationship Status Dates Dr. aMrcel Driscoll MD Primary care physician Active Start: March 01, 2025 End: March 01, 2025 Dr. Marcel Driscoll MD Referring Provider Active Start: March 01, 2025 End: March 01, 2025 Dr. Chris Rm DO Attending physician Active Start: March 01, 2025 End: March 01, 2025 Team Status: Active Member Role/Relationship Status Dates Dr. Marcel Driscoll MD Primary care physician Active Start: March 01, 2025 Dr. Marcel Driscoll MD Referring Provider Active Start: March 01, 2025 Dr. Chris Rm DO Attending physician Active Start: March 01, 2025 Dr. Chris Rm DO Nurse Practitioner Active Start: March 01, 2025 Team Status: Inactive Member Role/Relationship Status Dates Dr. Marcel Driscoll MD Primary care physician Active Start: May 01, 2025 End: May 01, 2025 Dr. Marcel Driscoll MD Attending physician Active Start: May 01, 2025 End: May 01, 2025 Dr. Marcel Driscoll MD Referring Provider Active Start: May 01, 2025 End: May 01, 2025 Team Status: Inactive Member Role/Relationship Status Dates Dr. Marcel Driscoll MD Primary care physician Active Start: May 01, 2025 End: May 01, 2025 Dr. Marcel Driscoll MD Attending physician Active Start: May 01, 2025 End: May 01, 2025 Dr. Marcel Driscoll MD Referring Provider Active Start: May 01, 2025 End: May 01, 2025 Goals (unrecognized section and content) Goals may be documented in a n alternate sectionGoals may be documented in an alternate sectionGoals may be documented in an alternate sectionGoals may be documented in an alternate sectionGoals may be documented in an alternate section Reason for Visit (unrecogniz ed section and content) Reason Comments Pain Right side under rib s, shoots around to middle of back. Twisting movement is very painful Reason Comments Error (VOID this visit) Reason Comments UTI Possible UTI FOR RECORDS PERTAINING TO PATIENTS WHO ARE OR HAVE BEEN ENROLLED IN A CHEMICAL DEPENDENCY/SUBSTANCEABUSE PROGRAM, SOME INFORMATION MAY BE OMITTED. This clinical summary was aggregated from multiple sources. Caution should be exercised in using it in the provision of clinical care. This summary normalizes information from multiple sources, and as a consequence, information in this document may materially change the coding, format and clinical context of patient data. In addition, data may be omitted in some cases. CLINICAL DECISIONS SHOULD BE BASED ON THE PRIMARY CLINICAL RECORDS. [employer] provides no warranty or guarantee of the accuracy or completeness of information in this document.
== END | disposition home or self-care (01) ==
LOC: PSN 08:18
PROVIDERS: PCP Internal Medicine; Referring Provider Student in an Organized Health Care Education/Training Program; Visit Provider Student in an Organized Health Care Education/Training Program
DX: Z01.810 Encounter for preprocedural cardiovascular examination (principal)
CPT/HCPCS: 93005